=== PATIENT | male | born 1945 | race Caucasian/White ===

== ENCOUNTER 2021-11-27 20:39 | Emergency (ER) | payer OTHER, SELFPAY ==
--- NOTE | ~2021-11-27 | CT_ITS ---
EXAMINATION: CT ANGIOGRAM OF THE CHEST WITH AND WITHOUT CONTRAST (CT PULMONARY ANGIOGRAM FOR PE) CLINICAL INFORMATION: Reason for Exam sob with elevated D dimer with recent covid COMPARISON: Chest x-ray 11/27/2021 TECHNIQUE: Prior to contrast administration, noncontrast localization images were obtained. Subsequently, multidetector volumetric imaging was performed from the thoracic inlet to below the diaphragms following the administration of 65 mL Omnipaque 350 intravenous contrast. No contrast reaction reported Sagittal, coronal, and MIP oblique sagittal reformatted images were obtained on the CT workstation, uploaded to PACS, and reviewed. This CT examination was performed using dose optimization techniques as appropriate, variously including the following: *Automated exposure control *Adjustment of mA and/or kV according to patient size (this includes techniques or standardized protocols for targeted exams where dose is matched to indication/reason for exam; i.e. extremities or head) *Use of iterative reconstruction technique Total exam dose-length product 245 mGy-cm FINDINGS: QUALITY OF STUDY/CONTRAST BOLUS: Satisfactory. PULMONARY ARTERIES: No central or segmental pulmonary emboli. THORACIC AORTA: No aneurysm or dissection. There is atherosclerotic calcification along the aorta. LUNG: There is extensive emphysema with upper lung zone predominance. There are extensive multifocal regions of consolidation bilaterally with mid to lower lung zone predominance. There is limited assessment for superimposed pulmonary nodules in this setting. PLEURA: Trace pleural effusions. No pneumothorax. MEDIASTINUM: Visualized thyroid gland is grossly unremarkable. Borderline enlarged subcarinal lymph node, nonspecific. Cardiac size is within normal limits; no pericardial effusion. Coronary artery calcifications are present. CHEST WALL/AXILLA: No axillary or internal mammary lymphadenopathy. OSSEOUS STRUCTURES: Mild multilevel degenerative changes are present in the spine. UPPER ABDOMEN: Left kidney is not visualized. No reflux of contrast into the hepatic veins to suggest elevated right heart pressures. CT/CT angio chest PE protocol IMPRESSION: 1. No pulmonary embolus identified. 2. Extensive multifocal regions of consolidation in the mid to lower lungs. Considerations include multifocal pneumonia or pulmonary edema in the proper clinical setting. 3. Trace pleural effusions. 4. Left kidney is not visualized; correlation recommended for history of prior nephrectomy. VTE: negative
--- NOTE | ~2021-11-27 | XR_ITS ---
EXAMINATION: PORTABLE CHEST 1 VIEW CLINICAL INFORMATION: sob . COMPARISON: No recent pertinent prior studies are available for comparison. TECHNIQUE: Portable frontal view of the chest was obtained. FINDINGS: Lungs are well expanded. Patchy bilateral airspace disease is seen more so at the right greater than left bases. In the acute setting infectious etiology would be strongly suspected. Asymmetric edema considered less likely. No significant effusion or pneumothorax. Cardiac and mediastinal silhouettes within normal limits for size. Vascular calcification seen in the aorta. No acute bony abnormality. XR/XR chest 1V IMPRESSION: Patchy bilateral airspace disease right more so the left. In the acute setting atypical or viral infectious etiology would be favored.
[2021-11-27 20:45] VITALS: BP 105/59; PULSE 132; RESP 39; O2SAT 86; BMI 18.8
--- NOTE | 2021-11-27 20:52 | ECG_ITS ---
Test Reason : SOB Blood Pressure : / mmHG Vent. Rate : 143 BPM Atrial Rate : 143 BPM P-R Int : 192 ms QRS Dur : 088 ms QT Int : 184 ms P-R-T Axes : 000 026 217 degrees QTc Int : 283 ms Sinus tachycardia with Premature atrial complexes versus multifocal atrial tachycardia ST & T wave abnormality, consider inferior ischemia ST & T wave abnormality, consider anterior ischemia Abnormal ECG No previous ECGs available Referred By: Wilman Carver Electronically Signed By:GERARD HOOVER MD
[2021-11-27] MEDS: 0.9 % Sodium Chloride 1,000 ML 999 ML IV (21:01)
[2021-11-27] MEDS: methylPREDNISolone Sod Succ 125 MG/2 ML VIAL IVPUSH (21:01)
[2021-11-27] MEDS: Albuterol/Iprat 2.5/0.5MG 3 ML AMPUL.NEB INHALE (21:04)
[2021-11-27] MEDS: Albuterol Sulfate (0.083%) 2.5 MG/3 ML VIAL.NEB 5 MG INHALE (21:04)
[2021-11-27 21:05] VITALS: PULSE 143; RESP 20; O2SAT 86
[2021-11-27 21:11] LABS: Hematocrit 26.5 % (42.0-52.0); Hemoglobin 8.3 g/dl (14.0-18.0); Mean Corpuscular HGB Conc 31.3 g/dl (31.0-36.0); Mean Corpuscular Hemoglobin 28.1 pg (27.0-33.0); Mean Corpuscular Volume 89.8 fL (80.0-98.0); Mean Platelet Volume 9.8 fL (9.4-12.4); Red Blood Count 2.95 X10*6/uL (4.60-5.80); Red Cell Distribution Width 15.5 % (11.0-16.0); White Blood Count 5.8 X10*3/uL (4.8-10.8)
[2021-11-27 21:16] LABS: INTERNATIONAL NORM RATIO 1.4 (0.9-1.1); Prothrombin Time 15.6 SEC (9.9-13.0)
[2021-11-27 21:16] LABS: VBG Base Excess -5.1 mmol/L; VBG HCO3 20 mmol/L (22-26); VBG pCO2 38 mmHg; VBG pH 7.32 (7.32-7.43); VBG pO2 37 mmHg
--- NOTE | 2021-11-27 21:16 | ED.SOB ---
HPI - SOB/Dyspnea General Chief Complaint: Dyspnea Stated Complaint: SOB,57% RA, 80% ON CPAP Time Seen by Provider: 11/27/21 20:52 Source: patient and EMS Mode of arrival: EMS Limitations: no limitations History of Present Illness HPI Narrative: patient with History of some COPD, myelodysplastic syndrome, CKD stage 3 status post autologous kidney transplant, tobacco dependency, just discharged from [facility] today admitted there since 11/08 till 11/27 for retroperitoneal hematoma requiring blood transfusion and VRE bacteremia brought by EMS for increased shortness of breath which started just prior to arrival for saturating 57% at room air patient is supposed to be on 2 L of oxygen at home. Patient denies any chest pain was placed on CPAP by EMS and improved to 80s patient denies any chest pain no fever no cough no history of heart failure patient on digoxin for history of paroxysmal AFib Related Data Allergies Allergy/AdvReac Type Severity Reaction Status Date / Time No Known Allergies Allergy Verified 11/27/21 20:52 Review of Systems Review of Systems: Yes all other systems are reviewed and are negative [facility] Past Medical History Medical History (Updated 11/28/21 @ 02:34 by Wilman Carver MD) Cardiomyopathy CKD stage G3b/A2, GFR 30-44 and albumin creatinine ratio 30-299 mg/g COPD (chronic obstructive pulmonary disease) Iliopsoas muscle hematoma Myelodysplastic syndrome On home O2 Pneumonia due to COVID-19 virus Tobacco dependency VRE bacteremia Surgical History (Updated 11/27/21 @ 22:37 by Wilman Carver MD) Status post kidney autotransplantation Social History Social History Advance Directives: No Physical Exam Vital Signs: Vital Signs: Last Vital Signs Pulse 121 H 11/28/21 01:34 Resp 18 11/28/21 01:34 BP 92/39 L 11/28/21 01:34 Pulse Ox 84 L 11/28/21 01:34 BMI result Body Mass Index 18.8 Appearance: Alert. Oriented X3. Moderate to severe respiratory distress unable to speak full sentences Eyes: Pallor+ ENT: Pharynx normal. Oral Mucosa moist Neck: Normal inspection. Neck supple. CVS: Sinus arrhythmia tachycardia Pulses normal. Respiratory: Moderate-severe respiratory distress unable to speak full sentences bilateral decreased air entry with expiratory wheezing b/l crackles++ Abdomen: Soft and nontender. Bowel sounds are present, no mass palpable, no CVA tenderness Skin: Skin warm and dry. Normal skin color. Normal skin turgor. Extremities: No lower extremity edema. No calf tenderness Neuro: Oriented X 3. No motor deficit. Course Reevaluation(s) Reevaluation #1: Case discussed with intensive care AP PA [facility] accepted the patient for transfer to ICU under . Will get CTA chest to rule out PE also patient is on digoxin and had intermittent atrial fibrillation as patient tachycardic although looks sinus but possible intermittent AFib will give him 10 mg Cardizem IV Time: 02:30 MDM - SOB/Dyspnea MDM Narrative Medical decision making narrative: Patient with COPD, COVID-19 pneumonia in 10/14 with recent VRE bacteremia although last blood culture on 11/21 was negative came here for acute hypoxia improved after nebulizing treatment. Patient's lactic acid is elevated to 5.6 secondary to nebulizing treatment with recent history of VRE bacteremia will start on daptomycin chest x-ray showed diffuse infiltrates patient is saturating 92% on Ventimask 50% 1:45 am patient saturating 82% on 50% Ventimask at this time will place him on non-rebreather patient refusing CPAP or ventilator at this time patient is full code there is no ICU bed here will to call [facility] for transfer if they have any bed in ICU as patient been there multiple times previously, case discussed with Cristina in ICU at [facility] accept the patient under Dr. Alvares Lab Data Attestation: I reviewed the patient's lab results. Result diagrams: 11/27/21 20:58 11/27/21 20:58 Labs: Lab Results 11/27/21 11/27/21 11/27/21 Range/Units 20:58 20:58 20:58 WBC 5.8 (4.8-10.8) X10*3/uL RBC 2.95 L (4.60-5.80) X10*6/uL Hgb 8.3 L (14.0-18.0) g/dl Hct 26.5 L (42.0-52.0) % MCV 89.8 (80.0-98.0) fL MCH 28.1 (27.0-33.0) pg MCHC 31.3 (31.0-36.0) g/dl RDW 15.5 (11.0-16.0) % Plt Count TNP MPV 9.8 (9.4-12.4) fL Immature Gran % (Auto) Cancelled Neut % (Auto) Cancelled Lymph % (Auto) Cancelled Bradley % (Auto) Cancelled Eos % (Auto) Cancelled Baso % (Auto) Cancelled Lymph # (Auto) Cancelled Bradley # (Auto) Cancelled Eos # (Auto) Cancelled Baso # (Auto) Cancelled Abs Immat Gran (auto) Cancelled Absolute Neuts (auto) Cancelled Absolute Nucleated RBC 0.000 (0.0-0.012) X10*3/uL Nucleated RBC % (auto) 0.0 (0.0-0.2) /100WBC Neutrophils % (Manual) 26 L (45-73) % Band Neutrophils % 32 H (3-5) % Lymphocytes % (Manual) 5 L (20-40) % Monocytes % (Manual) 5 (2-11) % Metamyelocytes % 25 % Myelocytes % 6 % Promyelocytes % 1 % Abs Neuts (Manual) 3.4 (2.0-8.3) X10*3/uL Lymphocytes # (Manual) 0.3 L (1.2-4.9) X10*3/uL Monocytes # (Manual) 0.3 (0.1-1.2) X10*3/uL Metamyelocytes # 1.5 X10*3/uL Myelocytes # 0.3 X10*/uL Promyelocytes # 0.1 X10*3/uL Platelet Estimate NORMAL (NORMAL) Plt Morphology Comment NORMAL RBC Morphology NOTED Macrocytosis 1+ (5-14) /OIF Stomatocytes 1+ (5-14) /OIF PT (9.9-13.0) SEC INR (0.9-1.1) D-Dimer High Sensitivty NG/ML VBG pH (7.32-7.43) VBG pCO2 mmHg VBG pO2 mmHg VBG HCO3 (22-26) mmol/L VBG O2 Saturation % VBG Base Excess mmol/L Sodium (135-145) mmol/L Potassium (3.3-5.1) mmol/L Chloride (96-108) mmol/L Carbon Dioxide (22-29) mmol/L Anion Gap (12-20) BUN (9-16) mg/dL Creatinine (0.5-1.4) mg/dL Estim Creat Clear Calc Estimated GFR Random Glucose (60-115) mg/dL Lactic Acid (0.5-2.0) mmol/L Lactic Acid F/U @ 2Hr (0.5-2.0) mmol/L Calcium (8.4-10.2) mg/dL Total Bilirubin (0.0-1.0) mg/dL AST (5-37) U/L ALT (0-40) U/L Alkaline Phosphatase (39-117) U/L Troponin I High Sens 46.6 H (<3.5-35.0) ng/L B-Natriuretic Peptide 1019 H (<100) pg/mL Total Protein (6.5-8.0) g/dL Albumin (3.5-5.0) g/dL COVID-19 (ELAN) Negative (Negative) COVID-19 Clin Com See Note 11/27/21 11/27/21 11/27/21 Range/Units 20:58 20:58 20:58 WBC (4.8-10.8) X10*3/uL RBC (4.60-5.80) X10*6/uL Hgb (14.0-18.0) g/dl Hct (42.0-52.0) % MCV (80.0-98.0) fL MCH (27.0-33.0) pg MCHC (31.0-36.0) g/dl RDW (11.0-16.0) % Plt Count MPV (9.4-12.4) fL Immature Gran % (Auto) Neut % (Auto) Lymph % (Auto) Bradley % (Auto) Eos % (Auto) Baso % (Auto) Lymph # (Auto) Bradley # (Auto) Eos # (Auto) Baso # (Auto) Abs Immat Gran (auto) Absolute Neuts (auto) Absolute Nucleated RBC (0.0-0.012) X10*3/uL Nucleated RBC % (auto) (0.0-0.2) /100WBC Neutrophils % (Manual) (45-73) % Band Neutrophils % (3-5) % Lymphocytes % (Manual) (20-40) % Monocytes % (Manual) (2-11) % Metamyelocytes % % Myelocytes % % Promyelocytes % % Abs Neuts (Manual) (2.0-8.3) X10*3/uL Lymphocytes # (Manual) (1.2-4.9) X10*3/uL Monocytes # (Manual) (0.1-1.2) X10*3/uL Metamyelocytes # X10*3/uL Myelocytes # X10*/uL Promyelocytes # X10*3/uL Platelet Estimate (NORMAL) Plt Morphology Comment RBC Morphology Macrocytosis /OIF Stomatocytes /OIF PT 15.6 H (9.9-13.0) SEC INR 1.4 H (0.9-1.1) D-Dimer High Sensitivty 1935 NG/ML VBG pH (7.32-7.43) VBG pCO2 mmHg VBG pO2 mmHg VBG HCO3 (22-26) mmol/L VBG O2 Saturation % VBG Base Excess mmol/L Sodium 133 L (135-145) mmol/L Potassium 4.2 (3.3-5.1) mmol/L Chloride 98 (96-108) mmol/L Carbon Dioxide 22 (22-29) mmol/L Anion Gap 17 (12-20) BUN 26 H (9-16) mg/dL Creatinine 1.28 (0.5-1.4) mg/dL Estim Creat Clear Calc 39.9 Estimated GFR 54 Random Glucose 72 (60-115) mg/dL Lactic Acid 5.6 H* (0.5-2.0) mmol/L Lactic Acid F/U @ 2Hr (0.5-2.0) mmol/L Calcium 9.0 (8.4-10.2) mg/dL Total Bilirubin 0.5 (0.0-1.0) mg/dL AST 41 H (5-37) U/L ALT 21 (0-40) U/L Alkaline Phosphatase 62 (39-117) U/L Troponin I High Sens (<3.5-35.0) ng/L B-Natriuretic Peptide (<100) pg/mL Total Protein 6.7 (6.5-8.0) g/dL Albumin 3.6 (3.5-5.0) g/dL COVID-19 (ELAN) (Negative) COVID-19 Clin Com 11/27/21 11/27/21 11/27/21 Range/Units 20:58 21:10 23:28 WBC (4.8-10.8) X10*3/uL RBC (4.60-5.80) X10*6/uL Hgb (14.0-18.0) g/dl Hct (42.0-52.0) % MCV (80.0-98.0) fL MCH (27.0-33.0) pg MCHC (31.0-36.0) g/dl RDW (11.0-16.0) % Plt Count MPV (9.4-12.4) fL Immature Gran % (Auto) Neut % (Auto) Lymph % (Auto) Bradley % (Auto) Eos % (Auto) Baso % (Auto) Lymph # (Auto) Bradley # (Auto) Eos # (Auto) Baso # (Auto) Abs Immat Gran (auto) Absolute Neuts (auto) Absolute Nucleated RBC (0.0-0.012) X10*3/uL Nucleated RBC % (auto) (0.0-0.2) /100WBC Neutrophils % (Manual) (45-73) % Band Neutrophils % (3-5) % Lymphocytes % (Manual) (20-40) % Monocytes % (Manual) (2-11) % Metamyelocytes % % Myelocytes % % Promyelocytes % % Abs Neuts (Manual) (2.0-8.3) X10*3/uL Lymphocytes # (Manual) (1.2-4.9) X10*3/uL Monocytes # (Manual) (0.1-1.2) X10*3/uL Metamyelocytes # X10*3/uL Myelocytes # X10*/uL Promyelocytes # X10*3/uL Platelet Estimate (NORMAL) Plt Morphology Comment RBC Morphology Macrocytosis /OIF Stomatocytes /OIF PT (9.9-13.0) SEC INR (0.9-1.1) D-Dimer High Sensitivty NG/ML VBG pH 7.32 (7.32-7.43) VBG pCO2 38 mmHg VBG pO2 37 mmHg VBG HCO3 20 L (22-26) mmol/L VBG O2 Saturation 55.0 % VBG Base Excess -5.1 mmol/L Sodium (135-145) mmol/L Potassium (3.3-5.1) mmol/L Chloride (96-108) mmol/L Carbon Dioxide (22-29) mmol/L Anion Gap (12-20) BUN (9-16) mg/dL Creatinine (0.5-1.4) mg/dL Estim Creat Clear Calc Estimated GFR Random Glucose (60-115) mg/dL Lactic Acid (0.5-2.0) mmol/L Lactic Acid F/U @ 2Hr 3.3 H* (0.5-2.0) mmol/L Calcium (8.4-10.2) mg/dL Total Bilirubin (0.0-1.0) mg/dL AST (5-37) U/L ALT (0-40) U/L Alkaline Phosphatase (39-117) U/L Troponin I High Sens (<3.5-35.0) ng/L B-Natriuretic Peptide Cancelled (<100) pg/mL Total Protein (6.5-8.0) g/dL Albumin (3.5-5.0) g/dL COVID-19 (ELAN) (Negative) COVID-19 Clin Com ABG Data Attestation: I personally reviewed and interpreted this ABG as follows: Interpretation: Venous gases: Respiratory hypoxia Critical Care Time Critical Care Time Critical Care Time: Yes Total Critical Care Time: 65 Attestation: I spent 65 minutes of critical care, with interventions, assessments, speaking to patient, consultants, and family. Discharge Plan Discharge Clinical Impression: Acute respiratory failure with hypoxia, Acute exacerbation of chronic obstructive airways disease, Paroxysmal A-fib Patient Disposition: [facility] Transfer Details: [facility] under Dr Greene-Huang ICU
[2021-11-27 21:18] LABS: Venous Blood Gas Refer to POC result
[2021-11-27 21:18] LABS: D Dimer High Sensitivity 1935 NG/ML
[2021-11-27 21:20] VITALS: RESP 28
[2021-11-27] MEDS: Morphine Sulfate 4 MG/ML CARTRIDGE IVPUSH (21:20)
[2021-11-27] MEDS: ondansetron HCL 4 MG/2 ML VIAL IVPUSH (21:21)
[2021-11-27 21:23] LABS: COVID-19 Test Negative (Negative); IDNOW Serial# 16C4AD1C
[2021-11-27 21:28] LABS: Lactic Acid 5.6 mmol/L (0.5-2.0)
--- NOTE | 2021-11-27 21:28 | PC.NURSE ---
pt to room via ems with c/o sob after being d/c from [facility] today around 1300. Pt chg into gownMd and respiratory at bedside. Pt on monitor with HR 145 MD aware of hr. pt alert, respirations labored at a rate of 32. lab drawn, IV est. by EMS bellman captain. Pt medicated for breathing and pain as per emar. EKG obtained to MD for eval.
[2021-11-27 21:31] LABS: Alanine Aminotransferase 21 U/L (0-40); Albumin Level 3.6 g/dL (3.5-5.0); Alkaline Phosphatase 62 U/L (39-117); Anion Gap 17 (12-20); Aspartate Amino Transferase 41 U/L (5-37); Bilirubin Total 0.5 mg/dL (0.0-1.0); Blood Urea Nitrogen 26 mg/dL (9-16); Carbon Dioxide 22 mmol/L (22-29); Chloride 98 mmol/L (96-108); Creatinine Clr Calc Pharmacy 39.9; Estimated Glomerular Filt Rate 54; Glucose Random 72 mg/dL (60-115); Potassium 4.2 mmol/L (3.3-5.1); Sodium 133 mmol/L (135-145); Total Protein 6.7 g/dL (6.5-8.0)
[2021-11-27 21:37] LABS: B Type Natriuretic Peptide 1019 pg/mL (<100); Troponin-I High Sensitivity 46.6 ng/L (<3.5-35.0)
--- NOTE | 2021-11-27 21:46 | PC.NURSE ---
Daughter, Asia Jordan [phone] to be called with updates and plan of care.
[2021-11-27 21:49] LABS: Band Neutrophils Percent 32 % (3-5); Lymphocytes Absolute Manual 0.3 X10*3/uL (1.2-4.9); Lymphocytes Percent Manual 5 % (20-40); Metamyelocytes Absolute 1.5 X10*3/uL; Metamyelocytes Percent 25 %; Monocytes Absolute Manual 0.3 X10*3/uL (0.1-1.2); Monocytes Percent Manual 5 % (2-11); Myelocytes Absolute 0.3 X10*/uL; Myelocytes Percent 6 %; Neutrophils Absolute Manual 3.4 X10*3/uL (2.0-8.3); Neutrophils Percent Manual 26 % (45-73); Platelet Estimate NORMAL (NORMAL); Platelet Morphology Comment NORMAL; Promyelocytes Absolute 0.1 X10*3/uL; Promyelocytes Percent 1 %
[2021-11-27 21:50] LABS: RBC Morphology NOTED; Stomatocytes 1+ (5-14) /OIF
[2021-11-27 21:51] LABS: Macrocytosis 1+ (5-14) /OIF
[2021-11-27 23:08] LABS: Reflex Lactate? Lactic Acid Added
[2021-11-27] MEDS: cefTRIAXone sodium 1 GM in 0.9 % Sodium Chloride 50 ML IV (23:34)
[2021-11-27] MEDS: vancomycin HCL 1,000 MG in 0.9 % Sodium Chloride 250 ML 270 MG IV (23:44)
[2021-11-27 23:51] LABS: ~Lactic Acid-LAB USE ONLY 3.3 mmol/L (0.5-2.0)
[2021-11-27 23:58] VITALS: BP 93/46; PULSE 113; RESP 26; O2SAT 88
[2021-11-28 00:59] VITALS: RESP 18
[2021-11-28] MEDS: Morphine Sulfate 4 MG/ML CARTRIDGE IVPUSH (00:59)
--- NOTE | 2021-11-28 01:06 | PC.NURSE ---
PT IS CONSTANTLY C/O PAIN. MD AWARE AND PT MEDICATED PER EMAR. PT AWAITING FOR POSSIBLE ADMISSION ORDERS.
[2021-11-28 01:33] LABS: Reflex Lactate? 2 Y
[2021-11-28 01:34] VITALS: BP 92/39; PULSE 121; RESP 18; O2SAT 84
--- NOTE | 2021-11-28 01:42 | ECG_ITS ---
Test Reason : SOB Blood Pressure : / mmHG Vent. Rate : 123 BPM Atrial Rate : 123 BPM P-R Int : 216 ms QRS Dur : 086 ms QT Int : 300 ms P-R-T Axes : 061 023 -06 degrees QTc Int : 429 ms Sinus tachycardia with pacs Nonspecific ST and T wave abnormality Abnormal ECG When compared with ECG of 27-NOV-2021 21:05, T wave inversion no longer evident in Anterior leads Referred By: Wilman Carver Electronically Signed By:GERARD HOOVER MD
[2021-11-28 02:37] VITALS: RESP 20
[2021-11-28] MEDS: HYDROmorphone HCl 1 MG/ML SYRINGE IVPUSH (02:37)
[2021-11-28] MEDS: dilTIAZem HCL 50 MG/10 ML VIAL IVPUSH ×2 (02:44→03:19)
[2021-11-28 03:02] LABS: ~Lactic Acid-LAB USE ONLY 2.3 mmol/L (0.5-2.0)
--- NOTE | 2021-11-28 03:12 | PC.NURSE ---
pt to ct in stretcher. pt medicated as per emar for pain. pt on monitor with hr 96. pt awaiting for transfer to [facility] for higher level of care.
[2021-11-28] MEDS: 0.9 % Sodium Chloride 1,000 ML 500 ML IVCONT (03:20)
[2021-11-28] MEDS: iohexoL 350 MG/ML 100 ML INFUS..BTL 65 ML IV (03:20)
--- NOTE | 2021-11-28 03:21 | PC.NURSE ---
pt returns from ct in stretcher.
--- NOTE | 2021-11-28 04:30 | PC.NURSE ---
report given to YENNY Wooten. EMS here for tramsport to [facility]. pt left ed in nad.
== END 2021-11-28 05:35 | disposition short-term general hospital (02) ==
PROVIDERS: Emergency Provider Internal Medicine
DX: J96.01 Acute respiratory failure with hypoxia (principal); J44.1 Chronic obstructive pulmonary disease with (acute) exacerbation; I48.0 Paroxysmal atrial fibrillation; R06.02 Shortness of breath; N18.30 Chronic kidney disease, stage 3 unspecified; F17.200 Nicotine dependence, unspecified, uncomplicated; Z94.0 Kidney transplant status; Z99.81 Dependence on supplemental oxygen; Z20.822 Contact with and (suspected) exposure to COVID-19
CPT/HCPCS: 36415; 71045; 71275; 80053; 82803; 83605; 83880; 84484; 85007; 85027; 85379; 85610; 87040; 87635; 93005; 94640; 94644; 96361; 96365; 96367; 96375; 96376; 99285; 99291; J0696; J1170; J2270; J2405; J2930; J3370; Q9967

== ENCOUNTER 2022-01-13 15:34 | Inpatient (IN) | payer OTHER, SELFPAY ==
[2022-01-13] VITALS (9 sets, daily range): BP systolic 112–139; BP diastolic 56–90; PULSE 106–150; RESP 19–30; TEMP 36.7–37; O2SAT 92–98; BMI 20.7
--- NOTE | ~2022-01-13 | XR_ITS ---
EXAMINATION: XR CHEST CLINICAL INFORMATION: Dyspnea COMPARISON: Previous chest x-ray 11/27/2021 and chest CTA 11/28/2021 TECHNIQUE: Frontal view of the chest was obtained. FINDINGS: The cardiac and mediastinal contours are stable. There is persistent bilateral multilobar airspace disease probably representing pneumonia, greatest at the lung bases. This is similar to previous November 2021 exams. There is no pleural effusion or pneumothorax. Bony structures are unremarkable. XR/XR chest 1V IMPRESSION: Bilateral airspace disease similar to November 2021 exams probably representing pneumonia.
--- NOTE | ~2022-01-13 | CT_ITS ---
EXAMINATION: CT ABDOMEN AND PELVIS WITHOUT CONTRAST CLINICAL INFORMATION: GI bleed COMPARISON: CT angiogram chest 11/28/2021 TECHNIQUE: Multidetector volumetric imaging was performed from the superior aspect of the liver through the pubic symphysis. Sagittal and coronal reformatted images were obtained on the technologist's workstation. This CT examination was performed using dose optimization techniques as appropriate, variously including the following: *Automated exposure control *Adjustment of mA and/or kV according to patient size (this includes techniques or standardized protocols for targeted exams where dose is matched to indication/reason for exam; i.e. extremities or head) *Use of iterative reconstruction technique DLP: 477 mGy-cm FINDINGS: LUNG BASES: The lung bases are grossly abnormal with bilateral pleural effusions that have increased significantly since the 11/28/2021 CT chest. Again seen is background emphysematous changes and areas of airspace disease which demonstrates some mild improvement when compared to November 28 study. LIVER, GALLBLADDER, AND BILIARY TREE: The liver is enlarged measuring 18.8 cm in greatest length. Attenuation is not decreased. No focal hepatic lesion or biliary ductal dilatation is present. The gallbladder contains a large laminated 3.5 cm gallstone. The gallbladder is otherwise unremarkable with no evidence of gallbladder wall thickening, or obvious pericholecystic inflammatory changes. PANCREAS: Unremarkable. SPLEEN: Mild splenomegaly with the spleen measuring 13.2 cm in greatest length. ADRENAL GLANDS: Unremarkable. KIDNEYS AND URETERS: The poarch kidney is present on the right. Some small nonobstructing renal calculi are present. The kidney does not appear to be present in the left renal fossa. There is a kidney present in the right iliac fossa which I suspect is a transplant kidney. BLADDER: Unremarkable. GASTROINTESTINAL TRACT: Fluid is present in the rectosigmoid The small and large bowel are otherwise unremarkable. The appendix is not identified with certainty but there is no evidence of appendicitis.. ABDOMINAL WALL: No significant hernia is appreciated. Air in the left lower quadrant abdominal wall probably secondary to percutaneous injections. LYMPH NODES: No retroperitoneal lymphadenopathy. VASCULAR: Marked calcific atherosclerotic change present in the aorta and iliofemoral vessels. PELVIC VISCERA: Unremarkable. And abnormal pelvic masses not seen. OSSEOUS STRUCTURES: Scoliosis convex to the right. CT/CT abdomen pelvis wo con IMPRESSION: 1. A cause for the patient's GI bleed has not been found. 2. 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 Fleischner guidelines were followed.
--- NOTE | 2022-01-13 15:45 | ECG_ITS ---
Test Reason : DIFFICULTY BREATHING Blood Pressure : / mmHG Vent. Rate : 108 BPM Atrial Rate : 000 BPM P-R Int : 000 ms QRS Dur : 078 ms QT Int : 314 ms P-R-T Axes : 000 022 189 degrees QTc Int : 420 ms Normal sinus rhythm with frequent Premature atrial complexes , multifocal Nonspecific ST and T wave abnormality Abnormal ECG When compared with ECG of 28-NOV-2021 01:40, Atrial fibrillation has replaced Sinus rhythm Nonspecific T wave abnormality no longer evident in Anterior leads Referred By: Generic ED Physician Electronically Signed By:GERARD HOOVER MD
[2022-01-13 16:10] LABS: Basophils Percent Auto 0.6 % (0-2); Hemoglobin 7.9 g/dl (14.0-18.0); Neutrophils Absolute Auto 0.6 x10*3/uL (2.0-8.3); PLT CLUMP 1; SCAN SMEAR FLAG 1
[2022-01-13 16:12] LABS: Anion Gap 11 (12-20); Blood Urea Nitrogen 22 mg/dL (9-16); Calcium 7.9 mg/dL (8.4-10.2); Carbon Dioxide 25 mmol/L (22-29); Chloride 108 mmol/L (96-108); Creatinine Clr Calc Pharmacy 85.3; Estimated Glomerular Filt Rate > 60; Glucose Random 118 mg/dL (60-115); Hematocrit 25.3 % (42.0-52.0); Imm Gran Abs Auto 0.02 X10*3/uL (0.00-0.03); Imm Gran Pct Auto 1.1 % (0.0-0.4); Lymphocytes Absolute Auto 0.8 X10*3/uL (1.2-4.9); MANUAL DIFF FLAG SCAN; Mean Corpuscular HGB Conc 31.2 g/dl (31.0-36.0); Mean Corpuscular Hemoglobin 27.1 pg (27.0-33.0); Mean Corpuscular Volume 86.9 fL (80.0-98.0); Mean Platelet Volume 9.9 fL (9.4-12.4); Monocytes Absolute Auto 0.3 X10*3/uL (0.1-1.2); Monocytes Percent Auto 17.7 % (2-11); Neutrophils Percent Auto 36.6 % (45-73); Potassium 3.7 mmol/L (3.3-5.1); Red Blood Count 2.91 X10*6/uL (4.60-5.80); Sodium 140 mmol/L (135-145)
--- NOTE | 2022-01-13 16:12 | ED_ITS ---
HPI - SOB/Dyspnea General Chief Complaint: Dyspnea Stated Complaint: SOB,90% 3LPM HOME O2 PER EMS Time Seen by Provider: 01/13/22 15:54 Source: patient Mode of arrival: EMS Limitations: no limitations History of Present Illness HPI Narrative: 76-year-old male who presents emergency department for evaluation of shortness of breath. States that shortness of breath started last night and got worse this morning. He states that he also has been having chest pain. He points to his anterior chest, he states the pain is constant and worse with breathing and coughing, states the pain is 8/10. The patient does have a history of COPD and had a wound hospitalization at [facility] for COVID-19 infection. He denied fever, he states that he has been having cold sweats, he denied rhinorrhea, sore throat, cough. He states he does have significant dyspnea on exertion at baseline and does wear oxygen at home. The patient's daughter, Asia was able to give me more information. She states that the patient was discharged from [facility] 2 weeks prior. The patient is getting cephalexin 2 g IV 3 times a day through a left arm PICC line and will complete this course of antibiotics on 01/16/2022. The patient does get frequent transfusions for his myelodysplastic syndrome and the daughter states that his hemoglobin usually ranges between 7 and 8 and that they only transfuse and when his hemoglobin gets 5.0. In reviewing our records here the patient was seen on 11/27/2021. 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 for retroperitoneal hematoma requiring blood transfusion and VRE bacteremia brought by EMS for increased shortness of breath which started just prior to arrival for saturating 57% at room air patient is supposed to be on 2 L of oxygen at home.? Patient denies any chest pain was placed on? CPAP by EMS and improved to 80s sam barry denies any chest pain no fever no cough no history of heart failure patient on digoxin for history of paroxysmal AFib The patient was diagnosed with acute respiratory failure with hypoxia secondary to COPD and paroxysmal atrial fibrillation. MD elicited complaint: shortness of breath, cough and chest pain Pertinent past history: COPD and congestive heart failure ( Cardiomyopathy) Onset (ago): day(s) ( 2 days, symptoms started last) Timing: constant Severity: severe Exacerbating factors: lying flat and movement Relieving factors: nothing Known history of: COPD and congestive heart failure Associated symptoms: chest pain and orthopnea Related Data Home oxygen amount: 3 liters Home Medications Medication Instructions Recorded Confirmed cefazolin 2 gram/100 mL in 100 ml IV Q8H 01/13/22 01/13/22 dextrose 5 % intravenous solution digoxin 125 mcg (0.125 mg) tablet 0.25 mcg PO DAILY 01/13/22 01/13/22 ferrous sulfate 324 mg (65 mg 324 mg PO DAILY 01/13/22 01/13/22 iron) tablet,delayed release finasteride 5 mg tablet 1 tab PO DAILY 01/13/22 01/13/22 gabapentin 100 mg capsule 2 cap PO TID 01/13/22 01/13/22 metoprolol tartrate 100 mg tablet 1 tab PO BID 01/13/22 01/13/22 omeprazole 20 mg capsule,delayed 1 cap PO BID 01/13/22 01/13/22 release oxycodone 5 mg tablet 1 tab PO Q4H PRN 01/13/22 01/13/22 simvastatin 80 mg tablet 1 tab PO DAILY 01/13/22 01/13/22 tamsulosin 0.4 mg capsule 1 cap PO DAILY 01/13/22 01/13/22 Allergies Allergy/AdvReac Type Severity Reaction Status Date / Time No Known Allergies Allergy Verified 11/27/21 20:52 Review of Systems Review of Systems: Yes all other systems are reviewed and are negative [facility] Past Medical History [facility] Narrative: social history: Patient smokes 1/2 pack of cigarettes per day times 50 years. He denies alcohol use. He denies drug use. He states he lives in [place] with his . Medical History (Updated 01/13/22 @ 19:37 by Justin Dumont MD) Cardiomyopathy CKD stage G3b/A2, GFR 30-44 and albumin creatinine ratio 30-299 mg/g COPD (chronic obstructive pulmonary disease) Iliopsoas muscle hematoma Myelodysplastic syndrome On home O2 Pneumonia due to COVID-19 virus Tobacco dependency VRE bacteremia Surgical History Status post kidney autotransplantation Social History Social History Advance Directives: No Advance Directives Information Provided: No Physical Exam Vital Signs: Vital Signs: Last Vital Signs Temp 98.6 F 01/13/22 18:00 Pulse 150 H 01/13/22 18:50 Resp 29 H 01/13/22 18:50 BP 131/90 H 01/13/22 18:50 Pulse Ox 98 01/13/22 18:50 BMI result Body Mass Index 20.7 Const: Other: Awake, alert, man, able to answer questions in full sentences, he does appear to be tachypneic, he is hypoxic with O2 saturations 88% 3 L Orientation/consciousness: oriented to person and oriented to place HEENT: Head: Yes normal to inspection, Yes normocephalic and Yes atraumatic Ears: external ears normal Eyes: General: appearance normal, both eyes and all related structures Periorbital: periorbital findings normal Eyelids: Yes eyelids normal Conjunctivae: conjunctivae normal Sclerae: sclerae normal Corneas: corneas normal Pupils: Equal, round and reactive pupils present Direct Ophthalmoscopy: normal light reflex Neck: Neck: Yes normal visual inspection and Yes supple Lymphatic: no lymphadenopathy noted Chest: Chest palpation & inspection: normal inspection of the chest and normal palpation of entire chest wall Resp: Effort & Inspection: audible wheezes, respiratory distress and tachypne ic Auscultation: crackles, rhonchi and wheezes Cardio: Rate: tachycardic Rhythm: regular rhythm and abnormal rhythm irregularly irregular Heart sounds: S1 normal heart sound present, S2 normal heart sound present and Murmur heart sound present GI: Inspection: No distended Palpation (GI): Soft to palpation, nontender, no guarding and No hepatosplenomegaly present Auscultation: normal bowel sounds : General: Yes no CVA tenderness Back/Spine/Pelvis: Back: no CVA tenderness Skin: General skin exam: no rashes or lesions noted Lesions: no lesions Rashes: no rashes Wounds: no wounds Neuro: General: oriented to person and oriented to place Cranial nerves: Yes CN's II-XII intact bilaterally and Yes Equal, round and reactive pupils present Cognition (Neuro): normal cognition Motor exam (neuro): 5/5 motor strength present throughout Extrem: Other: trace pitting edema bilaterally symmetric General: Yes normal to inspection and Yes full ROM Psych: Appearance: grossly normal Mental Status: mental status grossly normal Speech and movement: Clear speech present Affect: normal affect Thought process: Normal thought process present Course Course Course Narrative: 68-year-old male who presents emergency department for evaluation of shortness of breath which began last night and got worse today, he is also complaining of anterior chest pain the subjective fever and chills. The patient was hypoxic, he does wear 3 L of oxygen via nasal cannula for his COPD and his O2 saturation was 88% on 3 L. on 5 L the patient's O2 saturation is 92%. His lung exam revealed wheezing rales and rhonchi, does have trace pitting edema, heart exam revealed a rapid irregular. On a conveyor monitor the patient is in a rapid AFib with a ventricular rate ranging from 120-140. Laboratory evaluation was ordered. One-view chest x-ray will be obtained. Patient's rapid AFib be treated with diltiazem 10 mg IV. differential includes but not limited to pneumonia, CHF, COPD exacerbation. Patient was ordered to get an albuterol n ebulizer and Solu-Medrol 125 mg IV. 1719: Laboratory evaluation: Low WBC 1800 with ANC of 0.6. Anemia with an H&H of 7.9 and 25.3 - this is chronic secondary to his myelodysplastic syndrome. Low platelet 55,000. elevated BUN 22. Elevated glucose 118. High sensitivity troponin is detectable but not elevated at 22. BNP elevated 3508. Radiology evaluation: Chest x-ray 1 view: Radiology reading: Bilateral airspace disease similar to November 2021 exams probably representing pneumonia. EKG: Atrial fibrillation with a variable ventricular rate from 108-100, no ST segment elevation, no ST segment depression 1725: At this time a concerned the patient may have pneumonia versus CHF . Patient was ordered to get Zosyn 4.5 g IV . I also ordered Lasix 40 mg IV. I will discuss admission with the covering hospitalist. 193: Patient currently is on 6 L of oxygen via nasal cannula and his O2 saturation is 90%. The patient was unable to urinate and had urinary retention the bladder scan therefore Soliman was placed. Patient is complaining of pain after for placement is given oxycodone 10 mg IV. I did discuss the patient's presentation with the covering hospitalist the patient be admitted for further management. MDM - SOB/Dyspnea Lab Data Result diagrams: 01/13/22 15:55 01/13/22 15:55 Labs: Lab Results 01/13/22 01/13/22 01/13/22 Range/Units 15:55 15:55 15:55 WBC 1.8 L (4.8-10.8) X10*3/uL RBC 2.91 L (4.60-5.80) X10*6/uL Hgb 7.9 L (14.0-18.0) g/dl Hct 25.3 L (42.0-52.0) % MCV 86.9 (80.0-98.0) fL MCH 27.1 (27.0-33.0) pg MCHC 31.2 (31.0-36.0) g/dl RDW 18.0 H (11.0-16.0) % Plt Count 55 L (160-400) X10*3/uL MPV 9.9 (9.4-12.4) fL Immature Gran % (Auto) 1.1 H (0.0-0.4) % Neut % (Auto) 36.6 L (45-73) % Lymph % (Auto) 44.0 H (20-40) % Converse % (Auto) 17.7 H (2-11) % Eos % (Auto) 0.0 (0-4) % Baso % (Auto) 0.6 (0-2) % Lymph # (Auto) 0.8 L (1.2-4.9) X10*3/uL Converse # (Auto) 0.3 (0.1-1.2) X10*3/uL Eos # (Auto) 0.0 (0.0-0.4) X10*3/uL Baso # (Auto) 0.0 (0.0-0.2) X10*3/uL Abs Immat Gran (auto) 0.02 (0.00-0.03) X10*3/uL Absolute Neuts (auto) 0.6 L (2.0-8.3) x10*3/uL Absolute Nucleated RBC 0.040 H (0.0-0.012) X10*3/uL Nucleated RBC % (auto) 2.3 H (0.0-0.2) /100WBC Smear Tech's Comments VERIFIED PT (9.9-13.0) SEC INR (0.9-1.1) APTT (24.1-38.0) SEC Sodium 140 (135-145) mmol/L Potassium 3.7 (3.3-5.1) mmol/L Chloride 108 (96-108) mmol/L Carbon Dioxide 25 (22-29) mmol/L Anion Gap 11 L (12-20) BUN 22 H (9-16) mg/dL Creatinine 0.66 (0.5-1.4) mg/dL Estim Creat Clear Calc 85.3 Estimated GFR > 60 Random Glucose 118 H D (60-115) mg/dL Lactic Acid (0.5-2.0) mmol/L Calcium 7.9 L D (8.4-10.2) mg/dL Total Bilirubin 0.7 (0.0-1.0) mg/dL Direct Bilirubin 0.3 (0.0-0.5) mg/dL AST 16 D (5-37) U/L ALT 7 (0-40) U/L Alkaline Phosphatase 59 (39-117) U/L Troponin I High Sens 22.0 D (<3.5-35.0) ng/L B-Natriuretic Peptide 3508 H (<100) pg/mL Total Protein 5.9 L (6.5-8.0) g/dL Albumin 3.0 L (3.5-5.0) g/dL Lipase (8-78) U/L COVID-19 ([facility]) (Negative) COVID-19 Clin Com Influenza Type A ([place]) (Negative) Influenza Type B ([place]) (Negative) Influenza A & B Note 01/13/22 01/13/22 01/13/22 Range/Units 16:58 16:58 16:59 WBC (4.8-10.8) X10*3/uL RBC (4.60-5.80) X10*6/uL Hgb (14.0-18.0) g/dl Hct (42.0-52.0) % MCV (80.0-98.0) fL MCH (27.0-33.0) pg MCHC (31.0-36.0) g/dl RDW (11.0-16.0) % Plt Count (160-400) X10*3/uL MPV (9.4-12.4) fL Immature Gran % (Auto) (0.0-0.4) % Neut % (Auto) (45-73) % Lymph % (Auto) (20-40) % Converse % (Auto) (2-11) % Eos % (Auto) (0-4) % Baso % (Auto) (0-2) % Lymph # (Auto) (1.2-4.9) X10*3/uL Converse # (Auto) (0.1-1.2) X10*3/uL Eos # (Auto) (0.0-0.4) X10*3/uL Baso # (Auto) (0.0-0.2) X10*3/uL Abs Immat Gran (auto) (0.00-0.03) X10*3/uL Absolute Neuts (auto) (2.0-8.3) x10*3/uL Absolute Nucleated RBC (0.0-0.012) X10*3/uL Nucleated RBC % (auto) (0.0-0.2) /100WBC Smear Tech's Comments PT 13.8 H (9.9-13.0) SEC INR 1.2 H (0.9-1.1) APTT 30.3 (24.1-38.0) SEC Sodium (135-145) mmol/L Potassium (3.3-5.1) mmol/L Chloride (96-108) mmol/L Carbon Dioxide (22-29) mmol/L Anion Gap (12-20) BUN (9-16) mg/dL Creatinine (0.5-1.4) mg/dL Estim Creat Clear Calc Estimated GFR Random Glucose (60-115) mg/dL Lactic Acid (0.5-2.0) mmol/L Calcium (8.4-10.2) mg/dL Total Bilirubin (0.0-1.0) mg/dL Direct Bilirubin (0.0-0.5) mg/dL AST (5-37) U/L ALT (0-40) U/L Alkaline Phosphatase (39-117) U/L Troponin I High Sens (<3.5-35.0) ng/L B-Natriuretic Peptide (<100) pg/mL Total Protein (6.5-8.0) g/dL Albumin (3.5-5.0) g/dL Lipase (8-78) U/L COVID-19 ([facility]) Negative (Negative) COVID-19 Clin Com See Note Influenza Type A ([place]) Negative (Negative) Influenza Type B ([place]) Negative (Negative) Influenza A & B Note See Note 01/13/22 01/13/22 Range/Units 16:59 17:00 WBC (4.8-10.8) X10*3/uL RBC (4.60-5.80) X10*6/uL Hgb (14.0-18.0) g/dl Hct (42.0-52.0) % MCV (80.0-98.0) fL MCH (27.0-33.0) pg MCHC (31.0-36.0) g/dl RDW (11.0-16.0) % Plt Count (160-400) X10*3/uL MPV (9.4-12.4) fL Immature Gran % (Auto) (0.0-0.4) % Neut % (Auto) (45-73) % Lymph % (Auto) (20-40) % Converse % (Auto) (2-11) % Eos % (Auto) (0-4) % Baso % (Auto) (0-2) % Lymph # (Auto) (1.2-4.9) X10*3/uL Converse # (Auto) (0.1-1.2) X10*3/uL Eos # (Auto) (0.0-0.4) X10*3/uL Baso # (Auto) (0.0-0.2) X10*3/uL Abs Immat Gran (auto) (0.00-0.03) X10*3/uL Absolute Neuts (auto) (2.0-8.3) x10*3/uL Absolute Nucleated RBC (0.0-0.012) X10*3/uL Nucleated RBC % (auto) (0.0-0.2) /100WBC Smear Tech's Comments PT (9.9-13.0) SEC INR (0.9-1.1) APTT (24.1-38.0) SEC Sodium (135-145) mmol/L Potassium (3.3-5.1) mmol/L Chloride (96-108) mmol/L Carbon Dioxide (22-29) mmol/L Anion Gap (12-20) BUN (9-16) mg/dL Creatinine (0.5-1.4) mg/dL Estim Creat Clear Calc Estimated GFR Random Glucose (60-115) mg/dL Lactic Acid 2.0 (0.5-2.0) mmol/L Calcium (8.4-10.2) mg/dL Total Bilirubin (0.0-1.0) mg/dL Direct Bilirubin (0.0-0.5) mg/dL AST (5-37) U/L ALT (0-40) U/L Alkaline Phosphatase (39-117) U/L Troponin I High Sens (<3.5-35.0) ng/L B-Natriuretic Peptide (<100) pg/mL Total Protein (6.5-8.0) g/dL Albumin (3.5-5.0) g/dL Lipase 32 (8-78) U/L COVID-19 ([facility]) (Negative) COVID-19 Clin Com Influenza Type A ([place]) (Negative) Influenza Type B ([place]) (Negative) Influenza A & B Note Discharge Plan Discharge Patient Disposition: Admitted As Inpatient Prescriptions: No Action metoprolol tartrate 100 mg tablet 1 tab PO BID 0RF tamsulosin 0.4 mg capsule 1 cap PO DAILY 0RF digoxin 125 mcg (0.125 mg) tablet 0.25 mcg PO DAILY 0RF gabapentin 100 mg capsule 2 cap PO TID 0RF oxycodone 5 mg tablet 1 tab PO Q4H PRN (Reason: Pain) 0RF omeprazole 20 mg capsule,delayed release(DR/EC) 1 cap PO BID 0RF simvastatin 80 mg tablet 1 tab PO DAILY 0RF finasteride 5 mg tablet 1 tab PO DAILY 0RF cefazolin in dextrose 5 % 2 gram/100 mL Solution 100 ml IV Q8H 0RF ferrous sulfate 324 mg (65 mg iron) Tablet,Delayed Release (Dr/Ec) 324 mg PO DAILY 0RF
[2022-01-13] MEDS: dilTIAZem HCL 50 MG/10 ML VIAL 10 MG IVPUSH ×2 (16:17→18:47)
[2022-01-13 16:20] LABS: B Type Natriuretic Peptide 3508 pg/mL (<100)
[2022-01-13 16:22] LABS: NRBC Pct Auto 2.3 /100WBC (0.0-0.2)
[2022-01-13 16:23] LABS: White Blood Count 1.8 X10*3/uL (4.8-10.8)
[2022-01-13 16:32] LABS: Alanine Aminotransferase 7 U/L (0-40); Alkaline Phosphatase 59 U/L (39-117); Aspartate Amino Transferase 16 U/L (5-37); Bilirubin Direct 0.3 mg/dL (0.0-0.5); Bilirubin Total 0.7 mg/dL (0.0-1.0); Total Protein 5.9 g/dL (6.5-8.0)
[2022-01-13] MEDS: Albuterol Sulfate (0.083%) 2.5 MG/3 ML VIAL.NEB 5 MG INHALE (16:44)
[2022-01-13] MEDS: methylPREDNISolone Sod Succ 125 MG/2 ML VIAL IVPUSH (16:50)
[2022-01-13 16:51] LABS: Platelet Count 55 X10*3/uL (160-400); SLIDE REVIEW VERIFIED
[2022-01-13 17:20] LABS: INTERNATIONAL NORM RATIO 1.2 (0.9-1.1); Prothrombin Time 13.8 SEC (9.9-13.0)
[2022-01-13 17:22] LABS: Partial Thromboplastin Time 30.3 SEC (24.1-38.0)
[2022-01-13 17:27] LABS: COVID-19 Test Negative (Negative); IDNOW Serial# 16C4AD1C; Influenza A Negative (Negative); Influenza B2 Negative (Negative)
[2022-01-13 17:31] LABS: Lipase 32 U/L (8-78)
--- NOTE | 2022-01-13 17:59 | PHA.MEDREC ---
Pharmacy Consult ? Medication Reconciliation Pharmacy has completed the medication reconciliation. Spoke to daughter and went over medications
[2022-01-13] MEDS: Furosemide 40 MG/4 ML VIAL IVPUSH (18:25)
[2022-01-13] MEDS: Acetaminophen 325 MG TABLET 650 MG PO (19:19)
[2022-01-13] MEDS: Piperacillin Sodium/Tazobactam 4.5 GM in 0.9 % Sodium Chloride 100 ML IV (19:20)
[2022-01-13] MEDS: oxyCODONE HCl Immed Release 5 MG TABLET 10 MG PO (19:53)
--- NOTE | 2022-01-13 21:52 | PM.IMHP ---
History of Present Illness Date of Service: 01/13/22 Chief Complaint: SOB This is a 76-year-old male with past medical history of cardiomegaly, CKD, COPD, MDS, pneumonia due to COVID-19 virus complicated by hypoxia need for chronic oxygen on 2 L at baseline, status post kidney transplantation in 1999, and history of area bacteremia who was currently on p.o. antibiotics with completion this week presents to the hospital with complaints of shortness of breath. Patient reports that his symptoms started about a day before presentation, he has cough, sputum production, he feels chills, no fever. Patient reports orthopnea as well as PND. Also noted lower extremity edema that is been going on for 2-3 days, reports no chest pain, no palpitations no dizziness, no abdominal pain nausea or vomiting, no diarrhea constipation, no urinary symptoms. Of note patient was hospitals lysed at [facility] from 11/29/2019 to December 23 for management of methicillin sensitive bacteremia felt to be secondary to pneumonia and he was discharged on long-term antibiotic cefazolin IV with course completion in 2 days. On arrival to the ED patient vitals are significant for heart rate in 150s found to be in AFib with RVR, respiratory rate of 29, satting 88% on his all home O2 of 2 L. Labs are significant for leukopenia of 1.8, hemoglobin of 7.9, hematocrit 25.3, BNP of 3508, UA positive for blood with no evidence of infection, COVID-19 negative, influenza negative Checks x-ray shows bilateral airspace disease similar to November 2021 Patient will be admitted for further management Review of Systems Review of Systems: Yes all other systems are reviewed and are negative [facility] Medical History Cardiomyopathy CKD stage G3b/A2, GFR 30-44 and albumin creatinine ratio 30-299 mg/g COPD (chronic obstructive pulmonary disease) Iliopsoas muscle hematoma Myelodysplastic syndrome On home O2 Pneumonia due to COVID-19 virus Tobacco dependency VRE bacteremia Surgical History Status post kidney autotransplantation Social History Household Members: Spouse Do you presently have visiting nurse or other home services: Yes Patient Tobacco Use Status: Former Tobacco user Tobacco use type: Cigarette Use of substances other than those prescribed or required for medical reasons: No Currently Displaying Signs/Symptoms of Drug Intoxication Withdrawal: No Have you been hit, kicked, punched, or otherwise hurt by someone within the past year? If so, by whom?: No Do you feel safe in your current relationship?: Yes Is there a partner from a previous relationship who is making you feel unsafe now?: No Are you made to feel afraid or neglected: No Advance Directives: No Advance Directives Information Provided: No Do you have thoughts of harming others: None Do you have a plan to hurt others: No Plan Recently lost weight without trying: Yes How much weight loss: 34pounds or more Eating poorly because of decreased appetite: No Nutrition screen score: 6 Nutrition Risks: No Nutritional Risk Meds Allergies Allergy/AdvReac Type Severity Reaction Status Date / Time No Known Allergies Allergy Verified 11/27/21 20:52 Active Medications: Current Medications Acetaminophen (Acetaminophen 325 Mg Tablet) 650 mg PO Q6H PRN PRN Reason: Pain, Mild (Pain Scale 1-3) Digoxin (Digoxin 0.125 Mg Tablet) 0.0003 mg PO DAILY [facility] Docusate Sodium (Docusate Sodium 100 Mg Capsule) 100 mg PO DAILY PRN PRN Reason: Constipation Enoxaparin Sodium (Enoxaparin Sodium 40 Mg/0.4 Ml Syringe) 40 mg SUBCUT Q24H [facility] Finasteride (Finasteride 5 Mg Tablet) 5 mg PO DAILY [facility] Furosemide (Furosemide 40 Mg/4 Ml Vial) 40 mg IVPUSH BID@0900,1800 [facility]; Protocol Gabapentin (Gabapentin 100 Mg Capsule) 200 mg PO TID [facility] Diltiazem HCl 125 mg/ Sodium (Chloride) 125 mls @ 0 mls/hr IVCONT .Q0M [facility]; Protocol Piperacillin Sod/Tazobactam (Sod 3.375 gm/ Sodium Chloride) 50 mls @ 100 mls/hr IV Q6H [facility] Vancomycin HCl 1,250 mg/ (Sodium Chloride) 250 mls @ 166.667 mls/hr IV Q12H [facility] Metoprolol Tartrate (Metoprolol Tartrate 100 Mg Tablet) 100 mg PO BID [facility]; Protocol Non-Formulary Medication (Simvastatin) 1 tab PO DAILY [facility] Omeprazole (Omeprazole 20 Mg Capsule.Dr) 20 mg PO BID [facility] Ondansetron HCl (Ondansetron Hcl 4 Mg/2 Ml Vial) 4 mg IVPUSH Q8H PRN PRN Reason: Nausea and Vomiting Oxycodone HCl (Oxycodone Hcl Immed Release 5 Mg Tablet) 5 mg PO Q4H PRN PRN Reason: Pain, Severe (Pain Scale 7-10) Pharmacy Consult (Consult Rx Perform Med Rec) 1 each MISCELLANE ONCE PRN PRN Reason: Consult order Pharmacy Consult (Consult Rx Vancomycin Dosing) 1 each MISCELLANE DAILY PRN PRN Reason: Consult order Sodium Chloride (0.9 % Sodium Chloride Flush 3 Ml Syringe) 3 ml IVFLUSH QSHIFT [facility] Tamsulosin HCl (Tamsulosin Hcl 0.4 Mg Capsule) 0.4 mg PO DAILY [facility] Home Medications Medication Instructions Recorded Confirmed Last Taken Type cefazolin 2 gram/100 mL in 100 ml IV Q8H 01/13/22 01/13/22 01/12/22 History dextrose 5 % intravenous solution digoxin 125 mcg (0.125 mg) tablet 250 mcg PO DAILY 01/13/22 01/13/22 01/12/22 History ferrous sulfate 324 mg (65 mg 324 mg PO DAILY 01/13/22 01/13/22 01/12/22 History iron) tablet,delayed release finasteride 5 mg tablet 1 tab PO DAILY 01/13/22 01/13/22 01/12/22 History gabapentin 100 mg capsule 2 cap PO TID 01/13/22 01/13/22 01/12/22 History metoprolol tartrate 100 mg tablet 1 tab PO BID 01/13/22 01/13/22 01/12/22 History omeprazole 20 mg capsule,delayed 1 cap PO BID 01/13/22 01/13/22 01/12/22 History release oxycodone 5 mg tablet 1 tab PO Q4H PRN 01/13/22 01/13/22 01/12/22 History simvastatin 80 mg tablet 1 tab PO DAILY 01/13/22 01/13/22 01/12/22 History tamsulosin 0.4 mg capsule 1 cap PO DAILY 01/13/22 01/13/22 01/12/22 History Physical Exam Vital Signs and Narrative: Vital Signs: Last Vital Signs Temp 98.0 F 01/13/22 21:24 Pulse 115 H 01/13/22 21:24 Resp 20 01/13/22 21:24 BP 130/71 01/13/22 21:24 Pulse Ox 97 01/13/22 21:24 BMI result Body Mass Index 20.7 Const: General: cooperative and no acute distress Orientation/consciousness: patient oriented x3 Eyes: General: appearance normal, both eyes and all related structures Pupils: Equal, round and reactive pupils present Resp: Other: Crackles bilaterally Effort & Inspection: normal respiratory effort Cardio: Rate: regular rate Rhythm: regular rhythm GI: Palpation (GI): Soft to palpation Auscultation: normal bowel sounds Skin: General skin exam: no rashes or lesions noted Neuro: General: patient oriented x3 Cranial nerves: Yes Equal, round and reactive pupils present Cognition (Neuro): normal cognition Extrem: Other: 2+ lower extremity edema General: Yes normal to inspection Results Labs CBC and Chem 7: 01/13/22 15:55 01/13/22 15:55 Labs: Laboratory Results - last 24 hr 01/13/22 01/13/22 01/13/22 15:55 15:55 15:55 MCV 86.9 MCH 27.1 MCHC 31.2 RDW 18.0 H Plt Count 55 L MPV 9.9 Immature Gran % (Auto) 1.1 H Neut % (Auto) 36.6 L Lymph % (Auto) 44.0 H Reynolds % (Auto) 17.7 H Eos % (Auto) 0.0 Baso % (Auto) 0.6 Lymph # (Auto) 0.8 L Reynolds # (Auto) 0.3 Eos # (Auto) 0.0 Baso # (Auto) 0.0 Abs Immat Gran (auto) 0.02 Absolute Neuts (auto) 0.6 L Absolute Nucleated RBC 0.040 H Nucleated RBC % (auto) 2.3 H Smear Tech's Comments VERIFIED PT INR APTT Anion Gap 11 L Estim Creat Clear Calc 85.3 Estimated GFR > 60 Random Glucose 118 H D Lactic Acid Calcium 7.9 L D Total Bilirubin 0.7 Direct Bilirubin 0.3 AST 16 D ALT 7 Alkaline Phosphatase 59 Troponin I High Sens 22.0 D B-Natriuretic Peptide 3508 H Total Protein 5.9 L Albumin 3.0 L Lipase COVID-19 ([facility]) COVID-19 Clin Com Influenza Type A ([place]) Influenza Type B ([place]) Influenza A & B Note 01/13/22 01/13/22 01/13/22 16:58 16:58 16:59 MCV MCH MCHC RDW Plt Count MPV Immature Gran % (Auto) Neut % (Auto) Lymph % (Auto) Reynolds % (Auto) Eos % (Auto) Baso % (Auto) Lymph # (Auto) Reynolds # (Auto) Eos # (Auto) Baso # (Auto) Abs Immat Gran (auto) Absolute Neuts (auto) Absolute Nucleated RBC Nucleated RBC % (auto) Smear Tech's Comments PT 13.8 H INR 1.2 H APTT 30.3 Anion Gap Estim Creat Clear Calc Estimated GFR Random Glucose Lactic Acid Calcium Total Bilirubin Direct Bilirubin AST ALT Alkaline Phosphatase Troponin I High Sens B-Natriuretic Peptide Total Protein Albumin Lipase COVID-19 ([facility]) Negative COVID-19 [place] Com See Note Influenza Type A ([place]) Negative Influenza Type B ([place]) Negative Influenza A & B Note See Note 01/13/22 01/13/22 16:59 17:00 MCV MCH MCHC RDW Plt Count MPV Immature Gran % (Auto) Neut % (Auto) Lymph % (Auto) Reynolds % (Auto) Eos % (Auto) Baso % (Auto) Lymph # (Auto) Reynolds # (Auto) Eos # (Auto) Baso # (Auto) Abs Immat Gran (auto) Absolute Neuts (auto) Absolute Nucleated RBC Nucleated RBC % (auto) Smear Tech's Comments PT INR APTT Anion Gap Estim Creat Clear Calc Estimated GFR Random Glucose Lactic Acid 2.0 Calcium Total Bilirubin Direct Bilirubin AST ALT Alkaline Phosphatase Troponin I High Sens B-Natriuretic Peptide Total Protein Albumin Lipase 32 COVID-19 ([facility]) COVID-19 Clin Com Influenza Type A ([place]) Influenza Type B ([place]) Influenza A & B Note Imaging Radiologist's Impressions: Impressions Chest X-Ray 01/13/22 16:41 IMPRESSION: Bilateral airspace disease similar to November 2021 exams probably representing pneumonia. Assessment and Plan (1) Acute and chronic respiratory failure with hypoxia: Status: Acute (2) Pneumonia: Status: Acute (3) Congestive heart failure: Status: Acute (4) Atrial fibrillation with rapid ventricular response: Status: Acute (5) Chronic anemia: Status: Acute Plan 76-year-old male with past medical history of COPD complicated by COVID-19 pneumonia and chronic hypoxic respiratory failure on 2 L of oxygen, as well as cardiomyopathy, presents to the hospital with complaints of shortness of breath found to have CHF as well as acute hypoxic respiratory failure # acute on chronic hypoxic respiratory failure - likely secondary to pneumonia as well as CHF exacerbation - patient has evidence of pneumonia on chest x-ray but seems to be from his infection in November - patient has elevated BNP, orthopnea, PND - we will treat with IV Lasix, IV antibiotics, monitor respiratory status - On baseline 2 L of oxygen, monitor oxygen down as tolerated # CHF exacerbation - elevated BNP - orthopnea, PND, dyspnea on exertion - will start patient on IV Lasix, strict I&O, daily weight, low-sodium diet - cardiology consult, echocardiogram ordered # pneumonia - patient has evidence of pneumonia on chest x-ray, has leukopenia - has been treated for pneumonia in the past - given his immunosuppressive state, in the setting of MDS, will treat with IV antibiotics - follow cultures # AFib with RVR - in the setting of CHF - on Cardizem drip - patient reports that he does not take any Anticoagulation - continue digoxin # MDS - with chronic anemia - patient and family report that he does not get transfusion until hemoglobin is less than 5 - monitor CBC DVT prophylaxis: Lovenox Given the acute on chronic hypoxic respiratory failure patient needs admission for further management with oxygen, IV Lasix requires a medically necessary in-patient 2 night stay Quality Stroke Does the patient have a stroke diagnosis?: No VTE Prior VTE?: No VTE Risk Level:: Medical - moderate - high VTE Device Contraindication: Treatment Not Indicated VTE Drug Contraindication: N/A - Med Ordered
--- NOTE | 2022-01-13 22:05 | PC.NURSE ---
patient noted to significant bruising across lower abdomen. patient reports possibly from injections he recieved while in patient. bruising appears to be at various points of healing
[2022-01-13 22:34] LABS: Appearance Urine CLEAR; Color Urine YELLOW; Glucose Urine UA NEG (NEG); Leukocyte Esterase Urine 1+ (NEG); Nitrite Urine NEG (NEG); Specific Gravity - Urine 1.015 (1.005-1.025); UACC Culture Trigger YES; Urine Blood 2+ (NEG); Urine Ketones NEG (NEG); Urine Protein TRACE MG/DL (NEG-TRACE)
[2022-01-13] MEDS: vancomycin HCL 1,250 MG in 0.9 % Sodium Chloride 250 ML 166.67 MG IV (22:46)
[2022-01-13] MEDS: dilTIAZem HCL 125 MG in 0.9 % Sodium Chloride 100 ML 10 MG IVCONT (22:49)
[2022-01-13 23:08] LABS: Squamous Epithelial Cell Urine TRACE /LPF
[2022-01-13] MEDS: Enoxaparin Sodium 40 MG/0.4 ML SYRINGE SUBCUT (23:55)
[2022-01-14] VITALS (21 sets, daily range): BP systolic 99–159; BP diastolic 56–95; PULSE 62–147; RESP 16–20; TEMP 36.5–37.1; O2SAT 93–99; BMI 19.0
[2022-01-14] MEDS: 0.9 % Sodium Chloride Flush 3 ML SYRINGE IVFLUSH ×3 (00:13→20:25)
[2022-01-14] MEDS: Piperacillin Sodium/Tazobactam 3.375 GM in 0.9 % Sodium Chloride 50 ML IV ×4 (00:36→18:57)
[2022-01-14] MEDS: oxyCODONE HCl Immed Release 5 MG TABLET PO ×4 (01:34→20:24)
[2022-01-14] MEDS: Omeprazole 20 MG CAPSULE.DR PO ×2 (06:09→16:57)
[2022-01-14] MEDS: dilTIAZem HCL 125 MG in 0.9 % Sodium Chloride 100 ML 15 MG IVCONT (07:13)
[2022-01-14 07:24] LABS: Imm Gran Abs Auto 0.01 X10*3/uL (0.00-0.03); Lymphocytes Absolute Auto 0.6 X10*3/uL (1.2-4.9); Lymphocytes Percent Auto 53.9 % (20-40); MANUAL DIFF FLAG SCAN; Mean Corpuscular HGB Conc 32.3 g/dl (31.0-36.0); Mean Corpuscular Hemoglobin 27.9 pg (27.0-33.0); Mean Platelet Volume 10.7 fL (9.4-12.4); Monocytes Absolute Auto 0.1 X10*3/uL (0.1-1.2); Monocytes Percent Auto 8.8 % (2-11); Neutrophils Absolute Auto 0.4 x10*3/uL (2.0-8.3); Neutrophils Percent Auto 36.3 % (45-73); Red Blood Count 2.22 X10*6/uL (4.60-5.80); Red Cell Distribution Width 17.4 % (11.0-16.0); SCAN SMEAR FLAG 1
[2022-01-14] MEDS: Digoxin 0.125 MG TABLET 0.25 MG PO (07:48)
[2022-01-14] MEDS: Finasteride 5 MG TABLET PO (07:48)
[2022-01-14] MEDS: Furosemide 40 MG/4 ML VIAL IVPUSH ×2 (07:49→18:51)
[2022-01-14] MEDS: Tamsulosin HCL 0.4 MG CAPSULE PO (07:49)
[2022-01-14] MEDS: Metoprolol Tartrate 100 MG TABLET PO ×2 (07:49→20:24)
[2022-01-14] MEDS: Atorvastatin Calcium 40 MG TABLET PO (07:49)
[2022-01-14] MEDS: Gabapentin 100 MG CAPSULE 200 MG PO ×3 (07:49→20:24)
[2022-01-14 07:53] LABS: Platelet Count 47 X10*3/uL (160-400)
[2022-01-14 07:54] LABS: NRBC Pct Auto 4.9 /100WBC (0.0-0.2)
[2022-01-14 07:56] LABS: Hematocrit 19.2 % (42.0-52.0); Hemoglobin 6.2 g/dl (14.0-18.0)
[2022-01-14 07:57] LABS: Mean Corpuscular Volume 86.5 fL (80.0-98.0)
[2022-01-14 08:01] LABS: SLIDE REVIEW VERIFIED
[2022-01-14 08:32] LABS: Anion Gap 14 (12-20); Blood Urea Nitrogen 30 mg/dL (9-16); Calcium 7.9 mg/dL (8.4-10.2); Carbon Dioxide 26 mmol/L (22-29); Chloride 103 mmol/L (96-108); Creatinine Clr Calc Pharmacy 70.8; Estimated Glomerular Filt Rate > 60; Glucose Random 159 mg/dL (60-115); Potassium 3.5 mmol/L (3.3-5.1); Sodium 139 mmol/L (135-145)
--- NOTE | 2022-01-14 09:00 | PC.NURSE ---
Cardizem paused, Lopresor and dig given. HR @ 80
--- NOTE | 2022-01-14 09:44 | MHC.CM.PN ---
CM met with Patient at bedside and addressed IMM with him, providing him with the original and placing a copy on the chart. Patient lives in a house with his and is active with [facility] and [facility] for home O2. Home/resume said services is the goal and CM has initiated and will follow for dc planning. PCP is Dr. Burnham from [facility] and Patient has received NO covid vax.
[2022-01-14] MEDS: Acetaminophen 325 MG TABLET 650 MG PO ×2 (10:27→17:47)
[2022-01-14] MEDS: hydrOXYzine HCL 25 MG TABLET PO ×3 (10:27→22:33)
--- NOTE | 2022-01-14 13:21 | PM.CNCAR ---
History of Present Illness History of Present Illness Date of Service: 01/14/22 Requesting physician: Kt Bryant Consult reason: congestive heart failure Chief complaint: A fib w rvr,chf,pna Narrative: I was requested to see Faizan in cardiology consultation today for symptoms of worsening shortness of breath with hypoxic respiratory failure. Noted to have significantly elevated BNP consistent with heart failure. Also noted to be significantly anemic with hemoglobin of 6.2. Patient says that he has myelodysplastic syndrome and is currently getting intermittent blood transfusions when in his hemoglobin is around 6. He has no prior history of heart failure. He had recent hospitalization with pneumonia and bacteremia related to Staph aureus. He comes to the hospital with progressive shortness of breath and then sudden-onset shortness of breath with some leg edema. He was noted to have elevated heart rate which was suspected initially to be atrial flutter/fibrillation although his EKG shows more suggestion of atrial/sinus tachycardia with multifocal atrial ectopy. His monitor shown more sinus rhythm with PACs. He is on home oxygen since his pneumonia and COVID but his shortness of breath has been deteriorating and was sudden-onset. His BNP was noted 3500 range. He has no chest pain. His breathing is improved since yesterday and noted to have -4600 cc balance. Chest x-ray still consistent with bilateral infiltrates suggestive of pneumonia question atelectasis. Review of Systems Constitutional: Constitutional: Reports lethargy and Reports weakness Eyes: Eyes: Reports no additional eye complaints Cardiovascular: Cardiovascular: Denies chest pain, Reports leg edema, Denies palpitations and Reports dyspnea Respiratory: Respiratory: Reports no additional respiratory complaints and Reports dyspnea Gastrointestinal: Gastrointestinal: Reports no additional gastrointestinal complaints Genitourinary: Genitourinary: Reports no additional male genitourinary complaints Integumentary/Breasts: Skin/Breast: Reports system reviewed and no additional complaints, except as docu Neurologic: Reports weakness Endocrine: Endocrine: Denies palpitations PMFSH Past Medical History Medical History Cardiomyopathy CKD stage G3b/A2, GFR 30-44 and albumin creatinine ratio 30-299 mg/g COPD (chronic obstructive pulmonary disease) Iliopsoas muscle hematoma Myelodysplastic syndrome On home O2 Pneumonia due to COVID-19 virus Tobacco dependency VRE bacteremia Surgical History Surgical History Status post kidney autotransplantation Social History Social History Household Members: Spouse Do you presently have visiting nurse or other home services: Yes Patient Tobacco Use Status: Former Tobacco user Tobacco use type: Cigarette Use of substances other than those prescribed or required for medical reasons: No Currently Displaying Signs/Symptoms of Drug Intoxication Withdrawal: No Have you been hit, kicked, punched, or otherwise hurt by someone within the past year? If so, by whom?: No Do you feel safe in your current relationship?: Yes Is there a partner from a previous relationship who is making you feel unsafe now?: No Are you made to feel afraid or neglected: No Advance Directives: No Advance Directives Information Provided: No Do you have thoughts of harming others: None Do you have a plan to hurt others: No Plan Recently lost weight without trying: Yes How much weight loss: 34pounds or more Eating poorly because of decreased appetite: No Nutrition screen score: 6 Nutrition Risks: No Nutritional Risk service: Yes Current occupational status: retired [employer] Allergies Allergy/AdvReac Type Severity Reaction Status Date / Time No Known Allergies Allergy Verified 11/27/21 20:52 Active Medications: Current Medications Acetaminophen (Acetaminophen 325 Mg Tablet) 650 mg PO Q6H PRN PRN Reason: Pain, Mild (Pain Scale 1-3) Last Admin: 01/14/22 10:27 Dose: 650 mg Documented by: Atorvastatin Calcium (Atorvastatin Calcium 40 Mg Tablet) 40 mg PO DAILY [facility] Last Admin: 01/14/22 07:49 Dose: 40 mg Documented by: Digoxin (Digoxin 0.125 Mg Tablet) 0.25 mg PO DAILY [facility] Last Admin: 01/14/22 07:48 Dose: 0.25 mg Documented by: Docusate Sodium (Docusate Sodium 100 Mg Capsule) 100 mg PO DAILY PRN PRN Reason: Constipation Finasteride (Finasteride 5 Mg Tablet) 5 mg PO DAILY [facility] Last Admin: 01/14/22 07:48 Dose: 5 mg Documented by: Furosemide (Furosemide 40 Mg/4 Ml Vial) 40 mg IVPUSH DAILY [facility]; Protocol Gabapentin (Gabapentin 100 Mg Capsule) 200 mg PO TID [facility] Last Admin: 01/14/22 07:49 Dose: 200 mg Documented by: Hydroxyzine HCl (Hydroxyzine Hcl 25 Mg Tablet) 25 mg PO Q6H PRN PRN Reason: anxiety/restlessness Last Admin: 01/14/22 10:27 Dose: 25 mg Documented by: Piperacillin Sod/Tazobactam (Sod 3.375 gm/ Sodium Chloride) 50 mls @ 100 mls/hr IV Q6H [facility] Last Admin: 01/14/22 12:58 Dose: 100 mls/hr Documented by: Metoprolol Tartrate (Metoprolol Tartrate 100 Mg Tablet) 100 mg PO BID [facility]; Protocol Last Admin: 01/14/22 07:49 Dose: 100 mg Documented by: Omeprazole (Omeprazole 20 Mg Capsule.Dr) 20 mg PO BID@0630,1630 [facility] Last Admin: 01/14/22 06:09 Dose: 20 mg Documented by: Ondansetron HCl (Ondansetron Hcl 4 Mg/2 Ml Vial) 4 mg IVPUSH Q8H PRN PRN Reason: Nausea and Vomiting Oxycodone HCl (Oxycodone Hcl Immed Release 5 Mg Tablet) 5 mg PO Q4H PRN PRN Reason: Pain, Severe (Pain Scale 7-10) Last Admin: 01/14/22 07:52 Dose: 5 mg Documented by: Pharmacy Consult (Consult Rx Perform Med Rec) 1 each MISCELLANE ONCE PRN PRN Reason: Consult order Sodium Chloride (0.9 % Sodium Chloride Flush 3 Ml Syringe) 3 ml IVFLUSH QSHIFT [facility] Last Admin: 01/14/22 07:49 Dose: Not Given Documented by: Tamsulosin HCl (Tamsulosin Hcl 0.4 Mg Capsule) 0.4 mg PO DAILY [facility] Last Admin: 01/14/22 07:49 Dose: 0.4 mg Documented by: Home Medications Medication Instructions Recorded Confirmed Last Taken Type cefazolin 2 gram/100 mL in 100 ml IV Q8H 01/13/22 01/13/22 01/12/22 History dextrose 5 % intravenous solution digoxin 125 mcg (0.125 mg) tablet 250 mcg PO DAILY 01/13/22 01/13/22 01/12/22 History ferrous sulfate 324 mg (65 mg 324 mg PO DAILY 01/13/22 01/13/22 01/12/22 History iron) tablet,delayed release finasteride 5 mg tablet 1 tab PO DAILY 01/13/22 01/13/22 01/12/22 History gabapentin 100 mg capsule 2 cap PO TID 01/13/22 01/13/22 01/12/22 History metoprolol tartrate 100 mg tablet 1 tab PO BID 01/13/22 01/13/22 01/12/22 History omeprazole 20 mg capsule,delayed 1 cap PO BID 01/13/22 01/13/22 01/12/22 History release oxycodone 5 mg tablet 1 tab PO Q4H PRN 01/13/22 01/13/22 01/12/22 History simvastatin 80 mg tablet 1 tab PO DAILY 01/13/22 01/13/22 01/12/22 History tamsulosin 0.4 mg capsule 1 cap PO DAILY 01/13/22 01/13/22 01/12/22 History Physical Exam Vital Signs: Vital Signs: Last Vital Signs Temp 97.7 F 01/14/22 11:01 Pulse 97 01/14/22 11:01 Resp 20 01/14/22 11:01 BP 134/72 01/14/22 11:01 Pulse Ox 97 01/14/22 11:01 BMI result Body Mass Index 19.0 Const: General: cooperative, comfortable, no acute distress, alert and awake Nutritional Appearance: thin and underweight Orientation/consciousness: patient oriented x3 Limitations: no limitations HEENT: Head: Yes normocephalic and Yes atraumatic Neck: Neck: Yes trachea midline, Yes supple and Yes no JVD Resp: Effort & Inspection: normal respiratory effort Auscultation: no rales, no wheezes, breath sounds absent on the right (Base) and diminished lung sounds Cardio: Jugular venous distension: no JVD Palpation: normal PMI Rate: regular rate Rhythm: regular rhythm Heart sounds: S1 normal heart sound present, S2 normal heart sound present, no click, no gallops, no murmurs and no rubs Skin: General skin exam: no rashes or lesions noted and ecchymosis Neuro: General: patient oriented x3 and no focal motor deficits Extrem: General: Yes no clubbing, cyanosis or edema Objective Labs and Meds Result diagrams: 01/14/22 06:49 01/14/22 06:49 Lab results: Laboratory Results - last 24 hr 01/13/22 01/13/22 01/13/22 15:55 15:55 15:55 WBC 1.8 L RBC 2.91 L Hgb 7.9 L Hct 25.3 L MCV 86.9 MCH 27.1 MCHC 31.2 RDW 18.0 H Plt Count 55 L MPV 9.9 Immature Gran % (Auto) 1.1 H Neut % (Auto) 36.6 L Lymph % (Auto) 44.0 H Foster % (Auto) 17.7 H Eos % (Auto) 0.0 Baso % (Auto) 0.6 Lymph # (Auto) 0.8 L Foster # (Auto) 0.3 Eos # (Auto) 0.0 Baso # (Auto) 0.0 Abs Immat Gran (auto) 0.02 Absolute Neuts (auto) 0.6 L Absolute Nucleated RBC 0.040 H Nucleated RBC % (auto) 2.3 H Smear Tech's Comments VERIFIED PT INR APTT Sodium 140 Potassium 3.7 Chloride 108 Carbon Dioxide 25 Anion Gap 11 L BUN 22 H Creatinine 0.66 Estim Creat Clear Calc 85.3 Estimated GFR > 60 Random Glucose 118 H D Lactic Acid Calcium 7.9 L D Total Bilirubin 0.7 Direct Bilirubin 0.3 AST 16 D ALT 7 Alkaline Phosphatase 59 Troponin I High Sens 22.0 D B-Natriuretic Peptide 3508 H Total Protein 5.9 L Albumin 3.0 L Lipase Urine Color Urine Appearance Urine pH Ur Specific [place] Urine Protein Urine Glucose (UA) Urine Ketones Urine Blood Urine Nitrite Ur Leukocyte Esterase Urine RBC Urine WBC Ur Squamous Epith Cells Urine Bacteria Urine Yeast COVID-19 ([facility]) COVID-19 Clin Com Influenza Type A ([place]) Influenza Type B ([place]) Influenza A & B Note Blood Type Antibody Screen Crossmatch 01/13/22 01/13/22 01/13/22 16:58 16:58 16:59 WBC RBC Hgb Hct MCV MCH MCHC RDW Plt Count MPV Immature Gran % (Auto) Neut % (Auto) Lymph % (Auto) Foster % (Auto) Eos % (Auto) Baso % (Auto) Lymph # (Auto) Foster # (Auto) Eos # (Auto) Baso # (Auto) Abs Immat Gran (auto) Absolute Neuts (auto) Absolute Nucleated RBC Nucleated RBC % (auto) Smear Tech's Comments PT 13.8 H INR 1.2 H APTT 30.3 Sodium Potassium Chloride Carbon Dioxide Anion Gap BUN Creatinine Estim Creat Clear Calc Estimated GFR Random Glucose Lactic Acid Calcium Total Bilirubin Direct Bilirubin AST ALT Alkaline Phosphatase Troponin I High Sens B-Natriuretic Peptide Total Protein Albumin Lipase Urine Color Urine Appearance Urine pH Ur Specific [place] Urine Protein Urine Glucose (UA) Urine Ketones Urine Blood Urine Nitrite Ur Leukocyte Esterase Urine RBC Urine WBC Ur Squamous Epith Cells Urine Bacteria Urine Yeast COVID-19 ([facility]) Negative COVID-19 Clin Com See Note Influenza Type A ([place]) Negative Influenza Type B ([place]) Negative Influenza A & B Note See Note Blood Type Antibody Screen Crossmatch 01/13/22 01/13/22 01/13/22 16:59 17:00 22:06 WBC RBC Hgb Hct MCV MCH MCHC RDW Plt Count MPV Immature Gran % (Auto) Neut % (Auto) Lymph % (Auto) Foster % (Auto) Eos % (Auto) Baso % (Auto) Lymph # (Auto) Foster # (Auto) Eos # (Auto) Baso # (Auto) Abs Immat Gran (auto) Absolute Neuts (auto) Absolute Nucleated RBC Nucleated RBC % (auto) Smear Tech's Comments PT INR APTT Sodium Potassium Chloride Carbon Dioxide Anion Gap BUN Creatinine Estim Creat Clear Calc Estimated GFR Random Glucose Lactic Acid 2.0 Calcium Total Bilirubin Direct Bilirubin AST ALT Alkaline Phosphatase Troponin I High Sens B-Natriuretic Peptide Total Protein Albumin Lipase 32 Urine Color YELLOW Urine Appearance CLEAR Urine pH 6.0 Ur Specific [place] 1.015 Urine Protein TRACE Urine Glucose (UA) NEG Urine Ketones NEG Urine Blood 2+ H Urine Nitrite NEG Ur Leukocyte Esterase 1+ H Urine RBC 1-4 Urine WBC 1-4 Ur Squamous Epith Cells TRACE Urine Bacteria NONE Urine Yeast 2+ COVID-19 ([facility]) COVID-19 Clin Com Influenza Type A ([place]) Influenza Type B ([place]) Influenza A & B Note Blood Type Antibody Screen Crossmatch 01/14/22 01/14/22 01/14/22 06:49 06:49 08:21 WBC 1.0 L RBC 2.22 L D Hgb 6.2 L* D Hct 19.2 L* D MCV 86.5 MCH 27.9 MCHC 32.3 RDW 17.4 H Plt Count 47 L MPV 10.7 Immature Gran % (Auto) 1.0 H Neut % (Auto) 36.3 L Lymph % (Auto) 53.9 H Foster % (Auto) 8.8 Eos % (Auto) 0.0 Baso % (Auto) 0.0 Lymph # (Auto) 0.6 L Foster # (Auto) 0.1 Eos # (Auto) 0.0 Baso # (Auto) 0.0 Abs Immat Gran (auto) 0.01 Absolute Neuts (auto) 0.4 L Absolute Nucleated RBC 0.050 H Nucleated RBC % (auto) 4.9 H Smear Tech's Comments VERIFIED PT INR APTT Sodium 139 Potassium 3.5 Chloride 103 Carbon Dioxide 26 Anion Gap 14 BUN 30 H Creatinine 0.73 Estim Creat Clear Calc 70.8 Estimated GFR > 60 Random Glucose 159 H Lactic Acid Calcium 7.9 L Total Bilirubin Direct Bilirubin AST ALT Alkaline Phosphatase Troponin I High Sens B-Natriuretic Peptide Total Protein Albumin Lipase Urine Color Urine Appearance Urine pH Ur Specific [place] Urine Protein Urine Glucose (UA) Urine Ketones Urine Blood Urine Nitrite Ur Leukocyte Esterase Urine RBC Urine WBC Ur Squamous Epith Cells Urine Bacteria Urine Yeast COVID-19 ([facility]) COVID-19 Clin Com Influenza Type A ([place]) Influenza Type B ([place]) Influenza A & B Note Blood Type A Positive Antibody Screen NEGATIVE Crossmatch See Detail Imaging Radiologist's impression: Impressions Chest X-Ray 01/13/22 16:41 IMPRESSION: Bilateral airspace disease similar to November 2021 exams probably representing pneumonia. Assessment and Plan (1) Acute and chronic respiratory failure with hypoxia: Status: Acute Acute on chronic respiratory failure with hypoxemia on admission. Still requiring high levels oxygen. Clinically does not appear to be significant fluid overloaded. Chest x-ray finding consistent with infiltrate and with underlying emphysema. Question interstitial process. Consider pulmonary consultation. Although BNP significantly elevated and he has diuresed well since yesterday and he has seems to have improved breathing. Will continue IV diuresis. He is also significantly anemic and this needs to be corrected with transfusion. Continue to monitor hematocrit and try to maintain above 30. Echocardiogram to evaluate for LV systolic and diastolic function. Does not have atrial fibrillation as per EKG and on the monitor. Would consider start him on metoprolol therapy for cardiac arrhythmias most likely has multifocal atrial arrhythmia related to his underlying pulmonary issues. He does not have an active bronchospastic airway disease at this point time and should be able to tolerate low-dose metoprolol therapy. Will follow with you. Thank you for allowing us to partake in his care Procedures Date of Service Date of Service: 01/14/22
--- NOTE | 2022-01-14 14:46 | PM.GICN ---
History of Present Illness Data of Consult Service Date: 01/14/22 Requesting physician: Kt Bryant Primary Care Provider: Unknown Physician HPI Reason for consult: anemia 76-year-old male with past medical history of cardiomegaly, CKD, COPD, MDS, pneumonia due to COVID-19 virus complicated by hypoxia need for chronic oxygen on 2 L at baseline, kidney transplantation in 1999, who I am seeing for assessment for anemia. Pt initially presented with 1 d hx of productive cough wth orthopnea as well as PND with increased ankle edema. Denies chest pain, no palpitations no dizziness, no abdominal pain nausea or vomiting, no diarrhea constipation, no urinary symptoms. Also denies overt GI bleeding, hematuria, epistaxis. Labs on admission: leukopenia of 1.8, hemoglobin of 7.9, hematocrit 25.3, BNP of 3508, UA positive for blood with no evidence of infection, COVID-19 negative, influenza negative Repeat H/H today 6 g/dl, with lower plts, INR 1.2. of note due to his MDS he receives blood transfusions twice a week. his MDS medication has been on hold since he got COVID. He also had EGD/colonoscopy Oct 2021 at [facility] with removal of polyps. Review of Systems Review of Systems: Constitutional : No Weight loss, No Fever, No Chills ENT/Mouth : No sore throat, No Rhinorrhea Eyes: No Swelling, No Redness Cardiovascular : No Chest Pain, + SOB, + Edema Respiratory : No Cough, No Sputum, No Wheezing Gastrointestinal : see HPI Genitourinary : NO Dysuria, No Urinary Frequency, No Hematuria, No Urgency Musculoskeletal : No joint pain, No Myalgias, No Joint Swelling Skin : No Skin Lesions, No rash Neuro : + Weakness, No Numbness, No Dizziness, No Headache Psych : No Anxiety/Panic, No Depression Heme/Lymph: + Bruising, No Lymphadenopathy Endocrine : No Polyuria, No Polydipsia All other systems reviewed and are negative. [facility] Past Medical History Medical History Cardiomyopathy CKD stage G3b/A2, GFR 30-44 and albumin creatinine ratio 30-299 mg/g COPD (chronic obstructive pulmonary disease) Iliopsoas muscle hematoma Myelodysplastic syndrome On home O2 Pneumonia due to COVID-19 virus Tobacco dependency VRE bacteremia Family History Pertinent family history: no FH of anemia, or MDS Surgical History Surgical History Status post kidney autotransplantation Social History Social History Household Members: Spouse Do you presently have visiting nurse or other home services: Yes Patient Tobacco Use Status: Former Tobacco user Tobacco use type: Cigarette Use of substances other than those prescribed or required for medical reasons: No Currently Displaying Signs/Symptoms of Drug Intoxication Withdrawal: No Have you been hit, kicked, punched, or otherwise hurt by someone within the past year? If so, by whom?: No Do you feel safe in your current relationship?: Yes Is there a partner from a previous relationship who is making you feel unsafe now?: No Are you made to feel afraid or neglected: No Advance Directives: No Advance Directives Information Provided: No Do you have thoughts of harming others: None Do you have a plan to hurt others: No Plan Recently lost weight without trying: Yes How much weight loss: 34pounds or more Eating poorly because of decreased appetite: No Nutrition screen score: 6 Nutrition Risks: No Nutritional Risk service: Yes Current occupational status: retired [employer] Allergies Allergy/AdvReac Type Severity Reaction Status Date / Time No Known Allergies Allergy Verified 11/27/21 20:52 Active Medications: Current Medications Acetaminophen (Acetaminophen 325 Mg Tablet) 650 mg PO Q6H PRN PRN Reason: Pain, Mild (Pain Scale 1-3) Last Admin: 01/14/22 10:27 Dose: 650 mg Documented by: Atorvastatin Calcium (Atorvastatin Calcium 40 Mg Tablet) 40 mg PO DAILY [facility] Last Admin: 01/14/22 07:49 Dose: 40 mg Documented by: Digoxin (Digoxin 0.125 Mg Tablet) 0.25 mg PO DAILY [facility] Last Admin: 01/14/22 07:48 Dose: 0.25 mg Documented by: Docusate Sodium (Docusate Sodium 100 Mg Capsule) 100 mg PO DAILY PRN PRN Reason: Constipation Finasteride (Finasteride 5 Mg Tablet) 5 mg PO DAILY [facility] Last Admin: 01/14/22 07:48 Dose: 5 mg Documented by: Furosemide (Furosemide 40 Mg/4 Ml Vial) 40 mg IVPUSH DAILY [facility]; Protocol Gabapentin (Gabapentin 100 Mg Capsule) 200 mg PO TID [facility] Last Admin: 01/14/22 07:49 Dose: 200 mg Documented by: Hydroxyzine HCl (Hydroxyzine Hcl 25 Mg Tablet) 25 mg PO Q6H PRN PRN Reason: anxiety/restlessness Last Admin: 01/14/22 10:27 Dose: 25 mg Documented by: Piperacillin Sod/Tazobactam (Sod 3.375 gm/ Sodium Chloride) 50 mls @ 100 mls/hr IV Q6H [facility] Last Infusion: 01/14/22 14:34 Dose: Infused Documented by: Metoprolol Tartrate (Metoprolol Tartrate 100 Mg Tablet) 100 mg PO BID [facility]; Protocol Last Admin: 01/14/22 07:49 Dose: 100 mg Documented by: Omeprazole (Omeprazole 20 Mg Capsule.Dr) 20 mg PO BID@0630,1630 [facility] Last Admin: 01/14/22 06:09 Dose: 20 mg Documented by: Ondansetron HCl (Ondansetron Hcl 4 Mg/2 Ml Vial) 4 mg IVPUSH Q8H PRN PRN Reason: Nausea and Vomiting Oxycodone HCl (Oxycodone Hcl Immed Release 5 Mg Tablet) 5 mg PO Q4H PRN PRN Reason: Pain, Severe (Pain Scale 7-10) Last Admin: 01/14/22 07:52 Dose: 5 mg Documented by: Pharmacy Consult (Consult Rx Perform Med Rec) 1 each MISCELLANE ONCE PRN PRN Reason: Consult order Sodium Chloride (0.9 % Sodium Chloride Flush 3 Ml Syringe) 3 ml IVFLUSH QSHIFT [facility] Last Admin: 01/14/22 07:49 Dose: Not Given Documented by: Tamsulosin HCl (Tamsulosin Hcl 0.4 Mg Capsule) 0.4 mg PO DAILY [facility] Last Admin: 01/14/22 07:49 Dose: 0.4 mg Documented by: Home Medications Medication Instructions Recorded Confirmed Last Taken Type cefazolin 2 gram/100 mL in 100 ml IV Q8H 01/13/22 01/13/22 01/12/22 History dextrose 5 % intravenous solution digoxin 125 mcg (0.125 mg) tablet 250 mcg PO DAILY 01/13/22 01/13/22 01/12/22 History ferrous sulfate 324 mg (65 mg 324 mg PO DAILY 01/13/22 01/13/22 01/12/22 History iron) tablet,delayed release finasteride 5 mg tablet 1 tab PO DAILY 01/13/22 01/13/22 01/12/22 History gabapentin 100 mg capsule 2 cap PO TID 01/13/22 01/13/22 01/12/22 History metoprolol tartrate 100 mg tablet 1 tab PO BID 01/13/22 01/13/22 01/12/22 History omeprazole 20 mg capsule,delayed 1 cap PO BID 01/13/22 01/13/22 01/12/22 History release oxycodone 5 mg tablet 1 tab PO Q4H PRN 01/13/22 01/13/22 01/12/22 History simvastatin 80 mg tablet 1 tab PO DAILY 01/13/22 01/13/22 01/12/22 History tamsulosin 0.4 mg capsule 1 cap PO DAILY 01/13/22 01/13/22 01/12/22 History Physical Exam Vital Signs: Vital Signs: Last Vital Signs Temp 97.7 F 01/14/22 11:01 Pulse 97 01/14/22 11:01 Resp 20 01/14/22 11:01 BP 134/72 01/14/22 11:01 Pulse Ox 97 01/14/22 11:01 BMI result Body Mass Index 19.0 EXAM: GENERAL: The patient is thin, frail, VITAL SIGNS:see workflow HEENT: Nonicteric sclerae, PERRLA, EOMI. Oropharynx clear. Moist mucous membranes. Conjunctivae appear well perfused. No thyroid mass. CHEST: Chest wall is nontender. Hyperexpanded chest. HEART: iRRegular rate and rhythm without murmurs. LUNGS: Clear to auscultation bilaterally. ABDOMEN: Soft, positive bowel sounds, nontender, no organomegaly.no flank tenderness SKIN: No rash, + excessive bruising with bruise noted on lower abdominal wall from injection NEUROLOGIC: Cranial nerves II-XII intact without motor/sensory deficit. Psych; normal affect Results Labs CBC & Chem 7: 01/14/22 06:49 01/14/22 06:49 Labs: Short CBC 01/13/22 01/14/22 Range/Units 15:55 06:49 WBC 1.8 L 1.0 L (4.8-10.8) X10*3/uL Hgb 7.9 L 6.2 L* D (14.0-18.0) g/dl Hct 25.3 L 19.2 L* D (42.0-52.0) % Plt Count 55 L 47 L (160-400) X10*3/uL BMP 01/13/22 01/14/22 15:55 06:49 Sodium 140 139 Potassium 3.7 3.5 Chloride 108 103 Carbon Dioxide 25 26 BUN 22 H 30 H Creatinine 0.66 0.73 Calcium 7.9 L D 7.9 L Liver Function 01/13/22 Range/Units 15:55 Total Bilirubin 0.7 (0.0-1.0) mg/dL Direct Bilirubin 0.3 (0.0-0.5) mg/dL AST 16 D (5-37) U/L ALT 7 (0-40) U/L Alkaline Phosphatase 59 (39-117) U/L Albumin 3.0 L (3.5-5.0) g/dL Urine 01/13/22 Range/Units 22:06 Urine Color YELLOW Urine Appearance CLEAR Urine pH 6.0 (5.0-8.0) Ur Specific [place] 1.015 (1.005-1.025) Urine Protein TRACE (NEG-TRACE) MG/DL Urine Glucose (UA) NEG (NEG) MG/DL Assessment and Plan (1) Acute and chronic respiratory failure with hypoxia: Status: Acute (2) Acute on chronic anemia: Status: Acute Plan 1/Acute on chronic anemia, no overt GI blood loss, seems to be related to MDS and possibly mucosal losses due to low plts with bruise on lower abd wall PLAN: 1/ Given patient just had recent endoscopic evaluations, and has dx of MDS with gonzalez cytopenia this seems to be the most likely reason for his anemia, would not recommend endoscopy at this time sandy as he also has hypoxic resp failure. consider hematology evaluation for the MDS> 2/ can give low dose PPI to reduce risk of stress ulceration Procedures Date of Service Date of Service: 01/14/22
--- NOTE | 2022-01-14 15:30 | HO.PM.IMPN ---
Subjective Subjective Date of Service: 01/14/22 Interval History: the patient was seen and evaluated this morning sitting in the edge of the bed, report shortness of breath Still on 7 L of oxygen hemoglobin dropped below 7 with evidence of bleeding overnight No reported other overnight events. Systemic review: No fever, chills or weakness No chest pain, palpitation reporting shortness of breath and dyspnea with exertion No abdominal pain, nausea or vomiting No urinary symptoms No any rash or wounds Physical Exam Vital Signs: Vital Signs: Last Vital Signs Temp 98 F 01/14/22 15:10 Pulse 115 H 01/14/22 15:10 Resp 18 01/14/22 15:10 BP 142/77 H 01/14/22 15:10 Pulse Ox 98 01/14/22 15:06 BMI result Body Mass Index 19.0 Const: Other: Constitutional : Alert, oriented, and miles for the distress Neck : Normal inspection, Supple Cardiovascular : RRR, no JVP, no lower extremity edema Respiratory : fair bilateral air entry, basal fine on bilateral more on the right crackles, wheezes or rhonchi, on oxygen supplement Gastrointestinal: soft, lax, Normal bowel sounds, Non tender Skin : Warm, Dry Neurological : Alert & oriented x3, No focal deficit , CN 2-12 within normal Objective Data Active Medications Acetaminophen (Acetaminophen 325 Mg Tablet) 650 mg PO Q6H PRN PRN Reason: Pain, Mild (Pain Scale 1-3) Last Admin: 01/14/22 10:27 Dose: 650 mg Documented by: RATNA Atorvastatin Calcium (Atorvastatin Calcium 40 Mg Tablet) 40 mg PO DAILY [facility] Last Admin: 01/14/22 07:49 Dose: 40 mg Documented by: RATNA Digoxin (Digoxin 0.125 Mg Tablet) 0.25 mg PO DAILY [facility] Last Admin: 01/14/22 07:48 Dose: 0.25 mg Documented by: RATNA Docusate Sodium (Docusate Sodium 100 Mg Capsule) 100 mg PO DAILY PRN PRN Reason: Constipation Finasteride (Finasteride 5 Mg Tablet) 5 mg PO DAILY [facility] Last Admin: 01/14/22 07:48 Dose: 5 mg Documented by: RATNA Furosemide (Furosemide 40 Mg/4 Ml Vial) 40 mg IVPUSH DAILY [facility]; Protocol Gabapentin (Gabapentin 100 Mg Capsule) 200 mg PO TID [facility] Last Admin: 01/14/22 14:49 Dose: 200 mg Documented by: RATNA Hydroxyzine HCl (Hydroxyzine Hcl 25 Mg Tablet) 25 mg PO Q6H PRN PRN Reason: anxiety/restlessness Last Admin: 01/14/22 10:27 Dose: 25 mg Documented by: RATNA Piperacillin Sod/Tazobactam (Sod 3.375 gm/ Sodium Chloride) 50 mls @ 100 mls/hr IV Q6H [facility] Last Infusion: 01/14/22 14:34 Dose: 0 mls/hr Documented by: RATNA Metoprolol Tartrate (Metoprolol Tartrate 100 Mg Tablet) 100 mg PO BID [facility]; Protocol Last Admin: 01/14/22 07:49 Dose: 100 mg Documented by: RATNA Omeprazole (Omeprazole 20 Mg Capsule.Dr) 20 mg PO BID@0630,1630 [facility] Last Admin: 01/14/22 06:09 Dose: 20 mg Documented by: TAM Ondansetron HCl (Ondansetron Hcl 4 Mg/2 Ml Vial) 4 mg IVPUSH Q8H PRN PRN Reason: Nausea and Vomiting Oxycodone HCl (Oxycodone Hcl Immed Release 5 Mg Tablet) 5 mg PO Q4H PRN PRN Reason: Pain, Severe (Pain Scale 7-10) Last Admin: 01/14/22 14:49 Dose: 5 mg Documented by: RATNA Pharmacy Consult (Consult Rx Perform Med Rec) 1 each MISCELLANE ONCE PRN PRN Reason: Consult order Sodium Chloride (0.9 % Sodium Chloride Flush 3 Ml Syringe) 3 ml IVFLUSH QSHIFT [facility] Last Admin: 01/14/22 14:50 Dose: 3 ml Documented by: RATNA Tamsulosin HCl (Tamsulosin Hcl 0.4 Mg Capsule) 0.4 mg PO DAILY [facility] Last Admin: 01/14/22 07:49 Dose: 0.4 mg Documented by: RATNA Labs CBC & Chem 7: 01/14/22 06:49 01/14/22 06:49 Labs: Laboratory Results - last 24 hr 01/13/22 01/13/22 01/13/22 15:55 15:55 15:55 MCV 86.9 MCH 27.1 MCHC 31.2 RDW 18.0 H Plt Count 55 L MPV 9.9 Immature Gran % (Auto) 1.1 H Neut % (Auto) 36.6 L Lymph % (Auto) 44.0 H [place] % (Auto) 17.7 H Eos % (Auto) 0.0 Baso % (Auto) 0.6 Lymph # (Auto) 0.8 L [place] # (Auto) 0.3 Eos # (Auto) 0.0 Baso # (Auto) 0.0 Abs Immat Gran (auto) 0.02 Absolute Neuts (auto) 0.6 L Absolute Nucleated RBC 0.040 H Nucleated RBC % (auto) 2.3 H Smear Tech's Comments VERIFIED PT INR APTT Anion Gap 11 L Estim Creat Clear Calc 85.3 Estimated GFR > 60 Random Glucose 118 H D Lactic Acid Calcium 7.9 L D Total Bilirubin 0.7 Direct Bilirubin 0.3 AST 16 D ALT 7 Alkaline Phosphatase 59 Troponin I High Sens 22.0 D B-Natriuretic Peptide 3508 H Total Protein 5.9 L Albumin 3.0 L Lipase Urine Color Urine Appearance Urine pH Ur Specific [place] Urine Protein Urine Glucose (UA) Urine Ketones Urine Blood Urine Nitrite Ur Leukocyte Esterase Urine RBC Urine WBC Ur Squamous Epith Cells Urine Bacteria Urine Yeast COVID-19 (ELAN) COVID-19 Clin Com Influenza Type A ([place]) Influenza Type B ([place]) Influenza A & B Note Blood Type Antibody Screen Crossmatch 01/13/22 01/13/22 01/13/22 16:58 16:58 16:59 MCV MCH MCHC RDW Plt Count MPV Immature Gran % (Auto) Neut % (Auto) Lymph % (Auto) [place] % (Auto) Eos % (Auto) Baso % (Auto) Lymph # (Auto) [place] # (Auto) Eos # (Auto) Baso # (Auto) Abs Immat Gran (auto) Absolute Neuts (auto) Absolute Nucleated RBC Nucleated RBC % (auto) Smear Tech's Comments PT 13.8 H INR 1.2 H APTT 30.3 Anion Gap Estim Creat Clear Calc Estimated GFR Random Glucose Lactic Acid Calcium Total Bilirubin Direct Bilirubin AST ALT Alkaline Phosphatase Troponin I High Sens B-Natriuretic Peptide Total Protein Albumin Lipase Urine Color Urine Appearance Urine pH Ur Specific [place] Urine Protein Urine Glucose (UA) Urine Ketones Urine Blood Urine Nitrite Ur Leukocyte Esterase Urine RBC Urine WBC Ur Squamous Epith Cells Urine Bacteria Urine Yeast COVID-19 (ELAN) Negative COVID-19 Clin Com See Note Influenza Type A ([place]) Negative Influenza Type B ([place]) Negative Influenza A & B Note See Note Blood Type Antibody Screen Crossmatch 01/13/22 01/13/22 01/13/22 16:59 17:00 22:06 MCV MCH MCHC RDW Plt Count MPV Immature Gran % (Auto) Neut % (Auto) Lymph % (Auto) [place] % (Auto) Eos % (Auto) Baso % (Auto) Lymph # (Auto) [place] # (Auto) Eos # (Auto) Baso # (Auto) Abs Immat Gran (auto) Absolute Neuts (auto) Absolute Nucleated RBC Nucleated RBC % (auto) Smear Tech's Comments PT INR APTT Anion Gap Estim Creat Clear Calc Estimated GFR Random Glucose Lactic Acid 2.0 Calcium Total Bilirubin Direct Bilirubin AST ALT Alkaline Phosphatase Troponin I High Sens B-Natriuretic Peptide Total Protein Albumin Lipase 32 Urine Color YELLOW Urine Appearance CLEAR Urine pH 6.0 Ur Specific [place] 1.015 Urine Protein TRACE Urine Glucose (UA) NEG Urine Ketones NEG Urine Blood 2+ H Urine Nitrite NEG Ur Leukocyte Esterase 1+ H Urine RBC 1-4 Urine WBC 1-4 Ur Squamous Epith Cells TRACE Urine Bacteria NONE Urine Yeast 2+ COVID-19 ([facility]) COVID-19 Clin Com Influenza Type A ([place]) Influenza Type B ([place]) Influenza A & B Note Blood Type Antibody Screen Crossmatch 01/14/22 01/14/22 01/14/22 06:49 06:49 08:21 MCV 86.5 MCH 27.9 MCHC 32.3 RDW 17.4 H Plt Count 47 L MPV 10.7 Immature Gran % (Auto) 1.0 H Neut % (Auto) 36.3 L Lymph % (Auto) 53.9 H [place] % (Auto) 8.8 Eos % (Auto) 0.0 Baso % (Auto) 0.0 Lymph # (Auto) 0.6 L [place] # (Auto) 0.1 Eos # (Auto) 0.0 Baso # (Auto) 0.0 Abs Immat Gran (auto) 0.01 Absolute Neuts (auto) 0.4 L Absolute Nucleated RBC 0.050 H Nucleated RBC % (auto) 4.9 H Smear Tech's Comments VERIFIED PT INR APTT Anion Gap 14 Estim Creat Clear Calc 70.8 Estimated GFR > 60 Random Glucose 159 H Lactic Acid Calcium 7.9 L Total Bilirubin Direct Bilirubin AST ALT Alkaline Phosphatase Troponin I High Sens B-Natriuretic Peptide Total Protein Albumin Lipase Urine Color Urine Appearance Urine pH Ur Specific [place] Urine Protein Urine Glucose (UA) Urine Ketones Urine Blood Urine Nitrite Ur Leukocyte Esterase Urine RBC Urine WBC Ur Squamous Epith Cells Urine Bacteria Urine Yeast COVID-19 ([facility]AN) COVID-19 Clin Com Influenza Type A ([place]) Influenza Type B ([place]) Influenza A & B Note Blood Type A Positive Antibody Screen NEGATIVE Crossmatch See Detail Assessment and Plan (1) Acute and chronic respiratory failure with hypoxia: Status: Acute (2) Acute on chronic anemia: Status: Acute (3) Congestive heart failure: Status: Acute (4) Pneumonia: Status: Acute (5) GI bleed: Status: Acute (6) Pancytopenia: Status: Acute Plan 76-year-old male with past medical history of COPD complicated by COVID-19 pneumonia and chronic hypoxic respiratory failure on 2 L of oxygen, as well as cardiomyopathy, presents to the hospital with complaints of shortness of breath found to have CHF as well as acute hypoxic respiratory failure # acute on chronic hypoxic respiratory failure # secondary to pneumonia, CHF exacerbation, anemia,possible interstitial problem? pending cultures elevated BNP continue IV Lasix, IV antibiotics to transfuse blood wean oxygen down as tolerated to baseline of 3 L # CHF exacerbation continue digoxin continue IV Lasix strict I&O, daily weight low-sodium diet cardiology input appreciated To do echocardiogram # pneumonia/ interstitial lung disease infiltrates on chest x-ray with leukopenia reported to have respiratory symptoms after COVID given his immunosuppression will treat with IV antibiotics follow cultures to get pulmonary team evaluation #Sinus tachycardia with PACs treated as AFib with RVR on admission DC Cardizem drip # Acute on chronic anemia 2/2 GI bleed and MDS hemoglobin dropped to 6.9 with MDS he does not get transfusion until hemoglobin is less than 5 usually twice weekly transfused 2 units of blood and monitor response GI input appreciated, transfuse and monitor for any rebleeding and hold any anticoagulation for now # pancytopenia Secondary to MDS to get his paperwork from Oncology Evaluation by Oncology team DVT prophylaxis: Hold Lovenox for low platelets and recent GI bleed, use SCDs patient will need overnight hospital stay to continue treatment for acute on chronic hypoxic respiratory failure , GI bleed and anemia to continue management with oxygen, IV Lasix blood transfusion given high chance of decompensation Quality Stroke Does the patient have a stroke diagnosis?: No VTE Prior VTE?: No VTE Risk Level:: Medical - moderate - high VTE Device Contraindication: Treatment Not Indicated VTE Drug Contraindication: N/A - Med Ordered
[2022-01-14] MEDS: dilTIAZem HCL 60 MG TABLET PO (17:41)
--- NOTE | 2022-01-14 17:42 | PC.NURSE ---
pt HR un 140's, aware P.O Cardizem given
--- NOTE | 2022-01-14 17:58 | P.CNHO_ITS ---
Subjective - Subjective Chief complaint: Consult for: Pancytopenia. Patient: new to practice Consult date: 01/14/22 Requesting Physician: Annette Primary Care Provider: Unknown Physician Medical Summary: DIAGNOSIS: PANCYTOPENIA. HPI - Consult Narrative Reason for consult: Consult for: Pancytopenia. Narrative: Faizan Campbell Jr is a pleasant 76 year old gentleman, with a recent history of bacteremia who was currently on p.o. antibiotics, completing this week, presented to the hospital 01/14, with complaints of shortness of breath. Patient reported that his symptoms started about a day before presentation. he had cough, sputum production, and chills,but no fever. He reported orthopnea as well as PND. He c/o lower extremity edema that is been going on for 2-3 days. Denies chest pain, no palpitations no dizziness, no abdominal pain nausea or vomiting, no diarrhea constipation, no urinary symptoms. He was hospitalized at [facility] from 11/29/2019 to December 23 for man agement of methicillin sensitive bacteremia, felt to be secondary to pneumonia. He was discharged on long-term antibiotic cefazolin IV with course completion in 2 days. On arrival to the ED, his vitals: significant for heart rate in 150s found to be in AFib with RVR, respiratory rate of 29, satting 88% on his all home O2 of 2 L. Labs are significant for leukopenia of 1.8, hemoglobin of 7.9, hematocrit 25.3, BNP of 3508. UA positive for blood with no evidence of infection, COVID-19 negative, inf luenza negative. Checks x-ray shows bilateral airspace disease similar to November 2021 Past medical history of: Cardiomegaly, CKD, COPD, MDS, [place] due to COVID-19 virus complicated by hypoxia need for chronic oxygen on 2 L at baseline. Status post kidney transplantation in 1999. Social history: He was in the [employer]. He is . Denies smoking nor alcohol. Review of Systems - Constitutional Reports system reviewed and no additional complaints, except as documented, Reports daytime sleepiness, Reports fatigue, Reports weakness, Reports weight loss - Eyes Reports system reviewed and no additional complaints, except as documented - ENT Reports system reviewed and no additional complaints, except as documented - Cardiovascular Reports system reviewed and no additional complaints, except as documented - Respiratory Reports no additional respiratory complaints - Gastrointestinal Reports system reviewed and no additional complaints, except as documented - Genitourinary Genitourinary: Reports no additional male genitourinary complaints - Musculoskeletal Reports system reviewed and no additional complaints, except as documented - Integumentary/Breasts Skin/Breast: Reports no additional skin complaints - Neurologic Reports weakness - Psychiatric Reports system reviewed and no additional complaints, except as documented - Endocrine Reports no additional endocrine complaints - Hematologic/Lymphatic Reports system reviewed and no additional complaints, except as documented - Allergic/Immunologic Reports system reviewed and no additional complaints, except as documented Oncology Screenings - ECOG Performance Status ECOG Performance Status: 1 [facility] Medical History: Medical History (Last Updated 01/16/22 @ 10:00 by Trenton Almazan MD) Cardiomyopathy CKD stage G3b/A2, GFR 30-44 and albumin creatinine ratio 30-299 mg/g COPD (chronic obstructive pulmonary disease) Emphysema of lung Iliopsoas muscle hematoma Myelodysplastic syndrome On home O2 Pneumonia due to COVID-19 virus Tobacco dependency VRE bacteremia Functional capacity: uses cane/walker Patient : No Surgical History: Surgical History (Last Reviewed 01/15/22 @ 10:32 by Felicitas Maxwell PT) Status post kidney autotransplantation Social History: Social History (Last Reviewed 01/14/22 @ 13:29 by Erlin Prado MD) Living Situation History: Household Members: Spouse Do you presently have visiting nurse or other home services: Yes Tobacco History: Patient Tobacco Use Status: Former Tobacco user Tobacco use type: Cigarette Occupation Assessmet: service: Yes Current occupational status: retired Home Medications and Allergies Current Medications: Current Medications Acetaminophen (Acetaminophen 325 Mg Tablet) 650 mg PO Q6H PRN PRN Reason: Pain, Mild (Pain Scale 1-3) Last Admin: 01/14/22 17:47 Dose: 650 mg Documented by: Atorvastatin Calcium (Atorvastatin Calcium 40 Mg Tablet) 40 mg PO DAILY [facility] Last Admin: 01/14/22 07:49 Dose: 40 mg Documented by: Digoxin (Digoxin 0.125 Mg Tablet) 0.25 mg PO DAILY [facility] Last Admin: 01/14/22 07:48 Dose: 0.25 mg Documented by: Docusate Sodium (Docusate Sodium 100 Mg Capsule) 100 mg PO DAILY PRN PRN Reason: Constipation Finasteride (Finasteride 5 Mg Tablet) 5 mg PO DAILY [facility] Last Admin: 01/14/22 07:48 Dose: 5 mg Documented by: Furosemide (Furosemide 40 Mg/4 Ml Vial) 40 mg IVPUSH DAILY [facility]; Protocol Gabapentin (Gabapentin 100 Mg Capsule) 200 mg PO TID [facility] Last Admin: 01/14/22 14:49 Dose: 200 mg Documented by: Hydroxyzine HCl (Hydroxyzine Hcl 25 Mg Tablet) 25 mg PO Q6H PRN PRN Reason: anxiety/restlessness Last Admin: 01/14/22 17:47 Dose: 25 mg Documented by: Piperacillin Sod/Tazobactam (Sod 3.375 gm/ Sodium Chloride) 50 mls @ 100 mls/hr IV Q6H [facility] Last Infusion: 01/14/22 14:34 Dose: Infused Documented by: Metoprolol Tartrate (Metoprolol Tartrate 100 Mg Tablet) 100 mg PO BID [facility]; Protocol Last Admin: 01/14/22 07:49 Dose: 100 mg Documented by: Omeprazole (Omeprazole 20 Mg Capsule.Dr) 20 mg PO BID@0630,1630 [facility] Last Admin: 01/14/22 16:57 Dose: 20 mg Documented by: Ondansetron HCl (Ondansetron Hcl 4 Mg/2 Ml Vial) 4 mg IVPUSH Q8H PRN PRN Reason: Nausea and Vomiting Oxycodone HCl (Oxycodone Hcl Immed Release 5 Mg Tablet) 5 mg PO Q4H PRN PRN Reason: Pain, Severe (Pain Scale 7-10) Last Admin: 01/14/22 14:49 Dose: 5 mg Documented by: Pharmacy Consult (Consult Rx Perform Med Rec) 1 each MISCELLANE ONCE PRN PRN Reason: Consult order Sodium Chloride (0.9 % Sodium Chloride Flush 3 Ml Syringe) 3 ml IVFLUSH QSHIFT [facility] Last Admin: 01/14/22 14:50 Dose: 3 ml Documented by: Tamsulosin HCl (Tamsulosin Hcl 0.4 Mg Capsule) 0.4 mg PO DAILY [facility] Last Admin: 01/14/22 07:49 Dose: 0.4 mg Documented by: Home Medications Medication Instructions Recorded Confirmed Type ferrous sulfate 324 mg (65 mg 324 mg PO DAILY 01/13/22 01/13/22 History iron) tablet,delayed release finasteride 5 mg tablet 1 tab PO DAILY 01/13/22 01/13/22 History gabapentin 100 mg capsule 2 cap PO TID 01/13/22 01/13/22 History omeprazole 20 mg capsule,delayed 1 cap PO BID 01/13/22 01/13/22 History release oxycodone 5 mg tablet 1 tab PO Q4H PRN 01/13/22 01/13/22 History simvastatin 80 mg tablet 1 tab PO DAILY 01/13/22 01/13/22 History tamsulosin 0.4 mg capsule 1 cap PO DAILY 01/13/22 01/13/22 History Allergies Allergy/AdvReac Type Severity Reaction Status Date / Time No Known Allergies Allergy Verified 11/27/21 20:52 Physical Exam Vital signs: Vital Signs Temp 97.8 F 01/14/22 17:20 Pulse 147 H 01/14/22 17:41 Resp 18 01/14/22 17:20 BP 150/78 H 01/14/22 17:20 Pulse Ox 98 01/14/22 15:06 Intake & Output 01/13/22 01/14/22 01/14/22 18:59 06:59 18:59 Intake Total 428 / 428 610.75 / 610.75 Output Total 3200 / 3200 2200 / 2200 Balance -2772 / -2772 -1589.25 / -1589.25 Urine Output (Average ml/kg/hr) 4.44 3.05 Intake: Intake (Blood Product) Amount 400 / 400 Red Blood Cells Irr (E0332) 400 / 400 Unit [id number] Red Blood Cells Irr (E0332) 0 / 0 Unit [id number] Intake, IV Amount 428 / 428 210.75 / 210.75 Piperacillin Sodium/Tazobactam 50 / 50 100 / 100 3.375 gm In 0.9 % Sodium Chloride 50 ml @ 100 mls/hr IV Q6H [facility] Rx#:[id number] Piperacillin Sodium/Tazobactam 100 / 100 4.5 gm In 0.9 % Sodium Chloride 100 ml @ 200 mls/hr IV ONCE [facility] Rx#:[id number] vancomycin HCL 1,250 mg In 0.9 250 / 250 % Sodium Chloride 250 ml @ 166. 667 mls/hr IV Q24H [facility] Rx#: [id number] dilTIAZem HCL 125 mg In 0.9 % 28 / 28 110.75 / 110.75 Sodium Chloride 100 ml @ Per Protocol IVCONT .Q0M [facility] Rx#: [id number] Output: Output, Urine Amount 1999 / 1999 Output, Urine Amount (Catheter) 1200 / 1200 2200 / 2200 champagne 1200 / 1200 2200 / 2200 Other: Number of Bowel Movements 1 Urine Color Yellow Yellow Last Bowel Movement 01/14/22 Stool Bedside Commode Stool Amount Moderate Stool Color Rachael Stool Consistency Mushy Weight 65.4 kg 60.1 kg Weight in Grams 24105 Weight 60.1 kg - Constitutional Present: mild distress - Routine HEENT Exam Head: Present: normal inspection - Routine Neck Exam Present: supple - Routine Respiratory Exam Present: CTAB - Routine Cardiovascular Exam Cardiovascular: Present: RRR, S1, S2 - Routine Abdominal Exam Present: normal bowel sounds, nontender - Routine Extremities Exam Present: nontender - Routine Skin Exam Present: intact - Detailed Neurological Exam: Coma Scale Verbal Response: Oriented (5) Motor Response: Obeys commands (6) Hem/Onc Consult Result - Labs CBC & Chem 7: 01/19/22 06:35 01/19/22 06:35 Labs: Short CBC 01/14/22 Range/Units 06:49 WBC 1.0 L (4.8-10.8) X10*3/uL Hgb 6.2 L* D (14.0-18.0) g/dl Hct 19.2 L* D (42.0-52.0) % Plt Count 47 L (160-400) X10*3/uL BMP 01/14/22 06:49 Sodium 139 Potassium 3.5 Chloride 103 Carbon Dioxide 26 BUN 30 H Creatinine 0.73 Calcium 7.9 L Urine 01/13/22 Range/Units 22:06 Urine Color YELLOW Urine Appearance CLEAR Urine pH 6.0 (5.0-8.0) Ur Specific [place] 1.015 (1.005-1.025) Urine Protein TRACE (NEG-TRACE) MG/DL Urine Glucose (UA) NEG (NEG) MG/DL Assessment and Plan Patient Active problem list reviewed?: Yes (1) Pancytopenia Status: Acute Assessment and plan: 76-year-old gentleman with pancytopenia presented with shortness of breath. He is recently being treated for pneumonia as well as bacteremia with methicillin sensitive Staph aureus. CTA: 1. No pulmonary embolus identified. 2. Extensive multifocal regions of consolidation in the mid to lower lungs. Considerations include multifocal pneumonia or pulmonary edema in the proper clinical setting. 3. Trace pleural effusions. 4. Left kidney is not visualized; correlation recommended for history of prior nephrectomy. Patient has known history of MDS. That is the likely cause of his underlying pancytopenia. Apparently he gets blood transfusions if the hemoglobin goes to 5 or below. He is scheduled for transfusion twice weekly. PLAN: I will request for his previous heme Onc records, including bone marrow results. Meanwhile transfused blood if hemoglobin goes to 6 or below. Platelets if platelets go down to 10 or below, or in case of bleeding. Can give growth factor support in the setting of bacteremia and overwhelming infection. Thank you, Cc: - Time Spent With Patient Time Spent with Patient (in minutes): 30
[2022-01-14 18:06] LABS: Hematocrit 21.1 % (42.0-52.0); Mean Corpuscular HGB Conc 32.7 g/dl (31.0-36.0); Mean Corpuscular Hemoglobin 27.9 pg (27.0-33.0); Mean Corpuscular Volume 85.4 fL (80.0-98.0); Mean Platelet Volume 11.2 fL (9.4-12.4); Red Blood Count 2.47 X10*6/uL (4.60-5.80); Red Cell Distribution Width 16.7 % (11.0-16.0)
--- NOTE | 2022-01-14 18:07 | PC.NURSE ---
Stool 3x episode of dark Bloody stool, MD aware.
[2022-01-14 18:08] LABS: NRBC Pct Auto 3.7 /100WBC (0.0-0.2); Platelet Count 47 X10*3/uL (160-400)
[2022-01-14 18:14] LABS: Hemoglobin 6.9 g/dl (14.0-18.0); White Blood Count 1.9 X10*3/uL (4.8-10.8)
[2022-01-14] MEDS: Tbo-Filgrastim 300 MCG/0.5 ML SYRINGE SUBCUT (18:51)
[2022-01-15] VITALS (9 sets, daily range): BP systolic 97–140; BP diastolic 42–78; PULSE 55–96; RESP 16–20; TEMP 35.8–37.3; O2SAT 93–99; BMI 19.0
[2022-01-15] MEDS: Omeprazole 20 MG CAPSULE.DR PO (06:08)
[2022-01-15] MEDS: Piperacillin Sodium/Tazobactam 3.375 GM in 0.9 % Sodium Chloride 50 ML IV ×4 (06:08→18:24)
--- NOTE | 2022-01-15 07:55 | CA_ITS ---
Transthoracic Echocardiogram Amended Patient (Last, First, Middle): Faizan Campbell, Gender: Male Date of : 1945 Age: 76 Procedure Date: 01/15/2022 Procedure Type: Transthoracic Echocardiogram Location: [facility] [place] Height: 177.8 cm Weight: 59.88 kg BSA: 1.75 m2 Heart Rate: bpm BP: 108 / 70 mmHg Talent Acquisition Associate: YR/TO Referring MD: Danielle Smith MD Symptoms: CHF Study Quality: Fair ECG Rhythm: Undetermined Conclusions: - The left ventricular systolic function is moderately decreased. The visually estimated ejection fraction is between 30-35% (difficult to assess due to atrial arrhythmia, PVCs). - Mildly increased right ventricular cavity size. - The left atrium is severely dilated. - There is mild calcification of the aortic valve. - There is mild to moderate mitral valve regurgitation. - Moderate pulmonary hypertension is present. Findings Left Ventricle Normal left ventricular cavity size. There is normal left ventricular wall thickness. The left ventricular systolic function is moderately decreased. The visually estimated ejection fraction is between 30-35%. Regional wall motion abnormalities can not be excluded due to suboptimal endocardial definition. There is moderate global hypokinesis. Diastolic function is indeterminate on the basis of available data. Paradoxical septal motion, uncertain etiology. Right Ventricle Mildly increased right ventricular cavity size. There is normal right ventricular systolic function. Atria The left atrium is severely dilated. The right atrium is normal in size. Aortic Valve There is mild calcification of the aortic valve. There is no aortic valve stenosis. The mean gradient is 5 mmHg. There is no aortic valve regurgitation. Mitral Valve There is mild mitral annular calcification. There is mild to moderate mitral valve regurgitation. There is no mitral valve stenosis. Pulmonic Valve The pulmonic valve was not well visualized. Tricuspid Valve Normal tricuspid valve structure. There is mild tricuspid valve regurgitation. The right ventricular systolic pressure is 51 mmHg. Moderate pulmonary hypertension is present. Great Vessels The asc aorta is normal in size. Venous The inferior vena cava is normal in size and collapses greater than 50% with inspiration. There is evidence of a dilated coronary sinus. Pericardium/Pleural There is no evidence of pericardial effusion. Prior Study Comparison No prior study available for comparison. Measurements 2D Linear Measurements IVSd: 0.88 0.6-0.9/0.6-1.0 cm LVIDd: 4.84 3.9-5.3/4.2-5.9 cm LVIDd Index: 2.77 2.4-3.2/2.2-3.1 cm/m2 LVIDs: 4.19 2.0-3.6 cm LVPWd: 0.89 0.7-1.1 cm LA Diam: 4.20 2.7-3.8/3.0-4.0 cm LAIDs Index: 2.40 1.5-2.3 cm/m2 LV Mass: 183.26 67-162/88-224 g LV Mass Index: 104.72 43-95/49-115 g/m2 LVOT Diam: 2.20 3.0+(-)1.3 cm 2D Volumes LA Vol: 48.10 2D Systolic Function EF 4C: 32.00 >55% EF 2C: 40.50 >55% EF BiP: 38.30 >55% Aortic Valve AoV Pk Tony: 1.61 AoV Mn Tony: 1.03 AoV VTI: 0.26 AoV Pk Grad: 10.00 Aov Mn Grad: 5.00 ELOY Cont.VTI: 2.20 LVOT LVOT Pk Tony: 0.94 LVOT Mn Tony: 0.60 LVOT VTI: 0.15 LVOT Pk Grad: 4.00 LVOT Mn Grad: 2.00 LVOT Diam: 2.20 LVOT Area: 3.80 Right Ventricle TAPSE (mm): 18.20 TVS' Tony: 11.90 Tricuspid Valve TR Pk Tony: 3.28 TR Pk Grad: 43.00 RA Press: 8.00 RVSP: 51.00 Great Vessels Aorta Sinus of Valsalva: 3.47 2.0-3.[address] [place]: 2.41 1.7-3.4 cm Ao Asc: 3.10 2.1-3.4 cm Updated in Other Vendor System with Status of Final Trenton Almazan MD electronically signed on 01/16/2022 11:04:59 AM with status of Final
[2022-01-15 08:01] LABS: Hematocrit 28.3 % (42.0-52.0); Hemoglobin 9.1 g/dl (14.0-18.0); Mean Corpuscular HGB Conc 32.2 g/dl (31.0-36.0); Mean Corpuscular Hemoglobin 27.8 pg (27.0-33.0); Mean Corpuscular Volume 86.5 fL (80.0-98.0); Mean Platelet Volume 10.6 fL (9.4-12.4); Red Blood Count 3.27 X10*6/uL (4.60-5.80); Red Cell Distribution Width 17.1 % (11.0-16.0); White Blood Count 7.9 X10*3/uL (4.8-10.8)
[2022-01-15 08:03] LABS: NRBC Pct Auto 2.3 /100WBC (0.0-0.2); Platelet Count 82 X10*3/uL (160-400)
[2022-01-15 08:15] LABS: Anion Gap 14 (12-20); Blood Urea Nitrogen 33 mg/dL (9-16); Calcium 8.6 mg/dL (8.4-10.2); Carbon Dioxide 34 mmol/L (22-29); Chloride 97 mmol/L (96-108); Creatinine Clr Calc Pharmacy 61.6; Estimated Glomerular Filt Rate > 60; Glucose Random 82 mg/dL (60-115); Potassium 3.6 mmol/L (3.3-5.1); Sodium 141 mmol/L (135-145)
[2022-01-15 08:17] LABS: B Type Natriuretic Peptide 1236 pg/mL (<100)
[2022-01-15] MEDS: 0.9 % Sodium Chloride Flush 3 ML SYRINGE IVFLUSH ×3 (09:18→19:53)
[2022-01-15] MEDS: Furosemide 40 MG/4 ML VIAL IVPUSH (09:18)
[2022-01-15] MEDS: Digoxin 0.125 MG TABLET 0.25 MG PO (09:19)
[2022-01-15] MEDS: Gabapentin 100 MG CAPSULE 200 MG PO ×3 (09:19→19:53)
[2022-01-15] MEDS: Tamsulosin HCL 0.4 MG CAPSULE PO (09:20)
[2022-01-15] MEDS: Atorvastatin Calcium 40 MG TABLET PO (09:20)
[2022-01-15] MEDS: Metoprolol Tartrate 100 MG TABLET PO ×2 (09:20→19:53)
[2022-01-15] MEDS: Finasteride 5 MG TABLET PO (09:20)
--- NOTE | 2022-01-15 13:28 | MHC.CLN ---
PT IS MODERATELY MALNOURISHED PT WITH MILDLY DEPLETED MUSCLE MASS, AND REPORTS 17% SIGNIFICANT WT LOSS X 7 MONTHS R/T MULTIPLE RECENT HOSPITALIZATIONS PT STATED HIS UBW IS 160# DIET RX: 2GM NA -APPROPRIATE PT RECEPTIVE TO TRIAL OF ENSURE TO INCREASE KCALS SUPP TO PROVIDE 700KCALS, 40G PROTEIN MONITOR PO INTAKE CLOSELY SEE ALSO FULL CLINICAL NUTRITION ASSESSMENT
[2022-01-15 14:19] LABS: Hematocrit 25.5 % (42.0-52.0); Hemoglobin 8.5 g/dl (14.0-18.0)
--- NOTE | 2022-01-15 14:39 | MHC.CM.PN ---
Male 76 DX AFIB RVR DP resume home care services with [facility]. [place] will resume as oxygen provider. The will provide transportation home.
--- NOTE | 2022-01-15 14:43 | HO.PM.IMPN ---
Subjective Subjective Date of Service: 01/15/22 Interval History: the patient was seen and evaluated this morning laying in his bed, reported feeling improvement decreased oxygen supplement to 5 L hemoglobin improved above 9 but still has evidence of bleeding overnight No reported other overnight events. Systemic review: No fever, chills or weakness No chest pain, palpitation improvement of shortness of breath and dyspnea with exertion No abdominal pain, nausea or vomiting but still having melena No urinary symptoms No any rash or wounds Physical Exam Vital Signs: Vital Signs: Last Vital Signs Temp 98.3 F 01/15/22 11:58 Pulse 76 01/15/22 11:58 Resp 18 01/15/22 11:58 BP 112/53 L 01/15/22 11:58 Pulse Ox 93 01/15/22 11:58 BMI result Body Mass Index 19.0 Const: Other: Constitutional : Alert, oriented, note in distress Neck : Normal inspection, Supple Cardiovascular : RRR, no JVP, no lower extremity edema Respiratory : fair bilateral air entry, basal fine on bilateral more on the right crackles, wheezes or rhonchi, on oxygen supplement Gastrointestinal: soft, lax, Normal bowel sounds, Non tender Skin : Warm, Dry Neurological : Alert & oriented x3, No focal deficit , CN 2-12 within normal Objective Data Active Medications Acetaminophen (Acetaminophen 325 Mg Tablet) 650 mg PO Q6H PRN PRN Reason: Pain, Mild (Pain Scale 1-3) Last Admin: 01/14/22 17:47 Dose: 650 mg Documented by: RATNA Atorvastatin Calcium (Atorvastatin Calcium 40 Mg Tablet) 40 mg PO DAILY [facility] Last Admin: 01/15/22 09:20 Dose: 40 mg Documented by: GARFIELD Digoxin (Digoxin 0.125 Mg Tablet) 0.25 mg PO DAILY [facility] Last Admin: 01/15/22 09:19 Dose: 0.25 mg Documented by: GARFIELD Docusate Sodium (Docusate Sodium 100 Mg Capsule) 100 mg PO DAILY PRN PRN Reason: Constipation Finasteride (Finasteride 5 Mg Tablet) 5 mg PO DAILY [facility] Last Admin: 01/15/22 09:20 Dose: 5 mg Documented by: GARFIELD Furosemide (Furosemide 40 Mg/4 Ml Vial) 40 mg IVPUSH DAILY [facility]; Protocol Last Admin: 01/15/22 09:18 Dose: 40 mg Documented by: GARFIELD Gabapentin (Gabapentin 100 Mg Capsule) 200 mg PO TID [facility] Last Admin: 01/15/22 09:19 Dose: 200 mg Documented by: GARFIELD Hydroxyzine HCl (Hydroxyzine Hcl 25 Mg Tablet) 25 mg PO Q6H PRN PRN Reason: anxiety/restlessness Last Admin: 01/14/22 22:33 Dose: 25 mg Documented by: QUETA Piperacillin Sod/Tazobactam (Sod 3.375 gm/ Sodium Chloride) 50 mls @ 100 mls/hr IV Q6H [facility] Last Infusion: 01/15/22 06:38 Dose: 0 mls/hr Documented by: QUETA Metoprolol Tartrate (Metoprolol Tartrate 100 Mg Tablet) 100 mg PO BID [facility]; Protocol Last Admin: 01/15/22 09:20 Dose: 100 mg Documented by: GARFIELD Omeprazole (Omeprazole 20 Mg Capsule.Dr) 20 mg PO BID@0630,1630 [facility] Last Admin: 01/15/22 06:08 Dose: 20 mg Documented by: QUETA Ondansetron HCl (Ondansetron Hcl 4 Mg/2 Ml Vial) 4 mg IVPUSH Q8H PRN PRN Reason: Nausea and Vomiting Oxycodone HCl (Oxycodone Hcl Immed Release 5 Mg Tablet) 5 mg PO Q4H PRN PRN Reason: Pain, Severe (Pain Scale 7-10) Last Admin: 01/14/22 20:24 Dose: 5 mg Documented by: QUETA Pharmacy Consult (Consult Rx Perform Med Rec) 1 each MISCELLANE ONCE PRN PRN Reason: Consult order Sodium Chloride (0.9 % Sodium Chloride Flush 3 Ml Syringe) 3 ml IVFLUSH QSHIFT [facility] Last Admin: 01/15/22 09:18 Dose: 3 ml Documented by: GARFIELD Tamsulosin HCl (Tamsulosin Hcl 0.4 Mg Capsule) 0.4 mg PO DAILY [facility] Last Admin: 01/15/22 09:20 Dose: 0.4 mg Documented by: GARFIELD Labs CBC & Chem 7: 01/15/22 14:05 01/15/22 07:38 Labs: Laboratory Results - last 24 hr 01/14/22 01/14/22 01/15/22 08:21 17:54 07:38 MCV 85.4 86.5 MCH 27.9 27.8 MCHC 32.7 32.2 RDW 16.7 H 17.1 H Plt Count 47 L 82 L D MPV 11.2 10.6 Absolute Nucleated RBC 0.070 H 0.180 H Nucleated RBC % (auto) 3.7 H 2.3 H Anion Gap Estim Creat Clear Calc Estimated GFR Random Glucose Calcium B-Natriuretic Peptide Blood Type A Positive Antibody Screen NEGATIVE Crossmatch See Detail 01/15/22 01/15/22 07:38 07:38 MCV MCH MCHC RDW Plt Count MPV Absolute Nucleated RBC Nucleated RBC % (auto) Anion Gap 14 Estim Creat Clear Calc 61.6 Estimated GFR > 60 Random Glucose 82 D Calcium 8.6 D B-Natriuretic Peptide 1236 H Blood Type Antibody Screen Crossmatch Microbiology Microbiology Results: Microbiology 01/13/22 Unknown Urine Culture - Preliminary Urine clean catch - Urine schmidt top Yeast 01/13/22 17:16 Blood Culture - Preliminary Blood - Venous No growth after 24 hours. 01/13/22 17:00 Blood Culture - Preliminary Blood - Venous No growth after 24 hours. Assessment and Plan (1) Pancytopenia: Status: Acute (2) GI bleed: Status: Acute (3) Acute on chronic anemia: Status: Acute (4) Acute and chronic respiratory failure with hypoxia: Status: Acute Plan 76-year-old male with past medical history of COPD complicated by COVID-19 pneumonia and chronic hypoxic respiratory failure on 2 L of oxygen, as well as cardiomyopathy, presents to the hospital with complaints of shortness of breath found to have CHF as well as acute hypoxic respiratory failure # acute on chronic hypoxic respiratory failure # secondary to pneumonia, CHF exacerbation, anemia,possible interstitial problem? negative blood culture, Yeast in urine cultures elevated BNP continue IV Lasix discontinue IV antibiotics wean oxygen down as tolerated to baseline of 3 L # Acute systolic CHF exacerbation continue digoxin continue IV Lasix strict I&O, daily weight low-sodium diet cardiology input appreciated echo showing EF of 30% # pneumonia/ interstitial lung disease infiltrates on chest x-ray with leukopenia reported to have respiratory symptoms after COVID given his immunosuppression will treat with IV antibiotics follow cultures to get pulmonary team evaluation #Sinus tachycardia with PACs treated as AFib with RVR on admission DC Cardizem drip # Acute on chronic anemia 2/2 GI bleed and MDS hemoglobin improved above 10 with MDS he does not get transfusion until hemoglobin is less than 5 usually twice weekly transfused 2 units of blood and monitor response hematology input appreciated, transfused if Hb 6 or below. Platelets F 10 or below or if bleeding. 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 to get his paperwork from Oncology Evaluation by Oncology team # moderate malnutrition continue high-protein diet by alarm mechanic DVT prophylaxis: SCDs patient will need overnight hospital stay to continue treatment for acute on chronic hypoxic respiratory failure , GI bleed and anemia to continue management with oxygen, IV Lasix blood transfusion given high chance of decompensation Quality Stroke Does the patient have a stroke diagnosis?: No VTE Prior VTE?: No VTE Risk Level:: Medical - moderate - high VTE Device Contraindication: Treatment Not Indicated VTE Drug Contraindication: N/A - Med Ordered
[2022-01-15] MEDS: oxyCODONE HCl Immed Release 5 MG TABLET PO (20:01)
[2022-01-15] MEDS: hydrOXYzine HCL 25 MG TABLET PO (20:01)
[2022-01-15 21:17] LABS: Hematocrit 25.9 % (42.0-52.0); Hemoglobin 8.3 g/dl (14.0-18.0)
[2022-01-16] VITALS (8 sets, daily range): BP systolic 99–118; BP diastolic 50–64; PULSE 51–107; RESP 18–20; TEMP 36.2–37.2; O2SAT 94–99
[2022-01-16] MEDS: Piperacillin Sodium/Tazobactam 3.375 GM in 0.9 % Sodium Chloride 50 ML IV ×2 (00:59→06:22)
[2022-01-16] MEDS: Omeprazole 20 MG CAPSULE.DR PO ×2 (06:23→18:05)
[2022-01-16] MEDS: 0.9 % Sodium Chloride Flush 3 ML SYRINGE IVFLUSH ×2 (06:23→18:06)
[2022-01-16 07:13] LABS: Hematocrit 26.3 % (42.0-52.0); Hemoglobin 8.3 g/dl (14.0-18.0); Mean Corpuscular HGB Conc 31.6 g/dl (31.0-36.0); Mean Corpuscular Hemoglobin 27.5 pg (27.0-33.0); Mean Corpuscular Volume 87.1 fL (80.0-98.0); Mean Platelet Volume 10.6 fL (9.4-12.4); Red Blood Count 3.02 X10*6/uL (4.60-5.80); Red Cell Distribution Width 16.8 % (11.0-16.0); White Blood Count 4.5 X10*3/uL (4.8-10.8)
[2022-01-16 07:14] LABS: NRBC Pct Auto 1.1 /100WBC (0.0-0.2); Platelet Count 79 X10*3/uL (160-400)
[2022-01-16 07:28] LABS: Anion Gap 10 (12-20); Blood Urea Nitrogen 28 mg/dL (9-16); Calcium 8.5 mg/dL (8.4-10.2); Carbon Dioxide 36 mmol/L (22-29); Chloride 96 mmol/L (96-108); Creatinine Clr Calc Pharmacy 61.6; Estimated Glomerular Filt Rate > 60; Glucose Random 110 mg/dL (60-115); Potassium 3.2 mmol/L (3.3-5.1); Sodium 139 mmol/L (135-145)
[2022-01-16 07:34] LABS: B Type Natriuretic Peptide 1085 pg/mL (<100)
[2022-01-16] MEDS: Digoxin 0.125 MG TABLET 0.25 MG PO (08:38)
[2022-01-16] MEDS: Gabapentin 100 MG CAPSULE 200 MG PO ×3 (08:39→21:00)
[2022-01-16] MEDS: Atorvastatin Calcium 40 MG TABLET PO (08:40)
[2022-01-16] MEDS: Tamsulosin HCL 0.4 MG CAPSULE PO (08:40)
[2022-01-16] MEDS: Finasteride 5 MG TABLET PO (08:40)
[2022-01-16] MEDS: Metoprolol Tartrate 100 MG TABLET PO ×2 (08:40→20:51)
[2022-01-16] MEDS: Furosemide 40 MG/4 ML VIAL IVPUSH (08:41)
[2022-01-16] MEDS: Potassium Chloride Packet 20 MEQ PACKET 40 MEQ PO ×2 (08:47→14:43)
[2022-01-16 09:13] LABS: Magnesium 1.2 mg/dL (1.6-2.6)
--- NOTE | 2022-01-16 09:29 | PM.CNPUL ---
History of Present Illness History of Present Illness Consult date: 01/16/22 Chief complaint: A fib w rvr,chf,pna Narrative: This is an inpatient pulmonary consultation. This is a 76-year-old male with past medical history of cardiomegaly, CKD, COPD, MDS, pneumonia due to COVID-19 virus complicated by hypoxia need for chronic oxygen on 2 L at baseline, status post kidney transplantation in 1999. The patient was in his usual state health until sometime in early November when he was evaluated for worsening shortness of breath at the [facility]. He was transferred to [facility] on the 11/29/2019 to December 23 for management of methicillin sensitive bacteremia felt to be secondary to pneumonia and he was discharged on long-term antibiotic cefazolin IV with course completion in 2 days. Now the patient has been having worsening shortness of breath and was brought back to the [facility] ER. On arrival to the ED patient vitals are significant for heart rate in 150s found to be in AFib with RVR, respiratory rate of 29, satting 88% on his all home O2 of 2 L. Labs are significant for leukopenia of 1.8, hemoglobin of 7.9, hematocrit 25.3, BNP of 3508, UA positive for blood with no evidence of infection, COVID-19 negative, influenza negative. I personally reviewed his chest x-ray demonstrating bilateral airspace disease. In addition to that he had a CT scan of the abdomen and pelvis on 01/15/2022 demonstrating some slight interval improvement in the airspace disease compared to the CT scan he had back in early November. The patient is shortness of breath has been improving after treating him with antibiotics in addition to rate controlling his AFib in addition to transfusing him blood products. The patient has a multifactorial etiology for his shortness of breath. The patient has been able to wean off some of the oxygen. Overall he is feeling better. Denies any fevers or chills denies any productive sputum. Overall he is doing well. Will see about deescalating his antibiotic regimen at this time. If the patient worsens I did talk to Cardiology briefly about the possibility of bronchoscopy. The patient is high risk with multiple cardiac conditions. Therefore we need to weigh the risk benefit for any semi invasive her invasive interventions. Review of Systems Constitutional: Constitutional: Reports lethargy and Reports weakness Eyes: Eyes: Reports no additional eye complaints Cardiovascular: Cardiovascular: Denies chest pain, Reports leg edema, Denies palpitations and Reports dyspnea Respiratory: Respiratory: Reports no additional respiratory complaints and Reports dyspnea Gastrointestinal: Gastrointestinal: Reports no additional gastrointestinal complaints Genitourinary: Genitourinary: Reports no additional male genitourinary complaints Integumentary/Breasts: Skin/Breast: Reports system reviewed and no additional complaints, except as docu Neurologic: Reports weakness Endocrine: Endocrine: Denies palpitations [facility] Past Medical History Medical History (Updated 01/16/22 @ 09:34 by Eric Crane MD) Cardiomyopathy CKD stage G3b/A2, GFR 30-44 and albumin creatinine ratio 30-299 mg/g COPD (chronic obstructive pulmonary disease) Emphysema of lung Iliopsoas muscle hematoma Myelodysplastic syndrome On home O2 Pneumonia due to COVID-19 virus Tobacco dependency VRE bacteremia Surgical History Surgical History Status post kidney autotransplantation Social History Social History Household Members: Spouse Do you presently have visiting nurse or other home services: Yes Patient Tobacco Use Status: Former Tobacco user Tobacco use type: Cigarette Use of substances other than those prescribed or required for medical reasons: No Currently Displaying Signs/Symptoms of Drug Intoxication Withdrawal: No Have you been hit, kicked, punched, or otherwise hurt by someone within the past year? If so, by whom?: No Do you feel safe in your current relationship?: Yes Is there a partner from a previous relationship who is making you feel unsafe now?: No Are you made to feel afraid or neglected: No Advance Directives: No Advance Directives Information Provided: No Do you have thoughts of harming others: None Do you have a plan to hurt others: No Plan Recently lost weight without trying: Yes How much weight loss: 34pounds or more Eating poorly because of decreased appetite: No Nutrition screen score: 6 Nutrition Risks: No Nutritional Risk service: Yes Current occupational status: retired Meds Allergies Allergy/AdvReac Type Severity Reaction Status Date / Time No Known Allergies Allergy Verified 11/27/21 20:52 Active Medications: Current Medications Acetaminophen (Acetaminophen 325 Mg Tablet) 650 mg PO Q6H PRN PRN Reason: Pain, Mild (Pain Scale 1-3) Last Admin: 01/14/22 17:47 Dose: 650 mg Documented by: Atorvastatin Calcium (Atorvastatin Calcium 40 Mg Tablet) 40 mg PO DAILY [facility] Last Admin: 01/16/22 08:40 Dose: 40 mg Documented by: Digoxin (Digoxin 0.125 Mg Tablet) 0.25 mg PO DAILY [facility] Last Admin: 01/16/22 08:38 Dose: 0.25 mg Documented by: Docusate Sodium (Docusate Sodium 100 Mg Capsule) 100 mg PO DAILY PRN PRN Reason: Constipation Doxycycline Hyclate (Doxycycline Hyclate 100 Mg Tablet) 100 mg PO Q12H [facility] Last Admin: 01/16/22 08:46 Dose: 100 mg Documented by: Finasteride (Finasteride 5 Mg Tablet) 5 mg PO DAILY [facility] Last Admin: 01/16/22 08:40 Dose: 5 mg Documented by: Furosemide (Furosemide 40 Mg/4 Ml Vial) 40 mg IVPUSH DAILY [facility]; Protocol Last Admin: 01/16/22 08:41 Dose: 40 mg Documented by: Gabapentin (Gabapentin 100 Mg Capsule) 200 mg PO TID [facility] Last Admin: 01/16/22 08:39 Dose: 200 mg Documented by: Hydroxyzine HCl (Hydroxyzine Hcl 25 Mg Tablet) 25 mg PO Q6H PRN PRN Reason: anxiety/restlessness Last Admin: 01/15/22 20:01 Dose: 25 mg Documented by: Metoprolol Tartrate (Metoprolol Tartrate 100 Mg Tablet) 100 mg PO BID [facility]; Protocol Last Admin: 01/16/22 08:40 Dose: 100 mg Documented by: Omeprazole (Omeprazole 20 Mg Capsule.) 20 mg PO BID@0630,1630 [facility] Last Admin: 01/16/22 06:23 Dose: 20 mg Documented by: Ondansetron HCl (Ondansetron Hcl 4 Mg/2 Ml Vial) 4 mg IVPUSH Q8H PRN PRN Reason: Nausea and Vomiting Oxycodone HCl (Oxycodone Hcl Immed Release 5 Mg Tablet) 5 mg PO Q4H PRN PRN Reason: Pain, Severe (Pain Scale 7-10) Last Admin: 01/15/22 20:01 Dose: 5 mg Documented by: Pharmacy Consult (Consult Rx Perform Med Rec) 1 each MISCELLANE ONCE PRN PRN Reason: Consult order Potassium Chloride (Potassium Chloride Packet 20 Meq Packet) 40 meq PO Q4H [facility] Stop: 01/16/22 12:31 Last Admin: 01/16/22 08:47 Dose: 40 meq Documented by: Sodium Chloride (0.9 % Sodium Chloride Flush 3 Ml Syringe) 3 ml IVFLUSH QSHIFT [facility] Last Admin: 01/16/22 06:23 Dose: 3 ml Documented by: Tamsulosin HCl (Tamsulosin Hcl 0.4 Mg Capsule) 0.4 mg PO DAILY [facility] Last Admin: 01/16/22 08:40 Dose: 0.4 mg Documented by: Home Medications Medication Instructions Recorded Confirmed Last Taken Type cefazolin 2 gram/100 mL in 100 ml IV Q8H 01/13/22 01/13/22 01/12/22 History dextrose 5 % intravenous solution digoxin 125 mcg (0.125 mg) tablet 250 mcg PO DAILY 01/13/22 01/13/22 01/12/22 History ferrous sulfate 324 mg (65 mg 324 mg PO DAILY 01/13/22 01/13/22 01/12/22 History iron) tablet,delayed release finasteride 5 mg tablet 1 tab PO DAILY 01/13/22 01/13/22 01/12/22 History gabapentin 100 mg capsule 2 cap PO TID 01/13/22 01/13/22 01/12/22 History metoprolol tartrate 100 mg tablet 1 tab PO BID 01/13/22 01/13/22 01/12/22 History omeprazole 20 mg capsule,delayed 1 cap PO BID 01/13/22 01/13/22 01/12/22 History release oxycodone 5 mg tablet 1 tab PO Q4H PRN 01/13/22 01/13/22 01/12/22 History simvastatin 80 mg tablet 1 tab PO DAILY 01/13/22 01/13/22 01/12/22 History tamsulosin 0.4 mg capsule 1 cap PO DAILY 01/13/22 01/13/22 01/12/22 History Physical Exam Vital Signs: Vital Signs: Last Vital Signs Temp 97.7 F 01/16/22 07:41 Pulse 100 01/16/22 07:41 Resp 20 01/16/22 07:41 BP 115/54 L 01/16/22 07:41 Pulse Ox 99 01/16/22 07:41 BMI result Body Mass Index 19.0 Const: General: alert Nutritional Appearance: thin and underweight Neck: Neck: Yes normal visual inspection, Yes full ROM and Yes no lymphadenopathy Chest: Chest palpation & inspection: normal inspection of the chest Resp: Auscultation: diminished lung sounds Cardio: Rate: regular rate Rhythm: abnormal rhythm Heart sounds: S1 normal heart sound present and S2 normal heart sound present GI: Palpation (GI): Soft to palpation and nontender Auscultation: normal bowel sounds Skin: General skin exam: rashes and/or lesions noted Results Laboratory Findings CBC and BMP: 01/16/22 06:43 01/16/22 06:43 ABG, PT/INR, D-dimer: PT/INR, D-dimer PT 13.8 SEC (9.9-13.0) H 01/13/22 16:59 INR 1.2 (0.9-1.1) H 01/13/22 16:59 Abnormal lab findings: Abnormal Labs 01/13/22 01/13/22 01/13/22 15:55 15:55 15:55 WBC 1.8 L RBC 2.91 L Hgb 7.9 L Hct 25.3 L RDW 18.0 H Plt Count 55 L Immature Gran % (Auto) 1.1 H Neut % (Auto) 36.6 L Lymph % (Auto) 44.0 H Culberson % (Auto) 17.7 H Lymph # (Auto) 0.8 L Absolute Neuts (auto) 0.6 L Absolute Nucleated RBC 0.040 H Nucleated RBC % (auto) 2.3 H PT INR Potassium Carbon Dioxide Anion Gap 11 L BUN 22 H Random Glucose 118 H D Calcium 7.9 L D Magnesium B-Natriuretic Peptide 3508 H Total Protein 5.9 L Albumin 3.0 L Urine Blood Ur Leukocyte Esterase Crossmatch 01/13/22 01/13/22 01/14/22 16:59 22:06 06:49 WBC 1.0 L RBC 2.22 L D Hgb 6.2 L* D Hct 19.2 L* D RDW 17.4 H Plt Count 47 L Immature Gran % (Auto) 1.0 H Neut % (Auto) 36.3 L Lymph % (Auto) 53.9 H Culberson % (Auto) Lymph # (Auto) 0.6 L Absolute Neuts (auto) 0.4 L Absolute Nucleated RBC 0.050 H Nucleated RBC % (auto) 4.9 H PT 13.8 H INR 1.2 H Potassium Carbon Dioxide Anion Gap BUN Random Glucose Calcium Magnesium B-Natriuretic Peptide Total Protein Albumin Urine Blood 2+ H Ur Leukocyte Esterase 1+ H Crossmatch 01/14/22 01/14/22 01/14/22 06:49 08:21 17:54 WBC 1.9 L RBC 2.47 L Hgb 6.9 L* Hct 21.1 L RDW 16.7 H Plt Count 47 L Immature Gran % (Auto) Neut % (Auto) Lymph % (Auto) Culberson % (Auto) Lymph # (Auto) Absolute Neuts (auto) Absolute Nucleated RBC 0.070 H Nucleated RBC % (auto) 3.7 H PT INR Potassium Carbon Dioxide Anion Gap BUN 30 H Random Glucose 159 H Calcium 7.9 L Magnesium B-Natriuretic Peptide Total Protein Albumin Urine Blood Ur Leukocyte Esterase Crossmatch See Detail 01/15/22 01/15/22 01/15/22 07:38 07:38 07:38 WBC RBC 3.27 L D Hgb 9.1 L D Hct 28.3 L D RDW 17.1 H Plt Count 82 L D Immature Gran % (Auto) Neut % (Auto) Lymph % (Auto) [place] % (Auto) Lymph # (Auto) Absolute Neuts (auto) Absolute Nucleated RBC 0.180 H Nucleated RBC % (auto) 2.3 H PT INR Potassium Carbon Dioxide 34 H Anion Gap BUN 33 H Random Glucose Calcium Magnesium B-Natriuretic Peptide 1236 H Total Protein Albumin Urine Blood Ur Leukocyte Esterase Crossmatch 01/15/22 01/15/22 01/16/22 14:05 20:55 06:43 WBC 4.5 L RBC 3.02 L Hgb 8.5 L 8.3 L 8.3 L Hct 25.5 L 25.9 L 26.3 L RDW 16.8 H Plt Count 79 L Immature Gran % (Auto) Neut % (Auto) Lymph % (Auto) [place] % (Auto) Lymph # (Auto) Absolute Neuts (auto) Absolute Nucleated RBC 0.050 H Nucleated RBC % (auto) 1.1 H PT INR Potassium Carbon Dioxide Anion Gap BUN Random Glucose Calcium Magnesium B-Natriuretic Peptide Total Protein Albumin Urine Blood Ur Leukocyte Esterase Crossmatch 01/16/22 01/16/22 06:43 06:43 WBC RBC Hgb Hct RDW Plt Count Immature Gran % (Auto) Neut % (Auto) Lymph % (Auto) [place] % (Auto) Lymph # (Auto) Absolute Neuts (auto) Absolute Nucleated RBC Nucleated RBC % (auto) PT INR Potassium 3.2 L Carbon Dioxide 36 H Anion Gap 10 L BUN 28 H Random Glucose Calcium Magnesium 1.2 L* B-Natriuretic Peptide 1085 H Total Protein Albumin Urine Blood Ur Leukocyte Esterase Crossmatch Microbiology: Microbiology 01/13/22 Unknown Urine clean catch - Urine schmidt top Urine Culture - Final Marysol albicans 01/13/22 17:16 Blood - Venous Blood Culture - Preliminary No growth after 48 hours. 01/13/22 17:00 Blood - Venous Blood Culture - Preliminary No growth after 48 hours. Assessment and Plan (1) Acute and chronic respiratory failure with hypoxia: Status: Acute (2) Pneumonia: Status: Acute (3) Congestive heart failure: Status: Acute (4) Atrial fibrillation with rapid ventricular response: Status: Acute (5) Chronic anemia: Status: Acute (6) Emphysema of lung: Status: Acute Plan MRSA screen Bloodwork: IgG levels, procalcitonin, ESR Deescalate antibiotic therapy to doxycycline Continue oxygen suppplemetation rate control Consider bronchoscopy if concerns for an on going lower respiratory infection Procedures Date of Service Date of Service: 01/16/22
--- NOTE | 2022-01-16 09:58 | PM.PNCARD ---
Subjective Subjective Date of Service: 01/16/22 Interval history: Patient states that he is doing okay. No specific complaints like angina or shortness of breath or leg swelling or in fact any other cardiac complaints at this time. Review of Systems Review of Systems Yes all other systems are reviewed and are negative Constitutional: Reports as per HPI Eyes: Reports as per HPI Reports as per HPI Cardiovascular: Reports as per HPI, Denies acrocyanosis, Denies cool extremities, Denies chest pain, Denies leg edema, Denies lightheadedness, Denies palpitations and Denies dyspnea Respiratory: Reports as per HPI, Reports no additional respiratory complaints and Denies dyspnea Gastrointestinal: Reports as per HPI and Reports no additional gastrointestinal complaints Genitourinary: Reports no additional male genitourinary complaints and Reports as per HPI Musculoskeletal: Reports no additional musculoskeletal complaints and Reports as per HPI Skin/Breast: Reports system reviewed and no additional complaints, except as docu Reports system reviewed and no additional complaints, except as documented and Reports as per HPI Psychiatric: Reports no additional psychiatric complaints and Reports as per HPI Endocrine: Reports no additional endocrine complaints, Reports as per HPI and Denies palpitations Hematologic/Lymphatic: Reports no additional hematologic/lymphatic complaints and Reports as per HPI Allergic/Immunologic: Reports no additional allergic/immunologic complaints and Reports as per HPI Physical Exam Vital Signs: Last Vital Signs Temp 97.7 F 01/16/22 07:41 Pulse 100 01/16/22 07:41 Resp 20 01/16/22 07:41 BP 115/54 L 01/16/22 07:41 Pulse Ox 99 01/16/22 07:41 BMI result Body Mass Index 19.0 Const General: comfortable and no acute distress Nutritional Appearance: underweight Orientation/consciousness: patient oriented x3 HEENT Other: Unremarkable Head: Yes normal to inspection Neck Neck: Yes normal visual inspection Chest Chest palpation & inspection: normal inspection of the chest Resp Other: Few fine crackles bilaterally. Cardio Palpation: normal PMI Heart sounds: S1 normal heart sound present, S2 normal heart sound present, no gallops, no murmurs and no rubs GI Palpation (GI): Soft to palpation Back/Spine/Pelvis Other: unremarkable Skin General skin exam: no rashes or lesions noted Neuro General: patient oriented x3 Extrem Other: No significant edema. General: Yes normal to inspection Psych Mental Status: mental status grossly normal Objective Labs and Meds Result diagrams: 01/16/22 06:43 01/16/22 06:43 Lab results: Laboratory Results - last 24 hr 01/13/22 01/15/22 01/15/22 15:55 14:05 20:55 WBC RBC Hgb 8.5 L 8.3 L Hct 25.5 L 25.9 L MCV MCH MCHC RDW Plt Count MPV Absolute Nucleated RBC Nucleated RBC % (auto) Smear Path Review Sodium Potassium Chloride Carbon Dioxide Anion Gap BUN Creatinine Estim Creat Clear Calc Estimated GFR Random Glucose Calcium Magnesium B-Natriuretic Peptide 01/16/22 01/16/22 01/16/22 06:43 06:43 06:43 WBC 4.5 L RBC 3.02 L Hgb 8.3 L Hct 26.3 L MCV 87.1 MCH 27.5 MCHC 31.6 RDW 16.8 H Plt Count 79 L MPV 10.6 Absolute Nucleated RBC 0.050 H Nucleated RBC % (auto) 1.1 H Smear Path Review Sodium 139 Potassium 3.2 L Chloride 96 Carbon Dioxide 36 H Anion Gap 10 L BUN 28 H Creatinine 0.84 Estim Creat Clear Calc 61.6 Estimated GFR > 60 Random Glucose 110 Calcium 8.5 Magnesium 1.2 L* B-Natriuretic Peptide 1085 H Imaging Radiologist's impression: Impressions Abdomen/Pelvis CT 01/15/22 17:29 IMPRESSION: 1. A cause for the patient's GI bleed has not been found. 2. 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 Fleischner guidelines were followed. Progress Note: A&P Assessment and plan (1) Cardiomyopathy: Status: Acute (2) Atrial arrhythmia: Status: Acute (3) PVCs (premature ventricular contractions): Status: Acute (4) Acute on chronic anemia: Status: Acute Plan Cardiac studies reviewed. On telemetry, rhythm is very irregular. Difficult to assess. Underlying sinus with frequent premature atrial contractions. There were also frequent ventricular contractions and some short runs of the same. Chest x-ray reported to have bilateral airspace disease similar to December 12 exams, suspected pneumonia. In the CT scan abdomen, described to have emphysema, chronic lung disease, hepatomegaly, mild splenomegaly, absent left kidney. Echocardiogram with LVEF of 30-35%. [id number] mitral regurgitation. Mild tricuspid regurgitation and moderate pulmonary hypertension. At this time, unknown etiology for the cardiomyopathy. Ischemic vs non ischemic. However in the presence of significant anemia, not suitable for ischemia workup at this time. He is already on beta-blockers. Per home meds, he is also on digoxin. Levels will need to get checked. Dose to be adjusted accordingly. Otherwise, add Entresto. Can change diuretics to p.o.. Will follow up with you. Discussed with Dr. Bryant. Time Spent With Patient Time: Total time spent is greater than 50% in coordination of care (as documented) at patient's floor/unit and/or counseling patient: 35min Progress Note: Quality Stroke Does the patient have a stroke diagnosis?: No Procedures Date of Service Date of Service: 01/16/22
[2022-01-16] MEDS: Magnesium Sulfate/H2O 2 GM/50 ML PIGGYBACK IV (11:05)
--- NOTE | 2022-01-16 11:06 | PC.NURSE ---
MAR reveals that 2 bags of Magnesium Sulfate were administered. The order had to be repeated by pharmacy and I documented on the 9AM dose instead of the 10:45 order. Only one bag of mag sulfate was administered.
[2022-01-16 11:23] LABS: Procalcitonin 0.09 ng/mL
[2022-01-16 11:45] LABS: Erythrocyte Sedimentation Rate 5 MM/HR (0-15)
--- NOTE | 2022-01-16 11:48 | P.PNIM_ITS ---
Subjective Subjective Date of Service: 01/16/22 Interval History: the patient was seen and evaluated this morning laying in his bed, reported feeling improvement decreased oxygen supplement to 4 L hemoglobin stable around 8.3, no evidence of bleeding overnight No reported other overnight events. Systemic review: No fever, chills or weakness No chest pain, palpitation improvement of shortness of breath and dyspnea with exertion No abdominal pain, nausea or vomiting no reported melena No urinary symptoms No any rash or wounds Physical Exam Vital Signs: Vital Signs: Last Vital Signs Temp 97.2 F 01/16/22 10:49 Pulse 51 01/16/22 11:24 Resp 18 01/16/22 10:49 BP 103/58 L 01/16/22 11:24 Pulse Ox 95 01/16/22 11:24 BMI result Body Mass Index 19.0 Const: Other: Constitutional : Alert, oriented, note in distress Neck : Normal inspection, Supple Cardiovascular : RRR, no JVP, no lower extremity edema Respiratory : fair bilateral air entry, improved basal fine on bilateral more on the right crackles, wheezes or rhonchi, on oxygen supplement Gastrointestinal: soft, lax, Normal bowel sounds, Non tender Skin : Warm, Dry Neurological : Alert & oriented x3, No focal deficit , CN 2-12 within normal Objective Data Active Medications Acetaminophen (Acetaminophen 325 Mg Tablet) 650 mg PO Q6H PRN PRN Reason: Pain, Mild (Pain Scale 1-3) Last Admin: 01/14/22 17:47 Dose: 650 mg Documented by: RATNA Atorvastatin Calcium (Atorvastatin Calcium 40 Mg Tablet) 40 mg PO DAILY [facility] Last Admin: 01/16/22 08:40 Dose: 40 mg Documented by: GARFIELD Digoxin (Digoxin 0.125 Mg Tablet) 0.25 mg PO DAILY [facility] Last Admin: 01/16/22 08:38 Dose: 0.25 mg Documented by: GARFIELD Docusate Sodium (Docusate Sodium 100 Mg Capsule) 100 mg PO DAILY PRN PRN Reason: Constipation Doxycycline Hyclate (Doxycycline Hyclate 100 Mg Tablet) 100 mg PO Q12H [facility] Last Admin: 01/16/22 08:46 Dose: 100 mg Documented by: GARFIELD Finasteride (Finasteride 5 Mg Tablet) 5 mg PO DAILY [facility] Last Admin: 01/16/22 08:40 Dose: 5 mg Documented by: GARFIELD Furosemide (Furosemide 40 Mg/4 Ml Vial) 40 mg IVPUSH DAILY [facility]; Protocol Last Admin: 01/16/22 08:41 Dose: 40 mg Documented by: GARFIELD Gabapentin (Gabapentin 100 Mg Capsule) 200 mg PO TID [facility] Last Admin: 01/16/22 08:39 Dose: 200 mg Documented by: GARFIELD Hydroxyzine HCl (Hydroxyzine Hcl 25 Mg Tablet) 25 mg PO Q6H PRN PRN Reason: anxiety/restlessness Last Admin: 01/15/22 20:01 Dose: 25 mg Documented by: AWA Magnesium Sulfate (Magnesium Sulfate/H2o) 2 gm in 50 mls @ 25 mls/hr IV ONCE ONE Stop: 01/16/22 12:44 Last Admin: 01/16/22 11:05 Dose: 25 mls/hr Documented by: GARFIELD Metoprolol Tartrate (Metoprolol Tartrate 100 Mg Tablet) 100 mg PO BID [facility]; Protocol Last Admin: 01/16/22 08:40 Dose: 100 mg Documented by: GARFIELD Omeprazole (Omeprazole 20 Mg Capsule.Dr) 20 mg PO BID@0630,1630 [facility] Last Admin: 01/16/22 06:23 Dose: 20 mg Documented by: AWA Ondansetron HCl (Ondansetron Hcl 4 Mg/2 Ml Vial) 4 mg IVPUSH Q8H PRN PRN Reason: Nausea and Vomiting Oxycodone HCl (Oxycodone Hcl Immed Release 5 Mg Tablet) 5 mg PO Q4H PRN PRN Reason: Pain, Severe (Pain Scale 7-10) Last Admin: 01/15/22 20:01 Dose: 5 mg Documented by: WAA Pharmacy Consult (Consult Rx Perform Med Rec) 1 each MISCELLANE ONCE PRN PRN Reason: Consult order Potassium Chloride (Potassium Chloride Packet 20 Meq Packet) 40 meq PO Q4H [facility] Stop: 01/16/22 12:31 Last Admin: 01/16/22 08:47 Dose: 40 meq Documented by: GARFIELD Sodium Chloride (0.9 % Sodium Chloride Flush 3 Ml Syringe) [address] [facility] Last Admin: 01/16/22 06:23 Dose: 3 ml Documented by: AWA Tamsulosin HCl (Tamsulosin Hcl 0.4 Mg Capsule) 0.4 mg PO DAILY [facility] Last Admin: 01/16/22 08:40 Dose: 0.4 mg Documented by: GARFIELD Labs CBC & Chem 7: 01/16/22 06:43 01/16/22 06:43 Labs: Laboratory Results - last 24 hr 01/13/22 01/16/22 01/16/22 15:55 06:43 06:43 MCV 87.1 MCH 27.5 MCHC 31.6 RDW 16.8 H Plt Count 79 L MPV 10.6 Absolute Nucleated RBC 0.050 H Nucleated RBC % (auto) 1.1 H Smear Path Review ESR Anion Gap 10 L Estim Creat Clear Calc 61.6 Estimated GFR > 60 Random Glucose 110 Calcium 8.5 Magnesium 1.2 L* B-Natriuretic Peptide Procalcitonin 01/16/22 01/16/22 01/16/22 06:43 09:58 09:58 MCV MCH MCHC RDW Plt Count MPV Absolute Nucleated RBC Nucleated RBC % (auto) Smear Path Review ESR 5 Anion Gap Estim Creat Clear Calc Estimated GFR Random Glucose Calcium Magnesium B-Natriuretic Peptide 1085 H Procalcitonin 0.09 Microbiology Microbiology Results: Microbiology 01/13/22 Unknown Urine Culture - Final Urine clean catch - Urine schmidt top Marysol albicans 01/13/22 17:16 Blood Culture - Preliminary Blood - Venous No growth after 48 hours. 01/13/22 17:00 Blood Culture - Preliminary Blood - Venous No growth after 48 hours. 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 doxycycline for pneumonia wean oxygen down as tolerated to baseline of 3 L # Acute systolic CHF exacerbation echo showing EF of 30% continue digoxin continue IV Lasix strict I&O, daily weight low-sodium diet cardiology input appreciated # pneumonia Changes on the images almost similar to 1 from last month Pulmonology input appreciated, continue doxycycline for 2-3 weeks Might need bronchoscopy if no improvement noticed Negative blood cultures # atrial arrhythmia with PACs treated as AFib with RVR on admission DC Cardizem drip Continue metoprolol home dose # Acute on chronic anemia 2/2 GI bleed and MDS hemoglobin stable around 8.3 with MDS he does not get transfusion until hemoglobin is less than 5 usually twice weekly transfused total of 3 units of blood and 2 of platelets hematology input appreciated, transfused if Hb 6 or below. Platelets iF 10 or below or if bleeding. received growth stimulating factors, platelets up to 79,000 follow H&H # GI bleeding Having episodes of melena Received blood and platelets GI consult, hold on procedure for now CT abdomen showed no acute close of bleeding # pancytopenia Secondary to MDS to get his paperwork from Oncology Evaluation by Oncology team # moderate malnutrition continue high-protein diet by crm analyst # hypomagnesemia Potassium of 1.2 To give IV and oral replacement and to recheck # recent bacteremia Patient just finished treatment with MSSA bacteremia with cefazolin Will try to remove PICC line has it is scheduled to be removed by today otherwise can be done as outpatient prophylaxis: SCDs patient will need overnight hospital stay to continue treatment for acute on chronic hypoxic respiratory failure , GI bleed and anemia to continue management with oxygen, IV Lasix and monitor deterioration after changing antibiotics to oral given high chance of decompensation Quality Stroke Does the patient have a stroke diagnosis?: No VTE Prior VTE?: No VTE Risk Level:: Medical - moderate - high VTE Device Contraindication: Treatment Not Indicated VTE Drug Contraindication: N/A - Med Ordered
[2022-01-16] MEDS: Magnesium Oxide 400 MG TABLET PO ×2 (14:41→18:05)
--- NOTE | 2022-01-16 14:51 | HO.MIDLINE_ITS ---
PICC Line Insertion REMOVAL OF PICC LINE PICC PLACED AT THE [facility]. PROCEDURE NOTE OBTAINED. 1. DATE: 01/16/2022 2. REASON REMOVED: NO LONGER NEEDED MD ORDER 3. INSERTED LENGTH: PER [facility] REPORT - 45CM SINGLE LUMEN PICC 4. REMOVED LENGTH: 45 CM INTACT REMOVED WITH STERILE TECHNIQUE 5. A DRESSING WAS APPLIED OVER THE SITE UPON REMOVAL. NO EDEMA, HEMATOMA OR BLEEDING AT THE SITE. REPORTED BY NATALIA GEORGES RN ]
[2022-01-16 15:59] LABS: Digoxin 0.8 ng/mL (0.8-2.0)
[2022-01-16] MEDS: oxyCODONE HCl Immed Release 5 MG TABLET PO (16:25)
[2022-01-17] VITALS (8 sets, daily range): BP systolic 104–154; BP diastolic 57–88; PULSE 53–108; RESP 18–20; TEMP 36.1–36.8; O2SAT 95–99; BMI 18.1
--- NOTE | 2022-01-17 00:08 | MHC.PIE ---
P.5 BEAT VTACH I.PT HAD 5 BEAT VTACH,ASYMPTOMATIC.HAD LOW K AND MAG TODAY THAT WAS REPLACED.REPEAT LABS ORDERED FOR AM.JESUS CORTES UPDATED ON ALL OF ABOVE.NO NEW ORDERS. E.CONT TO MONITOR.
[2022-01-17] MEDS: 0.9 % Sodium Chloride Flush 3 ML SYRINGE IVFLUSH ×3 (00:30→16:25)
[2022-01-17] MEDS: oxyCODONE HCl Immed Release 5 MG TABLET PO ×2 (03:09→14:04)
[2022-01-17] MEDS: Omeprazole 20 MG CAPSULE.DR PO ×2 (06:34→16:25)
[2022-01-17 06:42] LABS: Hematocrit 31.1 % (42.0-52.0); Hemoglobin 9.6 g/dl (14.0-18.0); Mean Corpuscular HGB Conc 30.9 g/dl (31.0-36.0); Mean Corpuscular Hemoglobin 27.3 pg (27.0-33.0); Mean Corpuscular Volume 88.4 fL (80.0-98.0); Mean Platelet Volume 10.7 fL (9.4-12.4); NRBC Pct Auto 0.5 /100WBC (0.0-0.2); Red Blood Count 3.52 X10*6/uL (4.60-5.80); Red Cell Distribution Width 16.4 % (11.0-16.0)
[2022-01-17 06:43] LABS: Platelet Count 80 X10*3/uL (160-400)
[2022-01-17 07:03] LABS: B Type Natriuretic Peptide 1222 pg/mL (<100)
[2022-01-17 07:07] LABS: Anion Gap 10 (12-20); Blood Urea Nitrogen 25 mg/dL (9-16); Calcium 8.9 mg/dL (8.4-10.2); Carbon Dioxide 34 mmol/L (22-29); Chloride 97 mmol/L (96-108); Creatinine Clr Calc Pharmacy 63.1; Estimated Glomerular Filt Rate > 60; Glucose Random 85 mg/dL (60-115); Magnesium 1.3 mg/dL (1.6-2.6); Potassium 3.8 mmol/L (3.3-5.1); Sodium 137 mmol/L (135-145)
[2022-01-17] MEDS: Magnesium Sulfate/H2O 2 GM/50 ML PIGGYBACK IV (08:39)
[2022-01-17] MEDS: Magnesium Oxide 400 MG TABLET PO ×2 (08:39→16:25)
[2022-01-17] MEDS: Atorvastatin Calcium 40 MG TABLET PO (08:40)
[2022-01-17] MEDS: Finasteride 5 MG TABLET PO (08:40)
[2022-01-17] MEDS: Gabapentin 100 MG CAPSULE 200 MG PO ×3 (08:40→20:23)
[2022-01-17] MEDS: Digoxin 0.125 MG TABLET 0.25 MG PO (08:40)
[2022-01-17] MEDS: Tamsulosin HCL 0.4 MG CAPSULE PO (08:40)
[2022-01-17] MEDS: Metoprolol Tartrate 100 MG TABLET PO ×2 (08:40→20:23)
[2022-01-17] MEDS: Furosemide 40 MG/4 ML VIAL IVPUSH (08:40)
--- NOTE | 2022-01-17 09:13 | PM.PNPUL ---
Subjective Subjective Date of Service: 01/17/22 Interval history: The patient was seen on exam. Appetite is good. His breathing is better. His procalcitonin level was within normal limits. Still waiting for his IgG levels. He is responding well to doxycycline. Objective Data Labs CBC & Chem 7: 01/17/22 06:21 01/17/22 06:21 Labs: Laboratory Results - last 24 hr 01/14/22 01/16/22 01/16/22 08:21 06:43 09:58 WBC RBC Hgb Hct MCV MCH MCHC RDW Plt Count MPV Absolute Nucleated RBC Nucleated RBC % (auto) ESR 5 Sodium Potassium Chloride Carbon Dioxide Anion Gap BUN Creatinine Estim Creat Clear Calc Estimated GFR Random Glucose Calcium Magnesium 1.2 L* B-Natriuretic Peptide Procalcitonin Digoxin Crossmatch See Detail 01/16/22 01/16/22 01/17/22 09:58 15:18 06:21 WBC RBC Hgb Hct MCV MCH MCHC RDW Plt Count MPV Absolute Nucleated RBC Nucleated RBC % (auto) ESR Sodium Potassium Chloride Carbon Dioxide Anion Gap BUN Creatinine Estim Creat Clear Calc Estimated GFR Random Glucose Calcium Magnesium Cancelled B-Natriuretic Peptide Procalcitonin 0.09 Digoxin 0.8 Crossmatch 01/17/22 01/17/22 01/17/22 06:21 06:21 06:21 WBC 4.0 L RBC 3.52 L Hgb 9.6 L Hct 31.1 L MCV 88.4 MCH 27.3 MCHC 30.9 L RDW 16.4 H Plt Count 80 L MPV 10.7 Absolute Nucleated RBC 0.020 H Nucleated RBC % (auto) 0.5 H ESR Sodium 137 Potassium 3.8 Chloride 97 Carbon Dioxide 34 H Anion Gap 10 L BUN 25 H Creatinine 0.78 Estim Creat Clear Calc 63.1 Estimated GFR > 60 Random Glucose 85 Calcium 8.9 Magnesium 1.3 L* B-Natriuretic Peptide 1222 H Procalcitonin Digoxin Crossmatch Microbiology Microbiology Results: Microbiology 01/13/22 Unknown Urine clean catch - Urine schmidt top Urine Culture - Final Marysol albicans 01/13/22 17:16 Blood - Venous Blood Culture - Preliminary No growth after 48 hours. 01/13/22 17:00 Blood - Venous Blood Culture - Preliminary No growth after 48 hours. Review of Systems Constitutional: Reports lethargy and Reports weakness Eyes: Reports no additional eye complaints Cardiovascular: Denies chest pain, Reports leg edema, Denies palpitations and Reports dyspnea Respiratory: Reports no additional respiratory complaints and Reports dyspnea Gastrointestinal: Reports no additional gastrointestinal complaints Genitourinary: Reports no additional male genitourinary complaints Skin/Breast: Reports system reviewed and no additional complaints, except as docu Reports weakness Endocrine: Denies palpitations Physical Exam Vital Signs: Vital Signs: Last Vital Signs Temp 97.5 F 01/17/22 08:00 Pulse 108 H 01/17/22 08:00 Resp 18 01/17/22 08:00 BP 122/88 01/17/22 08:00 Pulse Ox 95 01/17/22 08:00 BMI result Body Mass Index 18.1 Const: General: alert Neck: Neck: Yes normal visual inspection, Yes full ROM and Yes no lymphadenopathy Chest: Chest palpation & inspection: normal inspection of the chest Resp: Auscultation: diminished lung sounds Cardio: Rate: regular rate Rhythm: regular rhythm Heart sounds: S1 normal heart sound present and S2 normal heart sound present GI: Palpation (GI): Soft to palpation and nontender Auscultation: normal bowel sounds Skin: General skin exam: rashes and/or lesions noted Procedures Date of Service Date of Service: 01/17/22 Assessment and Plan Assessment and plan (1) Acute and chronic respiratory failure with hypoxia: Status: Acute (2) Emphysema of lung: Status: Acute (3) Cardiomyopathy: Status: Acute (4) Pneumonia: Status: Acute Plan Continue doxycycline x 14 days Titrate oxygen to keep pox>92% Respiratory therapy Will need outpt pulmonary f/u arranged upon discharge Time Spent With Patient Time: Total time spent is greater than 50% in coordination of care (as documented) at patient's floor/unit and/or counseling patient: Progress Note: Quality Stroke Does the patient have a stroke diagnosis?: No
--- NOTE | 2022-01-17 09:18 | PM.PNCARD ---
Subjective Subjective Date of Service: 01/17/22 Interval history: He states that he feels okay. No chest pain or shortness of breath or palpitations or in fact anything cardiac related at all. He denies any complaints and states that he is feeling alright. Review of Systems Review of Systems Yes all other systems are reviewed and are negative Constitutional: Reports as per HPI Eyes: Reports as per HPI Reports as per HPI Cardiovascular: Reports as per HPI, Denies acrocyanosis, Denies cool extremities, Denies chest pain, Denies leg edema, Denies lightheadedness, Denies palpitations and Denies dyspnea Respiratory: Reports as per HPI, Reports no additional respiratory complaints and Denies dyspnea Gastrointestinal: Reports as per HPI and Reports no additional gastrointestinal complaints Genitourinary: Reports no additional male genitourinary complaints and Reports as per HPI Musculoskeletal: Reports no additional musculoskeletal complaints and Reports as per HPI Skin/Breast: Reports system reviewed and no additional complaints, except as docu Reports system reviewed and no additional complaints, except as documented and Reports as per HPI Psychiatric: Reports no additional psychiatric complaints and Reports as per HPI Endocrine: Reports no additional endocrine complaints, Reports as per HPI and Denies palpitations Hematologic/Lymphatic: Reports no additional hematologic/lymphatic complaints and Reports as per HPI Allergic/Immunologic: Reports no additional allergic/immunologic complaints and Reports as per HPI Physical Exam Vital Signs: Last Vital Signs Temp 97.5 F 01/17/22 08:00 Pulse 108 H 01/17/22 08:00 Resp 18 01/17/22 08:00 BP 122/88 01/17/22 08:00 Pulse Ox 95 01/17/22 08:00 BMI result Body Mass Index 18.1 Const General: comfortable and no acute distress Nutritional Appearance: underweight Orientation/consciousness: patient oriented x3 HEENT Other: Unremarkable Head: Yes normal to inspection Neck Neck: Yes normal visual inspection Chest Chest palpation & inspection: normal inspection of the chest Resp Effort & Inspection: normal respiratory effort and able to speak in complete sentences Auscultation: clear to auscultation bilaterally Cardio Palpation: normal PMI Heart sounds: S1 normal heart sound present, S2 normal heart sound present, no gallops, no murmurs and no rubs GI Palpation (GI): Soft to palpation Back/Spine/Pelvis Other: unremarkable Skin General skin exam: no rashes or lesions noted Neuro General: patient oriented x3 Extrem Other: No significant edema. General: Yes normal to inspection Psych Mental Status: mental status grossly normal Objective Labs and Meds Result diagrams: 01/17/22 06:21 01/17/22 06:21 Lab results: Laboratory Results - last 24 hr 01/14/22 01/16/22 01/16/22 08:21 09:58 09:58 WBC RBC Hgb Hct MCV MCH MCHC RDW Plt Count MPV Absolute Nucleated RBC Nucleated RBC % (auto) ESR 5 Sodium Potassium Chloride Carbon Dioxide Anion Gap BUN Creatinine Estim Creat Clear Calc Estimated GFR Random Glucose Calcium Magnesium B-Natriuretic Peptide Procalcitonin 0.09 Digoxin Crossmatch See Detail 01/16/22 01/17/22 01/17/22 15:18 06:21 06:21 WBC 4.0 L RBC 3.52 L Hgb 9.6 L Hct 31.1 L MCV 88.4 MCH 27.3 MCHC 30.9 L RDW 16.4 H Plt Count 80 L MPV 10.7 Absolute Nucleated RBC 0.020 H Nucleated RBC % (auto) 0.5 H ESR Sodium Potassium Chloride Carbon Dioxide Anion Gap BUN Creatinine Estim Creat Clear Calc Estimated GFR Random Glucose Calcium Magnesium Cancelled B-Natriuretic Peptide Procalcitonin Digoxin 0.8 Crossmatch 01/17/22 01/17/22 06:21 06:21 WBC RBC Hgb Hct MCV MCH MCHC RDW Plt Count MPV Absolute Nucleated RBC Nucleated RBC % (auto) ESR Sodium 137 Potassium 3.8 Chloride 97 Carbon Dioxide 34 H Anion Gap 10 L BUN 25 H Creatinine 0.78 Estim Creat Clear Calc 63.1 Estimated GFR > 60 Random Glucose 85 Calcium 8.9 Magnesium 1.3 L* B-Natriuretic Peptide 1222 H Procalcitonin Digoxin Crossmatch Progress Note: A&P Assessment and plan (1) Cardiomyopathy: Status: Acute (2) Atrial arrhythmia: Status: Acute (3) PVCs (premature ventricular contractions): Status: Acute (4) Acute on chronic anemia: Status: Acute Plan Echocardiogram with diminished LVEF at 30-35%. [id number] mitral regurgitation, mild tricuspid regurgitation and moderate pulmonary hypertension. Etiology is unknown. He could have either ischemic or nonischemic cardiomyopathy. However, he has got multiple medical issues ongoing at this time including anemia. Hence ischemia workup can be considered as an outpatient rather. He still tachycardic in the low 100s and there are frequent PACs, atrial tachycardia, PVCs as well as short runs of NSVT. He is already on a good dose of beta-blockers as well as digoxin. Considering the cardiomyopathy, not much options especially with ongoing medical issues. Hence if no contraindications otherwise, can consider amiodarone-400 mg b.i.d. for a week followed by maintenance. Will then need outpatient follow-up. With regard to the cardiomyopathy itself, if able, add entresto. Correct magnesium levels. Can stop IV Lasix. Oral diuretic dose to be decided. Discussed with . Time Spent With Patient Time: Total time spent is greater than 50% in coordination of care (as documented) at patient's floor/unit and/or counseling patient: 35min Progress Note: Quality Stroke Does the patient have a stroke diagnosis?: No Procedures Date of Service Date of Service: 01/17/22
--- NOTE | 2022-01-17 12:17 | MHC.CLN ---
F/U PT IS MODERATELY MALNOURISHED SEE ALSO FULL CLINICAL NUTRITION ASSESSMENT DATED 01/15/22 PO INTAKE 100% X 5 MEALS DIET RX: 2GM NA -APPROPRIATE PT RECEIVING ENSURE BID TO INCREASE KCALS PROVIDES 700KCALS, 40G PROTEIN MONITOR PO INTAKE AND SUPPLEMENT ACCEPTANCE CLOSELY
--- NOTE | 2022-01-17 13:26 | P.PNIM_ITS ---
Subjective Subjective Date of Service: 01/17/22 Interval History: cc: sob interval history: overall improved, still rapid heart rate Respiratory Respiratory: Reports no additional respiratory complaints Gastrointestinal Gastrointestinal: Reports no additional gastrointestinal complaints Physical Exam Vital Signs: Vital Signs: Last Vital Signs Temp 97.5 F 01/17/22 11:05 Pulse 69 01/17/22 11:05 Resp 18 01/17/22 11:05 BP 154/61 H 01/17/22 11:05 Pulse Ox 99 01/17/22 11:05 BMI result Body Mass Index 18.1 General: AO X 3, no acute distress, frail Resp: diminished bilateral, no accessory muscles used CVS: S1,S2,RRR GI: soft, non tender, non distended Neuro: motor grossly intact, alert Psych: appropriate affect, appropriate insight Objective Data Active Medications Acetaminophen (Acetaminophen 325 Mg Tablet) 650 mg PO Q6H PRN PRN Reason: Pain, Mild (Pain Scale 1-3) Last Admin: 01/14/22 17:47 Dose: 650 mg Documented by: RATNA Amiodarone HCl (Amiodarone Hcl 200 Mg Tablet) 400 mg PO BID [facility] Atorvastatin Calcium (Atorvastatin Calcium 40 Mg Tablet) 40 mg PO DAILY [facility] Last Admin: 01/17/22 08:40 Dose: 40 mg Documented by: DIANE Digoxin (Digoxin 0.125 Mg Tablet) 0.25 mg PO DAILY [facility] Last Admin: 01/17/22 08:40 Dose: 0.25 mg Documented by: DIANE Docusate Sodium (Docusate Sodium 100 Mg Capsule) 100 mg PO DAILY PRN PRN Reason: Constipation Doxycycline Hyclate (Doxycycline Hyclate 100 Mg Tablet) 100 mg PO Q12H [facility] Last Admin: 01/17/22 08:40 Dose: 100 mg Documented by: DIANE Finasteride (Finasteride 5 Mg Tablet) 5 mg PO DAILY [facility] Last Admin: 01/17/22 08:40 Dose: 5 mg Documented by: DIANE Gabapentin (Gabapentin 100 Mg Capsule) 200 mg PO TID [facility] Last Admin: 01/17/22 08:40 Dose: 200 mg Documented by: DIANE Hydroxyzine HCl (Hydroxyzine Hcl 25 Mg Tablet) 25 mg PO Q6H PRN PRN Reason: anxiety/restlessness Last Admin: 01/15/22 20:01 Dose: 25 mg Documented by: AWA Magn[facility] ([facility] 400 Mg [facility]) [facility] Last Admin: 01/17/22 08:39 Dose: 400 mg Documented by: DIANE Metoprolol Tartrate (Metoprolol Tartrate 100 Mg Tablet) 100 mg PO BID [facility]; Protocol Last Admin: 01/17/22 08:40 Dose: 100 mg Documented by: DIANE Omeprazole (Omeprazole 20 Mg Capsule.Dr) 20 mg PO BID@0630,1630 [facility] Last Admin: 01/17/22 06:34 Dose: 20 mg Documented by: JOHN Ondansetron HCl (Ondansetron Hcl 4 Mg/2 Ml Vial) 4 mg IVPUSH Q8H PRN PRN Reason: Nausea and Vomiting Oxycodone HCl (Oxycodone Hcl Immed Release 5 Mg Tablet) 5 mg PO Q4H PRN PRN Reason: Pain, Severe (Pain Scale 7-10) Last Admin: 01/17/22 03:09 Dose: 5 mg Documented by: JOHN Pharmacy Consult (Consult Rx Perform Med Rec) 1 each MISCELLANE ONCE PRN PRN Reason: Consult order Sacubitril/Valsartan (Sacubitril/Valsartan 1 Tab Tablet) 1 tab PO BID [facility]; Protocol Sodium Chloride (0.9 % Sodium Chloride Flush 3 Ml Syringe) 3 ml IVFLUSH QSHIFT [facility] Last Admin: 01/17/22 08:40 Dose: 3 ml Documented by: DIANE Tamsulosin HCl (Tamsulosin Hcl 0.4 Mg Capsule) 0.4 mg PO DAILY [facility] Last Admin: 01/17/22 08:40 Dose: 0.4 mg Documented by: DIANE Labs CBC & Chem 7: 01/17/22 06:21 01/17/22 06:21 Labs: Laboratory Results - last 24 hr 01/16/22 01/17/22 01/17/22 15:18 06:21 06:21 MCV 88.4 MCH 27.3 MCHC 30.9 L RDW 16.4 H Plt Count 80 L MPV 10.7 Absolute Nucleated RBC 0.020 H Nucleated RBC % (auto) 0.5 H Anion Gap Estim Creat Clear Calc Estimated GFR Random Glucose Calcium Magnesium Cancelled B-Natriuretic Peptide Digoxin 0.8 01/17/22 01/17/22 06:21 06:21 MCV MCH MCHC RDW Plt Count MPV Absolute Nucleated RBC Nucleated RBC % (auto) Anion Gap 10 L Estim Creat Clear Calc 63.1 Estimated GFR > 60 Random Glucose 85 Calcium 8.9 Magnesium 1.3 L* B-Natriuretic Peptide 1222 H Digoxin Assessment and Plan (1) PVCs (premature ventricular contractions): Status: Acute (2) Atrial arrhythmia: Status: Acute (3) Cardiomyopathy: Status: Acute (4) Emphysema of lung: Status: Acute (5) Pancytopenia: Status: Acute (6) GI bleed: Status: Acute (7) Acute on chronic anemia: Status: Acute (8) Acute and chronic respiratory failure with hypoxia: Status: Acute Plan 76-year-old male with 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, COPD complicated by COVID-19 pneumonia and chronic hypoxic respiratory failure on 2 L of oxygen, as well as cardiomyopathy, presents to the hospital with complaints of shortness of breath found to have CHF as well as acute hypoxic respiratory f ailure acute on chronic hypoxic respiratory failure secondary to pneumonia, and acute on chronic systolic chf with pulmonary htn contine doxy diuresed well, lasix now on hold entresto added atrial arrhythmia with PACs Continue metoprolol 100mg bid dig 0.25mg daily amio load 400mg bid for 1 week, then 200mg daily starting 01/24/22 Acute on chronic anemia 2/2 GI bleed (acute blood loss) and MDS hemoglobin stable around 8.3 with MDS he does not get transfusion until hemoglobin is less than 5 usually twice weekly transfused total of 3 units of blood and 2 of platelets hematology input appreciated, transfused if Hb 6 or below. Platelets iF 10 or below or if bleeding. received growth stimulating factors, platelets up to 79,000 follow H&H GI bleeding Having episodes of melena Received blood and platelets GI consult, hold on procedure for now CT abdomen showed no acute close of bleeding pancytopenia Secondary to MDS moderate malnutrition continue high-protein diet by night baker hypomagnesemia replace and monitor recent bacteremia Patient just finished treatment with MSSA bacteremia with cefazolin prophylaxis: SCDs reason for continued hospitalization: heart rate still not adequately controlled, adjusting meds and daily and continuous tele monitoring Quality Stroke Does the patient have a stroke diagnosis?: No VTE Prior VTE?: No VTE Risk Level:: Medical - moderate - high VTE Device Contraindication: Treatment Not Indicated VTE Drug Contraindication: N/A - Med Ordered
--- NOTE | 2022-01-17 13:45 | MHC.CM.PN ---
Male 76 AFIB RVR HF PNA no dc today. DP home resume [facility]. [employer] will resume as oxygen provider. Pts will provide transportation home.
[2022-01-17] MEDS: Amiodarone HCL 200 MG TABLET 400 MG PO (20:23)
[2022-01-17] MEDS: Sacubitril/Valsartan 24/26 1 TAB TABLET PO (20:23)
[2022-01-17] MEDS: Acetaminophen 325 MG TABLET 650 MG PO (23:10)
[2022-01-18] VITALS (7 sets, daily range): BP systolic 95–134; BP diastolic 50–68; PULSE 64–86; RESP 17–20; TEMP 36.2–37.2; O2SAT 97–100; BMI 18.9
--- NOTE | 2022-01-18 | ECG_ITS ---
Test Reason : qt check on amio Blood Pressure : / mmHG Vent. Rate : 077 BPM Atrial Rate : 087 BPM P-R Int : 176 ms QRS Dur : 082 ms QT Int : 406 ms P-R-T Axes : 000 040 173 degrees QTc Int : 459 ms Sinus rhythm with Premature supraventricular complexes ST & T wave abnormality, consider lateral ischemia Abnormal ECG When compared with ECG of 13-JAN-2022 15:43, Inverted T waves have replaced nonspecific T wave abnormality in Lateral leads Referred By: Ryne Rojas Electronically Signed By:JAYCE HELLER
[2022-01-18] MEDS: Omeprazole 20 MG CAPSULE.DR PO ×2 (05:25→15:47)
[2022-01-18 06:34] LABS: Hematocrit 29.7 % (42.0-52.0); Hemoglobin 9.1 g/dl (14.0-18.0); Mean Corpuscular HGB Conc 30.6 g/dl (31.0-36.0); Mean Corpuscular Hemoglobin 27.1 pg (27.0-33.0); Mean Corpuscular Volume 88.4 fL (80.0-98.0); Red Blood Count 3.36 X10*6/uL (4.60-5.80); Red Cell Distribution Width 15.8 % (11.0-16.0); White Blood Count 3.8 X10*3/uL (4.8-10.8)
[2022-01-18 06:36] LABS: Platelet Count 75 X10*3/uL (160-400)
[2022-01-18] MEDS: Magnesium Sulfate/H2O 2 GM/50 ML PIGGYBACK IV (08:24)
[2022-01-18] MEDS: Finasteride 5 MG TABLET PO (08:25)
[2022-01-18] MEDS: 0.9 % Sodium Chloride Flush 3 ML SYRINGE IVFLUSH ×3 (08:25→20:32)
[2022-01-18] MEDS: Amiodarone HCL 200 MG TABLET 400 MG PO ×2 (08:25→20:32)
[2022-01-18] MEDS: Atorvastatin Calcium 40 MG TABLET PO (08:25)
[2022-01-18] MEDS: Sacubitril/Valsartan 24/26 1 TAB TABLET PO ×2 (08:25→20:31)
[2022-01-18] MEDS: Magnesium Oxide 400 MG TABLET PO (08:26)
[2022-01-18] MEDS: Metoprolol Tartrate 100 MG TABLET PO ×2 (08:26→20:32)
[2022-01-18] MEDS: Tamsulosin HCL 0.4 MG CAPSULE PO (08:26)
[2022-01-18] MEDS: Gabapentin 100 MG CAPSULE 200 MG PO ×3 (08:26→20:31)
[2022-01-18] MEDS: Digoxin 0.125 MG TABLET 0.25 MG PO (08:26)
--- NOTE | 2022-01-18 10:04 | P.PNCA_ITS ---
Subjective Subjective Date of Service: 01/18/22 Interval history: He states that he is doing okay. No specific complaints like angina or shortness of breath or palpitations or anything else. He was started on amiodarone as today and no issues from that. Review of Systems Review of Systems Yes all other systems are reviewed and are negative Constitutional: Reports as per HPI Eyes: Reports as per HPI Reports as per HPI Cardiovascular: Reports as per HPI, Denies acrocyanosis, Denies cool extremities, Denies chest pain, Denies leg edema, Denies lightheadedness, Denies palpitations and Denies dyspnea Respiratory: Reports as per HPI, Reports no additional respiratory complaints and Denies dyspnea Gastrointestinal: Reports as per HPI and Reports no additional gastrointestinal complaints Genitourinary: Reports no additional male genitourinary complaints and Reports as per HPI Musculoskeletal: Reports no additional musculoskeletal complaints and Reports as per HPI Skin/Breast: Reports system reviewed and no additional complaints, except as docu Reports system reviewed and no additional complaints, except as documented and R eports as per HPI Psychiatric: Reports no additional psychiatric complaints and Reports as per HPI Endocrine: Reports no additional endocrine complaints, Reports as per HPI and Denies palpitations Hematologic/Lymphatic: Reports no additional hematologic/lymphatic complaints and Reports as per HPI Allergic/Immunologic: Reports no additional allergic/immunologic complaints and Reports as per HPI Physical Exam Vital Signs: Last Vital Signs Temp 98.1 F 01/18/22 07:37 Pulse 73 01/18/22 08:28 Resp 18 01/18/22 07:37 BP 134/60 01/18/22 08:28 Pulse Ox 100 01/18/22 08:28 BMI result Body Mass Index 18.9 Const General: comfortable and no acute distress Nutritional Appearance: underweight Orientation/consciousness: patient oriented x3 HEENT Other: Unremarkable Head: Yes normal to inspection Neck Neck: Yes normal visual inspection Chest Chest palpation & inspection: normal inspection of the chest Resp Effort & Inspection: normal respiratory effort and able to speak in complete sentences Auscultation: clear to auscultation bilaterally Cardio Palpation: normal PMI Heart sounds: S1 normal heart sound present, S2 normal heart sound present, no gallops, no murmurs and no rubs GI Palpation (GI): Soft to palpation Back/Spine/Pelvis Other: unremarkable Skin General skin exam: no rashes or lesions noted Neuro General: patient oriented x3 Extrem Other: No significant edema. General: Yes normal to inspection Psych Mental Status: mental status grossly normal Objective Labs and Meds Result diagrams: 01/18/22 06:10 01/18/22 06:10 Lab results: Laboratory Results - last 24 hr 01/18/22 01/18/22 06:10 06:10 WBC 3.8 L RBC 3.36 L Hgb 9.1 L Hct 29.7 L MCV 88.4 MCH 27.1 MCHC 30.6 L RDW 15.8 Plt Count 75 L MPV 11.0 Absolute Nucleated RBC 0.000 Nucleated RBC % (auto) 0.0 Sodium 135 Potassium 4.0 Chloride 97 Carbon Dioxide 32 H Anion Gap 10 L BUN 33 H Creatinine 0.82 Estim Creat Clear Calc 62.9 Estimated GFR > 60 Fasting Glucose 101 H Calcium 8.7 Magnesium 1.3 L* Progress Note: A&P Assessment and plan (1) Cardiomyopathy: Status: Acute (2) Atrial arrhythmia: Status: Acute (3) PVCs (premature ventricular contractions): Status: Acute (4) Acute on chronic anemia: Status: Acute (5) Hypomagnesemia: Status: Acute Plan Echocardiogram with evidence of cardiomyopathy at LVEF of 30-35%. Telemetry with frequent PACs, atrial tachycardia. PVCs seems to be less than initially, that could be from amiodarone. With regard to management of cardiomyopathy, he is already on beta-blockers. As an outpatient, we could switch this to sustained release metoprolol versus Coreg. We have added Entresto. With regard diuretics, he was on IV Lasix but that has been stopped. Low-dose oral Lasix upon discharge. Clinically does not have any evidence of volume overload. Other meds to be optimized as an outpatient. With regard to atrial arrhythmias as well as PVCs, again beta-robert should help. We can stop the digoxin. Amiodarone was started yesterday. That seems to have helped and the heart rates are lower. We will get an EKG for QT measurement. He as he has too many medical comorbidities, no need for ischemia workup as an inpatient but we can address as an outpatient. Anemia will ideally need to be corrected. From the clinical standpoint, he has no angina at all. Otherwise, electrolyte levels including magnesium need to be corrected. Will follow up with you. Discussed with Dr. Rojas. Time Spent With Patient Time: Total time spent is greater than 50% in coordination of care (as documented) at patient's floor/unit and/or counseling patient: Progress Note: Quality Stroke Does the patient have a stroke diagnosis?: No Procedures Date of Service Date of Service: 01/18/22
[2022-01-18] MEDS: oxyCODONE HCl Immed Release 5 MG TABLET PO ×2 (10:10→20:34)
--- NOTE | 2022-01-18 11:41 | P.PNIM_ITS ---
Subjective Subjective Date of Service: 01/18/22 Interval History: cc: sob interval history: overall improved, weak Cardiovascular Cardiovascular: Reports no additional cardiovascular complaints Respiratory Respiratory: Reports no additional respiratory complaints Physical Exam Vital Signs: Vital Signs: Last Vital Signs Temp 99.0 F 01/18/22 11:04 Pulse 72 01/18/22 11:04 Resp 18 01/18/22 11:04 BP 100/50 L 01/18/22 11:04 Pulse Ox 99 01/18/22 11:04 BMI result Body Mass Index 18.9 General: AO X 3, no acute distress, frail Resp:? diminished bilateral, no accessory muscles used CVS: S1,S2, irregular GI: soft, non tender, non distended Neuro:? motor grossly intact, alert Psych: appropriate affect, appropriate insight? Objective Data Active Medications Acetaminophen (Acetaminophen 325 Mg Tablet) 650 mg PO Q6H PRN PRN Reason: Pain, Mild (Pain Scale 1-3) Last Admin: 01/17/22 23:10 Dose: 650 mg Documented by: CHRISTIANO Amiodarone HCl (Amiodarone Hcl 200 Mg Tablet) 400 mg PO BID [facility] Last Admin: 01/18/22 08:25 Dose: 400 mg Documented by: BK Atorvastatin Calcium (Atorvastatin Calcium 40 Mg Tablet) 40 mg PO DAILY [facility] Last Admin: 01/18/22 08:25 Dose: 40 mg Documented by: BK Docusate Sodium (Docusate Sodium 100 Mg Capsule) 100 mg PO DAILY PRN PRN Reason: Constipation Doxycycline Hyclate (Doxycycline Hyclate 100 Mg Tablet) 100 mg PO Q12H [facility] Last Admin: 01/18/22 08:26 Dose: 100 mg Documented by: BK Finasteride (Finasteride 5 Mg Tablet) 5 mg PO DAILY [facility] Last Admin: 01/18/22 08:25 Dose: 5 mg Documented by: BK Gabapentin (Gabapentin 100 Mg Capsule) 200 mg PO TID [facility] Last Admin: 01/18/22 08:26 Dose: 200 mg Documented by: BK Hydroxyzine HCl (Hydroxyzine Hcl 25 Mg Tablet) 25 mg PO Q6H PRN PRN Reason: anxiety/restlessness Last Admin: 01/15/22 20:01 Dose: 25 mg Documented by: HO.LEAHYKE Magnesium Oxide (Magnesium Oxide 400 Mg Tablet) [facility] Metoprolol Tartrate (Metoprolol Tartrate 100 Mg Tablet) 100 mg PO BID [facility]; Protocol Last Admin: 01/18/22 08:26 Dose: 100 mg Documented by: BK Omeprazole (Omeprazole 20 Mg Capsule.Dr) 20 mg PO BID@0630,1630 [facility] Last Admin: 01/18/22 05:25 Dose: 20 mg Documented by: RUSTY Ondansetron HCl (Ondansetron Hcl 4 Mg/2 Ml Vial) 4 mg IVPUSH Q8H PRN PRN Reason: Nausea and Vomiting Oxycodone HCl (Oxycodone Hcl Immed Release 5 Mg Tablet) 5 mg PO Q4H PRN PRN Reason: Pain, Severe (Pain Scale 7-10) Last Admin: 01/18/22 10:10 Dose: 5 mg Documented by: BK Pharmacy Consult (Consult Rx Perform Med Rec) 1 each MISCELLANE ONCE PRN PRN Reason: Consult order Sacubitril/Valsartan (Sacubitril/Valsartan 1 Tab Tablet) 1 tab PO BID [facility]; Protocol Last Admin: 01/18/22 08:25 Dose: 1 tab Documented by: BK Sodium Chloride (0.9 % Sodium Chloride Flush 3 Ml Syringe) 3 ml IVFLUSH QSHIFT [facility] Last Admin: 01/18/22 08:25 Dose: 3 ml Documented by: BK Tamsulosin HCl (Tamsulosin Hcl 0.4 Mg Capsule) 0.4 mg PO DAILY [facility] Last Admin: 01/18/22 08:26 Dose: 0.4 mg Documented by: BK Labs CBC & Chem 7: 01/18/22 06:10 01/18/22 06:10 Labs: Laboratory Results - last 24 hr 01/18/22 01/18/22 06:10 06:10 MCV 88.4 MCH 27.1 MCHC 30.6 L RDW 15.8 Plt Count 75 L MPV 11.0 Absolute Nucleated RBC 0.000 Nucleated RBC % (auto) 0.0 Anion Gap 10 L Estim Creat Clear Calc 62.9 Estimated GFR > 60 Fasting Glucose 101 H Calcium 8.7 Magnesium 1.3 L* Assessment and Plan (1) PVCs (premature ventricular contractions): Status: Acute (2) Atrial arrhythmia: Status: Acute (3) Cardiomyopathy: Status: Acute (4) Emphysema of lung: Status: Acute (5) Pancytopenia: Status: Acute (6) GI bleed: Status: Acute (7) Acute on chronic anemia: Status: Acute (8) Acute and chronic respiratory failure with hypoxia: Status: Acute Plan 76-year-old male with 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, COPD complicated by COVID-19 pneumonia and chronic hypoxic respiratory failure on 2 L of oxygen, as well as cardiomyopathy, presents to the hospital with complaints of shortness of breath found to have CHF as well as acute hypoxic respiratory failure acute on chronic hypoxic respiratory failure secondary to pneumonia, and acute on chronic systolic chf with pulmonary htn contine doxy diuresed well, lasix now on hold (will do low dose on discharge) entresto added atrial arrhythmia with PACs Continue metoprolol 100mg bid dc dig amio load 400mg bid for 1 week, then 200mg daily starting 01/24/22 check ekg for qt Acute on chronic anemia 2/2 GI bleed (acute blood loss) and MDS hemoglobin stable around 8.3 with MDS he does not get transfusion until hemoglobin is less than 5 usually twice weekly transfused total of 3 units of blood and 2 of platelets hematology input appreciated, transfused if Hb 6 or below. Platelets iF 10 or below or if bleeding. received growth stimulating factors, platelets up to 79,000 follow H&H GI bleeding Having episodes of melena Received blood and platelets GI consult, hold on procedure for now CT abdomen showed no acute close of bleeding pancytopenia Secondary to MDS moderate malnutrition continue high-protein diet by data entry coordinator hypomagnesemia replace and monitor recent bacteremia Patient just finished treatment with MSSA bacteremia with cefazolin prophylaxis: SCDs reason for continued hospitalization: heart rate still not adequately controlled, adjusting meds and daily and continuous tele monitoring, significant low mag. Quality Stroke Does the patient have a stroke diagnosis?: No VTE Prior VTE?: No VTE Risk Level:: Medical - moderate - high VTE Device Contraindication: Treatment Not Indicated VTE Drug Contraindication: N/A - Med Ordered
[2022-01-18 14:48] LABS: Immunoglobulin A 254 mg/dL (70-320)
[2022-01-18] MEDS: Magnesium Oxide 400 MG TABLET 800 MG PO (15:47)
[2022-01-18 18:46] LABS: Immunoglobulin G Subclass 1 756 mg/dL (382-929); Immunoglobulin G Subclass 2 169 mg/dL (241-700); Immunoglobulin G Subclass 3 99 mg/dL (22-178); Immunoglobulin G Subclass 4 42.4 mg/dL (4-86); Immunoglobulin G Total 1097 mg/dL (600-1540)
[2022-01-19 03:37] VITALS: BP 94/56; PULSE 74; RESP 18; TEMP 36.9; O2SAT 95
[2022-01-19] MEDS: Omeprazole 20 MG CAPSULE.DR PO (05:35)
[2022-01-19 06:00] VITALS: BMI 19.3
[2022-01-19 06:55] LABS: Hematocrit 27.2 % (42.0-52.0); Hemoglobin 8.5 g/dl (14.0-18.0); Mean Corpuscular HGB Conc 31.3 g/dl (31.0-36.0); Mean Corpuscular Hemoglobin 27.8 pg (27.0-33.0); Mean Corpuscular Volume 88.9 fL (80.0-98.0); Red Blood Count 3.06 X10*6/uL (4.60-5.80); Red Cell Distribution Width 15.4 % (11.0-16.0); White Blood Count 3.1 X10*3/uL (4.8-10.8)
[2022-01-19 06:56] LABS: Platelet Count 57 X10*3/uL (160-400)
[2022-01-19 07:32] VITALS: BP 103/56; PULSE 57; RESP 20; TEMP 36.9; O2SAT 96
[2022-01-19 07:41] LABS: Anion Gap 9 (12-20); Blood Urea Nitrogen 45 mg/dL (9-16); Calcium 8.3 mg/dL (8.4-10.2); Carbon Dioxide 29 mmol/L (22-29); Chloride 99 mmol/L (96-108); Creatinine Clr Calc Pharmacy 46.4; Estimated Glomerular Filt Rate > 60; Glucose Fasting 134 mg/dL (60-99); Magnesium 1.7 mg/dL (1.6-2.6); Sodium 133 mmol/L (135-145)
[2022-01-19] MEDS: Sacubitril/Valsartan 24/26 1 TAB TABLET PO (08:21)
[2022-01-19] MEDS: Tamsulosin HCL 0.4 MG CAPSULE PO (08:22)
[2022-01-19] MEDS: Gabapentin 100 MG CAPSULE 200 MG PO (08:22)
[2022-01-19] MEDS: Amiodarone HCL 200 MG TABLET 400 MG PO (08:22)
[2022-01-19] MEDS: Atorvastatin Calcium 40 MG TABLET PO (08:22)
[2022-01-19] MEDS: Magnesium Oxide 400 MG TABLET 800 MG PO (08:22)
[2022-01-19] MEDS: Metoprolol Tartrate 100 MG TABLET PO (08:22)
[2022-01-19] MEDS: 0.9 % Sodium Chloride Flush 3 ML SYRINGE IVFLUSH (08:23)
[2022-01-19] MEDS: Finasteride 5 MG TABLET PO (08:23)
[2022-01-19 09:03] VITALS: BP 103/56; PULSE 57; O2SAT 96
[2022-01-19 11:21] VITALS: BP 94/57; PULSE 57; RESP 20; TEMP 37; O2SAT 97
--- NOTE | 2022-01-19 12:24 | P.DS_ITS ---
DS: Providers Provider Date of Service: 01/19/22 Date of admission: 01/13/22 21:41 Primary care physician: Ezequiel Burnham MD Consults: 01/13/22 21:40 Consult to Cardiology Routine Consulting Provider: Erlin Prado Reason for consultation: CHF Has provider been notified: No 01/14/22 08:15 Consult to Gastroenterology Routine Consulting Provider: Barbie Watts Reason for consultation: GI bleed, blood loss anemia 01/14/22 11:42 Consult to Hematology / Oncology Routine Consulting Provider: Joie Gonzales Reason for consultation: Pancytopenia from MDS, pneumonia for your kind eval and rec 01/14/22 15:42 Consult to Pulmonology Routine Consulting Provider: Eli Cagle Reason for consultation: persistent interstitial findings, hypoxemia for your kind eval. DS: Diagnosis Discharge Diagnosis (1) PVCs (premature ventricular contractions): Status: Acute (2) Atrial arrhythmia: Status: Acute (3) Cardiomyopathy: Status: Acute (4) Emphysema of lung: Status: Acute (5) Pancytopenia: Status: Acute (6) GI bleed: Status: Acute (7) Acute on chronic anemia: Status: Acute (8) Acute and chronic respiratory failure with hypoxia: Status: Acute DS: Summary Hospital Course Hospital Course: History of presenting illness Chief Complaint: SOB This is a 76-year-old male with past medical history of cardiomegaly, CKD, COPD, MDS, pneumonia due to COVID-19 virus complicated by hypoxia need for chronic oxygen on 2 L at baseline, status post kidney transplantation in 1999, and history of area bacteremia who was currently on p.o. antibiotics with completion this week presents to the hospital with complaints of shortness of breath.? Patient reports that his symptoms started about a day before presentation, he has cough, sputum production, he feels chills, no fever.? Patient reports orthopnea as well as PND.? Also noted lower extremity edema that is been going on for 2-3 days, reports no chest pain, no palpitations no dizziness, no abdominal pain nausea or vomiting, no diarrhea constipation, no urinary symptoms. Of note patient was hospitals lysed at [facility] from 11/29/2019 to December 23 for management of methicillin sensitive bacteremia felt to be secondary to pneumonia and he was discharged on long-term antibiotic cefazolin IV with course completion in 2 days. On arrival to the ED patient vitals are significant for heart rate in 150s found to be in AFib with RVR, respiratory rate of 29, satting 88% on his all home O2 of 2 L. Labs are significant for leukopenia of 1.8, hemoglobin of 7.9, hematocrit 25.3, BNP of 3508, UA positive for blood with no evidence of infection, COVID-19 negative, influenza negative Checks x-ray shows bilateral airspace disease similar to November 2021 Patient will be admitted for further management Hospital course 76-year-old male with 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, COPD complicated by COVID-19 pneumonia and chronic hypoxic respiratory failure on 2 L of oxygen, as well as cardiomyopathy, presents to the hospital with complaints of shortness of breath found to have CHF as well as acute hypoxic respiratory failure acute on chronic hypoxic respiratory failure, secondary to pneumonia, and acute on chronic systolic chf with pulmonary htn, patient treated with intravenous Lasix, Entresto added, patient finished course of antibiotic, plan was to start low-dose Lasix upon discharge but patient noted to have low blood pressures with rising BUN and creatinine therefore will hold off on Lasix and recommend close outpatient cardiology follow-up, advise to call Cardiology with home worsening shortness of breath or leg edema. atrial arrhythmia with PACs, patient initially treated for atrial fibrillation but tele monitor showed atrial arrhythmia, patient continued on metoprolol and amiodarone loading dose started recommend to take amiodarone 400 mg twice daily for 1 week followed by 200 mg by mouth daily starting 01/24/2022, digoxin has been discontinued on dose of metoprolol has been changed to Toprol-XL 100 mg daily, recommend close cardiology follow-up with use of image drawn with underlying history of emphysema. Acute on chronic anemia 2/2? GI bleed (acute blood loss) and MDS, patient received 3 units of packed RBC and 2 units of platelets repeat hematocrit remains stable,he does not get transfusion until hemoglobin is less than 5 Seen by?hematology they recommend to transfuse? if Hb 6 or below and Platelets if 10 or below or if bleeding,?received growth? stimulating factors, recommend close outpatient hematology follow-up GI bleeding noted to have episodes of melena, seen by Gastroenterology they recommend to hold procedures for now, CT abdomen showed no cause of acute bleeding pancytopenia Secondary to MDS moderate malnutrition recommend to take high-protein diet hypomagnesemia placed on magnesium replacement MSSA bacteremia Patient just finished treatment with cefazolin Time Spent with Patient Time attestation: Total time spent providing and/or coordinating discharge services: Discharge coordination time: Greater than 30 minutes Quality: Safe Use of Opioids Does Pt have an Active Cancer Diagnosis on the Problem List?: No Quality: Stroke Does the patient have a stroke diagnosis?: No Physical Exam Vital Signs: Vital Signs: Last Vital Signs Temp 98.6 F 01/19/22 11:21 Pulse 57 01/19/22 11:21 Resp 20 01/19/22 11:21 BP 94/57 L 01/19/22 11:21 Pulse Ox 97 01/19/22 11:21 BMI result Body Mass Index 19.3 Const: Other: Constitutional : A lert, oriented, no acute distress Ne ck : Normal inspec tion, Supple Cardi ovascular : RRR, n o JVD, no lower ex tremity edema Resp iratory : Clear t o auscultation no respiratory distre ss t Gastrointesti nal:? soft, Normal bowel sounds, Non tender Skin : War m, Dry Neurologica l : Alert & orient ed x3, No focal de ficit , CN 2-12 wi thin normal DS: Data Data Completed and Pending Labs on day of discharge: Laboratory Results - last 24 hr 01/16/22 01/19/22 01/19/22 09:58 06:35 06:35 WBC 3.1 L RBC 3.06 L Hgb 8.5 L Hct 27.2 L MCV 88.9 MCH 27.8 MCHC 31.3 RDW 15.4 Plt Count 57 L MPV 11.0 Absolute Nucleated RBC 0.000 Nucleated RBC % (auto) 0.0 Sodium 133 L Potassium 4.0 Chloride 99 Carbon Dioxide 29 Anion Gap 9 L BUN 45 H D Creatinine 1.13 Estim Creat Clear Calc 46.4 Estimated GFR > 60 Fasting Glucose 134 H Calcium 8.3 L D Magnesium 1.7 IgG Total 1097 IgG Subclass 1 756 IgG Subclass 2 169 L IgG Subclass 3 99 IgG Subclass 4 42.4 IgA 254 Discharge Plan Discharge Patient Disposition: Home Health Service Discharge Diagnosis: Acute on Chronic hypoxic respiratory failure Acute systolic congestive heart failure Sinus tachycardia with PACs Acute on chronic anemia due to GI bleed and MDS Pancytopenia Moderate malnutrition Referrals: Ezequiel Burnham MD [Primary Care Provider] - 1 Week Discharge Medications: New magnesium oxide 400 mg (241.3 mg magnesium) Tablet 800 mg PO BIDPC Qty: 60 0RF Entresto 24-26 mg Tablet 1 tab PO BID Qty: 60 0RF Protocol: Hold for SBP< HOLD for SBP < : 90 amiodarone 200 mg Tablet 400 mg PO BID Qty: 50 0RF Rx Instructions: Take amiodarone 200 mg ( 2 tablet) twice daily through 01/23/22 then take amiodarone 200 mg 1 tablet once daily starting 01/24/2022 metoprolol succinate [Toprol XL] 100 mg tablet extended release 24 hr 100 mg PO DAILY Qty: 30 0RF Continued tamsulosin 0.4 mg capsule 1 cap PO DAILY 0RF gabapentin 100 mg capsule 2 cap PO TID 0RF oxycodone 5 mg tablet 1 tab PO Q4H PRN (Reason: Pain) 0RF omeprazole 20 mg capsule,delayed release(DR/EC) 1 cap PO BID 0RF simvastatin 80 mg tablet 1 tab PO DAILY 0RF finasteride 5 mg tablet 1 tab PO DAILY 0RF ferrous sulfate 324 mg (65 mg iron) Tablet,Delayed Release (Dr/Ec) 324 mg PO DAILY 0RF Discontinued metoprolol tartrate 100 mg tablet 1 tab PO BID 0RF digoxin 125 mcg (0.125 mg) tablet 250 mcg PO DAILY 0RF cefazolin in dextrose 5 % 2 gram/100 mL Solution 100 ml IV Q8H 0RF Discharge Orders: Discharge Order (Routine); Ordered 01/19/22 Ordered By: Ada Cruz Diet: advance to usual diet Activity on Discharge: As tolerated Stand Alone Forms: Patient Portal Discharge page Care Plan Goals: Continue home oxygen, call Cardiology for worsening shortness of breath or leg edema, to start low-dose Lasix/also started on amiodarone loading dose 400 mg twice daily end date January 23 and then starting amiodarone 200 mg by mouth daily from January 24, recommend to check EKG in 1 week with Cardiology, follow-up with Oncology for pancytopenia, do not take aspirin Advil or Motrin, take high- protein diet, take magnesium supplement Close cardiology follow-up recommended since started on amiodarone with underlying history of lung disease/monitor QT interval Health Concerns: Take all other medications as prescribed Plan of Treatment: Follow-up with Dr. Wade in 1-2 weeks Assessment: As per discharge summary
--- NOTE | 2022-01-19 14:35 | MHC.CM.PN ---
IMM 01/19/22 Male 76 is discharged home today. [facility] will resume homecare services. His [facility] [employer] will continue to provide. provided transportation home.
== END 2022-01-19 14:40 | disposition home health service (06) | DRG 291 ==
LOC: HO.ED 19:37 → HO.EDOVER 22:02 → HO.IMC 23:21
PROVIDERS: Hospitalist; Internal Medicine; Student in an Organized Health Care Education/Training Program; Admitting Provider Internal Medicine; Emergency Provider Emergency Medicine Emergency Medical Services; PCP Internal Medicine; Visit Provider Hospitalist
DX: I50.21 Acute systolic (congestive) heart failure (principal); J18.9 Pneumonia, unspecified organism; J96.21 Acute and chronic respiratory failure with hypoxia; Z94.0 Kidney transplant status; D61.818 Other pancytopenia; E44.0 Moderate protein-calorie malnutrition; Z68.1 Body mass index [BMI] 19.9 or less, adult; I47.1 Supraventricular tachycardia; I42.9 Cardiomyopathy, unspecified; D62 Acute posthemorrhagic anemia; I48.91 Unspecified atrial fibrillation; I49.1 Atrial premature depolarization; J43.9 Emphysema, unspecified; D46.9 Myelodysplastic syndrome, unspecified; I08.1 Rheumatic disorders of both mitral and tricuspid valves; I27.20 Pulmonary hypertension, unspecified; E83.42 Hypomagnesemia; Z86.16 Personal history of COVID-19; Z20.822 Contact with and (suspected) exposure to COVID-19; Z87.01 Personal history of pneumonia (recurrent); Z99.81 Dependence on supplemental oxygen; Z87.891 Personal history of nicotine dependence; Z79.899 Other long term (current) drug therapy
CPT/HCPCS: 36415; 71045; 74176; 80048; 80076; 80162; 81001; 82784; 83605; 83690; 83735; 83880; 84145; 84484; 85014; 85018; 85025; 85027; 85610; 85652; 85730; 86850; 86900; 86901; 86923; 87040; 87086; 87088; 87502; 87635; 93005; 93306; 94640; 96365; 96375; 96376; 97110; 97116; 97162; 99285; C1758; J1447; J1650; J1940; J2543; J2930; J3370; J3475; P9040; P9073

== ENCOUNTER 2022-02-04 10:14 | Emergency (ER) | payer OTHER, SELFPAY ==
[2022-02-04 10:35] VITALS: BP 98/62; PULSE 98; RESP 20; TEMP 36.6; O2SAT 96; BMI 19.1
[2022-02-04 12:56] LABS: Appearance Urine HAZY; Color Urine YELLOW; Glucose Urine UA NEG (NEG); Leukocyte Esterase Urine 3+ (NEG); Nitrite Urine NEG (NEG); PH 6.5 (5.0-8.0); UACC Culture Trigger YES; Urine Blood TRACE (NEG); Urine Ketones NEG (NEG); Urine Protein NEG (NEG-TRACE)
[2022-02-04 12:58] LABS: Basophils Percent Auto 0.9 % (0-2); Hematocrit 24.4 % (42.0-52.0); Hemoglobin 7.9 g/dl (14.0-18.0); Imm Gran Abs Auto 0.03 X10*3/uL (0.00-0.03); Imm Gran Pct Auto 1.3 % (0.0-0.4); Lymphocytes Absolute Auto 0.8 X10*3/uL (1.2-4.9); Lymphocytes Percent Auto 33.9 % (20-40); MANUAL DIFF FLAG SCAN; Mean Corpuscular HGB Conc 32.4 g/dl (31.0-36.0); Mean Corpuscular Hemoglobin 28.3 pg (27.0-33.0); Mean Corpuscular Volume 87.5 fL (80.0-98.0); Mean Platelet Volume 10.1 fL (9.4-12.4); Monocytes Absolute Auto 0.2 X10*3/uL (0.1-1.2); Monocytes Percent Auto 9.8 % (2-11); Neutrophils Absolute Auto 1.2 x10*3/uL (2.0-8.3); Neutrophils Percent Auto 54.1 % (45-73); Platelet Count 92 X10*3/uL (160-400); Red Blood Count 2.79 X10*6/uL (4.60-5.80); Red Cell Distribution Width 15.6 % (11.0-16.0); SCAN SMEAR FLAG 1; White Blood Count 2.2 X10*3/uL (4.8-10.8)
[2022-02-04 13:11] LABS: Anion Gap 12 (12-20); Blood Urea Nitrogen 38 mg/dL (9-16); Calcium 8.9 mg/dL (8.4-10.2); Carbon Dioxide 25 mmol/L (22-29); Chloride 102 mmol/L (96-108); Estimated Glomerular Filt Rate > 60; Glucose Random 92 mg/dL (60-115); Potassium 4.2 mmol/L (3.3-5.1); Sodium 135 mmol/L (135-145)
[2022-02-04 13:15] LABS: SLIDE REVIEW VERIFIED
[2022-02-04 13:18] LABS: Renal Epithelial Cells Urine 1+ /LPF; Squamous Epithelial Cell Urine 1+ /LPF
[2022-02-04 13:19] LABS: RBC Urine 0-2 /HPF (0); WBC Urine 30-49 /HPF (0-4)
--- NOTE | 2022-02-04 15:08 | PC.NURSE ---
called for revitalling. LWT.
== END 2022-02-04 15:46 | disposition left against medical advice (07) ==
PROVIDERS: Emergency Provider Emergency Medicine; PCP Internal Medicine
DX: N39.0 Urinary tract infection, site not specified (principal)
CPT/HCPCS: 36415; 80048; 81001; 81003; 85025; 87086; 87088; 99283

== ENCOUNTER 2022-02-14 13:59 | Outpatient (REF) | payer MEDICARE, OTHER, SELFPAY ==
[2022-02-14 16:32] LABS: Anion Gap 10 (12-20); Blood Urea Nitrogen 48 mg/dL (9-16); Calcium 7.9 mg/dL (8.4-10.2); Carbon Dioxide 21 mmol/L (22-29); Chloride 109 mmol/L (96-108); Estimated Glomerular Filt Rate > 60; Glucose Random 109 mg/dL (60-115); Potassium 4.6 mmol/L (3.3-5.1); Sodium 135 mmol/L (135-145)
[2022-02-14 16:33] LABS: B Type Natriuretic Peptide 335 pg/mL (<100)
== END 2022-02-14 14:00 | disposition home or self-care (01) ==
LOC: HO.LAB 13:59
PROVIDERS: PCP Obstetrics & Gynecology; Visit Provider Internal Medicine Cardiovascular Disease
DX: I42.9 Cardiomyopathy, unspecified (principal); I49.8 Other specified cardiac arrhythmias; I50.20 Unspecified systolic (congestive) heart failure
CPT/HCPCS: 36415; 80048; 83880; 93005; 99212

== ENCOUNTER 2022-03-04 18:24 | Inpatient (IN) | payer OTHER, MEDICARE, SELFPAY ==
--- NOTE | ~2022-03-04 | CT_ITS ---
EXAMINATION: CT ANGIOGRAM OF THE CHEST WITH AND WITHOUT CONTRAST (CT PULMONARY ANGIOGRAM FOR PE) CLINICAL INFORMATION: Dyspnea, r/o PE. COMPARISON: Prior CTA chest 11/28/2021. TECHNIQUE: Prior to contrast administration, noncontrast localization images were obtained. Subsequently, multidetector volumetric imaging was performed from the thoracic inlet to below the diaphragms following the administration of 56 mL Omnipaque 350 intravenous contrast. No contrast reaction reported. Sagittal, coronal, and MIP oblique sagittal reformatted images were obtained on the CT workstation, uploaded to PACS, and reviewed. This CT examination was performed using dose optimization techniques as appropriate, variously including the following: *Automated exposure control *Adjustment of mA and/or kV according to patient size (this includes techniques or standardized protocols for targeted exams where dose is matched to indication/reason for exam; i.e. extremities or head) *Use of iterative reconstruction technique Total exam dose-length product 254 mGy-cm FINDINGS: QUALITY OF STUDY/CONTRAST BOLUS: Satisfactory PULMONARY ARTERIES: No central or segmental pulmonary emboli. THORACIC AORTA: No aneurysm or dissection. Atherosclerotic calcification of the dorsal aorta and branch vessels including coronary vessels. LUNG: Scattered bilateral lung opacities significantly improved compared to prior CT November 2021. PLEURA: Small right pleural effusion similar to prior. MEDIASTINUM: Normal heart size. No pericardial effusion. No hilar or mediastinal lymphadenopathy. CHEST WALL/AXILLA: No axillary or internal mammary lymphadenopathy. OSSEOUS STRUCTURES: No acute or suspicious osseous abnormality. UPPER ABDOMEN: Unremarkable. No reflux of contrast into the hepatic veins to suggest elevated right heart pressures. CT/CT angio chest PE protocol IMPRESSION: No evidence of pulmonary embolus. Persistent but decreased bilateral pulmonary opacities improved compared with CT November 2021. Persistent small right pleural effusion. VTE: negative
--- NOTE | ~2022-03-04 | CT_ITS ---
EXAMINATION: CT gi bleed abd pel wo/w con CLINICAL INFORMATION: Reason for Exam GI bleed COMPARISON: CT abdomen pelvis 03/08/2022. CT angiography chest 03/04/2022 TECHNIQUE: Unenhanced and IV contrast enhanced CT of the abdomen and pelvis with delayed IV contrast-enhanced images of the abdomen and pelvis. Multiple coronal and sagittal reformatted images are processed on the technologist workstation. This CT examination was performed using dose optimization techniques as appropriate, variously including the following: *Automated exposure control *Adjustment of mA and/or kV according to patient size (this includes techniques or standardized protocols for targeted exams where dose is matched to indication/reason for exam; i.e. extremities or head) *Use of iterative reconstruction technique Intravenous contrast: Omnipaque 350 99 mL. DLP: 913 mGy-cm FINDINGS: Lung bases: Small dependent layering bilateral pleural effusions are noted. Right base nearly confluent alveolar space opacities are present similar to findings present on the 03/04/2022 examination. Elsewhere, scattered coarse reticular opacities are present in the lung bases and mild compressive atelectasis is noted in the left lung base. Liver: Normal. Biliary system: A densely calcified gallstone is present within the fundus of the gallbladder. Gallbladder is contracted. No pericholecystic fluid collections identified. No dilatation of the common bile duct noted. Pancreas: Normal. Spleen: Normal. Adrenal glands: Bilateral diffuse thickness of the adrenal glands is again noted. Kidneys: The left kidney is absent. The right kidney is normal in appearance aside from hilar atherosclerotic vascular calcifications. No hydronephrosis. A right lower quadrant transplant kidney is present without evidence of hydronephrosis or perinephric inflammatory changes. Multifocal cortical thinning and scarring of the transplant kidney is noted. Urinary bladder: Physiologically distended. Gastrointestinal system: The appendix is not visualized. Terminal ileum is normal in appearance. The cecum is displaced by the right lower quadrant transplant kidney. Prominent dependent layering intermediate density fluid is present within the sigmoid colon at the rectosigmoid junction. Remainder of the sigmoid colon is mostly decompressed. No areas of intestinal dilatation or mural thickening are noted. Delayed IV contrast-enhanced images demonstrate intraluminal accumulation of IV contrast agent in the region of the junction of the first and second portion of the duodenum. (Series 18 image 84). A 6 mm diameter low density focus is present at the junction of the second and third portions of the duodenum (series 11 image 91) and may represent material within the lumen of the duodenum or possibly a duodenal lipoma. Several foci of gas are noted in the region of the gastric antrum and first portion of duodenum but are not definitively extraluminal. No definitive free intraperitoneal gas is identified. Abdominal wall: No abdominal wall hernias. Pelvic viscera: The prostate demonstrates scattered dystrophic calcifications and is normal in size. Abdominal and pelvic lymphovascular systems: Marked diffuse calcific atherosclerosis. No lymphadenopathy. Osseous structures: Mild multilevel Schmorl's node deformities of the visualized lumbar and thoracic vertebral bodies. CT/CT gi bleed abd pel wo/w con IMPRESSION: *Findings suspicious for active gastrointestinal hemorrhage in the region of the junction of the first and second portion of the duodenum. Findings may be secondary to an otherwise occult duodenal ulcer. No evidence of intestinal perforation (series 20 image 55, series 17 image 34). *Partially visualized bibasilar airspace disease with findings most pronounced the right lung base and small bilateral pleural effusions. Similar findings were present on the comparison CT of the chest 03/04/2022. *Cholelithiasis. 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 *Bilateral adrenal hyperplasia. *Absent left kidney. This critical result was discussed with Cole Humphries MD MD by telephone at 03/14/2022 6:07 AM and it was ascertained that the content and urgency of the report was understood at the time of direct communication.
--- NOTE | ~2022-03-04 | CT_ITS ---
EXAMINATION: CT ABDOMEN AND PELVIS WITHOUT CONTRAST CLINICAL INFORMATION: Bacteremia COMPARISON: Previous CT of the abdomen and pelvis December 2021 TECHNIQUE: Multidetector volumetric imaging was performed from the superior aspect of the liver through the pubic symphysis. Sagittal and coronal reformatted images were obtained on the technologist's workstation. This CT examination was performed using dose optimization techniques as appropriate, variously including the following: *Automated exposure control *Adjustment of mA and/or kV according to patient size (this includes techniques or standardized protocols for targeted exams where dose is matched to indication/reason for exam; i.e. extremities or head) *Use of iterative reconstruction technique DLP: 275 mGy-cm FINDINGS: LUNG BASES: There are nodular opacities seen in the right middle lobe, right lower lobe and left lower lobe. This appears decreased in size from December 2021 exam. This may represent resolving pneumonia. The bilateral pleural effusions seen December 2021 exam have resolved. The heart is slightly enlarged. LIVER, GALLBLADDER, AND BILIARY TREE: The liver is normal in size, shape, and attenuation. No focal hepatic lesion or biliary ductal dilatation is present. There is a large 3 cm gallstone in the gallbladder.. PANCREAS: Pancreas is difficult to evaluate without contrast. There is increased partially calcified soft tissue adjacent to the posterior neck of the pancreas. This is probably related to adjacent nonenhanced tortuous vessels, for example axial image 17 series 3.. SPLEEN: Normal. ADRENAL GLANDS: There is increased size in both adrenal glands. Adrenal glands are diffusely low in attenuation. Appearance is suggestive of adenomatous change or hyperplasia. This is similar to previous exam. KIDNEYS AND URETERS: There are small stones in the right kidney. No hydronephrosis or ureteral dilatation or ureteral stone is seen. A left kidney is not seen. There is a renal transplant seen in the right lower quadrant. There are calcifications of the renal transplant probably representing vascular calcifications. Is mild fullness of the right renal transplant pelvis and ureter. This appears unchanged from December 2021 CT scan.. BLADDER: Unremarkable. GASTROINTESTINAL TRACT: There is constipation. Small and large bowel is otherwise unremarkable. The appendix is is not seen. ABDOMINAL WALL: No significant hernia is appreciated. LYMPH NODES: Normal. VASCULAR: There is severe atherosclerotic disease. No aneurysm is seen. PELVIC VISCERA: Unremarkable. OSSEOUS STRUCTURES: There are degenerative changes of the spine. CT/CT abdomen pelvis wo con IMPRESSION: Severe constipation. Large gallstone in the gallbladder. Small nonobstructing stones in the [place] right kidney. Stable appearance to the right renal transplant in the right lower quadrant. Enlarged low-attenuation adrenal glands probably representing adrenal hyperplasia similar to previous exam. Decreasing nodular opacities at the lung bases probably representing resolving infiltrates. Fleischner guidelines were followed.
--- NOTE | ~2022-03-04 | XR_ITS ---
EXAMINATION: XR chest 1V CLINICAL INFORMATION: Reason for Exam dyspnea COMPARISON: Prior chest x-ray 01/13/2022 TECHNIQUE: XR chest 1V Tubes and lines: None Lungs and pleura: Diffuse increased interstitial lung marking and peribronchial cuffing might be a small airway disease such as bronchiolitis or interstitial pneumonitis, versus interstitial lung disease versus interstitial edema. There is consolidation in the right lung base this is improving compared with the prior x-ray from 01/13/2022. Heart and mediastinum: The mediastinum is within normal limits.. Bones/soft tissue: Skeletal structures included are normal for patient's age. XR/XR chest 1V IMPRESSION: Redemonstration of diffuse interstitial lung markings suggesting diffuse interstitial pneumonitis and/or edema. Improving consolidation infiltrates right lung base. No significant pleural effusion.
--- NOTE | 2022-03-04 18:30 | ECG_ITS ---
Test Reason : SOB CHEST PAIN Blood Pressure : / mmHG Vent. Rate : 134 BPM Atrial Rate : 134 BPM P-R Int : 088 ms QRS Dur : 086 ms QT Int : 332 ms P-R-T Axes : 000 055 128 degrees QTc Int : 495 ms Atrial tachycardia vs atrial flutter Nonspecific T wave abnormality Abnormal ECG When compared with ECG of 18-JAN-2022 13:15, Premature supraventricular complexes are no longer Present Vent. rate has increased BY 57 BPM Atrial tachycardia vs atrial flutter present Referred By: Jovanna Stokes Electronically Signed By:Zhou Escoto
[2022-03-04 18:32] VITALS: BP 106/74; BP 97/70; PULSE 100; PULSE 133; RESP 17; O2SAT 10; BMI 21.3
[2022-03-04] MEDS: methylPREDNISolone Sod Succ 125 MG/2 ML VIAL 60 MG IVPUSH (18:40)
[2022-03-04] MEDS: dilTIAZem HCL 50 MG/10 ML VIAL IVPUSH (18:43)
--- NOTE | 2022-03-04 18:49 | ED_ITS ---
HPI - SOB/Dyspnea General Chief Complaint: Dyspnea Stated Complaint: diff breathing Time Seen by Provider: 03/04/22 18:28 Source: patient, EMS and old records reviewed Mode of arrival: EMS Limitations: no limitations History of Present Illness HPI Narrative: 77 yo male with hx of cardiomyopathy, CKD CHF - 30%, COPD, MDS, emphysema, pneumonia, afib, chronically low BP, anemia s/p transfusion of 3 UPRBCs back in December reports dyspnea and chest pain since last night MD elicited complaint: shortness of breath and chest pain Pertinent past history: COPD, congestive heart failure and pneumonia Onset (ago): day(s) (woke with it this AM) Context: recent illness and other (MDS) Timing: constant Severity: moderate Exacerbating factors: exertion Relieving factors: oxygen and rest Known history of: COPD, congestive heart failure and recurrent pneumonia Associated symptoms: chest pain and cough Treatment prior to arrival: oxygen (was on CPAP) Related Data Home Medications Medication Instructions Recorded Confirmed ferrous sulfate 324 mg (65 mg 324 mg PO DAILY 01/13/22 03/04/22 iron) tablet,delayed release finasteride 5 mg tablet 1 tab PO DAILY 01/13/22 03/04/22 gabapentin 100 mg capsule 2 cap PO BEDTIME 01/13/22 03/04/22 metoprolol tartrate 25 mg tablet 25 mg PO BID PRN SBP>90 03/04/22 03/04/22 potassium chloride 20 mEq 1 tab PO DAILY 03/04/22 03/04/22 tablet,extended release(part/cryst) simvastatin 80 mg tablet 80 mg PO BEDTIME 03/04/22 03/04/22 Previous Rx's Medication Instructions Recorded amiodarone 200 mg tablet 200 mg PO DAILY #30 tabs 02/14/22 Allergies Allergy/AdvReac Type Severity Reaction Status Date / Time No Known Allergies Allergy Verified 11/27/21 20:52 Review of Systems Review of Systems: Constitutional : No Fever, No Chills ENT/Mouth : No sore throat, No Rhinorrhea, No Swallowing Difficulty Eyes: No Eye Pain, No Swelling, No Redness Cardiovascular : pos Chest Pain, positive SOB, No Orthopnea, no Edema Respiratory : No Cough, No Sputum, No Wheezing, positive dyspnea Gastrointestinal : No Nausea, No Vomiting, No Diarrhea, No abdominal Pain, No Hematochezia, No Melena Genitourinary : No Dysuria, No Urinary Frequency, No Hematuria Musculoskeletal : No joint pain, No Myalgias Skin : No Skin Lesions, No rash Neuro : No Weakness, No Numbness, No Dizziness, No Headache Psych : No Anxiety/Panic, No Depression Heme/Lymph: No Bruising, No Lymphadenopathy Endocrine : No Polyuria, No Polydipsia All other systems reviewed and are negative [facility] Past Medical History Attestation statement: The following information was validated with the patient. Medical History Cardiomyopathy Chronic anemia CKD stage G3b/A2, GFR 30-44 and albumin creatinine ratio 30-299 mg/g Congestive heart failure COPD (chronic obstructive pulmonary disease) Emphysema of lung Iliopsoas muscle hematoma Myelodysplastic syndrome On home O2 Pancytopenia Pneumonia Pneumonia due to COVID-19 virus Tobacco dependency VRE bacteremia Surgical History Status post kidney autotransplantation Social History Social History Household Members: Spouse Do you presently have visiting nurse or other home services: Yes Patient Tobacco Use Status: Former Tobacco user Tobacco use type: Cigarette Advance Directives: No Advance Directives Information Provided: No service: Yes Current occupational status: retired Physical Exam Vital Signs: Vital Signs: Last Vital Signs Pulse 134 H 03/04/22 19:00 Resp 36 H 03/04/22 19:01 BP 106/74 03/04/22 18:32 Pulse Ox 10 L 03/04/22 18:32 O2 Del Method 03/04/22 18:32 BMI result Body Mass Index 21.3 Appearance: Alert. Oriented X3. Mild acute distress. Eyes: Pupils equal, round and reactive to light. ENT: Pharynx normal. Neck: Normal inspection. Neck supple. no JVD CVS: tachycardic heart rate and rhythm. Pulses normal. Respiratory: Mild respiratory distress - tachypnea. Breath sounds dminished th roughout Abdomen: Soft and non-tender. Skin: Skin warm and dry. Normal skin color. Normal skin turgor. Extremities: No lower extremity edema. No calf ttp Neuro: Oriented X 3. No motor deficit. No sensory deficit. Course Course Course Narrative: H/H around baseline, ddimer elevated CTA ordered off bipap 2L NC 750pm doing well of bipap, pending CTA and repeat troponin, added on low dose lopressor for atrial tachycardia, planned admit signed out to Dr. Lipscomb repeat trop flat MDM - SOB/Dyspnea MDM Narrative Medical decision making narrative: 77 yo male with hx of cardiomyopathy, CKD CHF - 30%, COPD, MDS, emphysema, pneumonia, afib, chronically low BP, anemia s/p transfusion of 3 UPRBCs comes in with chest pain and dyspnea since this AM / last night at this time will give low dose steroids, albuterol, keep on bipap, labs, CXR, empiric antibiotics given neutropenia and infiltrates seen on CXR. Ddimer given MDS history and reportedly found with sats in 50s. Planned admit Lab Data Result diagrams: 03/04/22 18:44 03/04/22 18:44 Labs: Lab Results 03/04/22 03/04/22 03/04/22 Range/Units 18:44 18:44 18:44 WBC 1.4 L (4.8-10.8) X10*3/uL RBC 2.79 L (4.60-5.80) X10*6/uL Hgb 7.7 L (14.0-18.0) g/dl Hct 25.9 L (42.0-52.0) % MCV 92.8 (80.0-98.0) fL MCH 27.6 (27.0-33.0) pg MCHC 29.7 L (31.0-36.0) g/dl RDW 16.8 H (11.0-16.0) % Plt Count 83 L (160-400) X10*3/uL MPV 12.1 (9.4-12.4) fL Immature Gran % (Auto) 3.6 H (0.0-0.4) % Neut % (Auto) 30.7 L (45-73) % Lymph % (Auto) 57.1 H (20-40) % [place] % (Auto) 7.9 (2-11) % Eos % (Auto) 0.0 (0-4) % Baso % (Auto) 0.7 (0-2) % Lymph # (Auto) 0.8 L (1.2-4.9) X10*3/uL [place] # (Auto) 0.1 (0.1-1.2) X10*3/uL Eos # (Auto) 0.0 (0.0-0.4) X10*3/uL Baso # (Auto) 0.0 (0.0-0.2) X10*3/uL Abs Immat Gran (auto) 0.05 H (0.00-0.03) X10*3/uL Absolute Neuts (auto) 0.4 L (2.0-8.3) x10*3/uL Absolute Nucleated RBC 0.050 H (0.0-0.012) X10*3/uL Nucleated RBC % (auto) 3.6 H (0.0-0.2) /100WBC Smear Tech's Comments VERIFIED PT (9.9-13.0) SEC INR (0.9-1.1) APTT (24.1-38.0) SEC D-Dimer High Sensitivty NG/ML VBG pH (7.32-7.43) VBG pCO2 mmHg VBG pO2 mmHg VBG HCO3 (22-26) mmol/L VBG O2 Saturation % VBG Base Excess mmol/L Sodium 134 L (135-145) mmol/L Potassium 4.7 (3.3-5.1) mmol/L Chloride 108 (96-108) mmol/L Carbon Dioxide 18 L (22-29) mmol/L Anion Gap 13 (12-20) BUN 31 H (9-16) mg/dL Creatinine 0.77 (0.5-1.4) mg/dL Estim Creat Clear Calc 67.8 Estimated GFR > 60 Random Glucose 87 (60-115) mg/dL Lactic Acid (0.5-2.0) mmol/L Calcium 8.3 L (8.4-10.2) mg/dL Magnesium 1.9 (1.6-2.6) mg/dL Total Bilirubin 0.6 (0.0-1.0) mg/dL Direct Bilirubin 0.2 (0.0-0.5) mg/dL AST 18 (5-37) U/L ALT 15 (0-40) U/L Alkaline Phosphatase 63 (39-117) U/L Troponin I High Sens (<3.5-35.0) ng/L B-Natriuretic Peptide 1085 H (<100) pg/mL Total Protein 6.0 L (6.5-8.0) g/dL Albumin 3.5 (3.5-5.0) g/dL Lipase 64 (8-78) U/L Digoxin (0.8-2.0) ng/mL COVID-19 (ELAN) (Negative) COVID-19 Clin Com 03/04/22 03/04/22 03/04/22 Range/Units 18:45 18:45 18:46 WBC (4.8-10.8) X10*3/uL RBC (4.60-5.80) X10*6/uL Hgb (14.0-18.0) g/dl Hct (42.0-52.0) % MCV (80.0-98.0) fL MCH (27.0-33.0) pg MCHC (31.0-36.0) g/dl RDW (11.0-16.0) % Plt Count (160-400) X10*3/uL MPV (9.4-12.4) fL Immature Gran % (Auto) (0.0-0.4) % Neut % (Auto) (45-73) % Lymph % (Auto) (20-40) % [place] % (Auto) (2-11) % Eos % (Auto) (0-4) % Baso % (Auto) (0-2) % Lymph # (Auto) (1.2-4.9) X10*3/uL [place] # (Auto) (0.1-1.2) X10*3/uL Eos # (Auto) (0.0-0.4) X10*3/uL Baso # (Auto) (0.0-0.2) X10*3/uL Abs Immat Gran (auto) (0.00-0.03) X10*3/uL Absolute Neuts (auto) (2.0-8.3) x10*3/uL Absolute Nucleated RBC (0.0-0.012) X10*3/uL Nucleated RBC % (auto) (0.0-0.2) /100WBC Smear Tech's Comments PT 13.8 H (9.9-13.0) SEC INR 1.2 H (0.9-1.1) APTT 33.9 (24.1-38.0) SEC D-Dimer High Sensitivty 367 NG/ML VBG pH (7.32-7.43) VBG pCO2 mmHg VBG pO2 mmHg VBG HCO3 (22-26) mmol/L VBG O2 Saturation % VBG Base Excess mmol/L Sodium (135-145) mmol/L Potassium (3.3-5.1) mmol/L Chloride (96-108) mmol/L Carbon Dioxide (22-29) mmol/L Anion Gap (12-20) BUN (9-16) mg/dL Creatinine (0.5-1.4) mg/dL Estim Creat Clear Calc Estimated GFR Random Glucose (60-115) mg/dL Lactic Acid 1.3 (0.5-2.0) mmol/L Calcium (8.4-10.2) mg/dL Magnesium (1.6-2.6) mg/dL Total Bilirubin (0.0-1.0) mg/dL Direct Bilirubin (0.0-0.5) mg/dL AST (5-37) U/L ALT (0-40) U/L Alkaline Phosphatase (39-117) U/L Troponin I High Sens (<3.5-35.0) ng/L B-Natriuretic Peptide (<100) pg/mL Total Protein (6.5-8.0) g/dL Albumin (3.5-5.0) g/dL Lipase (8-78) U/L Digoxin (0.8-2.0) ng/mL COVID-19 (ELAN) Negative (Negative) COVID-19 Clin Com See Note 03/04/22 03/04/22 03/04/22 Range/Units 18:46 18:47 18:56 WBC (4.8-10.8) X10*3/uL RBC (4.60-5.80) X10*6/uL Hgb (14.0-18.0) g/dl Hct (42.0-52.0) % MCV (80.0-98.0) fL MCH (27.0-33.0) pg MCHC (31.0-36.0) g/dl RDW (11.0-16.0) % Plt Count (160-400) X10*3/uL MPV (9.4-12.4) fL Immature Gran % (Auto) (0.0-0.4) % Neut % (Auto) (45-73) % Lymph % (Auto) (20-40) % [place] % (Auto) (2-11) % Eos % (Auto) (0-4) % Baso % (Auto) (0-2) % Lymph # (Auto) (1.2-4.9) X10*3/uL [place] # (Auto) (0.1-1.2) X10*3/uL Eos # (Auto) (0.0-0.4) X10*3/uL Baso # (Auto) (0.0-0.2) X10*3/uL Abs Immat Gran (auto) (0.00-0.03) X10*3/uL Absolute Neuts (auto) (2.0-8.3) x10*3/uL Absolute Nucleated RBC (0.0-0.012) X10*3/uL Nucleated RBC % (auto) (0.0-0.2) /100WBC Smear Tech's Comments PT (9.9-13.0) SEC INR (0.9-1.1) APTT (24.1-38.0) SEC D-Dimer High Sensitivty NG/ML VBG pH 7.35 (7.32-7.43) VBG pCO2 25 mmHg VBG pO2 174 mmHg VBG HCO3 14 L (22-26) mmol/L VBG O2 Saturation 99.0 % VBG Base Excess -9.4 mmol/L Sodium (135-145) mmol/L Potassium (3.3-5.1) mmol/L Chloride (96-108) mmol/L Carbon Dioxide (22-29) mmol/L Anion Gap (12-20) BUN (9-16) mg/dL Creatinine (0.5-1.4) mg/dL Estim Creat Clear Calc Estimated GFR Random Glucose (60-115) mg/dL Lactic Acid (0.5-2.0) mmol/L Calcium (8.4-10.2) mg/dL Magnesium (1.6-2.6) mg/dL Total Bilirubin (0.0-1.0) mg/dL Direct Bilirubin (0.0-0.5) mg/dL AST (5-37) U/L ALT (0-40) U/L Alkaline Phosphatase (39-117) U/L Troponin I High Sens 9.8 D (<3.5-35.0) ng/L B-Natriuretic Peptide (<100) pg/mL Total Protein (6.5-8.0) g/dL Albumin (3.5-5.0) g/dL Lipase (8-78) U/L Digoxin < 0.3 L (0.8-2.0) ng/mL COVID-19 (ELAN) (Negative) COVID-19 Clin Com 03/04/22 Range/Units 20:45 WBC (4.8-10.8) X10*3/uL RBC (4.60-5.80) X10*6/uL Hgb (14.0-18.0) g/dl Hct (42.0-52.0) % MCV (80.0-98.0) fL MCH (27.0-33.0) pg MCHC (31.0-36.0) g/dl RDW (11.0-16.0) % Plt Count (160-400) X10*3/uL MPV (9.4-12.4) fL Immature Gran % (Auto) (0.0-0.4) % Neut % (Auto) (45-73) % Lymph % (Auto) (20-40) % [place] % (Auto) (2-11) % Eos % (Auto) (0-4) % Baso % (Auto) (0-2) % Lymph # (Auto) (1.2-4.9) X10*3/uL [place] # (Auto) (0.1-1.2) X10*3/uL Eos # (Auto) (0.0-0.4) X10*3/uL Baso # (Auto) (0.0-0.2) X10*3/uL Abs Immat Gran (auto) (0.00-0.03) X10*3/uL Absolute Neuts (auto) (2.0-8.3) x10*3/uL Absolute Nucleated RBC (0.0-0.012) X10*3/uL Nucleated RBC % (auto) (0.0-0.2) /100WBC Smear Tech's Comments PT (9.9-13.0) SEC INR (0.9-1.1) APTT (24.1-38.0) SEC D-Dimer High Sensitivty NG/ML VBG pH (7.32-7.43) VBG pCO2 mmHg VBG pO2 mmHg VBG HCO3 (22-26) mmol/L VBG O2 Saturation % VBG Base Excess mmol/L Sodium (135-145) mmol/L Potassium (3.3-5.1) mmol/L Chloride (96-108) mmol/L Carbon Dioxide (22-29) mmol/L Anion Gap (12-20) BUN (9-16) mg/dL Creatinine (0.5-1.4) mg/dL Estim Creat Clear Calc Estimated GFR Random Glucose (60-115) mg/dL Lactic Acid (0.5-2.0) mmol/L Calcium (8.4-10.2) mg/dL Magnesium (1.6-2.6) mg/dL Total Bilirubin (0.0-1.0) mg/dL Direct Bilirubin (0.0-0.5) mg/dL AST (5-37) U/L ALT (0-40) U/L Alkaline Phosphatase (39-117) U/L Troponin I High Sens 14.4 (<3.5-35.0) ng/L B-Natriuretic Peptide (<100) pg/mL Total Protein (6.5-8.0) g/dL Albumin (3.5-5.0) g/dL Lipase (8-78) U/L Digoxin (0.8-2.0) ng/mL COVID-19 (ELAN) (Negative) COVID-19 Clin Com ECG Data Attestation: I personally reviewed and interpreted this ECG as follows: ECG interpretation date: 03/04/22 ECG interpretation time: 19:21 Interpretation: Rate: 134 Rhythm: narrow regular sinus tachycardia [place]: normal Normal P waves. Normal ALIZA. Normal QRS complex. ST T wave : no ZACH, inverted t waves in lateral leads qTC: prolonged prior studies: hx of same in past The study has been interpreted contemporaneously by me. . Critical Care Time Critical Care Time Critical Care Time: Yes Total Critical Care Time: 60 Attestation: bipap, hypoxia intervention, repeat trop, review of records, repeat medications for HR control I attest to this time spent taking care of the patient Discharge Plan Discharge Clinical Impression: Acute dyspnea, Atrial tachycardia, Pancytopenia, Neutropenia Respiratory failure Qualifiers: Chronicity: acute on chronic Respiratory failure complication: hypoxia Qualified Code(s): J96.21 - Acute and chronic respiratory failure with hypoxia Patient Disposition: Admitted As Inpatient
[2022-03-04 18:54] LABS: Basophils Percent Auto 0.7 % (0-2); Hemoglobin 7.7 g/dl (14.0-18.0); PLT CLUMP 1; SCAN SMEAR FLAG 1
[2022-03-04 18:56] LABS: Hematocrit 25.9 % (42.0-52.0); Imm Gran Abs Auto 0.05 X10*3/uL (0.00-0.03); Imm Gran Pct Auto 3.6 % (0.0-0.4); Lymphocytes Absolute Auto 0.8 X10*3/uL (1.2-4.9); Lymphocytes Percent Auto 57.1 % (20-40); MANUAL DIFF FLAG SCAN; Mean Corpuscular HGB Conc 29.7 g/dl (31.0-36.0); Mean Corpuscular Hemoglobin 27.6 pg (27.0-33.0); Mean Corpuscular Volume 92.8 fL (80.0-98.0); Mean Platelet Volume 12.1 fL (9.4-12.4); Monocytes Absolute Auto 0.1 X10*3/uL (0.1-1.2); Monocytes Percent Auto 7.9 % (2-11); Neutrophils Absolute Auto 0.4 x10*3/uL (2.0-8.3); Neutrophils Percent Auto 30.7 % (45-73); Red Blood Count 2.79 X10*6/uL (4.60-5.80); Red Cell Distribution Width 16.8 % (11.0-16.0)
[2022-03-04 18:57] LABS: NRBC Pct Auto 3.6 /100WBC (0.0-0.2)
[2022-03-04 18:58] LABS: Platelet Count 83 X10*3/uL (160-400)
[2022-03-04] MEDS: Albuterol/Iprat 2.5/0.5MG 3 ML AMPUL.NEB INHALE (18:59)
[2022-03-04] MEDS: Albuterol Sulfate (0.083%) 2.5 MG/3 ML VIAL.NEB INHALE (18:59)
[2022-03-04 19:00] VITALS: PULSE 134; RESP 20; O2SAT 100
[2022-03-04 19:00] LABS: White Blood Count 1.4 X10*3/uL (4.8-10.8)
[2022-03-04 19:00] LABS: VBG Base Excess -9.4 mmol/L; VBG HCO3 14 mmol/L (22-26); VBG pCO2 25 mmHg; VBG pH 7.35 (7.32-7.43); VBG pO2 174 mmHg
[2022-03-04 19:01] VITALS: PULSE 134; RESP 36; O2SAT 97
[2022-03-04 19:03] LABS: Venous Blood Gas Refer to POC result
[2022-03-04 19:03] LABS: INTERNATIONAL NORM RATIO 1.2 (0.9-1.1); Prothrombin Time 13.8 SEC (9.9-13.0)
[2022-03-04 19:05] LABS: D Dimer High Sensitivity 367 NG/ML; Partial Thromboplastin Time 33.9 SEC (24.1-38.0)
[2022-03-04 19:12] LABS: Lactic Acid 1.3 mmol/L (0.5-2.0)
[2022-03-04 19:16] LABS: B Type Natriuretic Peptide 1085 pg/mL (<100)
[2022-03-04 19:17] LABS: SLIDE REVIEW VERIFIED
[2022-03-04 19:19] LABS: Alanine Aminotransferase 15 U/L (0-40); Albumin Level 3.5 g/dL (3.5-5.0); Alkaline Phosphatase 63 U/L (39-117); Anion Gap 13 (12-20); Aspartate Amino Transferase 18 U/L (5-37); Bilirubin Direct 0.2 mg/dL (0.0-0.5); Bilirubin Total 0.6 mg/dL (0.0-1.0); Blood Urea Nitrogen 31 mg/dL (9-16); Calcium 8.3 mg/dL (8.4-10.2); Carbon Dioxide 18 mmol/L (22-29); Chloride 108 mmol/L (96-108); Creatinine Clr Calc Pharmacy 67.8; Estimated Glomerular Filt Rate > 60; Glucose Random 87 mg/dL (60-115); Lipase 64 U/L (8-78); Magnesium 1.9 mg/dL (1.6-2.6); Potassium 4.7 mmol/L (3.3-5.1); Sodium 134 mmol/L (135-145)
[2022-03-04 19:20] LABS: Troponin-I High Sensitivity 9.8 ng/L (<3.5-35.0)
[2022-03-04 19:41] LABS: COVID-19 Test Negative (Negative); IDNOW Serial# 16C4AD1C
--- NOTE | 2022-03-04 20:00 | PHA.MEDREC ---
Pharmacy Consult ? Medication Reconciliation Pharmacy has completed the medication reconciliation. Spoke to patients and daughter in regards to medications.
[2022-03-04 20:14] LABS: Digoxin < 0.3 ng/mL (0.8-2.0)
[2022-03-04] MEDS: iohexoL 350 MG/ML 100 ML INFUS..BTL IV (20:47)
[2022-03-04] MEDS: Metoprolol Tartrate 5 MG/5 ML VIAL 2.5 MG IVPUSH (21:00)
[2022-03-04] MEDS: Magnesium Sulfate/H2O 2 GM/50 ML PIGGYBACK IV (21:01)
[2022-03-04] MEDS: cefEPime HCl 2 GM in 0.9 % Sodium Chloride 50 ML IV (21:01)
[2022-03-04 21:12] LABS: Troponin-I High Sensitivity 14.4 ng/L (<3.5-35.0)
[2022-03-04 23:35] VITALS: BP 98/68; PULSE 132; RESP 22; TEMP 36.8; O2SAT 99
--- NOTE | 2022-03-04 23:45 | PM.IMHP ---
History of Present Illness Date of Service: 03/04/22 Chief Complaint: SOB 77-year-old male with a past medical history of hypertension, hyperlipidemia, atrial tachycardia, CHF-not on diuretics, COPD, chronic respiratory failure on home oxygen, myelodysplastic syndrome, anemia, history of GI bleed, pancytopenia, presented to the hospital today with a chief complaint of shortness of breath. Patient reports that he was doing fine until yesterday; today he fell acute shortness of breath, unable to breathe; subsequently called EMS and presented to the ER for further evaluation. reports mild dry cough. Denies any fevers and chills. Denies any nausea vomiting or diarrhea. Denies any chest pain or palpitations. Patient denies any orthopnea or dyspnea on exertion. Denies any leg swelling. Review of all other systems is negative except mentioned above ER course: Per ER team patient was acutely hypoxic in 50s; placed on CPAP briefly and subsequently transitioned to 3 L of oxygen via nasal cannula; respiratory distress improved. Patient was noted to be tachycardic; CT chest showed no evidence of pulmonary embolism. Chest x-ray showed saturation; proBNP elevated than prior values. Concern for CHF. Given Lasix. Patient also received Solu-Medrol and nebulizations in the ER. Admitted to the hospital for further management [facility] Medical History Cardiomyopathy Chronic anemia CKD stage G3b/A2, GFR 30-44 and albumin creatinine ratio 30-299 mg/g Congestive heart failure COPD (chronic obstructive pulmonary disease) Emphysema of lung Iliopsoas muscle hematoma Myelodysplastic syndrome On home O2 Pancytopenia Pneumonia Pneumonia due to COVID-19 virus Tobacco dependency VRE bacteremia Surgical History Status post kidney autotransplantation Social History Household Members: Spouse Do you presently have visiting nurse or other home services: Yes Patient Tobacco Use Status: Former Tobacco user Tobacco use type: Cigarette Advance Directives: No Advance Directives Information Provided: No service: Yes Current occupational status: retired Meds Allergies Allergy/AdvReac Type Severity Reaction Status Date / Time No Known Allergies Allergy Verified 11/27/21 20:52 Active Medications: Current Medications Acetaminophen (Acetaminophen 325 Mg Tablet) 650 mg PO Q6H PRN PRN Reason: Pain, Mild (Pain Scale 1-3) Albuterol/Ipratropium (Albuterol/Iprat 2.5/0.5mg 3 Ml Ampul.Neb) 3 ml INHALE RQ4H PRN PRN Reason: Shortness of Breath/Wheezing Amiodarone HCl (Amiodarone Hcl 200 Mg Tablet) 200 mg PO DAILY [facility] Enoxaparin Sodium (Enoxaparin Sodium 40 Mg/0.4 Ml Syringe) 40 mg SUBCUT Q24H [facility] Ferrous Sulfate (Ferrous Sulfate 324 Mg Tablet.Dr) 324 mg PO DAILY [facility] Finasteride (Finasteride 5 Mg Tablet) 5 mg PO DAILY [facility] Furosemide (Furosemide 40 Mg/4 Ml Vial) 40 mg IVPUSH DAILY [facility]; Protocol Gabapentin (Gabapentin 100 Mg Capsule) 200 mg PO BEDTIME [facility] Melatonin (Melatonin 3 Mg Tablet) 6 mg PO BEDTIME PRN PRN Reason: Insomnia Metoprolol Tartrate (Metoprolol Tartrate 25 Mg Tablet) 25 mg PO BID PRN; Protocol PRN Reason: SBP>90 Morphine Sulfate (Morphine Sulfate 4 Mg/Ml Cartridge) 1 mg IVPUSH Q4H PRN; Protocol PRN Reason: Pain, SOB Non-Formulary Medication (Simvastatin) 80 mg PO BEDTIME [facility] Pharmacy Consult (Consult Rx Perform Med Rec) 1 each MISCELLANE ONCE PRN PRN Reason: Consult order Potassium Chloride (Potassium Chloride Er 20 Meq Tab.Er.Prt) 20 meq PO DAILY [facility] Senna (Sennosides 8.6 Mg Tablet) 17.2 mg PO BEDTIME PRN PRN Reason: Constipation Sodium Chloride (0.9 % Sodium Chloride Flush 3 Ml Syringe) 3 ml IVFLUSH QSHIFT [facility] Home Medications Medication Instructions Recorded Confirmed Last Taken Type ferrous sulfate 324 mg (65 mg 324 mg PO DAILY 01/13/22 03/04/22 03/04/22 History iron) tablet,delayed release finasteride 5 mg tablet 1 tab PO DAILY 01/13/22 03/04/22 03/04/22 History gabapentin 100 mg capsule 2 cap PO BEDTIME 01/13/22 03/04/22 03/03/22 History metoprolol tartrate 25 mg tablet 25 mg PO BID PRN SBP>90 03/04/22 03/04/22 03/04/22 History potassium chloride 20 mEq 1 tab PO DAILY 03/04/22 03/04/22 03/04/22 History tablet,extended release(part/cryst) simvastatin 80 mg tablet 80 mg PO BEDTIME 03/04/22 03/04/22 03/03/22 History Physical Exam Vital Signs and Narrative: Vital Signs: Last Vital Signs Temp 98.3 F 03/04/22 23:35 Pulse 132 H 03/04/22 23:35 Resp 22 H 03/04/22 23:35 BP 98/68 03/04/22 23:35 Pulse Ox 99 03/04/22 23:35 O2 Del Method 03/04/22 23:35 O2 Flow Rate 3 03/04/22 23:35 BMI result Body Mass Index 21.3 Gen: Appears be in no acute distress. On supplemental oxygen. Speaks in full sentences. HEENT: NCAT, Moist mucosa. Pulmonary: Mildly coarse breath sounds; no wheezing CVS: Normal S1-S2 Abdomen: BS+, Soft, Nontender Extremities: Warm well perfused Neuro: Alert and awake. Results Labs CBC and Chem 7: 03/04/22 18:44 03/04/22 18:44 Labs: Laboratory Results - last 24 hr 03/04/22 03/04/22 03/04/22 18:44 18:44 18:44 MCV 92.8 MCH 27.6 MCHC 29.7 L RDW 16.8 H Plt Count 83 L MPV 12.1 Immature Gran % (Auto) 3.6 H Neut % (Auto) 30.7 L Lymph % (Auto) 57.1 H Grant % (Auto) 7.9 Eos % (Auto) 0.0 Baso % (Auto) 0.7 Lymph # (Auto) 0.8 L Grant # (Auto) 0.1 Eos # (Auto) 0.0 Baso # (Auto) 0.0 Abs Immat Gran (auto) 0.05 H Absolute Neuts (auto) 0.4 L Absolute Nucleated RBC 0.050 H Nucleated RBC % (auto) 3.6 H Smear Tech's Comments VERIFIED PT INR APTT D-Dimer High Sensitivty VBG pH VBG pCO2 VBG pO2 VBG HCO3 VBG O2 Saturation VBG Base Excess Anion Gap 13 Estim Creat Clear Calc 67.8 Estimated GFR > 60 Random Glucose 87 Lactic Acid Calcium 8.3 L Magnesium 1.9 Total Bilirubin 0.6 Direct Bilirubin 0.2 AST 18 ALT 15 Alkaline Phosphatase 63 Troponin I High Sens B-Natriuretic Peptide 1085 H Total Protein 6.0 L Albumin 3.5 Lipase 64 Digoxin COVID-19 (ELAN) [email or web address] Com Blood Type Antibody Screen 03/04/22 03/04/22 03/04/22 18:45 18:45 18:46 MCV MCH MCHC RDW Plt Count MPV Immature Gran % (Auto) Neut % (Auto) Lymph % (Auto) Grant % (Auto) Eos % (Auto) Baso % (Auto) Lymph # (Auto) Grant # (Auto) Eos # (Auto) Baso # (Auto) Abs Immat Gran (auto) Absolute Neuts (auto) Absolute Nucleated RBC Nucleated RBC % (auto) Smear Tech's Comments PT 13.8 H INR 1.2 H APTT 33.9 D-Dimer High Sensitivty 367 VBG pH VBG pCO2 VBG pO2 VBG HCO3 VBG O2 Saturation VBG Base Excess Anion Gap Estim Creat Clear Calc Estimated GFR Random Glucose Lactic Acid 1.3 Calcium Magnesium Total Bilirubin Direct Bilirubin AST ALT Alkaline Phosphatase Troponin I High Sens B-Natriuretic Peptide Total Protein Albumin Lipase Digoxin COVID-19 (ELAN) Negative [email or web address] [email or web address] See Note Blood Type Antibody Screen 03/04/22 03/04/22 03/04/22 18:46 18:47 18:56 MCV MCH MCHC RDW Plt Count MPV Immature Gran % (Auto) Neut % (Auto) Lymph % (Auto) Grant % (Auto) Eos % (Auto) Baso % (Auto) Lymph # (Auto) Grant # (Auto) Eos # (Auto) Baso # (Auto) Abs Immat Gran (auto) Absolute Neuts (auto) Absolute Nucleated RBC Nucleated RBC % (auto) Smear Tech's Comments PT INR APTT D-Dimer High Sensitivty VBG pH 7.35 VBG pCO2 25 VBG pO2 174 VBG HCO3 14 L VBG O2 Saturation 99.0 VBG Base Excess -9.4 Anion Gap Estim Creat Clear Calc Estimated GFR Random Glucose Lactic Acid Calcium Magnesium Total Bilirubin Direct Bilirubin AST ALT Alkaline Phosphatase Troponin I High Sens 9.8 D B-Natriuretic Peptide Total Protein Albumin Lipase Digoxin < 0.3 L COVID-19 (ELAN) [email or web address] Com Blood Type Antibody Screen 03/04/22 03/04/22 20:45 22:11 MCV MCH MCHC RDW Plt Count MPV Immature Gran % (Auto) Neut % (Auto) Lymph % (Auto) Grant % (Auto) Eos % (Auto) Baso % (Auto) Lymph # (Auto) Grant # (Auto) Eos # (Auto) Baso # (Auto) Abs Immat Gran (auto) Absolute Neuts (auto) Absolute Nucleated RBC Nucleated RBC % (auto) Smear Tech's Comments PT INR APTT D-Dimer High Sensitivty VBG pH VBG pCO2 VBG pO2 VBG HCO3 VBG O2 Saturation VBG Base Excess Anion Gap Estim Creat Clear Calc Estimated GFR Random Glucose Lactic Acid Calcium Magnesium Total Bilirubin Direct Bilirubin AST ALT Alkaline Phosphatase Troponin I High Sens 14.4 B-Natriuretic Peptide Total Protein Albumin Lipase Digoxin COVID-19 (ELAN) COVID-19 Clin Com Blood Type A Positive Antibody Screen NEGATIVE Imaging Radiologist's Impressions: Impressions Chest X-Ray 03/04/22 19:22 IMPRESSION: Redemonstration of diffuse interstitial lung markings suggesting diffuse interstitial pneumonitis and/or edema. Improving consolidation infiltrates right lung base. No significant pleural effusion. Chest CTA 03/04/22 21:10 IMPRESSION: No evidence of pulmonary embolus. Persistent but decreased bilateral pulmonary opacities improved compared with CT November 2021. Persistent small right pleural effusion. VTE: negative Assessment and Plan (1) Acute dyspnea: Status: Acute (2) Atrial tachycardia: Status: Acute (3) Respiratory failure: Qualifiers: Chronicity: acute on chronic Respiratory failure complication: hypoxia Qualified Code(s): J96.21 - Acute and chronic respiratory failure with hypoxia Status: Acute (4) Heart failure with reduced ejection fraction: Status: Acute Plan 77-year-old male with a past medical history of hypertension, hyperlipidemia, atrial tachycardia, CHF-not on diuretics, COPD, chronic respiratory failure on home oxygen, myelodysplastic syndrome, anemia, history of GI bleed, pancytopenia, presented to the hospital today with a chief complaint of shortness of breath. Noted to have following conditions Acute hypoxic respiratory failure: Likely in the setting of CHF. Patient initially on CPAP briefly. Subsequently transitioned to nasal cannula. Currently speaks in full sentences. Not in respiratory distress. Supportive care. Acute CHF: Patient's proBNP elevated to 1000s as compared to 300s in the past Chest x-ray showed congestion Patient given IV Lasix Daily weights and I's and O's Cardiology follow-up COPD: DuoNebs p.r.n.. Continue supplemental oxygen with goal oxygen saturation 93%. Atrial tachycardia: Patient heart rate ranging in the 120s to 130s. Metoprolol IV p.r.n.. Continue home amiodarone. History of anemia/pancytopenia: Patient's current hemoglobin, platelets close to the baseline values. DVT prophylaxis: SCD boots Code status: Full code Quality Stroke Does the patient have a stroke diagnosis?: No VTE Prior VTE?: No VTE Risk Level:: Medical - moderate - high VTE Device Contraindication: Treatment Not Indicated VTE Drug Contraindication: N/A - Med Ordered
[2022-03-05] VITALS (11 sets, daily range): BP systolic 84–113; BP diastolic 50–72; PULSE 124–135; RESP 16–26; TEMP 36.4–37.2; O2SAT 97–100
[2022-03-05] MEDS: Enoxaparin Sodium 40 MG/0.4 ML SYRINGE SUBCUT (00:07)
[2022-03-05] MEDS: Furosemide 20 MG/2 ML VIAL IVPUSH (00:07)
[2022-03-05] MEDS: 0.9 % Sodium Chloride Flush 3 ML SYRINGE IVFLUSH ×2 (01:09→07:25)
[2022-03-05] MEDS: Melatonin 3 MG TABLET 6 MG PO ×2 (01:14→23:49)
[2022-03-05] MEDS: Acetaminophen 325 MG TABLET 650 MG PO (02:54)
--- NOTE | 2022-03-05 02:57 | PC.NURSE ---
Pt ringing his call barclay, requesting Tylenol, states he has body aches from being in bed. Pt medicated with Tylenol per request. Pt also requesting food/drink, provided with food per request.
[2022-03-05 06:17] LABS: Hematocrit 21.3 % (42.0-52.0); Mean Corpuscular Hemoglobin 27.7 pg (27.0-33.0); Mean Corpuscular Volume 92.2 fL (80.0-98.0); Mean Platelet Volume 11.8 fL (9.4-12.4); Red Blood Count 2.31 X10*6/uL (4.60-5.80); Red Cell Distribution Width 16.6 % (11.0-16.0); WBC ABN SCTR FOR CBC 1
[2022-03-05 06:20] LABS: NRBC Pct Auto 5.8 /100WBC (0.0-0.2); Platelet Count 80 X10*3/uL (160-400)
[2022-03-05 06:23] LABS: Hemoglobin 6.4 g/dl (14.0-18.0); White Blood Count 0.5 X10*3/uL (4.8-10.8)
--- NOTE | 2022-03-05 06:33 | PC.NURSE ---
MD notified of critical HBG and WBC, plan for repeat CBC, phlebotomy notified.
[2022-03-05 06:40] LABS: Anion Gap 12 (12-20); Blood Urea Nitrogen 51 mg/dL (9-16); Calcium 8.2 mg/dL (8.4-10.2); Carbon Dioxide 20 mmol/L (22-29); Chloride 105 mmol/L (96-108); Creatinine Clr Calc Pharmacy 51.2; Estimated Glomerular Filt Rate > 60; Glucose Random 189 mg/dL (60-115); Potassium 4.4 mmol/L (3.3-5.1); Sodium 133 mmol/L (135-145)
[2022-03-05 07:18] LABS: Imm Gran Abs Auto 0.01 X10*3/uL (0.00-0.03); Imm Gran Pct Auto 1.6 % (0.0-0.4); Lymphocytes Absolute Auto 0.3 X10*3/uL (1.2-4.9); Lymphocytes Percent Auto 50.8 % (20-40); MANUAL DIFF FLAG SCAN; Mean Corpuscular HGB Conc 30.1 g/dl (31.0-36.0); Mean Corpuscular Hemoglobin 28.1 pg (27.0-33.0); Mean Corpuscular Volume 93.3 fL (80.0-98.0); Mean Platelet Volume 12.1 fL (9.4-12.4); Monocytes Percent Auto 6.6 % (2-11); Neutrophils Absolute Auto 0.3 x10*3/uL (2.0-8.3); Red Blood Count 2.24 X10*6/uL (4.60-5.80); Red Cell Distribution Width 16.8 % (11.0-16.0); SCAN SMEAR FLAG 1
[2022-03-05] MEDS: Metoprolol Tartrate 5 MG/5 ML VIAL IVPUSH (07:24)
[2022-03-05 07:34] LABS: NRBC Pct Auto 3.3 /100WBC (0.0-0.2); Platelet Count 78 X10*3/uL (160-400)
[2022-03-05 07:36] LABS: White Blood Count 0.6 X10*3/uL (4.8-10.8)
[2022-03-05 07:37] LABS: Hemoglobin 6.3 g/dl (14.0-18.0)
[2022-03-05 07:38] LABS: Hematocrit 20.9 % (42.0-52.0)
[2022-03-05 08:14] LABS: Atypical Lymphs Percent Manual 2 % (0-6); Band Neutrophils Percent 2 % (3-5); Basophils Percent Manual 2 % (0-2); Lymphocytes Absolute Manual 0.3 X10*3/uL (1.2-4.9); Lymphocytes Percent Manual 54 % (20-40); Neutrophils Absolute Manual 0.2 X10*3/uL (2.0-8.3); Neutrophils Percent Manual 40 % (45-73)
[2022-03-05 08:15] LABS: Macrocytosis 1+ (5-14) /OIF; RBC Morphology NOTED
[2022-03-05 08:16] LABS: Hypochromasia 2+ (15-30) /OIF
[2022-03-05 08:18] LABS: Large Platelet PRESENT; Platelet Estimate DECREASED (NORMAL); Platelet Morphology Comment NOTED
[2022-03-05 08:20] LABS: Acanthocytes 1+ (0-2) /OIF; Ovalocytes 1+ (5-14) /OIF; Polychromasia 1+ (0-2) /OIF
[2022-03-05 08:22] LABS: Nucleated Red Blood Cells 4 /100WBC (0-0)
[2022-03-05 08:35] LABS: SLIDE REVIEW VERIFIED
--- NOTE | 2022-03-05 10:11 | MHC.CM.PN ---
pt in ed overflow on neutropenic precautions called and spoke with scott rhodes who gave me corect number to pts which is [phone] she explins that her father and had no services prior to admisison,they had spoken with [facility] but it became to hard to schedule people due to his chemo schedule pts will transport pt home when dcd pt is not vaccvinated dc plan tbd by pts hospitial course
[2022-03-05] MEDS: Potassium Chloride ER 20 MEQ TAB.ER.PRT PO (10:24)
[2022-03-05] MEDS: Furosemide 40 MG/4 ML VIAL IVPUSH ×2 (10:24→13:37)
[2022-03-05] MEDS: Ferrous Sulfate 324 MG TABLET.DR PO (10:25)
[2022-03-05] MEDS: Finasteride 5 MG TABLET PO (10:25)
[2022-03-05] MEDS: Amiodarone HCL 200 MG TABLET PO ×2 (10:25→21:27)
[2022-03-05] MEDS: Morphine Sulfate 4 MG/ML CARTRIDGE 1 MG IVPUSH ×2 (12:01→18:16)
--- NOTE | 2022-03-05 12:18 | HO.PM.IMPN ---
Subjective Subjective Date of Service: 03/05/22 Interval History: Dyspnea improved No chest pain or palpitations Review of Systems Review of Systems: Yes all other systems are reviewed and are negative Physical Exam Vital Signs: Vital Signs: Last Vital Signs Temp 98.3 F 03/05/22 08:57 Pulse 128 H 03/05/22 08:57 Resp 26 H 03/05/22 08:57 BP 96/66 03/05/22 08:57 Pulse Ox 100 03/05/22 08:57 O2 Del Method 03/05/22 08:57 O2 Flow Rate 3 03/05/22 08:57 BMI result Body Mass Index 21.3 Gen: in no acute distress HEENT: sclera anicteric, moist mucus membranes Neck: supple Lungs: diminished bilaterally Heart: regular, tachycardic, no murmurs Abd: soft, non-tender, non-distended Ext: no edema Skin: warm/well-perfused Neuro: alert and oriented x3, no focal findings Psych: appropriate affect Objective Data Active Medications Acetaminophen (Acetaminophen 325 Mg Tablet) 650 mg PO Q6H PRN PRN Reason: Pain, Mild (Pain Scale 1-3) Last Admin: 03/05/22 02:54 Dose: 650 mg Documented By: YAHAIRA Albuterol/Ipratropium (Albuterol/Iprat 2.5/0.5mg 3 Ml Ampul.Neb) 3 ml INHALE RQ4H PRN PRN Reason: Shortness of Breath/Wheezing Amiodarone HCl (Amiodarone Hcl 200 Mg Tablet) 200 mg PO DAILY [facility] Last Admin: 03/05/22 10:25 Dose: 200 mg Documented By: CANDI Atorvastatin Calcium (Atorvastatin Calcium 40 Mg Tablet) 40 mg PO BEDTIME [facility] Ferrous Sulfate (Ferrous Sulfate 324 Mg Tablet.) 324 mg PO DAILY [facility] Last Admin: 03/05/22 10:25 Dose: 324 mg Documented By: CANDI Finasteride (Finasteride 5 Mg Tablet) 5 mg PO DAILY [facility] Last Admin: 03/05/22 10:25 Dose: 5 mg Documented By: CANDI Furosemide (Furosemide 40 Mg/4 Ml Vial) 40 mg IVPUSH DAILY [facility]; Protocol Last Admin: 03/05/22 10:24 Dose: 40 mg Documented By: CANDI Furosemide (Furosemide 40 Mg/4 Ml Vial) 40 mg IVPUSH ONCE ONE; Protocol Stop: 03/05/22 12:18 Gabapentin (Gabapentin 100 Mg Capsule) 200 mg PO BEDTIME DIMITRI Melatonin (Melatonin 3 Mg Tablet) 6 mg PO BEDTIME PRN PRN Reason: Insomnia Last Admin: 03/05/22 01:14 Dose: 6 mg Documented By: ELIUD Metoprolol Tartrate (Metoprolol Tartrate 25 Mg Tablet) 25 mg PO BID PRN; Protocol PRN Reason: SBP>90 Metoprolol Tartrate (Metoprolol Tartrate 5 Mg/5 Ml Vial) 5 mg IVPUSH Q6H PRN PRN Reason: HR>125 Last Admin: 03/05/22 07:24 Dose: 5 mg Documented By: KARISHMA Morphine Sulfate (Morphine Sulfate 4 Mg/Ml Cartridge) 1 mg IVPUSH Q4H PRN; Protocol PRN Reason: Pain, SOB Last Admin: 03/05/22 12:01 Dose: 1 mg Documented By: CANDI Pharmacy Consult (Consult Rx Perform Med Rec) 1 each MISCELLANE ONCE PRN PRN Reason: Consult order Potassium Chloride (Potassium Chloride Er 20 Meq Tab.Er.Prt) 20 meq PO DAILY [facility] Last Admin: 03/05/22 10:24 Dose: 20 meq Documented By: CANDI Senna (Sennosides 8.6 Mg Tablet) 17.2 mg PO BEDTIME PRN PRN Reason: Constipation Sodium Chloride (0.9 % Sodium Chloride Flush 3 Ml Syringe) 3 ml IVFLUSH QSHIFT [facility] Last Admin: 03/05/22 07:25 Dose: 3 ml Documented By: KARISHMA Labs CBC & Chem 7: 03/05/22 07:00 03/05/22 06:02 Labs: Laboratory Results - last 24 hr 03/04/22 03/04/22 03/04/22 18:44 18:44 18:44 MCV 92.8 MCH 27.6 MCHC 29.7 L RDW 16.8 H Plt Count 83 L MPV 12.1 Immature Gran % (Auto) 3.6 H Neut % (Auto) 30.7 L Lymph % (Auto) 57.1 H [place] % (Auto) 7.9 Eos % (Auto) 0.0 Baso % (Auto) 0.7 Lymph # (Auto) 0.8 L [place] # (Auto) 0.1 Eos # (Auto) 0.0 Baso # (Auto) 0.0 Abs Immat Gran (auto) 0.05 H Absolute Neuts (auto) 0.4 L Absolute Nucleated RBC 0.050 H Nucleated RBC % (auto) 3.6 H Neutrophils % (Manual) Band Neutrophils % Lymphocytes % (Manual) Atypical Lymphs % (Man) Basophils % (Manual) Abs Neuts (Manual) Lymphocytes # (Manual) Nucleated RBCs Platelet Estimate Large Platelets Plt Morphology Comment RBC Morphology Polychromasia Hypochromasia Macrocytosis Ovalocytes Acanthocytes (Spur) Smear Tech's Comments VERIFIED Smear Path Review PT INR APTT D-Dimer High Sensitivty VBG pH VBG pCO2 VBG pO2 VBG HCO3 VBG O2 Saturation VBG Base Excess Anion Gap 13 Estim Creat Clear Calc 67.8 Estimated GFR > 60 Random Glucose 87 Lactic Acid Calcium 8.3 L Magnesium 1.9 Total Bilirubin 0.6 Direct Bilirubin 0.2 AST 18 ALT 15 Alkaline Phosphatase 63 Troponin I High Sens B-Natriuretic Peptide 1085 H Total Protein 6.0 L Albumin 3.5 Lipase 64 Digoxin COVID-19 (ELAN) COVID-19 Clin Com Blood Type Antibody Screen 03/04/22 03/04/22 03/04/22 18:45 18:45 18:46 MCV MCH MCHC RDW Plt Count MPV Immature Gran % (Auto) Neut % (Auto) Lymph % (Auto) [place] % (Auto) Eos % (Auto) Baso % (Auto) Lymph # (Auto) [place] # (Auto) Eos # (Auto) Baso # (Auto) Abs Immat Gran (auto) Absolute Neuts (auto) Absolute Nucleated RBC Nucleated RBC % (auto) Neutrophils % (Manual) Band Neutrophils % Lymphocytes % (Manual) Atypical Lymphs % (Man) Basophils % (Manual) Abs Neuts (Manual) Lymphocytes # (Manual) Nucleated RBCs Platelet Estimate Large Platelets Plt Morphology Comment RBC Morphology Polychromasia Hypochromasia Macrocytosis Ovalocytes Acanthocytes (Spur) Smear Tech's Comments Smear Path Review PT 13.8 H INR 1.2 H APTT 33.9 D-Dimer High Sensitivty 367 VBG pH VBG pCO2 VBG pO2 VBG HCO3 VBG O2 Saturation VBG Base Excess Anion Gap Estim Creat Clear Calc Estimated GFR Random Glucose Lactic Acid 1.3 Calcium Magnesium Total Bilirubin Direct Bilirubin AST ALT Alkaline Phosphatase Troponin I High Sens B-Natriuretic Peptide Total Protein Albumin Lipase Digoxin COVID-19 (ELAN) Negative COVID-19 Clin Com See Note Blood Type Antibody Screen 03/04/22 03/04/22 03/04/22 18:46 18:47 18:56 MCV MCH MCHC RDW Plt Count MPV Immature Gran % (Auto) Neut % (Auto) Lymph % (Auto) [place] % (Auto) Eos % (Auto) Baso % (Auto) Lymph # (Auto) [place] # (Auto) Eos # (Auto) Baso # (Auto) Abs Immat Gran (auto) Absolute Neuts (auto) Absolute Nucleated RBC Nucleated RBC % (auto) Neutrophils % (Manual) Band Neutrophils % Lymphocytes % (Manual) Atypical Lymphs % (Man) Basophils % (Manual) Abs Neuts (Manual) Lymphocytes # (Manual) Nucleated RBCs Platelet Estimate Large Platelets Plt Morphology Comment RBC Morphology Polychromasia Hypochromasia Macrocytosis Ovalocytes Acanthocytes (Spur) Smear Tech's Comments Smear Path Review PT INR APTT D-Dimer High Sensitivty VBG pH 7.35 VBG pCO2 25 VBG pO2 174 VBG HCO3 14 L VBG O2 Saturation 99.0 VBG Base Excess -9.4 Anion Gap Estim Creat Clear Calc Estimated GFR Random Glucose Lactic Acid Calcium Magnesium Total Bilirubin Direct Bilirubin AST ALT Alkaline Phosphatase Troponin I High Sens 9.8 D B-Natriuretic Peptide Total Protein Albumin Lipase Digoxin < 0.3 L COVID-19 (ELAN) COVID-19 Clin Com Blood Type Antibody Screen 03/04/22 03/04/22 03/05/22 20:45 22:11 06:02 MCV 92.2 MCH 27.7 MCHC 30.0 L RDW 16.6 H Plt Count 80 L MPV 11.8 Immature Gran % (Auto) Cancelled Neut % (Auto) Cancelled Lymph % (Auto) Cancelled [place] % (Auto) Cancelled Eos % (Auto) Cancelled Baso % (Auto) Cancelled Lymph # (Auto) Cancelled [place] # (Auto) Cancelled Eos # (Auto) Cancelled Baso # (Auto) Cancelled Abs Immat Gran (auto) Cancelled Absolute Neuts (auto) Cancelled Absolute Nucleated RBC 0.030 H Nucleated RBC % (auto) 5.8 H Neutrophils % (Manual) 40 L Band Neutrophils % 2 L Lymphocytes % (Manual) 54 H Atypical Lymphs % (Man) 2 Basophils % (Manual) 2 Abs Neuts (Manual) 0.2 L Lymphocytes # (Manual) 0.3 L Nucleated RBCs 4 H Platelet Estimate DECREASED Large Platelets PRESENT Plt Morphology Comment NOTED RBC Morphology NOTED Polychromasia 1+ (0-2) Hypochromasia 2+ (15-30) Macrocytosis 1+ (5-14) Ovalocytes 1+ (5-14) Acanthocytes (Spur) 1+ (0-2) Smear Tech's Comments Smear Path Review Cancelled PT INR APTT D-Dimer High Sensitivty VBG pH VBG pCO2 VBG pO2 VBG HCO3 VBG O2 Saturation VBG Base Excess Anion Gap Estim Creat Clear Calc Estimated GFR Random Glucose Lactic Acid Calcium Magnesium Total Bilirubin Direct Bilirubin AST ALT Alkaline Phosphatase Troponin I High Sens 14.4 B-Natriuretic Peptide Total Protein Albumin Lipase Digoxin COVID-19 (ELAN) COVID-19 Clin Com Blood Type A Positive Antibody Screen NEGATIVE 03/05/22 03/05/22 06:02 07:00 MCV 93.3 MCH 28.1 MCHC 30.1 L RDW 16.8 H Plt Count 78 L MPV 12.1 Immature Gran % (Auto) 1.6 H Neut % (Auto) 41.0 L Lymph % (Auto) 50.8 H [place] % (Auto) 6.6 Eos % (Auto) 0.0 Baso % (Auto) 0.0 Lymph # (Auto) 0.3 L [place] # (Auto) 0.0 L Eos # (Auto) 0.0 Baso # (Auto) 0.0 Abs Immat Gran (auto) 0.01 Absolute Neuts (auto) 0.3 L Absolute Nucleated RBC 0.020 H Nucleated RBC % (auto) 3.3 H Neutrophils % (Manual) Band Neutrophils % Lymphocytes % (Manual) Atypical Lymphs % (Man) Basophils % (Manual) Abs Neuts (Manual) Lymphocytes # (Manual) Nucleated RBCs Platelet Estimate Large Platelets Plt Morphology Comment RBC Morphology Polychromasia Hypochromasia Macrocytosis Ovalocytes Acanthocytes (Spur) Smear Tech's Comments VERIFIED Smear Path Review PT INR APTT D-Dimer High Sensitivty VBG pH VBG pCO2 VBG pO2 VBG HCO3 VBG O2 Saturation VBG Base Excess Anion Gap 12 Estim Creat Clear Calc 51.2 Estimated GFR > 60 Random Glucose 189 H D Lactic Acid Calcium 8.2 L Magnesium Total Bilirubin Direct Bilirubin AST ALT Alkaline Phosphatase Troponin I High Sens B-Natriuretic Peptide Total Protein Albumin Lipase Digoxin COVID-19 (ELAN) COVID-19 Clin Com Blood Type Antibody Screen Assessment and Plan (1) Acute on chronic HFrEF (heart failure with reduced ejection fraction): Status: Acute Plan hospital d#[id number] M with MDS, HFrEF, atrial tachycardia, HTN, HLD, chronic hypoxic respiratory failure on home O2 presented with dyspnea, admitted for respiratory failure from CHF exacerbation # acute/chronic hypoxic respiratory failure - briefly on CPAP in ED, now on home O2 3L # acute/chronic HFrEF - continue IV diuresis with furosemide. Cardiology consultation # atrial tachycardia - continue amiodarone, metoprolol # pancytopenia - transfuse 1u pRBCs with furosemide afterwards - Heme/Onc consult re use of G-CSF - monitor CBC, avoid heparinoids # HLD - continue statin # VTE ppx - SCDs Quality Stroke Does the patient have a stroke diagnosis?: No VTE Prior VTE?: No VTE Risk Level:: Medical - moderate - high VTE Device Contraindication: Treatment Not Indicated VTE Drug Contraindication: N/A - Med Ordered
--- NOTE | 2022-03-05 14:26 | P.CONCA_ITS ---
History of Present Illness History of Present Illness Date of Service: 03/05/22 Requesting physician: Christie Treviño Chief complaint: Acute hypoxic respiratory failure, tachycardia Narrative: Pleasant 77-year-old gentleman who is presenting with shortness of breath. He has background history of chronic congestive heart failure, cardiomyopathy, premature ventricular complexes, atrial tachycardia and mild dysplasia. Is presenting with anemia. He has been short of breath and was experiencing some left-sided pressure-like feeling. He was found to have anemia with hemoglobin of 6.3. He is due to get blood transfusion. Denies any blood loss. Is also neutropenic precautions at this point. Heart rate is 120s. EKG was reviewed and I think he either has atrial tachycardia or flutter. In any case he is fairly fast. He is denying any palpitations right now. He said he felt his heart was racing at home. [facility] Past Medical History Medical History Cardiomyopathy Chronic anemia CKD stage G3b/A2, GFR 30-44 and albumin creatinine ratio 30-299 mg/g Congestive heart failure COPD (chronic obstructive pulmonary disease) Emphysema of lung Iliopsoas muscle hematoma Myelodysplastic syndrome On home O2 Pancytopenia Pneumonia Pneumonia due to COVID-19 virus Tobacco dependency VRE bacteremia Surgical History Surgical History Status post kidney autotransplantation Social History Social History Household Members: Spouse Do you presently have visiting nurse or other home services: Yes Patient Tobacco Use Status: Former Tobacco user Tobacco use type: Cigarette Advance Directives: No Advance Directives Information Provided: No service: Yes Current occupational status: retired [employer] Allergies Allergy/AdvReac Type Severity Reaction Status Date / Time No Known Allergies Allergy Verified 11/27/21 20:52 Active Medications: Current Medications Acetaminophen (Acetaminophen 325 Mg Tablet) 650 mg PO Q6H PRN PRN Reason: Pain, Mild (Pain Scale 1-3) Last Admin: 03/05/22 02:54 Dose: 650 mg Albuterol/Ipratropium (Albuterol/Iprat 2.5/0.5mg 3 Ml Ampul.Neb) 3 ml INHALE RQ4H PRN PRN Reason: Shortness of Breath/Wheezing Amiodarone HCl (Amiodarone Hcl 200 Mg Tablet) 200 mg PO DAILY [facility] Last Admin: 03/05/22 10:25 Dose: 200 mg Atorvastatin Calcium (Atorvastatin Calcium 40 Mg Tablet) 40 mg PO BEDTIME DIMITRI Ferrous Sulfate (Ferrous Sulfate 324 Mg Tablet.Dr) 324 mg PO DAILY [facility] Last Admin: 03/05/22 10:25 Dose: 324 mg Finasteride (Finasteride 5 Mg Tablet) 5 mg PO DAILY [facility] Last Admin: 03/05/22 10:25 Dose: 5 mg Furosemide (Furosemide 40 Mg/4 Ml Vial) 40 mg IVPUSH DAILY [facility]; Protocol Last Admin: 03/05/22 10:24 Dose: 40 mg Gabapentin (Gabapentin 100 Mg Capsule) 200 mg PO BEDTIME [facility] Melatonin (Melatonin 3 Mg Tablet) 6 mg PO BEDTIME PRN PRN Reason: Insomnia Last Admin: 03/05/22 01:14 Dose: 6 mg Metoprolol Tartrate (Metoprolol Tartrate 25 Mg Tablet) 25 mg PO BID PRN; Protocol PRN Reason: SBP>90 Metoprolol Tartrate (Metoprolol Tartrate 5 Mg/5 Ml Vial) 5 mg IVPUSH Q6H PRN PRN Reason: HR>125 Last Admin: 03/05/22 07:24 Dose: 5 mg Morphine Sulfate (Morphine Sulfate 4 Mg/Ml Cartridge) 1 mg IVPUSH Q4H PRN; Protocol PRN Reason: Pain, SOB Last Admin: 03/05/22 12:01 Dose: 1 mg Pharmacy Consult (Consult Rx Perform Med Rec) 1 each MISCELLANE ONCE PRN PRN Reason: Consult order Potassium Chloride (Potassium Chloride Er 20 Meq Tab.Er.Prt) 20 meq PO DAILY [facility] Last Admin: 03/05/22 10:24 Dose: 20 meq Senna (Sennosides 8.6 Mg Tablet) 17.2 mg PO BEDTIME PRN PRN Reason: Constipation Sodium Chloride (0.9 % Sodium Chloride Flush 3 Ml Syringe) 3 ml IVFLUSH QSHIFT [facility] Last Admin: 03/05/22 07:25 Dose: 3 ml Home Medications Medication Instructions Recorded Confirmed Last Taken Type ferrous sulfate 324 mg (65 mg 324 mg PO DAILY 01/13/22 03/04/22 03/04/22 History iron) tablet,delayed release finasteride 5 mg tablet 1 tab PO DAILY 01/13/22 03/04/22 03/04/22 History gabapentin 100 mg capsule 2 cap PO BEDTIME 01/13/22 03/04/22 03/03/22 History metoprolol tartrate 25 mg tablet 25 mg PO BID PRN SBP>90 03/04/22 03/04/22 03/04/22 History potassium chloride 20 mEq 1 tab PO DAILY 03/04/22 03/04/22 03/04/22 History tablet,extended release(part/cryst) simvastatin 80 mg tablet 80 mg PO BEDTIME 03/04/22 03/04/22 03/03/22 History Physical Exam Vital Signs: Vital Signs: Last Vital Signs Temp 98 F 03/05/22 13:44 Pulse 132 H 03/05/22 13:44 Resp 22 H 03/05/22 13:44 BP 105/72 03/05/22 13:44 Pulse Ox 100 03/05/22 13:09 O2 Del Method 03/05/22 13:09 O2 Flow Rate 3 03/05/22 13:09 BMI result Body Mass Index 21.3 GENERAL APPEARANCE: in no acute distress, pleasant. NECK: no carotid bruit, no jugular venous distention. SKIN: no suspicious lesions, warm and dry. HEART: no murmurs, regular tachycardia. LUNGS: clear to auscultation bilaterally. ABDOMEN: soft, nontender. EXTREMITIES: no edema. PERIPHERAL PULSES: equal. NEUROLOGIC: No gross deficits, AAO X 3 Objective Labs and Meds Result diagrams: 03/05/22 07:00 03/05/22 06:02 Lab results: Laboratory Results - last 24 hr 03/04/22 03/04/22 03/04/22 18:44 18:44 18:44 WBC 1.4 L RBC 2.79 L Hgb 7.7 L Hct 25.9 L MCV 92.8 MCH 27.6 MCHC 29.7 L RDW 16.8 H Plt Count 83 L MPV 12.1 Immature Gran % (Auto) 3.6 H Neut % (Auto) 30.7 L Lymph % (Auto) 57.1 H [place] % (Auto) 7.9 Eos % (Auto) 0.0 Baso % (Auto) 0.7 Lymph # (Auto) 0.8 L [place] # (Auto) 0.1 Eos # (Auto) 0.0 Baso # (Auto) 0.0 Abs Immat Gran (auto) 0.05 H Absolute Neuts (auto) 0.4 L Absolute Nucleated RBC 0.050 H Nucleated RBC % (auto) 3.6 H Neutrophils % (Manual) Band Neutrophils % Lymphocytes % (Manual) Atypical Lymphs % (Man) Basophils % (Manual) Abs Neuts (Manual) Lymphocytes # (Manual) Nucleated RBCs Platelet Estimate Large Platelets Plt Morphology Comment RBC Morphology Polychromasia Hypochromasia Macrocytosis Ovalocytes Acanthocytes (Spur) Smear Tech's Comments VERIFIED Smear Path Review PT INR APTT D-Dimer High Sensitivty VBG pH VBG pCO2 VBG pO2 VBG HCO3 VBG O2 Saturation VBG Base Excess Sodium 134 L Potassium 4.7 Chloride 108 Carbon Dioxide 18 L Anion Gap 13 BUN 31 H Creatinine 0.77 Estim Creat Clear Calc 67.8 Estimated GFR > 60 Random Glucose 87 Lactic Acid Calcium 8.3 L Magnesium 1.9 Total Bilirubin 0.6 Direct Bilirubin 0.2 AST 18 ALT 15 Alkaline Phosphatase 63 Troponin I High Sens B-Natriuretic Peptide 1085 H Total Protein 6.0 L Albumin 3.5 Lipase 64 Digoxin COVID-19 (ELAN) COVID-19 Clin Com Blood Type Antibody Screen Crossmatch 03/04/22 03/04/22 03/04/22 18:45 18:45 18:46 WBC RBC Hgb Hct MCV MCH MCHC RDW Plt Count MPV Immature Gran % (Auto) Neut % (Auto) Lymph % (Auto) [place] % (Auto) Eos % (Auto) Baso % (Auto) Lymph # (Auto) [place] # (Auto) Eos # (Auto) Baso # (Auto) Abs Immat Gran (auto) Absolute Neuts (auto) Absolute Nucleated RBC Nucleated RBC % (auto) Neutrophils % (Manual) Band Neutrophils % Lymphocytes % (Manual) Atypical Lymphs % (Man) Basophils % (Manual) Abs Neuts (Manual) Lymphocytes # (Manual) Nucleated RBCs Platelet Estimate Large Platelets Plt Morphology Comment RBC Morphology Polychromasia Hypochromasia Macrocytosis Ovalocytes Acanthocytes (Spur) Smear Tech's Comments Smear Path Review PT 13.8 H INR 1.2 H APTT 33.9 D-Dimer High Sensitivty 367 VBG pH VBG pCO2 VBG pO2 VBG HCO3 VBG O2 Saturation VBG Base Excess Sodium Potassium Chloride Carbon Dioxide Anion Gap BUN Creatinine Estim Creat Clear Calc Estimated GFR Random Glucose Lactic Acid 1.3 Calcium Magnesium Total Bilirubin Direct Bilirubin AST ALT Alkaline Phosphatase Troponin I High Sens B-Natriuretic Peptide Total Protein Albumin Lipase Digoxin COVID-19 (ELAN) Negative COVID-19 Clin Com See Note Blood Type Antibody Screen Crossmatch 03/04/22 03/04/22 03/04/22 18:46 18:47 18:56 WBC RBC Hgb Hct MCV MCH MCHC RDW Plt Count MPV Immature Gran % (Auto) Neut % (Auto) Lymph % (Auto) [place] % (Auto) Eos % (Auto) Baso % (Auto) Lymph # (Auto) [place] # (Auto) Eos # (Auto) Baso # (Auto) Abs Immat Gran (auto) Absolute Neuts (auto) Absolute Nucleated RBC Nucleated RBC % (auto) Neutrophils % (Manual) Band Neutrophils % Lymphocytes % (Manual) Atypical Lymphs % (Man) Basophils % (Manual) Abs Neuts (Manual) Lymphocytes # (Manual) Nucleated RBCs Platelet Estimate Large Platelets Plt Morphology Comment RBC Morphology Polychromasia Hypochromasia Macrocytosis Ovalocytes Acanthocytes (Spur) Smear Tech's Comments Smear Path Review PT INR APTT D-Dimer High Sensitivty VBG pH 7.35 VBG pCO2 25 VBG pO2 174 VBG HCO3 14 L VBG O2 Saturation 99.0 VBG Base Excess -9.4 Sodium Potassium Chloride Carbon Dioxide Anion Gap BUN Creatinine Estim Creat Clear Calc Estimated GFR Random Glucose Lactic Acid Calcium Magnesium Total Bilirubin Direct Bilirubin AST ALT Alkaline Phosphatase Troponin I High Sens 9.8 D B-Natriuretic Peptide Total Protein Albumin Lipase Digoxin < 0.3 L COVID-19 (ELAN) COVID-19 Clin Com Blood Type Antibody Screen Crossmatch 03/04/22 03/04/22 03/05/22 20:45 22:11 06:02 WBC 0.5 L* RBC 2.31 L Hgb 6.4 L* Hct 21.3 L MCV 92.2 MCH 27.7 MCHC 30.0 L RDW 16.6 H Plt Count 80 L MPV 11.8 Immature Gran % (Auto) Cancelled Neut % (Auto) Cancelled Lymph % (Auto) Cancelled [place] % (Auto) Cancelled Eos % (Auto) Cancelled Baso % (Auto) Cancelled Lymph # (Auto) Cancelled [place] # (Auto) Cancelled Eos # (Auto) Cancelled Baso # (Auto) Cancelled Abs Immat Gran (auto) Cancelled Absolute Neuts (auto) Cancelled Absolute Nucleated RBC 0.030 H Nucleated RBC % (auto) 5.8 H Neutrophils % (Manual) 40 L Band Neutrophils % 2 L Lymphocytes % (Manual) 54 H Atypical Lymphs % (Man) 2 Basophils % (Manual) 2 Abs Neuts (Manual) 0.2 L Lymphocytes # (Manual) 0.3 L Nucleated RBCs 4 H Platelet Estimate DECREASED Large Platelets PRESENT Plt Morphology Comment NOTED RBC Morphology NOTED Polychromasia 1+ (0-2) Hypochromasia 2+ (15-30) Macrocytosis 1+ (5-14) Ovalocytes 1+ (5-14) Acanthocytes (Spur) 1+ (0-2) Smear Tech's Comments Smear Path Review Cancelled PT INR APTT D-Dimer High Sensitivty VBG pH VBG pCO2 VBG pO2 VBG HCO3 VBG O2 Saturation VBG Base Excess Sodium Potassium Chloride Carbon Dioxide Anion Gap BUN Creatinine Estim Creat Clear Calc Estimated GFR Random Glucose Lactic Acid Calcium Magnesium Total Bilirubin Direct Bilirubin AST ALT Alkaline Phosphatase Troponin I High Sens 14.4 B-Natriuretic Peptide Total Protein Albumin Lipase Digoxin COVID-19 (ELAN) COVID-19 Clin Com Blood Type A Positive Antibody Screen NEGATIVE Crossmatch See Detail 03/05/22 03/05/22 06:02 07:00 WBC 0.6 L* RBC 2.24 L Hgb 6.3 L* Hct 20.9 L* MCV 93.3 MCH 28.1 MCHC 30.1 L RDW 16.8 H Plt Count 78 L MPV 12.1 Immature Gran % (Auto) 1.6 H Neut % (Auto) 41.0 L Lymph % (Auto) 50.8 H [place] % (Auto) 6.6 Eos % (Auto) 0.0 Baso % (Auto) 0.0 Lymph # (Auto) 0.3 L [place] # (Auto) 0.0 L Eos # (Auto) 0.0 Baso # (Auto) 0.0 Abs Immat Gran (auto) 0.01 Absolute Neuts (auto) 0.3 L Absolute Nucleated RBC 0.020 H Nucleated RBC % (auto) 3.3 H Neutrophils % (Manual) Band Neutrophils % Lymphocytes % (Manual) Atypical Lymphs % (Man) Basophils % (Manual) Abs Neuts (Manual) Lymphocytes # (Manual) Nucleated RBCs Platelet Estimate Large Platelets Plt Morphology Comment RBC Morphology Polychromasia Hypochromasia Macrocytosis Ovalocytes Acanthocytes (Spur) Smear Tech's Comments VERIFIED Smear Path Review PT INR APTT D-Dimer High Sensitivty VBG pH VBG pCO2 VBG pO2 VBG HCO3 VBG O2 Saturation VBG Base Excess Sodium 133 L Potassium 4.4 Chloride 105 Carbon Dioxide 20 L Anion Gap 12 BUN 51 H D Creatinine 1.02 Estim Creat Clear Calc 51.2 Estimated GFR > 60 Random Glucose 189 H D Lactic Acid Calcium 8.2 L Magnesium Total Bilirubin Direct Bilirubin AST ALT Alkaline Phosphatase Troponin I High Sens B-Natriuretic Peptide Total Protein Albumin Lipase Digoxin COVID-19 (ELNA) COVID-19 Clin Com Blood Type Antibody Screen Crossmatch Imaging Radiologist's impression: Impressions Chest X-Ray 03/04/22 19:22 IMPRESSION: Redemonstration of diffuse interstitial lung markings suggesting diffuse interstitial pneumonitis and/or edema. Improving consolidation infiltrates right lung base. No significant pleural effusion. Chest CTA 03/04/22 21:10 IMPRESSION: No evidence of pulmonary embolus. Persistent but decreased bilateral pulmonary opacities improved compared with CT November 2021. Persistent small right pleural effusion. VTE: negative Assessment and Plan (1) Acute on chronic HFrEF (heart failure with reduced ejection fraction): Status: Acute (2) Atrial tachycardia: Status: Acute (3) Heart failure with reduced ejection fraction: Status: Acute Plan 77-year-old gentleman who is presenting with shortness of breath and chest discomfort in the setting of tachycardia. He is noted to be significantly anemi c. He has mild of dysplasia. He also has neutropenia and is on neutropenic precautions currently. His due to get some blood transfusion which will help his shortness of breath and tachycardia. He is either in atrial tachycardia or atrial flutter right now. He is on amiodarone 200 mg daily and metoprolol 25 mg b.i.d. as needed. Change amiodarone showed mg twice a day for a week. Changes metoprolol from as needed to scheduled twice a day. He has not tolerated neuro hormonal blockade in the past. We will see if blood transfusion helps control his heart rate. He will get further workup as outpatient as for plan by Dr. Prado. Thank you for allowing me to participate in the care of your patient. Please feel free to contact me if you have any questions. Procedures Date of Service Date of Service: 03/05/22
--- NOTE | 2022-03-05 18:20 | PC.NURSE ---
BLOOD TRANSFUSION COMPLETED. PT TOLERATED WELL. PT AFEBRILE, DENIES SOB, VSS, NO COMPLAINTS. PRN PAIN MED GIVEN DOCUMENTED. NO COMPLAINTS.
--- NOTE | 2022-03-05 18:41 | PC.NURSE ---
IV TO R WRIST D/C'd. PT C/O PAIN AT IV SITE.
[2022-03-05] MEDS: Metoprolol Tartrate 25 MG TABLET PO (21:27)
[2022-03-05] MEDS: Gabapentin 100 MG CAPSULE 200 MG PO (21:27)
[2022-03-05] MEDS: Atorvastatin Calcium 40 MG TABLET PO (21:28)
[2022-03-06] VITALS (13 sets, daily range): BP systolic 85–122; BP diastolic 51–62; PULSE 85–135; RESP 16–19; TEMP 36.2–37.2; O2SAT 94–100
[2022-03-06] MEDS: Morphine Sulfate 4 MG/ML CARTRIDGE 1 MG IVPUSH (01:36)
[2022-03-06] MEDS: 0.9 % Sodium Chloride Flush 3 ML SYRINGE IVFLUSH ×4 (02:43→21:06)
[2022-03-06 06:26] LABS: Baso%MD 0.9 %; IG%MD 2.7 %; Mean Corpuscular HGB Conc 31.6 g/dl (31.0-36.0); Mean Corpuscular Hemoglobin 28.6 pg (27.0-33.0); Mean Corpuscular Volume 90.8 fL (80.0-98.0); Mean Platelet Volume 11.5 fL (9.4-12.4); Mono%MD 6.4 %; Red Blood Count 2.06 X10*6/uL (4.60-5.80); Red Cell Distribution Width 15.5 % (11.0-16.0)
[2022-03-06 06:44] LABS: B Type Natriuretic Peptide 1261 pg/mL (<100)
[2022-03-06 06:54] LABS: Atypical Lymphs Percent Manual 1 % (0-6); Band Neutrophils Percent 1 % (3-5); Lymphocytes Percent Manual 60 % (20-40); Monocytes Percent Manual 3 % (2-11); Neutrophils Percent Manual 35 % (45-73); Nucleated Red Blood Cells 1 /100WBC (0-0)
[2022-03-06 06:57] LABS: Macrocytosis 1+ (5-14) /OIF; Microcytosis 1+ (5-14) /OIF; Ovalocytes 1+ (5-14) /OIF; RBC Morphology NOTED
[2022-03-06 06:58] LABS: Burr Cells 1+ (0-2) /OIF; Hypochromasia 2+ (15-30) /OIF; Platelet Estimate DECREASED (NORMAL); Platelet Morphology Comment NORMAL; Polychromasia 1+ (0-2) /OIF
[2022-03-06 06:59] LABS: Magnesium 1.8 mg/dL (1.6-2.6)
[2022-03-06 07:18] LABS: Lymphocytes Absolute Manual 1.3 X10*3/uL (1.2-4.9); Monocytes Absolute Manual 0.1 X10*3/uL (0.1-1.2); Neutrophils Absolute Manual 0.8 X10*3/uL (2.0-8.3); White Blood Count 2.2 X10*3/uL (4.8-10.8)
[2022-03-06 07:19] LABS: Hemoglobin 5.9 g/dl (14.0-18.0)
[2022-03-06 07:22] LABS: NRBC Pct Auto 2.7 /100WBC (0.0-0.2); Platelet Count 81 X10*3/uL (160-400)
[2022-03-06 07:23] LABS: Hematocrit 18.7 % (42.0-52.0)
--- NOTE | 2022-03-06 07:51 | P.CNHO_ITS ---
Subjective - Subjective Chief complaint: Consult for: Anemia. Question MDS. Patient: known to practice within the last 3 years Consult date: 03/06/22 Requesting Physician: [facility] Primary Care Provider: Ezequiel Burnham MD Medical Summary: DIAGNOSIS: 1. ANEMIA. 2. QUESTION MDS. HPI - Consult Narrative Reason for consult: consult for: Anemia. Narrative: Faizan Campbell Jr is a 77 year old gentleman, presented with shortness of breath & anemia. He said he felt his heart was racing at home. He has a history of chronic congestive heart failure, cardiomyopathy, premature ventricular complexes, atrial tachycardia and mild dysplasia. He had been dyspneic and had left-sided pressure-like feeling. He was found to have anemia with hemoglobin of 6.3. He is due to get blood transfusion. Denies any blood loss. Is also neutropenic precautions at this point. Heart rate was 120s. EKG revealed: atrial tachycardia or flutter. He is denying any palpitations right now. Database: WBC 1.4, HGB 7.7, HCT 25.9, PLT 83. BNP: 1261. Past medical history: Admission from January 15: MDS on transfusion, COPD complicated by COVID-19 pneumonia and chronic hypoxic respiratory failure on 2 L of oxygen. Cardiomyopathy, presentedl with complaints of shortness of breath. Found to have CHF as well as acute hypoxic respiratory failure: secondary to pneumonia, and acute on chronic systolic chf with pulmonary htn, Was treated with intravenous Lasix, Entresto added. He finished course of antibiotic. Plan was to start low-dose Lasix upon discharge but he was noted to have low blood pressures, with rising BUN and creatinine, so Lasix was held. Close outpatient cardiology follow-up recommended. Atrial arrhythmia with PACs: Initially treated for atrial fibrillation but tele monitor showed atrial arrhythmia. He was continued on metoprolol and amiodarone. Recommend to take amiodarone 400 mg twice daily for 1 week followed by 200 mg by mouth daily starting 01/24/2022. Digoxin was discontinued. Metoprolol dose changed to Toprol-XL 100 mg daily. Acute on chronic anemia: Secondary to GI bleed (acute blood loss) and MDS. He received 3 units of packed RBC and 2 units of platelets. Repeat hematocrit remained stable.He gets transfusion when hemoglobin is less than 5 Hematology recommended to transfuse? if Hb 6 or below and Platelets if 10 or below or if bleeding,?received growth?factors. GI bleeding: noted to have episodes of melena, seen by Gastroenterology they recommended no procedures for now, CT abdomen showed no cause of acute bleeding. Pancytopenia Secondary to MDS Review of Systems - Constitutional Reports system reviewed and no additional complaints, except as documented, Reports lack of energy, Reports poor appetite, Reports weight loss, Denies chills - Eyes Reports system reviewed and no additional complaints, except as documented - ENT Reports system reviewed and no additional complaints, except as documented - Cardiovascular Reports system reviewed and no additional complaints, except as documented - Respiratory Reports no additional respiratory complaints - Gastrointestinal Reports system reviewed and no additional complaints, except as documented - Genitourinary Genitourinary: Reports no additional male genitourinary complaints - Musculoskeletal Reports system reviewed and no additional complaints, except as documented - Integumentary/Breasts Skin/Breast: Reports no additional skin complaints - Neurologic Reports system reviewed and no additional complaints, except as documented - Psychiatric Reports system reviewed and no additional complaints, except as documented - Endocrine Reports no additional endocrine complaints - Hematologic/Lymphatic Reports system reviewed and no additional complaints, except as documented - Allergic/Immunologic Reports system reviewed and no additional complaints, except as documented Oncology Screenings - ECOG Performance Status ECOG Performance Status: 2 [facility] Medical History: Medical History (Last Reviewed 03/09/22 @ 16:20 by Tierney Carlos MD) Chronic anemia CKD stage G3b/A2, GFR 30-44 and albumin creatinine ratio 30-299 mg/g Congestive heart failure COPD (chronic obstructive pulmonary disease) Emphysema of lung 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 Now only oxygen deliv. Tobacco History: Patient Tobacco Use Status: Former Tobacco user Tobacco use type: Cigarette Occupation Assessmet: service: Yes Current occupational status: retired Home Medications and Allergies Current Medications: Current Medications Acetaminophen (Acetaminophen 325 Mg Tablet) 650 mg PO Q6H PRN PRN Reason: Pain, Mild (Pain Scale 1-3) Last Admin: 03/05/22 02:54 Dose: 650 mg Albuterol/Ipratropium (Albuterol/Iprat 2.5/0.5mg 3 Ml Ampul.Neb) 3 ml INHALE RQ4H PRN PRN Reason: Shortness of Breath/Wheezing Amiodarone HCl (Amiodarone Hcl 200 Mg Tablet) 200 mg PO BID [facility] Last Admin: 03/05/22 21:27 Dose: 200 mg Atorvastatin Calcium (Atorvastatin Calcium 40 Mg Tablet) 40 mg PO BEDTIME [facility] Last Admin: 03/05/22 21:28 Dose: 40 mg Ferrous Sulfate (Ferrous Sulfate 324 Mg Tablet.Dr) 324 mg PO DAILY [facility] Last Admin: 03/05/22 10:25 Dose: 324 mg Finasteride (Finasteride 5 Mg Tablet) 5 mg PO DAILY [facility] Last Admin: 03/05/22 10:25 Dose: 5 mg Furosemide (Furosemide 40 Mg/4 Ml Vial) 40 mg IVPUSH DAILY [facility]; Protocol Last Admin: 03/05/22 10:24 Dose: 40 mg Gabapentin (Gabapentin 100 Mg Capsule) 200 mg PO BEDTIME [facility] Last Admin: 03/05/22 21:27 Dose: 200 mg Melatonin (Melatonin 3 Mg Tablet) 6 mg PO BEDTIME PRN PRN Reason: Insomnia Last Admin: 03/05/22 23:49 Dose: 6 mg Metoprolol Tartrate (Metoprolol Tartrate 5 Mg/5 Ml Vial) 5 mg IVPUSH Q6H PRN PRN Reason: HR>125 Last Admin: 03/05/22 07:24 Dose: 5 mg Metoprolol Tartrate (Metoprolol Tartrate 25 Mg Tablet) 25 mg PO BID [facility]; Protocol Last Admin: 03/05/22 21:27 Dose: 25 mg Morphine Sulfate (Morphine Sulfate 4 Mg/Ml Cartridge) 1 mg IVPUSH Q4H PRN; Protocol PRN Reason: Pain, SOB Last Admin: 03/06/22 01:36 Dose: 1 mg Pharmacy Consult (Consult Rx Perform Med Rec) 1 each MISCELLANE ONCE PRN PRN Reason: Consult order Potassium Chloride (Potassium Chloride Er 20 Meq Tab.Er.Prt) 20 meq PO DAILY [facility] Last Admin: 03/05/22 10:24 Dose: 20 meq Senna (Sennosides 8.6 Mg Tablet) 17.2 mg PO BEDTIME PRN PRN Reason: Constipation Sodium Chloride (0.9 % Sodium Chloride Flush 3 Ml Syringe) 3 ml IVFLUSH QSHIFT [facility] Last Admin: 03/06/22 02:43 Dose: 3 ml Home Medications Medication Instructions Recorded Confirmed Type ferrous sulfate 324 mg (65 mg 324 mg PO DAILY 01/13/22 03/04/22 History iron) tablet,delayed release finasteride 5 mg tablet 1 tab PO DAILY 01/13/22 03/04/22 History gabapentin 100 mg capsule 2 cap PO BEDTIME 01/13/22 03/04/22 History metoprolol tartrate 25 mg tablet 25 mg PO BID PRN SBP>90 03/04/22 03/04/22 History potassium chloride 20 mEq 1 tab PO DAILY 03/04/22 03/04/22 History tablet,extended release(part/cryst) simvastatin 80 mg tablet 80 mg PO BEDTIME 03/04/22 03/04/22 History Allergies Allergy/AdvReac Type Severity Reaction Status Date / Time No Known Allergies Allergy Verified 11/27/21 20:52 Physical Exam Vital signs: Vital Signs Temp 97.6 F 03/06/22 02:17 Pulse 131 H 03/06/22 02:17 Resp 16 03/06/22 02:17 BP 94/61 03/06/22 02:17 Pulse Ox 100 03/06/22 02:17 O2 Del Method 03/06/22 02:17 O2 Flow Rate 3 03/06/22 02:17 Intake & Output 03/05/22 03/06/22 03/06/22 18:59 06:59 18:59 Intake Total 650 / 1425 775 / 1425 Balance 650 / 1425 775 / 1425 Intake: Intake, Oral Amount 300 / 1075 775 / 1075 Intake (Blood Product) Amount 350 / 350 Red Blood Cells (E0382) Unit 350 / 350 [id number] Other: Breakfast % Eaten 75% Lunch % Eaten 75% Dinner % Eaten 100% Number of Unmeasured Voids 3 2 Urine Bedside Commode Urine Color Yellow Last Bowel Movement 03/06/22 Weight 61.7 kg - Constitutional Present: mild distress - Routine HEENT Exam Head: Present: normal inspection ENT: Present: mucous membranes moist - Routine Neck Exam Present: supple Hem/Onc Consult Result - Labs CBC & Chem 7: 03/10/22 17:30 03/10/22 17:30 Labs: Short CBC 03/06/22 Range/Units 05:47 WBC 2.2 L (4.8-10.8) X10*3/uL Hgb 5.9 L* (14.0-18.0) g/dl Hct 18.7 L* (42.0-52.0) % Plt Count 81 L (160-400) X10*3/uL Assessment and Plan Patient Active problem list reviewed?: Yes (1) Pancytopenia Status: Acute Assessment and plan: 77-year-old gentleman, presented with shortness of breath and palpitations. Noted to be pancytopenic. He was recently treated for pneumonia as well as bacteremia with methicillin sensitive Staph aureus, end of December. CTA: 1. No pulmonary embolus identified. 2. Extensive multifocal regions of consolidation in the mid to lower lungs. Considerations include multifocal pneumonia or pulmonary edema in the proper clinical setting. 3. Trace pleural effusions. 4. Left kidney is not visualized; correlation recommended for history of prior nephrectomy. Patient has known history of MDS. That is the cause of his underlying Pancytopenia. Apparently he gets blood transfusions if the hemoglobin goes to 5 or below. He is scheduled for transfusion twice weekly. PLAN: I have requested his previous heme Onc records, including bone marrow results, Dr. Pinon from [facility]. Meanwhile transfused blood if hemoglobin goes to 6 or below. Platelets if platelets go down to 10 or below, or in case of bleeding. Can give growth factor support in case of bacteremia and infection. Thank you, Cc: - Time Spent With Patient Time Spent with Patient (in minutes): 30
[2022-03-06] MEDS: Metoprolol Tartrate 25 MG TABLET PO (08:30)
[2022-03-06] MEDS: Finasteride 5 MG TABLET PO (08:30)
[2022-03-06] MEDS: Potassium Chloride ER 20 MEQ TAB.ER.PRT PO (08:30)
[2022-03-06] MEDS: Amiodarone HCL 200 MG TABLET PO ×2 (08:30→21:06)
[2022-03-06] MEDS: Furosemide 40 MG/4 ML VIAL IVPUSH ×2 (08:31→12:14)
[2022-03-06] MEDS: Ferrous Sulfate 324 MG TABLET.DR PO (08:31)
--- NOTE | 2022-03-06 12:56 | PM.PNCARD ---
Subjective Subjective Date of Service: 03/06/22 <MELLISSA Brannon - Last Filed: 03/06/22 16:05> 03/07/22 <Zhou Escoto MD - Last Filed: 03/07/22 21:02> Principal diagnosis: atrial flutter, anemia <MELLISSA Brannon - Last Filed: 03/06/22 16:05> Interval history: Seen at 1030. Today he is observed sitting up, without acute distress. Denies chest pains, sob, palpitation, dizziness, unsteadiness, active bleeding. He is currently receiving blood transfusion. Tele showing atrial flutter vs atrial tach rhythm, rate 128-130. <MELLISSA Brannon Last Filed: 03/06/22 16:05> Review of Systems Review of Systems as above <MELLISSA Brannon Last Filed: 03/06/22 16:05> Yes all other systems are reviewed and are negative <MELLISSA Brannon - Last Filed: 03/06/22 16:05> Physical Exam Vital Signs: Last Vital Signs Temp 98.0 F 03/06/22 11:57 Pulse 127 H 03/06/22 11:57 Resp 18 03/06/22 11:57 BP 94/59 L 03/06/22 11:57 Pulse Ox 94 03/06/22 11:30 O2 Del Method 03/06/22 11:30 O2 Flow Rate 3 03/06/22 11:30 BMI result Body Mass Index 21.3 <MELLISSA Brannon - Last Filed: 03/06/22 16:05> Const Other: frail looking elderly male <MELLISSA Brannon - Last Filed: 03/06/22 16:05> General: cooperative, no acute distress, alert and awake <MELLISSA Brannon Last Filed: 03/06/22 16:05> Orientation/consciousness: patient oriented x3 <MELLISSA Brannon Last Filed: 03/06/22 16:05> Neck Neck: Yes normal visual inspection and Yes no JVD <MELLISSA Brannon Last Filed: 03/06/22 16:05> Resp Effort & Inspection: normal respiratory effort, able to speak in complete sentences and not labored <Cora Montejo NPC - Last Filed: 03/06/22 16:05> Auscultation: clear to auscultation bilaterally, no crackles, no rales, no rhonchi and no wheezes <Cora Montejo NPC - Last Filed: 03/06/22 16:05> Cardio Rate: tachycardic <Cora TRUDY MontejoC - Last Filed: 03/06/22 16:05> Rhythm: regular rhythm <[facility] - Last Filed: 03/06/22 16:05> Heart sounds: S1 normal heart sound present and S2 normal heart sound present <Cora TRUDY Montejo - Last Filed: 03/06/22 16:05> Neuro General: patient oriented x3 <Cora TRUDY Montejo - Last Filed: 03/06/22 16:05> Extrem General: Yes normal to inspection and No edema <[facility] Nikia [facility] - Last Filed: 03/06/22 16:05> Objective Labs and Meds Result diagrams: : 03/07/22 05:53 03/07/22 05:53 <Cora Montejo NP - Last Filed: 03/06/22 16:05> Lab results: Laboratory Results - last 24 hr 03/04/22 03/06/22 03/06/22 22:11 05:47 05:47 WBC 2.2 L RBC 2.06 L Hgb 5.9 L* Hct 18.7 L* MCV 90.8 MCH 28.6 MCHC 31.6 RDW 15.5 Plt Count 81 L MPV 11.5 Absolute Nucleated RBC 0.060 H Nucleated RBC % (auto) 2.7 H Neutrophils % (Manual) 35 L Band Neutrophils % 1 L Lymphocytes % (Manual) 60 H Atypical Lymphs % (Man) 1 Monocytes % (Manual) 3 Abs Neuts (Manual) 0.8 L Lymphocytes # (Manual) 1.3 Monocytes # (Manual) 0.1 Nucleated RBCs 1 H Platelet Estimate DECREASED Plt Morphology Comment NORMAL RBC Morphology NOTED Polychromasia 1+ (0-2) Hypochromasia 2+ (15-30) Microcytosis 1+ (5-14) Macrocytosis 1+ (5-14) Ovalocytes 1+ (5-14) [place] Cells 1+ (0-2) Magnesium 1.8 B-Natriuretic Peptide Blood Type A Positive Antibody Screen NEGATIVE Crossmatch See Detail 03/06/22 05:47 WBC RBC Hgb Hct MCV MCH MCHC RDW Plt Count MPV Absolute Nucleated RBC Nucleated RBC % (auto) Neutrophils % (Manual) Band Neutrophils % Lymphocytes % (Manual) Atypical Lymphs % (Man) Monocytes % (Manual) Abs Neuts (Manual) Lymphocytes # (Manual) Monocytes # (Manual) Nucleated RBCs Platelet Estimate Plt Morphology Comment RBC Morphology Polychromasia Hypochromasia Microcytosis Macrocytosis Ovalocytes [place] Cells Magnesium B-Natriuretic Peptide 1261 H Blood Type Antibody Screen Crossmatch <MELLISSA Brannon - Last Filed: 03/06/22 16:05> Progress Note: A&P Assessment and plan (1) Atrial tachycardia: Status: Acute <MELLISSA Brannon - Last Filed: 03/06/22 16:05> Assessment and Plan: Admit with sob, anemia, tachycardia. EKG showing atrial flutter vs atrial tach with rate 134. His heart rates may be elevated due to his mild CHF and significant anemia. He has hx of atrial tachycardia. He was on Amiodarone 200mg daily and dose was increased to BID for 1 week to help reduce heart rate. He had been using Metoprolol PRN and changed to 25mg bid. Tele still showing aflutter vs atrial tach, rates consistent 127-130 - flat trend looking more like atrial flutter. No report of palpitations or chest discomfort. BP soft. Will give Digoxin 0.25mg IV q 6 hr X2 doses. CHADSVASc score 3. Aflutter suspected but not definite. Not a candidate for anticoagulation at this time. Has significant anemia with hgb 5.9 this am and is receiving blood transfusion. Heart rates may improve after transfusions completed. Amiodarone is being used for heart rate control along with the low dose Metoprolol and Digoxin. Options are limited due to his low BPs. Tachycardia can worsen his HF and cardiomyopathy. We will follow. <MELLISSA Brannon - Last Filed: 03/06/22 16:05> (2) Pancytopenia: Status: Acute <MELLISSA Brannon - Last Filed: 03/06/22 16:05> (3) Cardiomyopathy: Status: Acute <MELLISSA Brannon - Last Filed: 03/06/22 16:05> Assessment and Plan: Hx of CMP. Echo done 01/15/22 shows EF 30-35%, mild increase in LV size, LA severely dilated, mild to mod MR, mod pulm HTN. Notes indicated he has not tolerated neurohormonal modulation in past. Now on low dose Metoprolol, BPs soft as above. SOB symptom on admit. BNP elevated at 1085. CXR showed findings suggesting edema. Has been receiving IV lasix. I+Os not accurate measured. He is wearing O2 3 liters with sat 100%. He tells me that his breathing is improved. BNP today is up to 1261. Cr 1.02. Continue IV Lasix. I+O monitoring. Close monitoring of electrolyte and kidney function. <MELLISSA Brannon - Last Filed: 03/06/22 16:05> (4) Acute on chronic HFrEF (heart failure with reduced ejection fraction): Status: Acute <MELLISSA Brannon - Last Filed: 03/06/22 16:05> Assessment and Plan: as above <MELLISSA Brannon - Last Filed: 03/06/22 16:05> Assessment and Plan: Seen at bedside. Atrial flutter. difficult to control. On amiodarone for rate control. BB. Adding dig load. Would consider adding digoxin 125 mcg every other day. Will see response with meds and blood transfusion. Not an anticoagulation candidate currently due to significant anemia. <Zhou Escoto MD - Last Filed: 03/07/22 21:02> Time Spent With Patient Time: Total time spent is greater than 50% in coordination of care (as documented) at patient's floor/unit and/or counseling patient: 24 <MELLISSA Brannon Last Filed: 03/06/22 16:05> Progress Note: Quality Stroke Does the patient have a stroke diagnosis?: No <MELLISSA Brannon Last Filed: 03/06/22 16:05> Procedures Date of Service Date of Service: 03/06/22 <MELLISSA Brannon - Last Filed: 03/06/22 16:05>
--- NOTE | 2022-03-06 13:41 | HO.PM.IMPN ---
Subjective Subjective Date of Service: 03/06/22 Interval History: Hb low at 5.9, another 1u pRBCs ordered Dyspnea improved Denies chest pain or palpitions, but HR persistently in 130s Review of Systems Review of Systems: Yes all other systems are reviewed and are negative Physical Exam Vital Signs: Vital Signs: Last Vital Signs Temp 98.0 F 03/06/22 11:57 Pulse 127 H 03/06/22 11:57 Resp 18 03/06/22 11:57 BP 94/59 L 03/06/22 11:57 Pulse Ox 94 03/06/22 11:30 O2 Del Method 03/06/22 11:30 O2 Flow Rate 3 03/06/22 11:30 BMI result Body Mass Index 21.3 Gen: in no acute distress HEENT: sclera anicteric, moist mucus membranes Neck: supple Lungs: diminished bilaterally Heart: regular, tachycardic, no murmurs Abd: soft, non-tender, non-distended Ext: no edema Skin: warm/well-perfused Neuro: alert and oriented x3, no focal findings Psych: appropriate affect Objective Data Active Medications Acetaminophen (Acetaminophen 325 Mg Tablet) 650 mg PO Q6H PRN PRN Reason: Pain, Mild (Pain Scale 1-3) Last Admin: 03/05/22 02:54 Dose: 650 mg Documented By: YAHAIRA Albuterol/Ipratropium (Albuterol/Iprat 2.5/0.5mg 3 Ml Ampul.Neb) 3 ml INHALE RQ4H PRN PRN Reason: Shortness of Breath/Wheezing Amiodarone HCl (Amiodarone Hcl 200 Mg Tablet) 200 mg PO BID [facility] Last Admin: 03/06/22 08:30 Dose: 200 mg Documented By: MARIA DEL ROSARIO Atorvastatin Calcium (Atorvastatin Calcium 40 Mg Tablet) 40 mg PO BEDTIME [facility] Last Admin: 03/05/22 21:28 Dose: 40 mg Documented By: CARLOS ALBERTO Digoxin (Digoxin 0.5 Mg/2 Ml Ampul) 0.25 mg IVPUSH Q6H [facility] Stop: 03/06/22 19:16 Ferrous Sulfate (Ferrous Sulfate 324 Mg Tablet.) 324 mg PO DAILY [facility] Last Admin: 03/06/22 08:31 Dose: 324 mg Documented By: MARIA DEL ROSARIO Finasteride (Finasteride 5 Mg Tablet) 5 mg PO DAILY [facility] Last Admin: 03/06/22 08:30 Dose: 5 mg Documented By: MARIA DEL ROSARIO Furosemide (Furosemide 40 Mg/4 Ml Vial) 40 mg IVPUSH DAILY [facility]; Protocol Last Admin: 03/06/22 08:31 Dose: 40 mg Documented By: MARIA DEL ROSARIO Gabapentin (Gabapentin 100 Mg Capsule) 200 mg PO BEDTIME [facility] Last Admin: 03/05/22 21:27 Dose: 200 mg Documented By: CARLOS ALBERTO Melatonin (Melatonin 3 Mg Tablet) 6 mg PO BEDTIME PRN PRN Reason: Insomnia Last Admin: 03/05/22 23:49 Dose: 6 mg Documented By: CARLOS ALBERTO Metoprolol Tartrate (Metoprolol Tartrate 5 Mg/5 Ml Vial) 5 mg IVPUSH Q6H PRN PRN Reason: HR>125 Last Admin: 03/05/22 07:24 Dose: 5 mg Documented By: KARISHMA Metoprolol Tartrate (Metoprolol Tartrate 25 Mg Tablet) 25 mg PO BID [facility]; Protocol Last Admin: 03/06/22 08:30 Dose: 25 mg Documented By: MARIA DEL ROSARIO Morphine Sulfate (Morphine Sulfate 4 Mg/Ml Cartridge) 1 mg IVPUSH Q4H PRN; Protocol PRN Reason: Pain, SOB Last Admin: 03/06/22 01:36 Dose: 1 mg Documented By: CARLOS ALBERTO Pharmacy Consult (Consult Rx Perform Med Rec) 1 each MISCELLANE ONCE PRN PRN Reason: Consult order Potassium Chloride (Potassium Chloride Er 20 Meq Tab.Er.Prt) 20 meq PO DAILY [facility] Last Admin: 03/06/22 08:30 Dose: 20 meq Documented By: MARIA DEL ROSARIO Senna (Sennosides 8.6 Mg Tablet) 17.2 mg PO BEDTIME PRN PRN Reason: Constipation Sodium Chloride (0.9 % Sodium Chloride Flush 3 Ml Syringe) 3 ml IVFLUSH QSHIFT [facility] Last Admin: 03/06/22 08:31 Dose: 3 ml Documented By: MARIA DEL ROSARIO Labs CBC & Chem 7: 03/06/22 05:47 03/05/22 06:02 Labs: Laboratory Results - last 24 hr 03/04/22 03/06/22 03/06/22 22:11 05:47 05:47 MCV 90.8 MCH 28.6 MCHC 31.6 RDW 15.5 Plt Count 81 L MPV 11.5 Absolute Nucleated RBC 0.060 H Nucleated RBC % (auto) 2.7 H Neutrophils % (Manual) 35 L Band Neutrophils % 1 L Lymphocytes % (Manual) 60 H Atypical Lymphs % (Man) 1 Monocytes % (Manual) 3 Abs Neuts (Manual) 0.8 L Lymphocytes # (Manual) 1.3 Monocytes # (Manual) 0.1 Nucleated RBCs 1 H Platelet Estimate DECREASED Plt Morphology Comment NORMAL RBC Morphology NOTED Polychromasia 1+ (0-2) Hypochromasia 2+ (15-30) Microcytosis 1+ (5-14) Macrocytosis 1+ (5-14) Ovalocytes 1+ (5-14) [place] Cells 1+ (0-2) Magnesium 1.8 B-Natriuretic Peptide Blood Type A Positive Antibody Screen NEGATIVE Crossmatch See Detail 03/06/22 05:47 MCV MCH MCHC RDW Plt Count MPV Absolute Nucleated RBC Nucleated RBC % (auto) Neutrophils % (Manual) Band Neutrophils % Lymphocytes % (Manual) Atypical Lymphs % (Man) Monocytes % (Manual) Abs Neuts (Manual) Lymphocytes # (Manual) Monocytes # (Manual) Nucleated RBCs Platelet Estimate Plt Morphology Comment RBC Morphology Polychromasia Hypochromasia Microcytosis Macrocytosis Ovalocytes [place] Cells Magnesium B-Natriuretic Peptide 1261 H Blood Type Antibody Screen Crossmatch Microbiology Microbiology Results: Microbiology 03/04/22 18:56 Blood Culture - Preliminary Blood - Venous No growth after 24 hours. 03/04/22 18:46 Blood Culture - Preliminary Blood - Venous No growth after 24 hours. Assessment and Plan (1) Acute on chronic HFrEF (heart failure with reduced ejection fraction): Status: Acute Plan hospital d#3 [id number] M with MDS, HFrEF, atrial tachycardia, HTN, HLD, chronic hypoxic respiratory failure on home O2 presented with dyspnea, admitted for respiratory failure from CHF exacerbation # acute/chronic hypoxic respiratory failure - briefly on CPAP in ED, now on home O2 3L # acute/chronic HFrEF - continue IV diuresis with furosemide. Cardiology following # atrial tachycardia vs flutter - continue amiodarone- increased to 200 mg bid x 1 wk; changed metoprolol to 25 mg bid standing; giving 2 doses of IV digoxin today per Cardiology # pancytopenia - transfused 1u pRBCs 03/05, will give another unit today with furosemide afterwards - Heme/Onc consulted - monitor CBC, avoid heparinoids - FOBT # HLD - continue statin # VTE ppx - SCDs Quality Stroke Does the patient have a stroke diagnosis?: No VTE Prior VTE?: No VTE Risk Level:: Medical - moderate - high VTE Device Contraindication: Treatment Not Indicated VTE Drug Contraindication: N/A - Med Ordered
[2022-03-06] MEDS: Digoxin 0.5 MG/2 ML AMPUL 0.25 MG IVPUSH ×2 (15:27→21:04)
[2022-03-06] MEDS: Acetaminophen 325 MG TABLET 650 MG PO (21:05)
[2022-03-06] MEDS: Gabapentin 100 MG CAPSULE 200 MG PO (21:05)
[2022-03-06] MEDS: Atorvastatin Calcium 40 MG TABLET PO (21:05)
[2022-03-06 21:38] LABS: Hemoglobin 6.5 g/dl (14.0-18.0)
[2022-03-06 21:39] LABS: Hematocrit 20.2 % (42.0-52.0)
[2022-03-06 23:01] LABS: Lactic Acid 1.2 mmol/L (0.5-2.0)
--- NOTE | 2022-03-06 23:02 | MHC.PIE ---
Shift eval 7p-11p - 8pm vitals - patient found to have low BP - 87/56. BP had been running in 90's systolic. confirmed via manual pressure. Patient due for cardiac meds. Patient asymptomatic, sitting up in bed - eating snacks. Dr Smith made aware, who then contacted cardiology to confirm which med to give for HS with lower BP. HR 130'S afib/aflutter. Ordered to hold lopressor and give amio & digoxin and other meds as ordered. patient also given tylenol for chronic back pain. Patient has had lower H&H & received blood today and yesterday - Dr Khan aware and ordered a repeat H&H to see if patient needed blood - critical H&H received (6.5 & 20.2) - reported to Dr Smith - ordered 1 unit RBC - currently transfusing. Critical blood cultures also received - Dr Smith made aware and ordered antibiotic to be given as well. BP reassessed at 2145 - 122/58, HR 105-110, fluctuating back to 130's with activity. Patient continues to be asymptomatic. Up to commode to void - steady gait.
[2022-03-07] VITALS (7 sets, daily range): BP systolic 86–107; BP diastolic 50–78; PULSE 65–124; RESP 14–20; TEMP 36.3–36.8; O2SAT 98–100
[2022-03-07 00:20] LABS: Appearance Urine CLEAR; Color Urine YELLOW; Glucose Urine UA NEG (NEG); Leukocyte Esterase Urine TRACE (NEG); Nitrite Urine NEG (NEG); PH 6.5 (5.0-8.0); Urine Blood NEG (NEG); Urine Ketones NEG (NEG); Urine Protein NEG (NEG-TRACE)
[2022-03-07 00:29] LABS: Bacteria Urine 1+ /LPF; Squamous Epithelial Cell Urine 1+ /LPF
[2022-03-07] MEDS: cefTRIAXone sodium 1 GM in 0.9 % Sodium Chloride 50 ML IV (01:16)
[2022-03-07 06:46] LABS: Hematocrit 23.1 % (42.0-52.0); Hemoglobin 7.5 g/dl (14.0-18.0); Mean Corpuscular HGB Conc 32.5 g/dl (31.0-36.0); Mean Corpuscular Hemoglobin 29.9 pg (27.0-33.0); Mean Platelet Volume 11.6 fL (9.4-12.4); Red Blood Count 2.51 X10*6/uL (4.60-5.80)
[2022-03-07 06:47] LABS: Platelet Count 75 X10*3/uL (160-400); White Blood Count 1.5 X10*3/uL (4.8-10.8)
[2022-03-07 06:50] LABS: Anion Gap 12 (12-20); Blood Urea Nitrogen 78 mg/dL (9-16); Calcium 8.6 mg/dL (8.4-10.2); Carbon Dioxide 25 mmol/L (22-29); Chloride 102 mmol/L (96-108); Creatinine Clr Calc Pharmacy 57.4; Estimated Glomerular Filt Rate > 60; Glucose Random 94 mg/dL (60-115); Magnesium 1.7 mg/dL (1.6-2.6); Potassium 4.1 mmol/L (3.3-5.1); Sodium 135 mmol/L (135-145)
[2022-03-07 06:52] LABS: B Type Natriuretic Peptide 1371 pg/mL (<100)
[2022-03-07] MEDS: Ferrous Sulfate 324 MG TABLET.DR PO (08:59)
[2022-03-07] MEDS: Potassium Chloride ER 20 MEQ TAB.ER.PRT PO (08:59)
[2022-03-07] MEDS: Amiodarone HCL 200 MG TABLET PO ×2 (08:59→20:15)
[2022-03-07] MEDS: Furosemide 40 MG/4 ML VIAL IVPUSH (08:59)
[2022-03-07] MEDS: Finasteride 5 MG TABLET PO (08:59)
[2022-03-07] MEDS: 0.9 % Sodium Chloride Flush 3 ML SYRINGE IVFLUSH ×3 (08:59→20:16)
[2022-03-07] MEDS: Metoprolol Tartrate 25 MG TABLET PO (08:59)
--- NOTE | 2022-03-07 09:31 | MHC.CDI.CONC ---
CDI Concurrent Query Documentation Clarification: PHYSICIAN'S DOCUMENTATION REQUEST Date of Query: 03/07/22 0932 Patient Name: Faizan Campbell Jr Admit Date: 03/04/22 Dear Doctor, A review of the medical record indicates additional documentation may be needed. Please review below and update the documentation accordingly. Clinical Indicators: Risk Factors/Clinical Indicators/Treatments Ed: 03/04 - CTA chest negative for PE, will admit for hypoxia, atrial tachycardia with cardiomyopathy. Cardiology note: 03/06 - Tachycardia worsened by HF and cardiomyopathy. Please provide further specificity regarding the most likely type and acuity of Cardiomyopathy you are evaluating, treating, or monitoring. Examples include: Type: Cardiomyopathy Hypertrophic Dilated Restrictive Ischemic or non-ischemic Other Unable to determine specifics Use of terms such as suspected, likely, concern for, or probable (associated with a specific diagnosis that is being evaluated, monitored, or treated as if it exists) are acceptable and can be coded in the inpatient setting, when documented at the time of discharge. Thank you, Missy Fox [facility], CDIS Extension: [phone] Please use your independent medical judgment in providing your response. THIS QUERY IS PART OF THE PERMANENT MEDICAL RECORD Provider Response: Other Other Diagnosis: unable to determine yet... see Dr Prado's office note from 02/14/22
--- NOTE | 2022-03-07 11:32 | PM.PNCARD ---
Subjective Subjective Date of Service: 03/07/22 <MELLISSA Brannon - Last Filed: 03/07/22 12:16> 03/07/22 <Zhou Escoto MD - Last Filed: 03/07/22 21:03> Principal diagnosis: atrial flutter, anemia <MELLISSA Brannon - Last Filed: 03/07/22 12:16> Interval history: Seen at 1000. Today he reports feeling better post transfusion. Breathing comfortable, slept well. No chest pains, palpitation, dizziness. He is steady on feet. Denies any signs of bleeding. Tele showing aflutter rates 106-130. BP remains soft. Hgb up to 7.5 today <MELLISSA Brannon Last Filed: 03/07/22 12:16> Review of Systems Review of Systems as above <MELLISSA Brannon - Last Filed: 03/07/22 12:16> Yes all other systems are reviewed and are negative <MELLISSA Brannon - Last Filed: 03/07/22 12:16> Physical Exam Vital Signs: Last Vital Signs Temp 98.1 F 03/07/22 08:00 Pulse 124 H 03/07/22 08:00 Resp 18 03/07/22 08:00 BP 88/50 L 03/07/22 08:00 Pulse Ox 100 03/06/22 23:58 O2 Del Method 03/07/22 03:46 O2 Flow Rate 3 03/07/22 03:46 BMI result Body Mass Index 21.3 <MELLISSA Brannon - Last Filed: 03/07/22 12:16> Const General: cooperative, no acute distress, alert and awake <MELLISSA Brannon - Last Filed: 03/07/22 12:16> Neck Neck: Yes normal visual inspection and Yes no JVD <MELLISSA Brannon Last Filed: 03/07/22 12:16> Resp Effort & Inspection: normal respiratory effort, able to speak in complete sentences and not labored <MELLISSA Brannon Last Filed: 03/07/22 12:16> Auscultation: clear to auscultation bilaterally, no rales, no rhonchi and no wheezes <MELLISSA Brannon - Last Filed: 03/07/22 12:16> Cardio Rate: tachycardic <MELLISSA Brannon - Last Filed: 03/07/22 12:16> Rhythm: abnormal rhythm <MELLISSA Brannon - Last Filed: 03/07/22 12:16> Heart sounds: S1 normal heart sound present and S2 normal heart sound present <MELLISSA Brannon - Last Filed: 03/07/22 12:16> Extrem General: Yes normal to inspection and No edema <MELLISSA Brannon - Last Filed: 03/07/22 12:16> Objective Labs and Meds Result diagrams: : 03/07/22 05:53 03/07/22 05:53 <MELLISSA Brannon - Last Filed: 03/07/22 12:16> Lab results: Laboratory Results - last 24 hr 03/04/22 03/06/22 03/06/22 22:11 20:54 22:42 WBC RBC Hgb 6.5 L* Hct 20.2 L* MCV MCH MCHC RDW Plt Count MPV Absolute Nucleated RBC Nucleated RBC % (auto) Sodium Potassium Chloride Carbon Dioxide Anion Gap BUN Creatinine Estim Creat Clear Calc Estimated GFR Random Glucose Lactic Acid 1.2 Calcium Magnesium B-Natriuretic Peptide Urine Color Urine Appearance Urine pH Ur Specific [place] Urine Protein Urine Glucose (UA) Urine Ketones Urine Blood Urine Nitrite Ur Leukocyte Esterase Urine RBC Urine WBC Ur Squamous Epith Cells Urine Bacteria Blood Type A Positive Antibody Screen NEGATIVE Crossmatch See Detail 03/07/22 03/07/22 03/07/22 00:04 05:53 05:53 WBC 1.5 L RBC 2.51 L D Hgb 7.5 L Hct 23.1 L MCV 92.0 MCH 29.9 MCHC 32.5 RDW 15.0 Plt Count 75 L MPV 11.6 Absolute Nucleated RBC 0.030 H Nucleated RBC % (auto) 2.0 H Sodium 135 Potassium 4.1 Chloride 102 Carbon Dioxide 25 Anion Gap 12 BUN 78 H D Creatinine 0.91 Estim Creat Clear Calc 57.4 Estimated GFR > 60 Random Glucose 94 D Lactic Acid Calcium 8.6 Magnesium 1.7 B-Natriuretic Peptide Urine Color YELLOW Urine Appearance CLEAR Urine pH 6.5 Ur Specific [place] 1.010 Urine Protein NEG Urine Glucose (UA) NEG Urine Ketones NEG Urine Blood NEG Urine Nitrite NEG Ur Leukocyte Esterase TRACE H Urine RBC 1-4 Urine WBC 1-4 Ur Squamous Epith Cells 1+ Urine Bacteria 1+ Blood Type Antibody Screen Crossmatch 03/07/22 05:53 WBC RBC Hgb Hct MCV MCH MCHC RDW Plt Count MPV Absolute Nucleated RBC Nucleated RBC % (auto) Sodium Potassium Chloride Carbon Dioxide Anion Gap BUN Creatinine Estim Creat Clear Calc Estimated GFR Random Glucose Lactic Acid Calcium Magnesium B-Natriuretic Peptide 1371 H Urine Color Urine Appearance Urine pH Ur Specific [place] Urine Protein Urine Glucose (UA) Urine Ketones Urine Blood Urine Nitrite Ur Leukocyte Esterase Urine RBC Urine WBC Ur Squamous Epith Cells Urine Bacteria Blood Type Antibody Screen Crossmatch <MELLISSA Brannon - Last Filed: 03/07/22 12:16> Progress Note: A&P Assessment and plan (1) Atrial flutter: Status: Acute <MELLISSA Brannon - Last Filed: 03/07/22 12:16> Assessment and Plan: Admit with sob, anemia, tachycardia. EKG showing atrial flutter vs atrial tach with rate 134. His heart rates may be elevated due to his mild CHF and significant anemia. He has hx of atrial tachycardia. He was on Amiodarone 200mg daily and dose was increased to BID for 1 week to help reduce heart rate. He had been using Metoprolol PRN and changed to 25mg bid. His BP is soft and rate slowing medication options limited. He was given Digoxin 0.25mg IV yesterday and recieved blood transfusion. Tele today showing what looks more like atrial flutter with rates 106- 130. No report of palpitations or chest discomfort. BP soft. CHADSVASc score 3. Not a candidate for anticoagulation at this time. Has significant anemia with hgb 5.9 yesterday and up to 7.5 today, post transfusion. Amiodarone is being used for heart rate control along with the low dose Metoprolol and Digoxin. Since rates are still elevated and BP low - will give once more dose of Digoxin 0.25mg IV now. Ongoing tele monitoring. We will follow. <MELLISSA Brannon - Last Filed: 03/07/22 12:16> (2) Cardiomyopathy: Status: Acute <MELLISSA Brannon - Last Filed: 03/07/22 12:16> Assessment and Plan: Hx of CMP. Echo done 01/15/22 shows EF 30-35%, mild increase in LV size, LA severely dilated, mild to mod MR, mod pulm HTN. Notes indicated he has not tolerated neurohormonal modulation in past. Now on low dose Metoprolol, BPs soft as above. SOB symptom on admit. BNP elevated at 1085 on admit. CXR initially showed findings suggesting edema. Has been receiving IV lasix. I+Os not accurate measured. He is wearing O2 3 liters with sat 100%. He tells me that his breathing is improved. Lungs clear, dim in bases. Does not appear fluid overloaded on exam. BNP today is up to 1371. Cr down 0.91, BUN up to 78. Discussed case with Dr Escoto. Will stop daily Lasix. Can be given doses PRN if needed for signs of fluid retention. <MELLISSA Brannon - Last Filed: 03/07/22 12:16> (3) Acute on chronic HFrEF (heart failure with reduced ejection fraction): Status: Acute <MELLISSA Brannon - Last Filed: 03/07/22 12:16> Assessment and Plan: as above <MELLISSA Brannon - Last Filed: 03/07/22 12:16> (4) Pancytopenia: Status: Acute <MELLISSA Brannon Last Filed: 03/07/22 12:16> Assessment and Plan: Being followed by hematology <MELLISSA Brannon - Last Filed: 03/07/22 12:16> Time Spent With Patient Time: Total time spent is greater than 50% in coordination of care (as documented) at patient's floor/unit and/or counseling patient: 22 <MELLISSA Brannon Last Filed: 03/07/22 12:16> Progress Note: Quality Stroke Does the patient have a stroke diagnosis?: No <MELLISSA Brannon Last Filed: 03/07/22 12:16> Procedures Date of Service Date of Service: 03/07/22 <MELLISSA Brannon - Last Filed: 03/07/22 12:16>
[2022-03-07] MEDS: Digoxin 0.5 MG/2 ML AMPUL 0.25 MG IVPUSH (12:47)
--- NOTE | 2022-03-07 13:28 | MHC.CM.PN ---
per rounds pt will be dcd in 2 to 3 days [facility] has accepted pt pt will also have a pt eval prior to dc
--- NOTE | 2022-03-07 14:12 | P.PNIM_ITS ---
Subjective Subjective Date of Service: 03/07/22 Interval History: Feeling better, though HR still in the 120s-130s No dyspnea or chest pain 1/2 BCx from 03/04 positive for GNRs, started on ceftriaxone Review of Systems Review of Systems: Yes all other systems are reviewed and are negative Physical Exam Vital Signs: Vital Signs: Last Vital Signs Temp 97.5 F 03/07/22 12:00 Pulse 104 H 03/07/22 13:31 Resp 20 03/07/22 12:00 BP 86/55 L 03/07/22 12:00 Pulse Ox 100 03/07/22 12:00 O2 Del Method 03/07/22 12:00 O2 Flow Rate 3 03/07/22 12:00 BMI result Body Mass Index 21.3 Gen: in no acute distress HEENT: sclera anicteric, pale mucosa Neck: supple Lungs: diminished bilaterally Heart: regular, tachycardic, no murmurs Abd: soft, non-tender, non-distended Ext: no edema Skin: warm/well-perfused Neuro: alert and oriented x3, no focal findings Psych: appropriate affect Objective Data Active Medications Acetaminophen (Acetaminophen 325 Mg Tablet) 650 mg PO Q6H PRN PRN Reason: Pain, Mild (Pain Scale 1-3) Last Admin: 03/06/22 21:05 Dose: 650 mg Documented By: DENISE Albuterol/Ipratropium (Albuterol/Iprat 2.5/0.5mg 3 Ml Ampul.Neb) 3 ml INHALE RQ4H PRN PRN Reason: Shortness of Breath/Wheezing Amiodarone HCl (Amiodarone Hcl 200 Mg Tablet) 200 mg PO BID [facility] Last Admin: 03/07/22 08:59 Dose: 200 mg Documented By: IGGY Atorvastatin Calcium (Atorvastatin Calcium 40 Mg Tablet) 40 mg PO BEDTIME [facility] Last Admin: 03/06/22 21:05 Dose: 40 mg Documented By: DENISE Ferrous Sulfate (Ferrous Sulfate 324 Mg Tablet.) 324 mg PO DAILY [facility] Last Admin: 03/07/22 08:59 Dose: 324 mg Documented By: IGGY Finasteride (Finasteride 5 Mg Tablet) 5 mg PO DAILY [facility] Last Admin: 03/07/22 08:59 Dose: 5 mg Documented By: IGGY Gabapentin (Gabapentin 100 Mg Capsule) 200 mg PO BEDTIME [facility] Last Admin: 03/06/22 21:05 Dose: 200 mg Documented By: DENISE Ceftriaxone Sodium 1 gm/ (Sodium Chloride) 50 mls @ 100 mls/hr IV Q24H DIMITRI Last Infusion: 03/07/22 02:14 Dose: 0 mls/hr Documented By: SHAILA Melatonin (Melatonin 3 Mg Tablet) 6 mg PO BEDTIME PRN PRN Reason: Insomnia Last Admin: 03/05/22 23:49 Dose: 6 mg Documented By: CARLOS ALBERTO Metoprolol Tartrate (Metoprolol Tartrate 5 Mg/5 Ml Vial) 5 mg IVPUSH Q6H PRN PRN Reason: HR>125 Last Admin: 03/05/22 07:24 Dose: 5 mg Documented By: KARISHMA Metoprolol Tartrate (Metoprolol Tartrate 25 Mg Tablet) 25 mg PO BID [facility]; Protocol Last Admin: 03/07/22 08:59 Dose: 25 mg Documented By: IGGY Morphine Sulfate (Morphine Sulfate 4 Mg/Ml Cartridge) 1 mg IVPUSH Q4H PRN; Protocol PRN Reason: Pain, SOB Last Admin: 03/06/22 01:36 Dose: 1 mg Documented By: CARLOS ALBERTO Pharmacy Consult (Consult Rx Perform Med Rec) 1 each MISCELLANE ONCE PRN PRN Reason: Consult order Potassium Chloride (Potassium Chloride Er 20 Meq Tab.Er.Prt) 20 meq PO DAILY [facility] Last Admin: 03/07/22 08:59 Dose: 20 meq Documented By: IGGY Senna (Sennosides 8.6 Mg Tablet) 17.2 mg PO BEDTIME PRN PRN Reason: Constipation Sodium Chloride (0.9 % Sodium Chloride Flush 3 Ml Syringe) 3 ml IVFLUSH QSHIFT [facility] Last Admin: 03/07/22 08:59 Dose: 3 ml Documented By: IGGY Labs CBC & Chem 7: 03/07/22 05:53 03/07/22 05:53 Labs: Laboratory Results - last 24 hr 03/04/22 03/06/22 03/07/22 22:11 22:42 00:04 MCV MCH MCHC RDW Plt Count MPV Absolute Nucleated RBC Nucleated RBC % (auto) Anion Gap Estim Creat Clear Calc Estimated GFR Random Glucose Lactic Acid 1.2 Calcium Magnesium B-Natriuretic Peptide Urine Color YELLOW Urine Appearance CLEAR Urine pH 6.5 Ur Specific [place] 1.010 Urine Protein NEG Urine Glucose (UA) NEG Urine Ketones NEG Urine Blood NEG Urine Nitrite NEG Ur Leukocyte Esterase TRACE H Urine RBC 1-4 Urine WBC 1-4 Ur Squamous Epith Cells 1+ Urine Bacteria 1+ Blood Type A Positive Antibody Screen NEGATIVE Crossmatch See Detail 03/07/22 03/07/22 03/07/22 05:53 05:53 05:53 MCV 92.0 MCH 29.9 MCHC 32.5 RDW 15.0 Plt Count 75 L MPV 11.6 Absolute Nucleated RBC 0.030 H Nucleated RBC % (auto) 2.0 H Anion Gap 12 Estim Creat Clear Calc 57.4 Estimated GFR > 60 Random Glucose 94 D Lactic Acid Calcium 8.6 Magnesium 1.7 B-Natriuretic Peptide 1371 H Urine Color Urine Appearance Urine pH Ur Specific [place] Urine Protein Urine Glucose (UA) Urine Ketones Urine Blood Urine Nitrite Ur Leukocyte Esterase Urine RBC Urine WBC Ur Squamous Epith Cells Urine Bacteria Blood Type Antibody Screen Crossmatch Microbiology Microbiology Results: Microbiology 03/04/22 18:56 Blood Culture - Preliminary Blood - Venous Prelim: GNR Gram Stain only 03/04/22 18:46 Blood Culture - Preliminary Blood - Venous No growth after 48 hours. Assessment and Plan (1) Acute on chronic HFrEF (heart failure with reduced ejection fraction): Status: Acute Plan hospital d#[id number] M with MDS, HFrEF, atrial tachycardia, HTN, HLD, chronic hypoxic respiratory failure on home O2 presented with dyspnea, admitted for respiratory failure from CHF exacerbation # GNR bacteremia - started on ceftriaxone 03/06. await speciation + susceptibilities. ?source. given immunocompromise [neutropenic, ANC 792 yesterday], will change to pip/antonieta for antipseudomonal coverage # acute/chronic hypoxic respiratory failure - briefly on CPAP in ED, now on home O2 3L # acute/chronic HFrEF - appears euvolemic- IV furosemide stopped. Cardiology following # atrial tachycardia vs flutter - continue amiodarone- increased to 200 mg bid x 1 wk; changed metoprolol to 25 mg bid standing; giving 2 doses of IV digoxin yesterday and will give 1 more dose today per Cardiology - not a candidate for anticoagulation due to chronic anemia # pancytopenia - transfused 1u pRBCs 03/05 and 1u pRBCs 03/06. Hb improved - Heme/Onc consulted, sees Heme/Onc at [facility] - monitor CBC, avoid heparinoids - FOBT pending # HLD - continue statin # VTE ppx - SCDs Quality Stroke Does the patient have a stroke diagnosis?: No VTE Prior VTE?: No VTE Risk Level:: Medical - moderate - high VTE Device Contraindication: Treatment Not Indicated VTE Drug Contraindication: N/A - Med Ordered
[2022-03-07] MEDS: Acetaminophen 325 MG TABLET 650 MG PO (16:24)
[2022-03-07] MEDS: Piperacillin Sodium/Tazobactam 3.375 GM in 0.9 % Sodium Chloride 50 ML IV ×2 (16:24→22:27)
[2022-03-07] MEDS: Gabapentin 100 MG CAPSULE 200 MG PO (20:15)
[2022-03-07] MEDS: Sennosides 8.6 MG TABLET 17.2 MG PO (20:15)
[2022-03-07] MEDS: Atorvastatin Calcium 40 MG TABLET PO (20:15)
[2022-03-08] VITALS (8 sets, daily range): BP systolic 98–122; BP diastolic 40–74; PULSE 66–109; RESP 14–20; TEMP 36.6–36.9; O2SAT 95–98
[2022-03-08] MEDS: Acetaminophen 325 MG TABLET 650 MG PO (02:27)
[2022-03-08] MEDS: Piperacillin Sodium/Tazobactam 3.375 GM in 0.9 % Sodium Chloride 50 ML IV ×4 (03:43→20:33)
--- NOTE | 2022-03-08 05:50 | PC.NURSE ---
Patient BP ran in the high 80's systolic during the day yesterday - patient denies feeling dizzy or feeling symptoms from low BP during the day. Patient medicated w/ sched evening neurontin & amio. Discussed with Dr Smith whether sched evening lopressor should be given with patient's low BP's during the day. Dr Smith ordered to hold lopressor. 1999 BP 96/58. HR still low 100's aflutter at rest, 130's with activity. Patient up ad nikos to commode and bathroom. SBP >100 at midnight & 4am vitals. Medicated w/ PRN tylenol @ 0227 with good effect.
[2022-03-08 06:27] LABS: Hemoglobin 7.7 g/dl (14.0-18.0); Mean Corpuscular HGB Conc 32.1 g/dl (31.0-36.0); Mean Corpuscular Hemoglobin 29.5 pg (27.0-33.0); Mean Platelet Volume 10.6 fL (9.4-12.4); Red Blood Count 2.61 X10*6/uL (4.60-5.80); Red Cell Distribution Width 15.6 % (11.0-16.0)
[2022-03-08 06:28] LABS: NRBC Pct Auto 3.3 /100WBC (0.0-0.2); Platelet Count 78 X10*3/uL (160-400); White Blood Count 1.5 X10*3/uL (4.8-10.8)
[2022-03-08 06:47] LABS: B Type Natriuretic Peptide 818 pg/mL (<100)
[2022-03-08 07:15] LABS: Anion Gap 13 (12-20); Blood Urea Nitrogen 66 mg/dL (9-16); Calcium 8.8 mg/dL (8.4-10.2); Carbon Dioxide 24 mmol/L (22-29); Chloride 102 mmol/L (96-108); Creatinine Clr Calc Pharmacy 45.4; Estimated Glomerular Filt Rate > 60; Glucose Random 109 mg/dL (60-115); Magnesium 1.8 mg/dL (1.6-2.6); Potassium 4.4 mmol/L (3.3-5.1); Sodium 135 mmol/L (135-145)
[2022-03-08] MEDS: 0.9 % Sodium Chloride Flush 3 ML SYRINGE IVFLUSH ×2 (09:10→14:24)
[2022-03-08] MEDS: Amiodarone HCL 200 MG TABLET PO ×2 (09:12→20:27)
[2022-03-08] MEDS: Potassium Chloride ER 20 MEQ TAB.ER.PRT PO (09:12)
[2022-03-08] MEDS: Metoprolol Tartrate 25 MG TABLET PO ×2 (09:12→20:27)
[2022-03-08] MEDS: Ferrous Sulfate 324 MG TABLET.DR PO (09:12)
[2022-03-08] MEDS: Finasteride 5 MG TABLET PO (09:13)
--- NOTE | 2022-03-08 12:04 | PM.PNCARD ---
Subjective Subjective Date of Service: 03/08/22 <MELLISSA Brannon - Last Filed: 03/08/22 12:30> 03/08/22 <Zhou Escoto MD - Last Filed: 03/08/22 21:47> Principal diagnosis: atrial flutter, anemia <MELLISSA Brannon - Last Filed: 03/08/22 12:30> Interval history: Seen at 1000. Today he is resting quietly in bed and reports he is feeling well. No concerning symptoms reported. Denies sob, chest pains, palpitations, dizziness. Reports being steady on his feet when he gets up. He denies any known active bleeding. Tele showing aflutter rates 90s- 130s. Hgb 7.7 today. <MELLISSA Brannon - Last Filed: 03/08/22 12:30> Review of Systems Review of Systems as above <MELLISSA Brannon - Last Filed: 03/08/22 12:30> Physical Exam Vital Signs: Last Vital Signs Temp 98.4 F 03/08/22 11:21 Pulse 109 H 03/08/22 11:21 Resp 17 03/08/22 11:21 BP 99/56 L 03/08/22 11:21 Pulse Ox 98 03/08/22 11:21 O2 Del Method 03/08/22 11:21 O2 Flow Rate 3 03/08/22 00:37 BMI result Body Mass Index 21.3 <MELLISSA Brannon - Last Filed: 03/08/22 12:30> Const Other: Thin frail appearing elderly male <MELLISSA Brannon - Last Filed: 03/08/22 12:30> General: cooperative, no acute distress, alert and awake <MELLISSA Brannon - Last Filed: 03/08/22 12:30> Neck Neck: Yes normal visual inspection and Yes no JVD <MELLISSA Brannon Last Filed: 03/08/22 12:30> Resp Effort & Inspection: normal respiratory effort, able to speak in complete sentences and not labored <MELLISSA Brannon - Last Filed: 03/08/22 12:30> Auscultation: clear to auscultation bilaterally, no rales, no rhonchi and no wheezes <Cora Montejo MELLISSA - Last Filed: 03/08/22 12:30> Cardio Rate: regular rate <MELLISSA Brannon Last Filed: 03/08/22 12:30> Rhythm: regular rhythm <Cora Montejo MELLISSA - Last Filed: 03/08/22 12:30> Heart sounds: S1 normal heart sound present and S2 normal heart sound present <Cora Montejo MELLISSA - Last Filed: 03/08/22 12:30> GI Inspection: Yes normal to inspection <Cora MontejoTRUDYAshleigh - Last Filed: 03/08/22 12:30> Extrem General: Yes normal to inspection and No edema <Cora Montejo MELLISSA - Last Filed: 03/08/22 12:30> Objective Labs and Meds Result diagrams: : 03/08/22 06:01 03/08/22 06:01 <Cora MontejoTRUDYAshleigh - Last Filed: 03/08/22 12:30> Lab results: Laboratory Results - last 24 hr 03/08/22 03/08/22 03/08/22 06:01 06:01 06:01 WBC 1.5 L RBC 2.61 L Hgb 7.7 L Hct 24.0 L MCV 92.0 MCH 29.5 MCHC 32.1 RDW 15.6 Plt Count 78 L MPV 10.6 Absolute Nucleated RBC 0.050 H Nucleated RBC % (auto) 3.3 H Sodium 135 Potassium 4.4 Chloride 102 Carbon Dioxide 24 Anion Gap 13 BUN 66 H Creatinine 1.15 Estim Creat Clear Calc 45.4 Estimated GFR > 60 Random Glucose 109 Calcium 8.8 Magnesium 1.8 B-Natriuretic Peptide 818 H <Cora MontejoTRUDYAshleigh - Last Filed: 03/08/22 12:30> Progress Note: A&P Assessment and plan (1) Atrial flutter: Status: Acute <Cora Montejo [employer]SEM[employer]OL[employer] WO[employer] HEADReannaFloresita Forte Last Filed: 03/08/22 12:30> Assessment and Plan: Admit with sob, anemia, tachycardia. EKG showing atrial flutter vs atrial tach with rate 134. His heart rates may be elevated due to his mild CHF and significant anemia. He has hx of atrial tachycardia. He was on Amiodarone 200mg daily and dose was increased to BID for 1 week to help reduce heart rate. He had been using Metoprolol PRN and changed to 25mg bid. His BP is soft and rate slowing medication options limited. He was given Digoxin 0.25mg IV X3 in last 2 days. Tele still showing atrial flutter with rates 90s- 130s. No report of palpitations or chest discomfort. BP soft. Does not appear in acute HF at present. He does have known EF 30-35% which previously was thought to be tachycardia induced. CHADSVASc score 3. Anticoagulation would be indicated but he has chronic anemia and is being followed by Hematology. He was transfused this admit. Hgb currently 7.7. No reported signs of bleeding. His heart rate is not slowing with current treatment. He would benefit from a cardioversion however will need to be anticoagulated for at least 1 mo if a CORDELIA CVR was performed. Will check with hematology to see if anticoagulation is an option for him or not. At present, Amiodarone is being used for heart rate control along with the low dose Metoprolol. Ongoing tele monitoring. We will follow. <MELLISSA Brannon - Last Filed: 03/08/22 12:30> (2) Cardiomyopathy: Status: Acute <MELLISSA Brannon - Last Filed: 03/08/22 12:30> Assessment and Plan: Hx of CMP. Echo done 01/15/22 shows EF 30-35%, mild increase in LV size, LA severely dilated, mild to mod MR, mod pulm HTN. Notes indicated he has not tolerated neurohormonal modulation in past. Now on low dose Metoprolol, BPs soft as above. SOB symptom on admit. BNP elevated at 1085 on admit. CXR initially showed findings suggesting edema. Has was diuresed with IV lasix and breathing has improved. BNP yesterday 1371. BUN was rising and Lasix stopped. Today O2 sat 98% on RA. No JVD or rales noted. If he does show signs of fluid retension, PRN dose of Lasix can be used. <MELLISSA Brannon - Last Filed: 03/08/22 12:30> (3) Acute on chronic HFrEF (heart failure with reduced ejection fraction): Status: Acute <MELLISSA Brannon - Last Filed: 03/08/22 12:30> Assessment and Plan: as above <MELLISSA Brannon - Last Filed: 03/08/22 12:30> (4) Pancytopenia: Status: Acute <MELLISSA Brannon - Last Filed: 03/08/22 12:30> Assessment and Plan: Being followed by hematology <MELLISSA Brannon - Last Filed: 03/08/22 12:30> Assessment and Plan: Aflutter and cardiomyopathy. He has reverted to sinus rhythm today. We have started him on anticoagulation before he converted to see if we can cardiovert him. I think a trial of A/C makes sense as if he has recurrent a flutter then we may have to consider cardioversion given concern that his cardiomyopathy is associated with the tachycardia. I think if he maintains sinus rhythm then digoxin can be stopped. <Zhou Escoto MD - Last Filed: 03/08/22 21:47> Time Spent With Patient Time: Total time spent is greater than 50% in coordination of care (as documented) at patient's floor/unit and/or counseling patient: 22 <MELLISSA Brannon - Last Filed: 03/08/22 12:30> Progress Note: Quality Stroke Does the patient have a stroke diagnosis?: No <MELLISSA Brannon - Last Filed: 03/08/22 12:30> Procedures Date of Service Date of Service: 03/08/22 <MELLISSA Brannon - Last Filed: 03/08/22 12:30>
--- NOTE | 2022-03-08 13:58 | HO.PM.IMPN ---
Subjective Subjective Date of Service: 03/08/22 Interval History: Seen and examined this morning Follow-up for a letter Heart rate still uncontrolled, patient denies chest pain, shortness breath, palpitations Denies abdominal pain, rectal bleeding Review of Systems Review of Systems: Yes all other systems are reviewed and are negative Constitutional Constitutional: Denies chills and Denies fever(s) Cardiovascular Cardiovascular: Denies chest pain, Denies palpitations and Denies dyspnea Respiratory Respiratory: Denies dyspnea Gastrointestinal Gastrointestinal: Denies abdominal pain Endocrine Endocrine: Denies palpitations Physical Exam Vital Signs: Vital Signs: Last Vital Signs Temp 98.4 F 03/08/22 11:21 Pulse 109 H 03/08/22 11:21 Resp 17 03/08/22 11:21 BP 99/56 L 03/08/22 11:21 Pulse Ox 98 03/08/22 11:21 O2 Del Method 03/08/22 11:21 O2 Flow Rate 3 03/08/22 00:37 BMI result Body Mass Index 21.3 Const: General: cooperative, comfortable, no acute distress, alert and awake Nutritional Appearance: thin Orientation/consciousness: patient oriented x3 Resp: Effort & Inspection: normal respiratory effort and able to speak in complete sentences Cardio: Rate: tachycardic GI: Palpation (GI): Soft to palpation and nontender Neuro: General: patient oriented x3 Extrem: Other: Able to move all 4 extremities spontaneously, no pedal edema Objective Data Active Medications Acetaminophen (Acetaminophen 325 Mg Tablet) 650 mg PO Q6H PRN PRN Reason: Pain, Mild (Pain Scale 1-3) Last Admin: 03/08/22 02:27 Dose: 650 mg Documented By: DENISE Albuterol/Ipratropium (Albuterol/Iprat 2.5/0.5mg 3 Ml Ampul.Neb) 3 ml INHALE RQ4H PRN PRN Reason: Shortness of Breath/Wheezing Amiodarone HCl (Amiodarone Hcl 200 Mg Tablet) 200 mg PO BID [facility] Last Admin: 03/08/22 09:12 Dose: 200 mg Documented By: VALENTINA Atorvastatin Calcium (Atorvastatin Calcium 40 Mg Tablet) 40 mg PO BEDTIME [facility] Last Admin: 03/07/22 20:15 Dose: 40 mg Documented By: DENISE Ferrous Sulfate (Ferrous Sulfate 324 Mg Tablet.) 324 mg PO DAILY [facility] Last Admin: 03/08/22 09:12 Dose: 324 mg Documented By: VALENTINA Finasteride (Finasteride 5 Mg Tablet) 5 mg PO DAILY [facility] Last Admin: 03/08/22 09:13 Dose: 5 mg Documented By: VALENTINA Gabapentin (Gabapentin 100 Mg Capsule) 200 mg PO BEDTIME [facility] Last Admin: 03/07/22 20:15 Dose: 200 mg Documented By: DENISE Piperacillin Sod/Tazobactam (Sod 3.375 gm/ Sodium Chloride) 50 mls @ 100 mls/hr IV Q6H [facility] Last Infusion: 03/08/22 09:41 Dose: 0 mls/hr Documented By: VALENTINA Melatonin (Melatonin 3 Mg Tablet) 6 mg PO BEDTIME PRN PRN Reason: Insomnia Last Admin: 03/05/22 23:49 Dose: 6 mg Documented By: CARLOS ALBERTO Metoprolol Tartrate (Metoprolol Tartrate 5 Mg/5 Ml Vial) 5 mg IVPUSH Q6H PRN PRN Reason: HR>125 Last Admin: 03/05/22 07:24 Dose: 5 mg Documented By: KARISHMA Metoprolol Tartrate (Metoprolol Tartrate 25 Mg Tablet) 25 mg PO BID [facility]; Protocol Last Admin: 03/08/22 09:12 Dose: 25 mg Documented By: VALENTINA Morphine Sulfate (Morphine Sulfate 4 Mg/Ml Cartridge) 1 mg IVPUSH Q4H PRN; Protocol PRN Reason: Pain, SOB Last Admin: 03/06/22 01:36 Dose: 1 mg Documented By: CARLOS ALBERTO Pharmacy Consult (Consult Rx Perform Med Rec) 1 each MISCELLANE ONCE PRN PRN Reason: Consult order Potassium Chloride (Potassium Chloride Er 20 Meq Tab.Er.Prt) 20 meq PO DAILY [facility] Last Admin: 03/08/22 09:12 Dose: 20 meq Documented By: VALENTINA Senna (Sennosides 8.6 Mg Tablet) 17.2 mg PO BEDTIME PRN PRN Reason: Constipation Last Admin: 03/07/22 20:15 Dose: 17.2 mg Documented By: DENISE Sodium Chloride (0.9 % Sodium Chloride Flush 3 Ml Syringe) 3 ml IVFLUSH QSHIFT [facility] Last Admin: 03/08/22 09:10 Dose: 3 ml Documented By: VALENTINA Labs CBC & Chem 7: 03/08/22 06:01 03/08/22 06:01 Labs: Laboratory Results - last 24 hr 03/08/22 03/08/22 03/08/22 06:01 06:01 06:01 MCV 92.0 MCH 29.5 MCHC 32.1 RDW 15.6 Plt Count 78 L MPV 10.6 Absolute Nucleated RBC 0.050 H Nucleated RBC % (auto) 3.3 H Anion Gap 13 Estim Creat Clear Calc 45.4 Estimated GFR > 60 Random Glucose 109 Calcium 8.8 Magnesium 1.8 B-Natriuretic Peptide 818 H Microbiology Microbiology Results: Microbiology 03/04/22 18:56 Blood Culture - Preliminary Blood - Venous Prelim: GNR Gram Stain only 03/06/22 22:42 Blood Culture - Preliminary Blood - Venous No growth after 24 hours. 03/06/22 22:42 Blood Culture - Preliminary Blood - Venous No growth after 24 hours. Assessment and Plan (1) Atrial flutter: Status: Acute (2) Acute on chronic HFrEF (heart failure with reduced ejection fraction): Status: Acute (3) Pancytopenia: Status: Acute Plan 77oy M with MDS, HFrEF, atrial tachycardia, HTN, HLD, chronic hypoxic respiratory failure on home O2 presented with dyspnea, admitted for respiratory failure from CHF exacerbation # GNR bacteremia - started on ceftriaxone 03/06. await speciation + susceptibilities. ?source. given immunocompromise [neutropenic, ANC 792 yesterday], will change to pip/antonieta for antipseudomonal coverage -CT abdomen pending -ID consult pending # acute/chronic hypoxic respiratory failure - briefly on CPAP in ED, now on room air # acute/chronic HFrEF - appears euvolemic- IV furosemide stopped. Cardiology following # atrial tachycardia vs flutter Heart rate remains uncontrolled, soft blood pressure limiting options - continue amiodarone- increased to 200 mg bid x 1 wk; changed metoprolol to 25 mg bid standing; s/p digoxin x 3 doses - not a candidate for anticoagulation due to chronic anemia - unable to have cardioversion unless anticoagulated x1 month # pancytopenia h/o MDS - transfused 1u pRBCs 03/05 and 1u pRBCs 03/06. Hb improved - Heme/Onc consulted, sees Heme/Onc at [facility] - monitor CBC, avoid heparinoids - FOBT pending # HLD - continue statin # VTE ppx - SCDs Attending-Dr. Alaniz Patient requires ongoing inpatient hospitalization due to uncontrolled atrial flutter/workup for bacteremia Quality Stroke Does the patient have a stroke diagnosis?: No VTE Prior VTE?: No VTE Risk Level:: Medical - moderate - high VTE Device Contraindication: Treatment Not Indicated VTE Drug Contraindication: N/A - Med Ordered
[2022-03-08] MEDS: polyethylene glycoL 3350 17 GM POWD.PACK PO (14:24)
--- NOTE | 2022-03-08 14:24 | ECG_ITS ---
Test Reason : rhythm change Blood Pressure : / mmHG Vent. Rate : 105 BPM Atrial Rate : 136 BPM P-R Int : 208 ms QRS Dur : 082 ms QT Int : 310 ms P-R-T Axes : 086 059 162 degrees QTc Int : 409 ms Sinus rhythm alternating with multifocal atrial tachycardia ST & T wave abnormality, consider lateral ischemia Abnormal ECG When compared with ECG of 04-MAR-2022 18:28, T wave inversion now evident in Anterior leads Atrial flutter not present anymore. Referred By: Maureen Cheney Electronically Signed By:Zhou Escoto
[2022-03-08 15:18] LABS: Alanine Aminotransferase 12 U/L (0-40); Albumin Level 3.1 g/dL (3.5-5.0); Alkaline Phosphatase 40 U/L (39-117); Aspartate Amino Transferase 23 U/L (5-37); Bilirubin Direct 0.2 mg/dL (0.0-0.5); Bilirubin Total 0.4 mg/dL (0.0-1.0); Total Protein 5.5 g/dL (6.5-8.0)
--- NOTE | 2022-03-08 17:59 | PC.NURSE ---
AT 1412 RN NOTIFIED BY INSPECTOR AIR CARRIER OBSERVER THAT PATIENTS RHYTHM CONVERTED FROM AFLUTTER TO ST. MD NOTIFIED AND EKG ORDERED AND OBTAINED. MD AND HUMAN RESOURCES PROJECT COORDINATOR NOTIFIED OF EKG READING. CURRENTLY HR 90-110: ST WITH PVCS AND PACS.
[2022-03-08] MEDS: Gabapentin 100 MG CAPSULE 200 MG PO (20:27)
[2022-03-08] MEDS: Atorvastatin Calcium 40 MG TABLET PO (20:27)
[2022-03-08] MEDS: Docusate Sodium 100 MG CAPSULE PO (20:27)
[2022-03-08] MEDS: Morphine Sulfate 4 MG/ML CARTRIDGE 1 MG IVPUSH (21:50)
[2022-03-09] VITALS (13 sets, daily range): BP systolic 85–128; BP diastolic 33–65; PULSE 51–114; RESP 16–20; TEMP 35.7–37.2; O2SAT 95–99
[2022-03-09] MEDS: Piperacillin Sodium/Tazobactam 3.375 GM in 0.9 % Sodium Chloride 50 ML IV ×4 (04:57→21:34)
[2022-03-09 07:09] LABS: Basophils Percent Auto 0.9 % (0-2); Imm Gran Abs Auto 0.01 X10*3/uL (0.00-0.03); Imm Gran Pct Auto 0.9 % (0.0-0.4); Lymphocytes Absolute Auto 0.6 X10*3/uL (1.2-4.9); Lymphocytes Percent Auto 57.1 % (20-40); MANUAL DIFF FLAG SCAN; Mean Corpuscular HGB Conc 31.1 g/dl (31.0-36.0); Mean Corpuscular Hemoglobin 29.1 pg (27.0-33.0); Mean Corpuscular Volume 93.6 fL (80.0-98.0); Mean Platelet Volume 9.9 fL (9.4-12.4); Monocytes Absolute Auto 0.1 X10*3/uL (0.1-1.2); Monocytes Percent Auto 10.7 % (2-11); Neutrophils Absolute Auto 0.3 x10*3/uL (2.0-8.3); Neutrophils Percent Auto 30.4 % (45-73); Red Cell Distribution Width 16.7 % (11.0-16.0); SCAN SMEAR FLAG 1
[2022-03-09 07:32] LABS: White Blood Count 1.1 X10*3/uL (4.8-10.8)
[2022-03-09 07:33] LABS: Hematocrit 20.6 % (42.0-52.0); Hemoglobin 6.4 g/dl (14.0-18.0); NRBC Pct Auto 2.7 /100WBC (0.0-0.2); Platelet Count 48 X10*3/uL (160-400)
[2022-03-09 07:34] LABS: SLIDE REVIEW VERIFIED
[2022-03-09 07:45] LABS: Anion Gap 10 (12-20); Blood Urea Nitrogen 45 mg/dL (9-16); Calcium 8.3 mg/dL (8.4-10.2); Carbon Dioxide 25 mmol/L (22-29); Chloride 104 mmol/L (96-108); Creatinine Clr Calc Pharmacy 51.2; Estimated Glomerular Filt Rate > 60; Glucose Random 92 mg/dL (60-115); Potassium 4.2 mmol/L (3.3-5.1); Sodium 135 mmol/L (135-145)
[2022-03-09] MEDS: Metoprolol Tartrate 25 MG TABLET PO (09:37)
[2022-03-09] MEDS: Finasteride 5 MG TABLET PO (09:37)
[2022-03-09] MEDS: Potassium Chloride ER 20 MEQ TAB.ER.PRT PO (09:37)
[2022-03-09] MEDS: Ferrous Sulfate 324 MG TABLET.DR PO (09:37)
[2022-03-09] MEDS: Amiodarone HCL 200 MG TABLET PO ×2 (09:37→21:34)
--- NOTE | 2022-03-09 12:17 | P.PNCA_ITS ---
Subjective Subjective Date of Service: 03/09/22 <MELLISSA Brannon - Last Filed: 03/09/22 12:31> 03/09/22 <Zhou Escoto MD - Last Filed: 03/09/22 22:29> Principal diagnosis: atrial flutter, anemia <MELLISSA Brannon - Last Filed: 03/09/22 12:31> Interval history: Seen at 1120. Today he reports feeling well. No concerning symptoms. Breathing is comfortable. No chest pains, palpitations, dizziness. Steady on feet. Denies any signs of bleeding. Tele shows conversion from atrial flutter to MAT yesterday afternoon. Continues to look like MAT. Hgb 6.4 today, plt 48. <MELLISSA Brannon Last Filed: 03/09/22 12:31> Review of Systems Review of Systems as above <MELLISSA Brannon - Last Filed: 03/09/22 12:31> Yes all other systems are reviewed and are negative <MELLISSA Brannon - Last Filed: 03/09/22 12:31> Physical Exam Vital Signs: Last Vital Signs Temp 97.5 F 03/09/22 07:56 Pulse 83 03/09/22 07:56 Resp 18 03/09/22 07:56 BP 101/48 L 03/09/22 07:56 Pulse Ox 96 03/09/22 07:56 O2 Del Method 03/09/22 07:56 O2 Flow Rate 3 03/08/22 00:37 BMI result Body Mass Index 21.3 <MELLISSA Brannon - Last Filed: 03/09/22 12:31> Const General: cooperative, no acute distress, alert and awake <MELLISSA Brannon Last Filed: 03/09/22 12:31> Orientation/consciousness: patient oriented x3 <MELLISSA Brannon Last Filed: 03/09/22 12:31> Neck Neck: Yes normal visual inspection and Yes no JVD <MELLISSA Brannon Last Filed: 03/09/22 12:31> Resp Effort & Inspection: normal respiratory effort, able to speak in complete sentences and not labored <LAKE BrannonC - Last Filed: 03/09/22 12:31> Auscultation: clear to auscultation bilaterally, no crackles, no rales, no rhonchi and no wheezes <LAKE BrannonC - Last Filed: 03/09/22 12:31> Cardio Palpation: normal PMI <LAKE BrannonC - Last Filed: 03/09/22 12:31> Rate: regular rate <LAKE BrannonC - Last Filed: 03/09/22 12:31> Rhythm: abnormal rhythm <Cora Montejo NPC - Last Filed: 03/09/22 12:31> Heart sounds: S1 normal heart sound present and S2 normal heart sound present <LAKE BrannonC - Last Filed: 03/09/22 12:31> Peripheral pulses: Peripheral pulses 2+ throughout <LAKE BrannonC - Last Filed: 03/09/22 12:31> GI Inspection: Yes normal to inspection <Cora Montejo NP-C - Last Filed: 03/09/22 12:31> Neuro General: patient oriented x3 <LAKE BrannonC - Last Filed: 03/09/22 12:31> Extrem General: Yes normal to inspection and No edema <Cora Montejo NP-C - Last Filed: 03/09/22 12:31> Objective Labs and Meds Result diagrams: : 03/09/22 06:56 03/09/22 06:56 <Cora Montejo NP - Last Filed: 03/09/22 12:31> Lab results: Laboratory Results - last 24 hr 03/08/22 03/09/22 03/09/22 06:01 06:56 06:56 WBC 1.1 L RBC 2.20 L Hgb 6.4 L* Hct 20.6 L* MCV 93.6 MCH 29.1 MCHC 31.1 RDW 16.7 H Plt Count 48 L D MPV 9.9 Immature Gran % (Auto) 0.9 H Neut % (Auto) 30.4 L Lymph % (Auto) 57.1 H [place] % (Auto) 10.7 Eos % (Auto) 0.0 Baso % (Auto) 0.9 Lymph # (Auto) 0.6 L [place] # (Auto) 0.1 Eos # (Auto) 0.0 Baso # (Auto) 0.0 Abs Immat Gran (auto) 0.01 Absolute Neuts (auto) 0.3 L Absolute Nucleated RBC 0.030 H Nucleated RBC % (auto) 2.7 H Smear Tech's Comments VERIFIED Sodium 135 Potassium 4.2 Chloride 104 Carbon Dioxide 25 Anion Gap 10 L BUN 45 H Creatinine 1.02 Estim Creat Clear Calc 51.2 Estimated GFR > 60 Random Glucose 92 Calcium 8.3 L Total Bilirubin 0.4 Direct Bilirubin 0.2 AST 23 ALT 12 Alkaline Phosphatase 40 D Total Protein 5.5 L Albumin 3.1 L Blood Type Antibody Screen Crossmatch 03/09/22 10:21 WBC RBC Hgb Hct MCV MCH MCHC RDW Plt Count MPV Immature Gran % (Auto) Neut % (Auto) Lymph % (Auto) [place] % (Auto) Eos % (Auto) Baso % (Auto) Lymph # (Auto) [place] # (Auto) Eos # (Auto) Baso # (Auto) Abs Immat Gran (auto) Absolute Neuts (auto) Absolute Nucleated RBC Nucleated RBC % (auto) Smear Tech's Comments Sodium Potassium Chloride Carbon Dioxide Anion Gap BUN Creatinine Estim Creat Clear Calc Estimated GFR Random Glucose Calcium Total Bilirubin Direct Bilirubin AST ALT Alkaline Phosphatase Total Protein Albumin Blood Type A Positive Antibody Screen NEGATIVE Crossmatch See Detail <MELLISSA Brannon - Last Filed: 03/09/22 12:31> Imaging Radiologist's impression: Impressions Abdomen/Pelvis CT 03/08/22 12:10 IMPRESSION: Severe constipation. Large gallstone in the gallbladder. Small nonobstructing stones in the [place] right kidney. Stable appearance to the right renal transplant in the right lower quadrant. Enlarged low-attenuation adrenal glands probably representing adrenal hyperplasia similar to previous exam. Decreasing nodular opacities at the lung bases probably representing resolving infiltrates. Fleischner guidelines were followed. <MELLISSA Brannon - Last Filed: 03/09/22 12:31> Progress Note: A&P Assessment and plan (1) Atrial flutter: Status: Acute <MELLISSA Brannon - Last Filed: 03/09/22 12:31> Assessment and Plan: Admit with sob, anemia, tachycardia. EKG showing atrial flutter vs atrial tach with rate 134. He has hx of atrial tachycardia. His Amiodarone was increased from 200mg daily and dose was increased to BID for 1 week ( until 03/12) to help reduce heart rate. He was started on Metoprolol 25mg bid. His BP is soft and rate slowing medication options limited. He was given Digoxin 0.25mg IV X3 in last few days. Tele was sti showing atrial flutter with rates 90s- 130s, asymptmatic. Yesterday after converted to what looks like MAT. Today tele shows MAT rates 80s- 110. No report of palpitations or chest discomfort. He Does not appear in acute HF at present. He does have known EF 30-35% which previously was thought to be tachycardia induced. CHADSVASc score 3. Anticoagulation would be indicated but he has chronic anemia and is being followed by Hematology. He was transfused this admit. Hgb currently 6.4. No reported signs of bleeding. reviewed use of anticoagulation with hematology and chcf anticoagulation use should be avoided. Short term use is not indicated at present as there is no longer a need for cardioversion. . At present, rosa bermanue with medical management using Amiodarone for heart rate control - reduce dose to 200mg once daily on 03/12/22. Continue low dose Metoprolol. If his BP allows, dose could be increased, but so far this has not been an option. Ongoing tele monitoring. We will follow. <MELLISSA Brannon - Last Filed: 03/09/22 12:31> (2) Cardiomyopathy: Status: Acute <MELLISSA Brannon - Last Filed: 03/09/22 12:31> Assessment and Plan: Hx of CMP. Echo done 01/15/22 shows EF 30-35%, mild increase in LV size, LA severely dilated, mild to mod MR, mod pulm HTN. Notes indicated he has not tolerated neurohormonal modulation in past. Now on low dose Metoprolol, BPs soft as above. SOB symptom on admit. BNP elevated at 1085 on admit. CXR initially showed findings suggesting edema. Has was diuresed with IV lasix and breathing has improved.Lasix stopped 2 days ago. Breathing remains comfortable. Sat 98% on RA. No JVD or rales noted. If he does show signs of fluid retension, PRN dose of Lasix can be used. <MELLISSA Brannon - Last Filed: 03/09/22 12:31> (3) Acute on chronic HFrEF (heart failure with reduced ejection fraction): Status: Acute <MELLISSA Brannon - Last Filed: 03/09/22 12:31> Assessment and Plan: as above <MELLISSA Brannon - Last Filed: 03/09/22 12:31> (4) Pancytopenia: Status: Acute <MELLISSA Brannon - Last Filed: 03/09/22 12:31> Assessment and Plan: Being followed by hematology <MELLISSA Brannon - Last Filed: 03/09/22 12:31> (5) Multifocal atrial tachycardia: Status: Acute <MELLISSA Brannon - Last Filed: 03/09/22 12:31> Assessment and Plan: . <MELLISSA Brannon - Last Filed: 03/09/22 12:31> 77 male with atrial flutter and cardiomyopathy. He has broken out of flutter but it appears that he has been in and out of MAT. I think continue the same meds for now. He continues to be euvolemic and asymptomatic. We have decided not to anticoagulate him for the flutter given MDS and significant anemia requiring blood transfusions <Zhou Escoto MD - Last Filed: 03/09/22 22:29> Time Spent With Patient Time: Total time spent is greater than 50% in coordination of care (as documented) at patient's floor/unit and/or counseling patient: 22 <MELLISSA Brannon - Last Filed: 03/09/22 12:31> Total time spent is greater than 50% in coordination of care (as documented) at patient's floor/unit and/or counseling patient: 22 . <Zhou Escoto MD - Last Filed: 03/09/22 22:29> Progress Note: Quality Stroke Does the patient have a stroke diagnosis?: No <MELLISSA Brannon - Last Filed: 03/09/22 12:31> Procedures Date of Service Date of Service: 03/09/22 <MELLISSA Brannon - Last Filed: 03/09/22 12:31>
[2022-03-09] MEDS: Acetaminophen 325 MG TABLET 650 MG PO (14:28)
--- NOTE | 2022-03-09 15:09 | P.PNIM_ITS ---
Subjective Subjective Date of Service: 03/09/22 <DIOMEDES Moran - Last Filed: 03/09/22 16:13> 03/12/22 <Lion Ramirez MD - Last Filed: 03/12/22 10:22> Interval History: Seen and examined this morning Follow-up for tachycardia, pancytopenia No shortness of breath, palpitations, chest pain Converted to sinus rhythm yesterday afternoon Had BM this am <DIOMEDES Moran - Last Filed: 03/09/22 16:13> Review of Systems Review of Systems: Yes all other systems are reviewed and are negative <DIOMEDES Moran - Last Filed: 03/09/22 16:13> Constitutional Constitutional: Denies chills and Denies fever(s) <DIOMEDES Moran - Last Filed: 03/09/22 16:13> Cardiovascular Cardiovascular: Denies chest pain, Denies palpitations and Denies dyspnea <DIOMEDES Moran - Last Filed: 03/09/22 16:13> Respiratory Respiratory: Denies cough and Denies dyspnea <DIOMEDES Moran - Last Filed: 03/09/22 16:13> Gastrointestinal Gastrointestinal: Denies abdominal pain and Denies vomiting <DIOMEDES Moran - Last Filed: 03/09/22 16:13> Endocrine Endocrine: Denies palpitations <DIOMEDES Moran - Last Filed: 03/09/22 16:13> Physical Exam Vital Signs: Vital Signs: Last Vital Signs Temp 98.4 F 03/09/22 13:09 Pulse 85 03/09/22 13:09 Resp 20 03/09/22 13:09 BP 104/60 03/09/22 13:09 Pulse Ox 95 03/09/22 12:00 O2 Del Method 03/09/22 12:00 O2 Flow Rate 3 03/08/22 00:37 BMI result Body Mass Index 21.3 <DIOMEDES Moran - Last Filed: 03/09/22 16:13> Const: General: cooperative, comfortable, no acute distress, alert and awake <DIOMEDES Moran - Last Filed: 03/09/22 16:13> Nutritional Appearance: thin <DIOMEDES Moran - Last Filed: 03/09/22 16:13> Orientation/consciousness: patient oriented x3 <DIOMEDES Moran - Last Filed: 03/09/22 16:13> Resp: Effort & Inspection: normal respiratory effort and able to speak in complete sentences <DIOMEDES Moran - Last Filed: 03/09/22 16:13> Cardio: Rate: regular rate <DIOMEDES Moran - Last Filed: 03/09/22 16:13> Heart sounds: S1 normal heart sound present and S2 normal heart sound present <DIOMEDES Moran - Last Filed: 03/09/22 16:13> GI: Palpation (GI): Soft to palpation and nontender <DIOMEDES Moran - Last Filed: 03/09/22 16:13> Neuro: General: patient oriented x3 <DIOMEDES Moran - Last Filed: 03/09/22 16:13> Extrem: Other: Able to move all 4 extremities spontaneously, no pedal edema <DIOMEDES Mcdaniel - Last Filed: 03/09/22 16:13> Objective Data Active Medications Acetaminophen (Acetaminophen 325 Mg Tablet) 650 mg PO Q6H PRN PRN Reason: Pain, Mild (Pain Scale 1-3) Last Admin: 03/09/22 14:28 Dose: 650 mg Documented By: IGGY Albuterol/Ipratropium (Albuterol/Iprat 2.5/0.5mg 3 Ml Ampul.Neb) 3 ml INHALE RQ4H PRN PRN Reason: Shortness of Breath/Wheezing Amiodarone HCl (Amiodarone Hcl 200 Mg Tablet) 200 mg PO BID [facility] Last Admin: 03/09/22 09:37 Dose: 200 mg Documented By: IGGY Atorvastatin Calcium (Atorvastatin Calcium 40 Mg Tablet) 40 mg PO BEDTIME [facility] Last Admin: 03/08/22 20:27 Dose: 40 mg Documented By: RUSTY Docusate Sodium (Docusate Sodium 100 Mg Capsule) 100 mg PO BEDTIME [facility] Last Admin: 03/08/22 20:27 Dose: 100 mg Documented By: RUSTY Ferrous Sulfate (Ferrous Sulfate 324 Mg Tablet.Dr) 324 mg PO DAILY [facility] Last Admin: 03/09/22 09:37 Dose: 324 mg Documented By: IGGY Finasteride (Finasteride 5 Mg Tablet) 5 mg PO DAILY [facility] Last Admin: 03/09/22 09:37 Dose: 5 mg Documented By: IGGY Gabapentin (Gabapentin 100 Mg Capsule) 200 mg PO BEDTIME [facility] Last Admin: 03/08/22 20:27 Dose: 200 mg Documented By: RUSTY Piperacillin Sod/Tazobactam (Sod 3.375 gm/ Sodium Chloride) 50 mls @ 100 mls/hr IV Q6H [facility] Last Infusion: 03/09/22 10:06 Dose: 0 mls/hr Documented By: IGGY Melatonin (Melatonin 3 Mg Tablet) 6 mg PO BEDTIME PRN PRN Reason: Insomnia Last Admin: 03/05/22 23:49 Dose: 6 mg Documented By: MARNIE-PARORALIA Metoprolol Tartrate (Metoprolol Tartrate 5 Mg/5 Ml Vial) 5 mg IVPUSH Q6H PRN PRN Reason: HR>125 Last Admin: 03/05/22 07:24 Dose: 5 mg Documented By: COOPEB Metoprolol Tartrate (Metoprolol Tartrate 25 Mg Tablet) 25 mg PO BID [facility]; Protocol Last Admin: 03/09/22 09:37 Dose: 25 mg Documented By: IGGY Pharmacy Consult (Consult Rx Perform Med Rec) 1 each MISCELLANE ONCE PRN PRN Reason: Consult order Polyethylene Glycol (Polyethylene Glycol 3350 17 Gm Powd.Pack) 17 gm PO DAILY [facility] Last Admin: 03/09/22 09:32 Dose: Not Given Documented By: IGGY Non-Admin Reason: Patient Refused Potassium Chloride (Potassium Chloride Er 20 Meq Tab.Er.Prt) 20 meq PO DAILY [facility] Last Admin: 03/09/22 09:37 Dose: 20 meq Documented By: IGGY Senna (Sennosides 8.6 Mg Tablet) 17.2 mg PO BEDTIME PRN PRN Reason: Constipation Last Admin: 03/07/22 20:15 Dose: 17.2 mg Documented By: DENISE Sodium Chloride (0.9 % Sodium Chloride Flush 3 Ml Syringe) 3 ml IVFLUSH QSHIFT [facility] Last Admin: 03/09/22 09:37 Dose: Not Given Documented By: IGGY Non-Admin Reason: IV Running <DIOMEDES Moran - Last Filed: 03/09/22 16:13> Labs CBC & Chem 7: : 03/12/22 07:38 03/12/22 07:38 <DIOMEDES Moran - Last Filed: 03/09/22 16:13> Labs: Laboratory Results - last 24 hr 03/04/22 03/08/22 03/09/22 22:11 06:01 06:56 MCV 93.6 MCH 29.1 MCHC 31.1 RDW 16.7 H Plt Count 48 L D MPV 9.9 Immature Gran % (Auto) 0.9 H Neut % (Auto) 30.4 L Lymph % (Auto) 57.1 H [place] % (Auto) 10.7 Eos % (Auto) 0.0 Baso % (Auto) 0.9 Lymph # (Auto) 0.6 L [place] # (Auto) 0.1 Eos # (Auto) 0.0 Baso # (Auto) 0.0 Abs Immat Gran (auto) 0.01 Absolute Neuts (auto) 0.3 L Absolute Nucleated RBC 0.030 H Nucleated RBC % (auto) 2.7 H Smear Tech's Comments VERIFIED Anion Gap Estim Creat Clear Calc Estimated GFR Random Glucose Calcium Total Bilirubin 0.4 Direct Bilirubin 0.2 AST 23 ALT 12 Alkaline Phosphatase 40 D Total Protein 5.5 L Albumin 3.1 L Blood Type Antibody Screen Crossmatch See Detail 03/09/22 03/09/22 06:56 10:21 MCV MCH MCHC RDW Plt Count MPV Immature Gran % (Auto) Neut % (Auto) Lymph % (Auto) [place] % (Auto) Eos % (Auto) Baso % (Auto) Lymph # (Auto) [place] # (Auto) Eos # (Auto) Baso # (Auto) Abs Immat Gran (auto) Absolute Neuts (auto) Absolute Nucleated RBC Nucleated RBC % (auto) Smear Tech's Comments Anion Gap 10 L Estim Creat Clear Calc 51.2 Estimated GFR > 60 Random Glucose 92 Calcium 8.3 L Total Bilirubin Direct Bilirubin AST ALT Alkaline Phosphatase Total Protein Albumin Blood Type A Positive Antibody Screen NEGATIVE Crossmatch See Detail <DIOMEDES Moran - Last Filed: 03/09/22 16:13> Microbiology Microbiology Results: Microbiology 03/06/22 22:42 Blood Culture - Preliminary Blood - Venous No growth after 48 hours. 03/06/22 22:42 Blood Culture - Preliminary Blood - Venous No growth after 48 hours. <DIOMEDES Moran - Last Filed: 03/09/22 16:13> Assessment and Plan (1) Multifocal atrial tachycardia: Status: Acute <DIOMEDES Moran - Last Filed: 03/09/22 16:13> (2) Pancytopenia: Status: Acute <DIOMEDES Moran - Last Filed: 03/09/22 16:13> Assessment and Plan: 77oy M with MDS, HFrEF, atrial tachycardia, HTN, HLD, chronic hypoxic respiratory failure on home O2 (2-3L prn), h/o kidney transplant in 1999 presented with dyspnea, admitted for respiratory failure from CHF exacerbation # GNR bacteremia GNR in 09/26 blood cultures... unable to identify species therefore being sent out to reference laboratory. Likely will not have speciation until at least Saturday -started on ceftriaxone 03/06. await speciation + susceptibilities. ?source. given immunocompromise [neutropenia], changed to pip/antonieta for antipseudomonal coverage -CT abdomen showing gallstones -ID consult pending # acute/chronic hypoxic respiratory failure - briefly on CPAP in ED, now on room air - baseline 2-3L prn # acute/chronic HFrEF - appears euvolemic- IV furosemide stopped. Cardiology following # atrial tachycardia vs flutter- converted back to sinus 03/08 afternoon, now appears to be MAT - continue amiodarone- increased to 200 mg bid x 1 wk (until 03/12); changed metoprolol to 25 mg bid standing; s/p digoxin x 3 doses - not a candidate for anticoagulation due to chronic anemia - unable to have cardioversion unless anticoagulated x1 month # pancytopenia h/o MDS - transfused 1u pRBCs 03/05, 1u pRBCs 03/06, will give another unit today - Heme/Onc consulted, sees Heme/Onc at [facility] - monitor CBC, avoid heparinoids - FOBT pending #Constipation Seen on CT abdomen/pelvis Bowel regimen started, patient had bowel movement this morning # HLD - continue statin # VTE ppx- SCDs h/o Renal transplant left kidney moved to right side after left ureter was damaged from kidney stones Attending-Dr. Ramirez Patient requires ongoing inpatient hospitalization due to uncontrolled atrial flutter/workup for bacteremia <DIOMEDES Moran - Last Filed: 03/09/22 16:13> Quality Stroke Does the patient have a stroke diagnosis?: No <DIOMEDES Moran - Last Filed: 03/09/22 16:13> VTE Prior VTE?: No <DIOMEDES Moran - Last Filed: 03/09/22 16:13> VTE Risk Level:: Medical - moderate - high <DOIMEDES Moran - Last Filed: 03/09/22 16:13> VTE Device Contraindication: Treatment Not Indicated <DIOMEDES Moran - Last Filed: 03/09/22 16:13> VTE Drug Contraindication: N/A - Med Ordered <DIOMEDES Moran - Last Filed: 03/09/22 16:13>
--- NOTE | 2022-03-09 16:18 | P.CNID_ITS ---
History of Present Illness Data of Consult Service Date: 03/09/22 Requesting physician: Lion Ramirez Primary Care Provider: Ezequiel Burnham MD HPI lung infiltrates right Patient presents with one day of SSCP 03/02. He has no fever or chills He has some mild RLL infiltrates. Review of Systems Review of Systems: Yes all other systems are reviewed and are negative PMFSH Past Medical History Medical History Chronic anemia CKD stage G3b/A2, GFR 30-44 and albumin creatinine ratio 30-299 mg/g Congestive heart failure COPD (chronic obstructive pulmonary disease) Emphysema of lung Iliopsoas muscle hematoma Myelodysplastic syndrome On home O2 Pancytopenia Pneumonia Pneumonia due to COVID-19 virus Tobacco dependency VRE bacteremia Functional capacity: uses cane/walker Family History Family history: reviewed and not pertinent Surgical History Surgical History Status post kidney autotransplantation Social History Social History Household Members: Spouse Housing: House Do you presently have visiting nurse or other home services: No (no services, prev had VNA. Now only oxygen deliv.) Patient Tobacco Use Status: Former Tobacco user Tobacco use type: Cigarette service: Yes Current occupational status: retired Meds Allergies Allergy/AdvReac Type Severity Reaction Status Date / Time No Known Allergies Allergy Verified 11/27/21 20:52 Active Medications: Current Medications Acetaminophen (Acetaminophen 325 Mg Tablet) 650 mg PO Q6H PRN PRN Reason: Pain, Mild (Pain Scale 1-3) Last Admin: 03/09/22 14:28 Dose: 650 mg Albuterol/Ipratropium (Albuterol/Iprat 2.5/0.5mg 3 Ml Ampul.Neb) 3 ml INHALE RQ4H PRN PRN Reason: Shortness of Breath/Wheezing Amiodarone HCl (Amiodarone Hcl 200 Mg Tablet) 200 mg PO BID [facility] Last Admin: 03/09/22 09:37 Dose: 200 mg Atorvastatin Calcium (Atorvastatin Calcium 40 Mg Tablet) 40 mg PO BEDTIME [facility] Last Admin: 03/08/22 20:27 Dose: 40 mg Docusate Sodium (Docusate Sodium 100 Mg Capsule) 100 mg PO BEDTIME [facility] Last Admin: 03/08/22 20:27 Dose: 100 mg Ferrous Sulfate (Ferrous Sulfate 324 Mg Tablet.) 324 mg PO DAILY [facility] Last Admin: 03/09/22 09:37 Dose: 324 mg Finasteride (Finasteride 5 Mg Tablet) 5 mg PO DAILY [facility] Last Admin: 03/09/22 09:37 Dose: 5 mg Gabapentin (Gabapentin 100 Mg Capsule) 200 mg PO BEDTIME [facility] Last Admin: 03/08/22 20:27 Dose: 200 mg Piperacillin Sod/Tazobactam (Sod 3.375 gm/ Sodium Chloride) 50 mls @ 100 mls/hr IV Q6H [facility] Last Infusion: 03/09/22 10:06 Dose: Infused Melatonin (Melatonin 3 Mg Tablet) 6 mg PO BEDTIME PRN PRN Reason: Insomnia Last Admin: 03/05/22 23:49 Dose: 6 mg Metoprolol Tartrate (Metoprolol Tartrate 25 Mg Tablet) 25 mg PO BID [facility]; Protocol Last Admin: 03/09/22 09:37 Dose: 25 mg Pharmacy Consult (Consult Rx Perform Med Rec) 1 each MISCELLANE ONCE PRN PRN Reason: Consult order Polyethylene Glycol (Polyethylene Glycol 3350 17 Gm Powd.Pack) 17 gm PO DAILY [facility] Last Admin: 03/09/22 09:32 Dose: Not Given Potassium Chloride (Potassium Chloride Er 20 Meq Tab.Er.Prt) 20 meq PO DAILY [facility] Last Admin: 03/09/22 09:37 Dose: 20 meq Senna (Sennosides 8.6 Mg Tablet) 17.2 mg PO BEDTIME PRN PRN Reason: Constipation Last Admin: 03/07/22 20:15 Dose: 17.2 mg Sodium Chloride (0.9 % Sodium Chloride Flush 3 Ml Syringe) 3 ml IVFLUSH QSHIFT [facility] Last Admin: 03/09/22 09:37 Dose: Not Given Home Medications Medication Instructions Recorded Confirmed Last Taken Type ferrous sulfate 324 mg (65 mg 324 mg PO DAILY 01/13/22 03/04/22 03/04/22 History iron) tablet,delayed release finasteride 5 mg tablet 1 tab PO DAILY 01/13/22 03/04/22 03/04/22 History gabapentin 100 mg capsule 2 cap PO BEDTIME 01/13/22 03/04/22 03/03/22 History metoprolol tartrate 25 mg tablet 25 mg PO BID PRN SBP>90 03/04/22 03/04/22 03/04/22 History potassium chloride 20 mEq 1 tab PO DAILY 03/04/22 03/04/22 03/04/22 History tablet,extended release(part/cryst) simvastatin 80 mg tablet 80 mg PO BEDTIME 03/04/22 03/04/22 03/03/22 History Physical Exam Vital Signs: Vital Signs: Last Vital Signs Temp 99 F 03/09/22 16:00 Pulse 79 03/09/22 16:00 Resp 18 03/09/22 16:00 BP 85/33 L 03/09/22 16:00 Pulse Ox 97 03/09/22 16:00 O2 Del Method 03/09/22 16:00 O2 Flow Rate 3 03/08/22 00:37 BMI result Body Mass Index 21.3 Const: General: cooperative HEENT: Head: Yes normal to inspection Mouth: Normal oral and palatal mucosa present Eyes: General: appearance normal, both eyes and all related structures Pupils: Equal, round and reactive pupils present Resp: Effort & Inspection: normal respiratory effort Cardio: Rate: regular rate Rhythm: regular rhythm GI: Inspection: Yes normal to inspection Skin: General skin exam: no rashes or lesions noted Neuro: Cranial nerves: Yes Equal, round and reactive pupils present Results Labs CBC & Chem 7: 03/09/22 06:56 03/09/22 06:56 Labs: Short CBC 03/09/22 Range/Units 06:56 WBC 1.1 L (4.8-10.8) X10*3/uL Hgb 6.4 L* (14.0-18.0) g/dl Hct 20.6 L* (42.0-52.0) % Plt Count 48 L D (160-400) X10*3/uL BMP 03/09/22 06:56 Sodium 135 Potassium 4.2 Chloride 104 Carbon Dioxide 25 BUN 45 H Creatinine 1.02 Calcium 8.3 L Microbiology Microbiology Results: Microbiology 03/04/22 18:56 Blood - Venous Blood Culture - Preliminary Gram variable nani 03/06/22 22:42 Blood - Venous Blood Culture - Preliminary No growth after 48 hours. 03/06/22 22:42 Blood - Venous Blood Culture - Preliminary No growth after 48 hours. 03/04/22 18:46 Blood - Venous Blood Culture - Preliminary No growth after 48 hours. Assessment and Plan (1) Pancytopenia: Status: Acute This is MDS related likely and has some increased risk for infection but not as much as the usual patient with neutropenia caused by chemotherapy in this situation. there is probable some aspiration pneumonia (2) Respiratory failure: Qualifiers: Chronicity: acute on chronic Respiratory failure complication: hypoxia Qualified Code(s): J96.21 - Acute and chronic respiratory failure with hypoxia Status: Acute Plan Agree with Piperacillin/Tazobactam for possible 5-7 days cover gram negative/gram positive.
[2022-03-09] MEDS: 0.9 % Sodium Chloride Flush 3 ML SYRINGE IVFLUSH ×2 (17:17→21:35)
--- NOTE | 2022-03-09 19:23 | PC.NURSE ---
Pt is alert and oriented x3. Pt receing his 1 unit of RBC with no S/Sx of transfusion reaction. Pt continues on IV ABT therapy as well .
[2022-03-09] MEDS: Melatonin 3 MG TABLET 6 MG PO (21:33)
[2022-03-09] MEDS: Gabapentin 100 MG CAPSULE 200 MG PO (21:33)
[2022-03-09] MEDS: Atorvastatin Calcium 40 MG TABLET PO (21:33)
[2022-03-09] MEDS: Docusate Sodium 100 MG CAPSULE PO (21:34)
[2022-03-10] VITALS (12 sets, daily range): BP systolic 86–133; BP diastolic 44–60; PULSE 54–109; RESP 16–20; TEMP -12.8–37; O2SAT 96–100
[2022-03-10] MEDS: Piperacillin Sodium/Tazobactam 3.375 GM in 0.9 % Sodium Chloride 50 ML IV ×4 (03:53→22:24)
[2022-03-10 06:31] LABS: Basophils Percent Auto 0.9 % (0-2); Imm Gran Abs Auto 0.01 X10*3/uL (0.00-0.03); Imm Gran Pct Auto 0.9 % (0.0-0.4); Lymphocytes Absolute Auto 0.7 X10*3/uL (1.2-4.9); Lymphocytes Percent Auto 58.4 % (20-40); MANUAL DIFF FLAG SCAN; Mean Corpuscular HGB Conc 32.1 g/dl (31.0-36.0); Mean Corpuscular Hemoglobin 29.9 pg (27.0-33.0); Mean Corpuscular Volume 93.1 fL (80.0-98.0); Mean Platelet Volume 10.5 fL (9.4-12.4); Monocytes Absolute Auto 0.1 X10*3/uL (0.1-1.2); Monocytes Percent Auto 7.1 % (2-11); Neutrophils Absolute Auto 0.4 x10*3/uL (2.0-8.3); Neutrophils Percent Auto 32.7 % (45-73); Red Blood Count 2.04 X10*6/uL (4.60-5.80); SCAN SMEAR FLAG 1
[2022-03-10 07:24] LABS: Hemoglobin 6.1 g/dl (14.0-18.0); White Blood Count 1.1 X10*3/uL (4.8-10.8)
[2022-03-10 07:25] LABS: NRBC Pct Auto 2.7 /100WBC (0.0-0.2); Platelet Count 30 X10*3/uL (160-400)
[2022-03-10 07:26] LABS: SLIDE REVIEW VERIFIED
[2022-03-10] MEDS: Potassium Chloride ER 20 MEQ TAB.ER.PRT PO (09:32)
[2022-03-10] MEDS: Finasteride 5 MG TABLET PO (09:33)
[2022-03-10] MEDS: Ferrous Sulfate 324 MG TABLET.DR PO (09:33)
[2022-03-10] MEDS: Acetaminophen 325 MG TABLET 650 MG PO (09:33)
[2022-03-10] MEDS: Amiodarone HCL 200 MG TABLET PO ×2 (09:33→21:03)
[2022-03-10] MEDS: 0.9 % Sodium Chloride Flush 3 ML SYRINGE IVFLUSH ×2 (09:34→16:23)
--- NOTE | 2022-03-10 10:08 | HO.PM.IMPN ---
Subjective Subjective Date of Service: 03/10/22 Interval History: Seen and examined this morning Follow-up for bacteremia, CHF, pancytopenia Denies any bleeding, rectal bleeding, hematuria or hemoptysis Denies shortness of breath, chest pain, palpitations Review of Systems Review of Systems: Yes all other systems are reviewed and are negative Constitutional Constitutional: Denies chills and Denies fever(s) Cardiovascular Cardiovascular: Denies chest pain, Denies palpitations and Denies dyspnea Respiratory Respiratory: Denies cough and Denies dyspnea Gastrointestinal Gastrointestinal: Denies abdominal pain, Denies diarrhea, Denies nausea and Denies vomiting Endocrine Endocrine: Denies palpitations Physical Exam Vital Signs: Vital Signs: Last Vital Signs Temp 97.0 F 03/10/22 09:02 Pulse 81 03/10/22 09:02 Resp 18 03/10/22 09:02 BP 105/53 L 03/10/22 09:02 Pulse Ox 97 03/10/22 07:59 O2 Del Method 03/10/22 07:59 O2 Flow Rate 3 03/08/22 00:37 BMI result Body Mass Index 21.3 Const: General: cooperative, comfortable, no acute distress, alert and awake Nutritional Appearance: thin Orientation/consciousness: patient oriented x3 Resp: Effort & Inspection: normal respiratory effort and able to speak in complete sentences Cardio: Rate: regular rate and tachycardic Heart sounds: S1 normal heart sound present and S2 normal heart sound present GI: Palpation (GI): Soft to palpation and nontender Neuro: General: patient oriented x3 Extrem: Other: Able to move all 4 extremities spontaneously, no pedal edema Objective Data Active Medications Acetaminophen (Acetaminophen 325 Mg Tablet) 650 mg PO Q6H PRN PRN Reason: Pain, Mild (Pain Scale 1-3) Last Admin: 03/10/22 09:33 Dose: 650 mg Documented By: BRYNN Albuterol/Ipratropium (Albuterol/Iprat 2.5/0.5mg 3 Ml Ampul.Neb) 3 ml INHALE RQ4H PRN PRN Reason: Shortness of Breath/Wheezing Amiodarone HCl (Amiodarone Hcl 200 Mg Tablet) 200 mg PO BID [facility] Last Admin: 03/10/22 09:33 Dose: 200 mg Documented By: BRYNN Atorvastatin Calcium (Atorvastatin Calcium 40 Mg Tablet) 40 mg PO BEDTIME [facility] Last Admin: 06/17/22 21:33 Dose: 40 mg Documented By: EVELYN Docusate Sodium (Docusate Sodium 100 Mg Capsule) 100 mg PO BEDTIME [facility] Last Admin: 03/09/22 21:34 Dose: 100 mg Documented By: EVELYN Ferrous Sulfate (Ferrous Sulfate 324 Mg Tablet.Dr) 324 mg PO DAILY [facility] Last Admin: 03/10/22 09:33 Dose: 324 mg Documented By: BRYNN Finasteride (Finasteride 5 Mg Tablet) 5 mg PO DAILY [facility] Last Admin: 03/10/22 09:33 Dose: 5 mg Documented By: BRYNN Gabapentin (Gabapentin 100 Mg Capsule) 200 mg PO BEDTIME [facility] Last Admin: 03/09/22 21:33 Dose: 200 mg Documented By: EVELYN Piperacillin Sod/Tazobactam (Sod 3.375 gm/ Sodium Chloride) 50 mls @ 100 mls/hr IV Q6H [facility] Last Infusion: 03/10/22 04:30 Dose: 0 mls/hr Documented By: AWA Melatonin (Melatonin 3 Mg Tablet) 6 mg PO BEDTIME PRN PRN Reason: Insomnia Last Admin: 03/09/22 21:33 Dose: 6 mg Documented By: EVELYN Metoprolol Tartrate (Metoprolol Tartrate 25 Mg Tablet) 25 mg PO BID [facility]; Protocol Last Admin: 03/10/22 09:36 Dose: Not Given Documented By: BRYNN Non-Admin Reason: Decreased Blood Pressure Pharmacy Consult (Consult Rx Perform Med Rec) 1 each MISCELLANE ONCE PRN PRN Reason: Consult order Polyethylene Glycol (Polyethylene Glycol 3350 17 Gm Powd.Pack) 17 gm PO DAILY [facility] Last Admin: 03/10/22 09:39 Dose: Not Given Documented By: BRYNN Non-Admin Reason: Patient Refused Potassium Chloride (Potassium Chloride Er 20 Meq Tab.Er.Prt) 20 meq PO DAILY [facility] Last Admin: 03/10/22 09:32 Dose: 20 meq Documented By: BRYNN Senna (Sennosides 8.6 Mg Tablet) 17.2 mg PO BEDTIME PRN PRN Reason: Constipation Last Admin: 03/07/22 20:15 Dose: 17.2 mg Documented By: DENISE Sodium Chloride (0.9 % Sodium Chloride Flush 3 Ml Syringe) 3 ml IVFLUSH QSHIFT [facility] Last Admin: 03/10/22 09:34 Dose: 3 ml Documented By: BRYNN Labs CBC & Chem 7: 03/10/22 06:23 03/09/22 06:56 Labs: Laboratory Results - last 24 hr 03/04/22 03/09/22 03/10/22 22:11 10:21 06:23 MCV 93.1 MCH 29.9 MCHC 32.1 RDW 17.0 H Plt Count 30 L D MPV 10.5 Immature Gran % (Auto) 0.9 H Neut % (Auto) 32.7 L Lymph % (Auto) 58.4 H [place] % (Auto) 7.1 Eos % (Auto) 0.0 Baso % (Auto) 0.9 Lymph # (Auto) 0.7 L [place] # (Auto) 0.1 Eos # (Auto) 0.0 Baso # (Auto) 0.0 Abs Immat Gran (auto) 0.01 Absolute Neuts (auto) 0.4 L Absolute Nucleated RBC 0.030 H Nucleated RBC % (auto) 2.7 H Smear Tech's Comments VERIFIED Blood Type A Positive Antibody Screen NEGATIVE Crossmatch See Detail See Detail Microbiology Microbiology Results: Microbiology 03/04/22 18:46 Blood Culture - Final Blood - Venous No growth after 5 days. 03/04/22 18:56 Blood Culture - Preliminary Blood - Venous Gram variable nani Assessment and Plan (1) Multifocal atrial tachycardia: Status: Acute (2) Acute on chronic HFrEF (heart failure with reduced ejection fraction): Status: Acute (3) Pancytopenia: Status: Acute Plan 77oy M with MDS, HFrEF, atrial tachycardia, HTN, HLD, chronic hypoxic respiratory failure on home O2 (2-3L prn), h/o kidney transplant in 1999 presented with dyspnea, admitted for respiratory failure from CHF exacerbation bacteremia initially growing GNR, now reported as gram variable nani in 1/4 bottles - unable to identify species therefore being sent out to reference laboratory. Likely will not have speciation until at least Saturday started on ceftriaxone 03/06. given immunocompromise [neutropenia], changed to pip/antonieta for antipseudomonal coverage on 03/08 ?source - CTchest showing improvement in opacities (was treated for pneumonia on last admission) no respiratory symptoms at this time. CT abdomen/pelvis with no obvious source of infection seen by ID consult, recommend to continue Zosyn for 5-7 days; on day #3 acute/chronic hypoxic respiratory failure briefly on CPAP in ED, now on room air at baseline uses 2-3L prn acute/chronic HFrEF EF 30-35% - appears euvolemic- IV furosemide stopped. Cardiology following atrial tachycardia vs flutter- converted back to sinus 6/ afternoon, now appears to be MAT - continue amiodarone- increased to 200 mg bid x 1 wk (until 03/12 then change to 200 mg once daily); changed metoprolol to 25 mg bid standing; s/p digoxin x 3 doses - not a candidate for anticoagulation due to chronic anemia pancytopenia r/t MDS, undergoing chemotherapy, managed by [facility]. Last chemo 03/02 H/H trending down, no overt bleeding noted - transfused 1u pRBCs 03/05, 1u pRBCs 03/06, 03/09, 2 units ordered for today - seen by Heme/Onc - monitor CBC, avoid heparinoids - FOBT pending Constipation Seen on CT abdomen/pelvis Bowel regimen started with positive effect HLD continue statin h/o Renal transplant left kidney moved to right side after left ureter was damaged from kidney stones VTE ppx- SCDs Attending-Dr. Arce Patient requires ongoing inpatient hospitalization due to workup for bacteremia/IV antibiotics Quality Stroke Does the patient have a stroke diagnosis?: No VTE Prior VTE?: No VTE Risk Level:: Medical - moderate - high VTE Device Contraindication: Treatment Not Indicated VTE Drug Contraindication: N/A - Med Ordered
[2022-03-10 13:45] LABS: OBS Int Ctl Valid YES; OBS1 POSITIVE (NEGATIVE)
--- NOTE | 2022-03-10 15:24 | PC.NURSE ---
1500 guiac pos. Had soft black stool on commode. Receiving 2nd unit of blood at this time. New order for GI consult
--- NOTE | 2022-03-10 16:37 | PC.NURSE ---
P patien had 6 beats of V-tach i pt has no complaints,BP 97/55 pulse 76,Dr. Bryant notified E will monitor
[2022-03-10 17:45] LABS: Hemoglobin 7.6 g/dl (14.0-18.0)
[2022-03-10 17:47] LABS: Hematocrit 23.6 % (42.0-52.0)
[2022-03-10 18:02] LABS: Anion Gap 10 (12-20); Blood Urea Nitrogen 55 mg/dL (9-16); Calcium 7.6 mg/dL (8.4-10.2); Carbon Dioxide 22 mmol/L (22-29); Chloride 108 mmol/L (96-108); Creatinine Clr Calc Pharmacy 56.2; Estimated Glomerular Filt Rate > 60; Glucose Random 87 mg/dL (60-115); Magnesium 1.6 mg/dL (1.6-2.6); Potassium 4.3 mmol/L (3.3-5.1); Sodium 136 mmol/L (135-145)
--- NOTE | 2022-03-10 18:19 | PC.NURSE ---
CBC,BMP results available ,[place] Maureen Cheney notified
[2022-03-10] MEDS: Magnesium Sulfate/D5W 1 GM/100 ML PIGGYBACK IV (18:40)
[2022-03-10] MEDS: Atorvastatin Calcium 40 MG TABLET PO (21:00)
[2022-03-10] MEDS: Gabapentin 100 MG CAPSULE 200 MG PO (21:01)
[2022-03-10] MEDS: Metoprolol Tartrate 25 MG TABLET PO (21:03)
[2022-03-11] VITALS (24 sets, daily range): BP systolic 90–141; BP diastolic 40–73; PULSE 65–104; RESP 18–22; TEMP 36.3–37.2; O2SAT 96–100
[2022-03-11 02:40] LABS: Anion Gap 10 (12-20); Blood Urea Nitrogen 58 mg/dL (9-16); Calcium 7.5 mg/dL (8.4-10.2); Carbon Dioxide 21 mmol/L (22-29); Chloride 107 mmol/L (96-108); Creatinine Clr Calc Pharmacy 56.8; Estimated Glomerular Filt Rate > 60; Glucose Random 91 mg/dL (60-115); Magnesium 1.7 mg/dL (1.6-2.6); Potassium 3.8 mmol/L (3.3-5.1); Sodium 134 mmol/L (135-145)
[2022-03-11] MEDS: Piperacillin Sodium/Tazobactam 3.375 GM in 0.9 % Sodium Chloride 50 ML IV ×3 (04:30→21:29)
--- NOTE | 2022-03-11 06:47 | PM.EVENT ---
Event Note Date of Service: 03/11/22 Event Note: Pt developed 2 episodes of NSVT. Mag 1.7 and K 3.8 will give MAg IV and K to keep Mag>2 and K>4
[2022-03-11 06:57] LABS: Basophils Percent Auto 0.7 % (0-2); Imm Gran Abs Auto 0.02 X10*3/uL (0.00-0.03); Imm Gran Pct Auto 1.4 % (0.0-0.4); Lymphocytes Absolute Auto 0.8 X10*3/uL (1.2-4.9); Lymphocytes Percent Auto 58.2 % (20-40); MANUAL DIFF FLAG SCAN; Mean Corpuscular HGB Conc 31.4 g/dl (31.0-36.0); Mean Corpuscular Hemoglobin 28.9 pg (27.0-33.0); Mean Corpuscular Volume 92.2 fL (80.0-98.0); Mean Platelet Volume 12.2 fL (9.4-12.4); Monocytes Absolute Auto 0.2 X10*3/uL (0.1-1.2); Monocytes Percent Auto 12.8 % (2-11); Neutrophils Absolute Auto 0.4 x10*3/uL (2.0-8.3); Neutrophils Percent Auto 26.9 % (45-73); Red Blood Count 2.04 X10*6/uL (4.60-5.80); Red Cell Distribution Width 19.1 % (11.0-16.0); SCAN SMEAR FLAG 1
[2022-03-11 07:12] LABS: NRBC Pct Auto 1.4 /100WBC (0.0-0.2); Platelet Count 28 X10*3/uL (160-400); White Blood Count 1.4 X10*3/uL (4.8-10.8)
[2022-03-11 07:16] LABS: Hematocrit 18.8 % (42.0-52.0); Hemoglobin 5.9 g/dl (14.0-18.0)
[2022-03-11 07:18] LABS: Anion Gap 10 (12-20); Blood Urea Nitrogen 60 mg/dL (9-16); Calcium 7.6 mg/dL (8.4-10.2); Carbon Dioxide 21 mmol/L (22-29); Chloride 108 mmol/L (96-108); Estimated Glomerular Filt Rate > 60; Glucose Random 87 mg/dL (60-115); Sodium 135 mmol/L (135-145)
[2022-03-11 07:25] LABS: SLIDE REVIEW VERIFIED
--- NOTE | 2022-03-11 09:10 | P.PNIM_ITS ---
Subjective Subjective Date of Service: 03/11/22 Interval History: seen and examined this morning follow up for atrial tachycardia, anemia had multiple black stools overnight HR elevated multiple episodes of NSVT Physical Exam Vital Signs: Vital Signs: Last Vital Signs Temp 98.9 F 03/11/22 03:30 Pulse 65 03/11/22 03:30 Resp 18 03/11/22 03:30 BP 141/72 H 03/11/22 03:30 Pulse Ox 97 03/11/22 03:30 O2 Del Method 03/11/22 03:30 O2 Flow Rate 3 03/08/22 00:37 FiO2 96 03/10/22 16:36 BMI result Body Mass Index 21.3 Const: General: cooperative, comfortable, no acute distress, alert and awake Nutritional Appearance: thin Orientation/consciousness: patient oriented x3 Resp: Effort & Inspection: normal respiratory effort and able to speak in complete sentences Cardio: Rate: regular rate and tachycardic Heart sounds: S1 normal heart sound present and S2 normal heart sound present GI: Palpation (GI): Soft to palpation and nontender Neuro: General: patient oriented x3 Extrem: Other: Able to move all 4 extremities spontaneously, no pedal edema Objective Data Active Medications Acetaminophen (Acetaminophen 325 Mg Tablet) 650 mg PO Q6H PRN PRN Reason: Pain, Mild (Pain Scale 1-3) Last Admin: 03/10/22 09:33 Dose: 650 mg Documented By: BRYNN Albuterol/Ipratropium (Albuterol/Iprat 2.5/0.5mg 3 Ml Ampul.Neb) 3 ml INHALE RQ4H PRN PRN Reason: Shortness of Breath/Wheezing Amiodarone HCl (Amiodarone Hcl 200 Mg Tablet) 200 mg PO BID [facility] Last Admin: 03/10/22 21:03 Dose: 200 mg Documented By: WILLIAM Atorvastatin Calcium (Atorvastatin Calcium 40 Mg Tablet) 40 mg PO BEDTIME [facility] Last Admin: 03/10/22 21:00 Dose: 40 mg Documented By: WILLIAM Docusate Sodium (Docusate Sodium 100 Mg Capsule) 100 mg PO BEDTIME [facility] Last Admin: 03/10/22 21:01 Dose: Not Given Documented By: WILLIAM Non-Admin Reason: loose stools Ferrous Sulfate (Ferrous Sulfate 324 Mg Tablet.) 324 mg PO DAILY [facility] Last Admin: 03/10/22 09:33 Dose: 324 mg Documented By: BRYNN Finasteride (Finasteride 5 Mg Tablet) 5 mg PO DAILY [facility] Last Admin: 03/10/22 09:33 Dose: 5 mg Documented By: BRYNN Gabapentin (Gabapentin 100 Mg Capsule) 200 mg PO BEDTIME [facility] Last Admin: 03/10/22 21:01 Dose: 200 mg Documented By: WILLIAM Piperacillin Sod/Tazobactam (Sod 3.375 gm/ Sodium Chloride) 50 mls @ 100 mls/hr IV Q6H [facility] Last Infusion: 03/11/22 05:41 Dose: 0 mls/hr Documented By: EVELYN Melatonin (Melatonin 3 Mg Tablet) 6 mg PO BEDTIME PRN PRN Reason: Insomnia Last Admin: 03/09/22 21:33 Dose: 6 mg Documented By: EVELYN Metoprolol Tartrate (Metoprolol Tartrate 25 Mg Tablet) 25 mg PO BID [facility]; Protocol Last Admin: 03/10/22 21:03 Dose: 25 mg Documented By: WILLIAM Pantoprazole Sodium (Pantoprazole Sodium 40 Mg/10 Ml Vial) 40 mg IVPUSH BID@0630,1630 [facility] Pharmacy Consult (Consult Rx Perform Med Rec) 1 each MISCELLANE ONCE PRN PRN Reason: Consult order Polyethylene Glycol (Polyethylene Glycol 3350 17 Gm Powd.Pack) 17 gm PO DAILY [facility] Last Admin: 03/10/22 09:39 Dose: Not Given Documented By: BRYNN Non-Admin Reason: Patient Refused Potassium Chloride (Potassium Chloride Er 20 Meq Tab.Er.Prt) 20 meq PO DAILY [facility] Last Admin: 03/10/22 09:32 Dose: 20 meq Documented By: BRYNN Senna (Sennosides 8.6 Mg Tablet) 17.2 mg PO BEDTIME PRN PRN Reason: Constipation Last Admin: 03/07/22 20:15 Dose: 17.2 mg Documented By: DENISE Sodium Chloride (0.9 % Sodium Chloride Flush 3 Ml Syringe) 3 ml IVFLUSH QSHIFT [facility] Last Admin: 03/10/22 23:56 Dose: Not Given Documented By: EVELYN Non-Admin Reason: Previously Administered Sucralfate (Sucralfate 1 Gm Tablet) 1 gm PO BIDAC [facility] Labs CBC & Chem 7: 03/11/22 05:25 03/11/22 05:25 Labs: Laboratory Results - last 24 hr 03/09/22 03/10/22 03/10/22 10:21 13:00 17:30 MCV MCH MCHC RDW Plt Count MPV Immature Gran % (Auto) Neut % (Auto) Lymph % (Auto) [place] % (Auto) Eos % (Auto) Baso % (Auto) Lymph # (Auto) [place] # (Auto) Eos # (Auto) Baso # (Auto) Abs Immat Gran (auto) Absolute Neuts (auto) Absolute Nucleated RBC Nucleated RBC % (auto) Smear Tech's Comments Anion Gap 10 L Estim Creat Clear Calc 56.2 Estimated GFR > 60 Random Glucose 87 Calcium 7.6 L D Magnesium 1.6 Stool Occult Blood POSITIVE Blood Type A Positive Antibody Screen NEGATIVE Crossmatch See Detail 03/11/22 03/11/22 03/11/22 02:08 05:25 05:25 MCV 92.2 MCH 28.9 MCHC 31.4 RDW 19.1 H Plt Count 28 L MPV 12.2 Immature Gran % (Auto) 1.4 H Neut % (Auto) 26.9 L Lymph % (Auto) 58.2 H [place] % (Auto) 12.8 H Eos % (Auto) 0.0 Baso % (Auto) 0.7 Lymph # (Auto) 0.8 L [place] # (Auto) 0.2 Eos # (Auto) 0.0 Baso # (Auto) 0.0 Abs Immat Gran (auto) 0.02 Absolute Neuts (auto) 0.4 L Absolute Nucleated RBC 0.020 H Nucleated RBC % (auto) 1.4 H Smear Tech's Comments VERIFIED Anion Gap 10 L 10 L Estim Creat Clear Calc 56.8 58.0 Estimated GFR > 60 > 60 Random Glucose 91 87 Calcium 7.5 L 7.6 L Magnesium 1.7 Stool Occult Blood Blood Type Antibody Screen Crossmatch Assessment and Plan (1) NSVT (nonsustained ventricular tachycardia): Status: Acute (2) GI bleeding: Status: Acute (3) Multifocal atrial tachycardia: Status: Acute (4) Pancytopenia: Status: Acute (5) Neutropenia: Status: Acute (6) Cardiomyopathy: Status: Acute Plan 77oy M with MDS, HFrEF, atrial tachycardia, HTN, HLD, chronic hypoxic respiratory failure on home O2 (2-3L prn), h/o kidney transplant in 1999 presented with dyspnea, admitted for respiratory failure from CHF exacerbation GI bleeding overnight had multiple dark tarry stools probable upper GI source -IV protonix -NPO -GI consult -q6h CBC -2units of blood ordered NSVT multiple runs noted on tele, pt asymptomatic known EF of 30-35% on BB, unable to increase given soft BP mag, potassium replacement given monitor electrolytes closely to keep mag>2, k >4 tele monitoring bacteremia initially growing GNR, now reported as gram variable nani in 1/ bottles - unable to identify species therefore being sent out to reference laboratory. Likely will not have speciation until at least Saturday started on ceftriaxone 03/06. given immunocompromise [neutropenia], changed to pip/antonieta for antipseudomonal coverage on 03/07 ?source - CT chest showing improvement in opacities (was treated for pneumonia on last admission) no respiratory symptoms at this time. CT abdomen/pelvis with no obvious source of infection seen by ID consult, recommend to continue Zosyn for 5-7 days; on day #5 atrial tachycardia vs flutter- converted back to sinus 03/08 afternoon, now appears to be MAT HR uncontrolled overnight. Low BP making control difficult - continue amiodarone- increased to 200 mg bid x 1 wk (until 03/12 then change to 200 mg once daily); changed metoprolol to 25 mg bid standing; s/p digoxin x 3 doses - not a candidate for anticoagulation due to chronic anemia/GIB - cardiology following pancytopenia h/o MDS, undergoing chemotherapy, managed by [facility]. Last chemo 03/02 H/H trending down - transfused 1u pRBCs 03/05, 1u pRBCs 03/06, 03/09, 2u 03/10 - seen by Heme/Onc - monitor CBC, avoid heparinoids - FOBT posiitve, see above acute/chronic hypoxic respiratory failure briefly on CPAP in ED, now on room air at baseline uses 2-3L prn - has been intermittently using at times acute/chronic HFrEF EF 30-35% - appears euvolemic at this time - IV furosemide stopped. 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 Arce Code status - Code status discussed this morning, confirmed full code. HCP is Patricia, number in system is incorrect. Correct number is [phone]. She was updated this morning Patient requires ongoing inpatient hospitalization due to workup for bacteremia/IV antibiotics/GI bleeding, anemia/NSVT. Needs close tele monitoring for cardiac arrhythmia and frequent lab draws to monitor CBC. Quality Stroke Does the patient have a stroke diagnosis?: No VTE Prior VTE?: No VTE Risk Level:: Medical - moderate - high VTE Device Contraindication: Treatment Not Indicated VTE Drug Contraindication: N/A - Med Ordered
[2022-03-11] MEDS: Amiodarone HCL 200 MG TABLET PO ×2 (09:51→21:29)
[2022-03-11] MEDS: 0.9 % Sodium Chloride Flush 3 ML SYRINGE IVFLUSH ×2 (09:51→21:29)
[2022-03-11] MEDS: Finasteride 5 MG TABLET PO (09:51)
[2022-03-11] MEDS: Potassium Chloride Packet 20 MEQ PACKET PO (09:51)
[2022-03-11] MEDS: Ferrous Sulfate 324 MG TABLET.DR PO (09:51)
[2022-03-11] MEDS: Pantoprazole Sodium 40 MG/10 ML VIAL IVPUSH (09:51)
[2022-03-11] MEDS: Magnesium Sulfate/H2O 2 GM/50 ML PIGGYBACK IV (10:03)
[2022-03-11] MEDS: Potassium Chloride ER 20 MEQ TAB.ER.PRT PO (10:11)
--- NOTE | 2022-03-11 10:50 | MHC.SHP ---
Pre-Procedural Eval Section A Date of Service: 03/11/22 The patient is an INPATIENT: Yes Changes since office visit: No Cold of Flu in the past 2 weeks, No New Medical Problems, No Changes in Medication and No Patient answered all questions The History & Physical has been completed within 30 days and I have reviewed it.: Yes Section B Chief Complaint: Acute hypoxic respiratory failure, tachycardia Allergies: Allergies Allergy/AdvReac Type Severity Reaction Status Date / Time No Known Allergies Allergy Verified 11/27/21 20:52 Plan I have reviewed the history and physical and performed a pertinent physical examination on my patient. No changes have occurred unless specified.
--- NOTE | 2022-03-11 10:50 | PM.EVENT ---
Event Note Date of Service: 03/11/22 Event Note: GI consult dictated black tarry stool with drop in hematocrit c/w ugi blood loss. agree with transfusion, ppi discussed egd with patient for further evaluation. he understands risks and benefits and agrees to proceed.
[2022-03-11 11:19] LABS: Mean Corpuscular HGB Conc 31.5 g/dl (31.0-36.0); Mean Corpuscular Hemoglobin 29.4 pg (27.0-33.0); Mean Corpuscular Volume 93.1 fL (80.0-98.0); Mean Platelet Volume 10.3 fL (9.4-12.4); Red Blood Count 2.18 X10*6/uL (4.60-5.80); Red Cell Distribution Width 18.6 % (11.0-16.0)
[2022-03-11 11:20] LABS: NRBC Pct Auto 1.7 /100WBC (0.0-0.2); Platelet Count 27 X10*3/uL (160-400); White Blood Count 1.7 X10*3/uL (4.8-10.8)
[2022-03-11 11:31] LABS: Hemoglobin 6.4 g/dl (14.0-18.0)
[2022-03-11 11:32] LABS: Hematocrit 20.3 % (42.0-52.0)
--- NOTE | 2022-03-11 11:32 | CONS_ITS ---
DATE OF SERVICE: 03/11/2022 REFERRING PHYSICIAN: Dr. Cheney REASON FOR CONSULTATION: Upper GI bleeding. HISTORY OF PRESENT ILLNESS: Mr. Tamayo is a pleasant 77-year-old man with multiple medical problems, who was admitted to the hospital on March 04 with dyspnea and chest pain. He has a history of myelodysplastic syndrome with anemia, and during this hospitalization, last night, was noted to have black tarry stools. Since being hospitalized, he has been persistently anemic and has received 7 units of packed red blood cells. His hematocrit this morning was 18.8, which was down from 23.6 yesterday evening. He is currently receiving the 1st of 2 units of packed red blood cells. Platelets have also been ordered for his platelet count of 28. PAST MEDICAL HISTORY: 1. Myelodysplastic syndrome for which he receives transfusion twice weekly. 2. Atrial tachycardia/flutter. 3. Chronic kidney disease. 4. Congestive heart failure. 5. COPD. 6. Pneumonia. 7. History of COVID-19 infection. 8. Hypertension. 9. Hyperlipidemia. 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 11. Kidney auto transplantation. CURRENT MEDICATIONS: Current medication list is reviewed in the chart. ALLERGIES: THERE ARE NONE REPORTED. FAMILY HISTORY: This is reviewed with the patient and is noncontributory. SOCIAL HISTORY: There is no history of substance abuse. REVIEW OF SYSTEMS: SKIN: No pruritus. HEENT: Negative. CARDIOPULMONARY: No shortness of breath or chest pain. GASTROINTESTINAL: As above. GENITOURINARY: Negative. NEUROPSYCHIATRIC: Negative. PHYSICAL EXAMINATION: GENERAL: Shows a pleasant male, lying comfortably in bed. VITAL SIGNS: Reviewed in electronic medical record and are stable. SKIN: Anicteric. HEENT: Shows no scleral icterus. NECK: Without lymphadenopathy or thyromegaly. LUNGS: Clear. HEART: Shows a regular rate and rhythm. S1, S2. No murmur. ABDOMEN: Soft without focal masses or tenderness. Bowel sounds are present. No organomegaly is noted. EXTREMITIES: Without edema. LABORATORY DATA: Reviewed. IMPRESSION: Upper gastrointestinal bleeding. His black stools and drop in hematocrit suggests a component of upper GI blood loss. I have discussed endoscopy with him including risks and benefits of the procedure today. He understands and agrees to proceed. I agree with transfusing him and following his hematocrit. Thanks for asking me to see him. I will follow him in the hospital with you. MD JOEL Pressley/LORAINE / [id number] MTDD
--- NOTE | 2022-03-11 11:36 | P.PNCA_ITS ---
Subjective Subjective Date of Service: 03/11/22 Principal diagnosis: atrial flutter, anemia Interval history: Noticed to have melena today. Continues to have multifocal atrial tachycardia with fluctuating heart rates. Also some nonsustained VT noticed. His metop rolol was held today because of hypotension. Physical Exam Vital Signs: Last Vital Signs Temp 97.7 F 03/11/22 11:07 Pulse 104 H 03/11/22 11:07 Resp 18 03/11/22 11:07 BP 133/73 03/11/22 11:07 Pulse Ox 100 03/11/22 08:00 O2 Del Method 03/11/22 08:00 O2 Flow Rate 3 03/11/22 08:00 FiO2 96 03/10/22 16:36 BMI result Body Mass Index 21.3 GENERAL APPEARANCE: in no acute distress, pleasant. NECK: no carotid bruit, no jugular venous distention. SKIN: no suspicious lesions, warm and dry. HEART: no murmurs, irregular tachycardia. LUNGS: clear to auscultation bilaterally. ABDOMEN: soft, nontender. EXTREMITIES: no edema. PERIPHERAL PULSES: equal. NEUROLOGIC: No gross deficits, AAO X 3 Objective Labs and Meds Result diagrams: 03/11/22 10:57 03/11/22 05:25 Lab results: Laboratory Results - last 24 hr 03/09/22 03/10/22 03/10/22 10:21 13:00 17:30 WBC RBC Hgb 7.6 L D Hct 23.6 L D MCV MCH MCHC RDW Plt Count MPV Immature Gran % (Auto) Neut % (Auto) Lymph % (Auto) [place] % (Auto) Eos % (Auto) Baso % (Auto) Lymph # (Auto) [place] # (Auto) Eos # (Auto) Baso # (Auto) Abs Immat Gran (auto) Absolute Neuts (auto) Absolute Nucleated RBC Nucleated RBC % (auto) Smear Tech's Comments Sodium Potassium Chloride Carbon Dioxide Anion Gap BUN Creatinine Estim Creat Clear Calc Estimated GFR Random Glucose Calcium Magnesium Stool Occult Blood POSITIVE Blood Type A Positive Antibody Screen NEGATIVE Crossmatch See Detail 03/10/22 03/11/22 03/11/22 17:30 02:08 05:25 WBC 1.4 L RBC 2.04 L Hgb 5.9 L* D Hct 18.8 L* D MCV 92.2 MCH 28.9 MCHC 31.4 RDW 19.1 H Plt Count 28 L MPV 12.2 Immature Gran % (Auto) 1.4 H Neut % (Auto) 26.9 L Lymph % (Auto) 58.2 H [place] % (Auto) 12.8 H Eos % (Auto) 0.0 Baso % (Auto) 0.7 Lymph # (Auto) 0.8 L [place] # (Auto) 0.2 Eos # (Auto) 0.0 Baso # (Auto) 0.0 Abs Immat Gran (auto) 0.02 Absolute Neuts (auto) 0.4 L Absolute Nucleated RBC 0.020 H Nucleated RBC % (auto) 1.4 H Smear Tech's Comments VERIFIED Sodium 136 134 L Potassium 4.3 3.8 Chloride 108 107 Carbon Dioxide 22 21 L Anion Gap 10 L 10 L BUN 55 H 58 H Creatinine 0.93 0.92 Estim Creat Clear Calc 56.2 56.8 Estimated GFR > 60 > 60 Random Glucose 87 91 Calcium 7.6 L D 7.5 L Magnesium 1.6 1.7 Stool Occult Blood Blood Type Antibody Screen Crossmatch 03/11/22 03/11/22 05:25 10:57 WBC 1.7 L RBC 2.18 L Hgb 6.4 L* Hct 20.3 L* MCV 93.1 MCH 29.4 MCHC 31.5 RDW 18.6 H Plt Count 27 L MPV 10.3 Immature Gran % (Auto) Neut % (Auto) Lymph % (Auto) [place] % (Auto) Eos % (Auto) Baso % (Auto) Lymph # (Auto) [place] # (Auto) Eos # (Auto) Baso # (Auto) Abs Immat Gran (auto) Absolute Neuts (auto) Absolute Nucleated RBC 0.030 H Nucleated RBC % (auto) 1.7 H Smear Tech's Comments Sodium 135 Potassium 4.0 Chloride 108 Carbon Dioxide 21 L Anion Gap 10 L BUN 60 H Creatinine 0.90 Estim Creat Clear Calc 58.0 Estimated GFR > 60 Random Glucose 87 Calcium 7.6 L Magnesium Stool Occult Blood Blood Type Antibody Screen Crossmatch Progress Note: A&P Assessment and plan (1) GI bleeding: Status: Acute (2) NSVT (nonsustained ventricular tachycardia): Status: Acute (3) Multifocal atrial tachycardia: Status: Acute Plan 77-year-old gentleman with MDS and previous atrial flutter. He was admitted for anemia and atrial flutter. He was given blood transfusion and increase the amiodarone to 200 mg twice a day and added beta-robert. He converted from atrial flutter to multifocal atrial tachycardia. Since then he has been in multifocal atrial tachycardia with fluctuating heart rates. He has not received his beta-robert dose today because of low blood pressures. His current blood pressure is 133/73. I think beta-robert can be resumed and his blood pressure allows after blood transfusion he should have titration of beta-robert. He is due to get endoscopy today because he had melena. He has known cardiomyopathy but currently is compensated. For the nonsustained VT is electrolytes should be monitored closely and beta-robert reintroduce as soon as possible. Amiodarone can be changed to 200 mg after 1 week from the date it was increased to b.i.d.. Thank you for allowing me to participate in the care of your patient. Please feel free to contact me if you have any questions. Time Spent With Patient Time: Total time spent is greater than 50% in coordination of care (as documented) at patient's floor/unit and/or counseling patient: Progress Note: Quality Stroke Does the patient have a stroke diagnosis?: No Procedures Date of Service Date of Service: 03/11/22
--- NOTE | 2022-03-11 12:47 | PM.OP ---
Brief Operative Note Date of Service: 03/11/22 Pre-op diagnosis: UGIB Post-op diagnosis: same (erosive gastritis, duodenitis) Procedure: EGD Surgeon: Chepe Mark Anesthesia: GETA Was an [employer] Supervisor used for this Procedure?: No Estimated blood loss (mL): 5 Pathology: none sent Condition: stable Disposition: PACU
--- NOTE | 2022-03-11 12:48 | PM.EVENT ---
Event Note Date of Service: 03/11/22 Event Note: EGD erosive gastritis and duodenitis no active bleeding, but mucosa is friable and oozes with instrumentation. rec: transfusion as planned ppi monitor hematocrit
--- NOTE | 2022-03-11 13:18 | OP_ITS ---
SURGEON: Chepe Mark MD INDICATIONS: Upper GI bleeding. PREOPERATIVE DIAGNOSIS: POSTOPERATIVE DIAGNOSIS: PROCEDURE PERFORMED: Upper endoscopy. ESTIMATED BLOOD LOSS: COMPLICATIONS: ANESTHESIA: General anesthesia. ASSISTANTS: SPECIMENS: DESCRIPTION OF PROCEDURE: History and physical performed. The risks and benefits of the procedure were explained to the patient. Informed consent was obtained. The patient was placed in the left lateral decubitus position. The Olympus video gastroscope was introduced into the esophagus, stomach, and duodenum. Examination was performed. The scope was removed. He tolerated the procedure well, and was taken to recovery area in stable condition. FINDINGS: 1. Esophagus: The esophagus was normal. There was no bleeding. There was no esophagitis. 2. Stomach: The stomach showed no active bleeding. There were some antral erosions consistent with erosive gastritis. 3. Duodenum: There was a large duodenal diverticulum at the junction of the bulb and second portion with some retained food and a pill as well as some clotted blood but no active bleeding. There was duodenitis. No ulcer was seen. No active bleeding was seen. The mucosa in the antrum and duodenum was friable and oozed with instrumentation. Gastric and duodenal mucosa were edematous. IMPRESSION: 1. Erosive gastritis. 2. Duodenitis. RECOMMENDATIONS: 1. Continue proton pump inhibitor. 2. Follow hematocrit. 3. Platelet transfusion as ordered. MD JOEL Pressley/LORAINE / [id number] MTDD
[2022-03-11 14:37] LABS: Fibrinogen 360 MG/DL (259-690); INTERNATIONAL NORM RATIO 1.1 (0.9-1.1)
[2022-03-11 14:40] LABS: Partial Thromboplastin Time 28.8 SEC (24.1-38.0)
[2022-03-11] MEDS: Omeprazole 40 MG CAPSULE.DR PO (15:05)
[2022-03-11] MEDS: Sucralfate Oral Suspension 1 GM/10 ML ORAL.SUSP PO ×3 (15:05→21:29)
[2022-03-11 18:51] LABS: Mean Corpuscular HGB Conc 31.4 g/dl (31.0-36.0); Mean Corpuscular Hemoglobin 29.6 pg (27.0-33.0); Mean Corpuscular Volume 94.2 fL (80.0-98.0); Mean Platelet Volume 10.3 fL (9.4-12.4); Red Blood Count 2.23 X10*6/uL (4.60-5.80); Red Cell Distribution Width 17.2 % (11.0-16.0)
[2022-03-11 18:56] LABS: Hemoglobin 6.6 g/dl (14.0-18.0); NRBC Pct Auto 2.4 /100WBC (0.0-0.2); Platelet Count 59 X10*3/uL (160-400)
[2022-03-11 19:06] LABS: White Blood Count 0.9 X10*3/uL (4.8-10.8)
--- NOTE | 2022-03-11 19:22 | PM.EVENT ---
Event Note Date of Service: 03/11/22 Event Note: hgb post transfusion of 2 units of pRBC remains 6.6. No acute active bleed will transfuse 1 more unit of prbc. monitor resp status
[2022-03-11] MEDS: Gabapentin 100 MG CAPSULE 200 MG PO (21:29)
[2022-03-11] MEDS: Metoprolol Tartrate 25 MG TABLET PO (21:29)
[2022-03-11] MEDS: Atorvastatin Calcium 40 MG TABLET PO (21:29)
[2022-03-11] MEDS: Acetaminophen 325 MG TABLET 650 MG PO (21:45)
[2022-03-11 22:25] LABS: OBS Int Ctl Valid YES; OBS1 POSITIVE (NEGATIVE)
[2022-03-11 23:08] LABS: CDiff Gene PCR NEGATIVE (Negative)
[2022-03-12] VITALS (8 sets, daily range): BP systolic 99–123; BP diastolic 44–82; PULSE 61–80; RESP 17–20; TEMP 35.6–36.8; O2SAT 93–100
--- NOTE | 2022-03-12 | ECG_ITS ---
Test Reason : atrial flutter Blood Pressure : / mmHG Vent. Rate : 070 BPM Atrial Rate : 070 BPM P-R Int : 202 ms QRS Dur : 086 ms QT Int : 544 ms P-R-T Axes : 065 041 129 degrees QTc Int : 587 ms Poor data quality, interpretation may be adversely affected Sinus rhythm with occasional Premature ventricular complexes and Premature atrial complexes T wave abnormality, consider anterolateral ischemia Prolonged QT Abnormal ECG When compared with ECG of 08-MAR-2022 14:27, MAR is no longer present T wave inversion more evident in Anterior leads QT has lengthened Referred By: Erlin Prado Electronically Signed By:ERLIN PRADO MD
[2022-03-12] MEDS: Piperacillin Sodium/Tazobactam 3.375 GM in 0.9 % Sodium Chloride 50 ML IV ×4 (02:04→20:39)
[2022-03-12 02:07] LABS: Hematocrit 22.9 % (42.0-52.0); Hemoglobin 7.6 g/dl (14.0-18.0); Mean Corpuscular HGB Conc 33.2 g/dl (31.0-36.0); Mean Corpuscular Hemoglobin 30.4 pg (27.0-33.0); Mean Corpuscular Volume 91.6 fL (80.0-98.0); Mean Platelet Volume 9.4 fL (9.4-12.4); Red Cell Distribution Width 16.5 % (11.0-16.0)
[2022-03-12 02:08] LABS: Platelet Count 53 X10*3/uL (160-400)
[2022-03-12] MEDS: Omeprazole 40 MG CAPSULE.DR PO ×2 (06:08→17:22)
[2022-03-12] MEDS: Potassium Chloride ER 20 MEQ TAB.ER.PRT PO (07:57)
[2022-03-12] MEDS: 0.9 % Sodium Chloride Flush 3 ML SYRINGE IVFLUSH ×3 (07:57→20:40)
[2022-03-12] MEDS: Amiodarone HCL 200 MG TABLET PO ×2 (07:57→20:39)
[2022-03-12] MEDS: Sucralfate Oral Suspension 1 GM/10 ML ORAL.SUSP PO ×4 (07:57→20:39)
[2022-03-12] MEDS: Ferrous Sulfate 324 MG TABLET.DR PO (07:57)
[2022-03-12] MEDS: Finasteride 5 MG TABLET PO (07:57)
[2022-03-12 07:58] LABS: Hematocrit 21.9 % (42.0-52.0); Hemoglobin 7.1 g/dl (14.0-18.0); Mean Corpuscular HGB Conc 32.4 g/dl (31.0-36.0); Mean Corpuscular Hemoglobin 30.1 pg (27.0-33.0); Mean Corpuscular Volume 92.8 fL (80.0-98.0); Mean Platelet Volume 10.1 fL (9.4-12.4); Red Blood Count 2.36 X10*6/uL (4.60-5.80); Red Cell Distribution Width 17.2 % (11.0-16.0)
--- NOTE | 2022-03-12 08:09 | HO.POSTANES ---
Post Anesthesia Evaluation Post Anesthesia Evaluation Vital Signs: Vital Signs Temp Pulse Resp BP Pulse Ox O2 Del Method O2 Flow Rate 03/12/22 08:00 97.7 F 65 17 102/82 94 Room Air 03/12/22 01:47 97.5 F 77 20 112/57 L 03/12/22 04:00 97.4 F 66 17 114/55 L 98 Nasal Cannula 2 03/12/22 00:00 96.1 F L 65 17 101/52 L 100 Room Air 03/11/22 22:48 97.9 F 69 20 105/56 L 03/11/22 22:32 97.8 F 84 18 106/40 L Anesthesia: General Endotracheal-GETA Mental Status: Awake Pain Control: Satisfactory Nausea/Vomiting: None Hydration: Adequate Anesthesia-Related Issues: No Anes. Related Issues
[2022-03-12] MEDS: Metoprolol Tartrate 25 MG TABLET PO ×2 (08:10→20:40)
[2022-03-12 08:11] LABS: Anion Gap 11 (12-20); Blood Urea Nitrogen 44 mg/dL (9-16); Calcium 7.6 mg/dL (8.4-10.2); Carbon Dioxide 18 mmol/L (22-29); Chloride 112 mmol/L (96-108); Estimated Glomerular Filt Rate > 60; Glucose Random 108 mg/dL (60-115); Magnesium 1.9 mg/dL (1.6-2.6); Potassium 4.3 mmol/L (3.3-5.1); Sodium 137 mmol/L (135-145)
[2022-03-12 08:12] LABS: Platelet Count 47 X10*3/uL (160-400); WBC ABN SCTR FOR CBC 1
[2022-03-12 08:28] LABS: Band Neutrophils Percent 1 % (3-5); Lymphocytes Percent Manual 67 % (20-40); Monocytes Percent Manual 7 % (2-11); Neutrophils Percent Manual 25 % (45-73); Nucleated Red Blood Cells 1 /100WBC (0-0)
[2022-03-12 08:30] LABS: Macrocytosis 1+ (5-14) /OIF; Microcytosis 1+ (5-14) /OIF; Platelet Estimate DECREASED (NORMAL); Platelet Morphology Comment NORM; RBC Morphology NOTED
[2022-03-12 08:31] LABS: Acanthocytes 1+ (0-2) /OIF; Burr Cells 1+ (0-2) /OIF; Ovalocytes 1+ (5-14) /OIF; Polychromasia 1+ (0-2) /OIF
[2022-03-12 08:32] LABS: Monocytes Absolute Manual 0.1 X10*3/uL (0.1-1.2); Neutrophils Absolute Manual 0.4 X10*3/uL (2.0-8.3); White Blood Count 1.5 X10*3/uL (4.8-10.8)
--- NOTE | 2022-03-12 09:57 | PM.PNCARD ---
Subjective Subjective Date of Service: 03/12/22 Principal diagnosis: atrial flutter, anemia Interval history: Patient continues to have some atrial arrhythmias. One episode of nonsustained VT. Patient says his breathing significantly improved. Underwent upper endoscopy which showed gastritis and duodenitis. A was no active bleeding. Patient is off oral anticoagulation. Heart rate is much better controlled. Review of Systems Constitutional: Reports fatigue and Reports lethargy Cardiovascular: Reports no additional cardiovascular complaints Respiratory: Reports no additional respiratory complaints Gastrointestinal: Reports no additional gastrointestinal complaints Reports system reviewed and no additional complaints, except as documented Psychiatric: Reports no additional psychiatric complaints Endocrine: Reports fatigue Allergic/Immunologic: Reports no additional allergic/immunologic complaints Physical Exam Vital Signs: Last Vital Signs Temp 97.7 F 03/12/22 08:00 Pulse 65 03/12/22 08:00 Resp 17 03/12/22 08:00 BP 102/82 03/12/22 08:00 Pulse Ox 94 03/12/22 08:00 O2 Del Method 03/12/22 08:00 O2 Flow Rate 2 03/12/22 04:00 FiO2 96 03/10/22 16:36 BMI result Body Mass Index 21.3 Const General: cooperative, comfortable, no acute distress and tired appearing Nutritional Appearance: underweight Orientation/consciousness: patient oriented x3 Neck Neck: Yes trachea midline, Yes supple and Yes no JVD Resp Effort & Inspection: normal respiratory effort Auscultation: clear to auscultation bilaterally Cardio Jugular venous distension: no JVD Palpation: normal PMI Rate: regular rate Rhythm: abnormal rhythm with ectopic beats Heart sounds: S1 normal heart sound present, S2 normal heart sound present, no click, no gallops and no murmurs Skin General skin exam: no rashes or lesions noted and ecchymosis Neuro General: patient oriented x3 and no focal motor deficits Objective Labs and Meds Result diagrams: 03/12/22 07:38 03/12/22 07:38 Lab results: Laboratory Results - last 24 hr 03/09/22 03/11/22 03/11/22 10:21 10:57 14:08 WBC 1.7 L RBC 2.18 L Hgb 6.4 L* Hct 20.3 L* MCV 93.1 MCH 29.4 MCHC 31.5 RDW 18.6 H Plt Count 27 L MPV 10.3 Immature Gran % (Auto) Neut % (Auto) Lymph % (Auto) [place] % (Auto) Eos % (Auto) Baso % (Auto) Lymph # (Auto) [place] # (Auto) Eos # (Auto) Baso # (Auto) Abs Immat Gran (auto) Absolute Neuts (auto) Absolute Nucleated RBC 0.030 H Nucleated RBC % (auto) 1.7 H Neutrophils % (Manual) Band Neutrophils % Lymphocytes % (Manual) Monocytes % (Manual) Abs Neuts (Manual) Lymphocytes # (Manual) Monocytes # (Manual) Nucleated RBCs Platelet Estimate Plt Morphology Comment RBC Morphology Polychromasia Microcytosis Macrocytosis Ovalocytes [place] Cells Acanthocytes (Spur) PT 12.0 INR 1.1 APTT 28.8 Fibrinogen 360 Sodium Potassium Chloride Carbon Dioxide Anion Gap BUN Creatinine Estim Creat Clear Calc Estimated GFR Random Glucose Calcium Magnesium Stool Occult Blood C. difficile Tox B Gene Blood Type A Positive Antibody Screen NEGATIVE Crossmatch See Detail 03/11/22 03/11/22 03/11/22 18:24 21:43 21:43 WBC 0.9 L* RBC 2.23 L Hgb 6.6 L* Hct 21.0 L* MCV 94.2 MCH 29.6 MCHC 31.4 RDW 17.2 H Plt Count 59 L D MPV 10.3 Immature Gran % (Auto) Neut % (Auto) Lymph % (Auto) [place] % (Auto) Eos % (Auto) Baso % (Auto) Lymph # (Auto) [place] # (Auto) Eos # (Auto) Baso # (Auto) Abs Immat Gran (auto) Absolute Neuts (auto) Absolute Nucleated RBC 0.020 H Nucleated RBC % (auto) 2.4 H Neutrophils % (Manual) Band Neutrophils % Lymphocytes % (Manual) Monocytes % (Manual) Abs Neuts (Manual) Lymphocytes # (Manual) Monocytes # (Manual) Nucleated RBCs Platelet Estimate Plt Morphology Comment RBC Morphology Polychromasia Microcytosis Macrocytosis Ovalocytes [place] Cells Acanthocytes (Spur) PT INR APTT Fibrinogen Sodium Potassium Chloride Carbon Dioxide Anion Gap BUN Creatinine Estim Creat Clear Calc Estimated GFR Random Glucose Calcium Magnesium Stool Occult Blood POSITIVE C. difficile Tox B Gene NEGATIVE Blood Type Antibody Screen Crossmatch 03/12/22 03/12/22 03/12/22 01:56 07:38 07:38 WBC 1.0 L 1.5 L RBC 2.50 L 2.36 L Hgb 7.6 L 7.1 L Hct 22.9 L 21.9 L MCV 91.6 92.8 MCH 30.4 30.1 MCHC 33.2 32.4 RDW 16.5 H 17.2 H Plt Count 53 L 47 L MPV 9.4 10.1 Immature Gran % (Auto) Cancelled Neut % (Auto) Cancelled Lymph % (Auto) Cancelled [place] % (Auto) Cancelled Eos % (Auto) Cancelled Baso % (Auto) Cancelled Lymph # (Auto) Cancelled [place] # (Auto) Cancelled Eos # (Auto) Cancelled Baso # (Auto) Cancelled Abs Immat Gran (auto) Cancelled Absolute Neuts (auto) Cancelled Absolute Nucleated RBC 0.000 0.030 H Nucleated RBC % (auto) 0.0 2.0 H Neutrophils % (Manual) 25 L Band Neutrophils % 1 L Lymphocytes % (Manual) 67 H Monocytes % (Manual) 7 Abs Neuts (Manual) 0.4 L Lymphocytes # (Manual) 1.0 L Monocytes # (Manual) 0.1 Nucleated RBCs 1 H Platelet Estimate DECREASED Plt Morphology Comment NORM RBC Morphology NOTED Polychromasia 1+ (0-2) Microcytosis 1+ (5-14) Macrocytosis 1+ (5-14) Ovalocytes 1+ (5-14) [place] Cells 1+ (0-2) Acanthocytes (Spur) 1+ (0-2) PT INR APTT Fibrinogen Sodium 137 Potassium 4.3 Chloride 112 H Carbon Dioxide 18 L Anion Gap 11 L BUN 44 H Creatinine 0.87 Estim Creat Clear Calc 60.0 Estimated GFR > 60 Random Glucose 108 Calcium 7.6 L Magnesium 1.9 Stool Occult Blood C. difficile Tox B Gene Blood Type Antibody Screen Crossmatch Progress Note: A&P Assessment and plan (1) Heart failure with reduced ejection fraction: Status: Acute Assessment and Plan: Patient with heart failure with reduced ejection fraction, clinically doing well. Done well with improving hematocrit. Clinically continue current management. Continue metoprolol therapy for neurohormonal modulation. Clinically does not appear to be fluid overload but p.r.n. Lasix can be used. Continue to optimize pulmonary function. Cannot use other medications at this point time due to lower blood pressure. Will monitor blood pressure including in the hospital and at home and can add valsartan 20 mg b.i.d. if his blood pressure allows for neurohormonal modulation and afterload reduction. (2) Atrial flutter: Status: Acute Assessment and Plan: Atrial flutter which is currently suppressed on amiodarone and in sinus rhythm with short runs of multifocal atrial tachycardia as well as PACs. At this point time continue amiodarone at 200 mg b.i.d. till complete loading and then switch to 200 mg daily. Continue rhythm control approach which would help his cardiac efficiency and heart failure syndrome. Continue metoprolol therapy as well. Avoidance of stimulants was discussed. Not a candidate for oral anticoagulation due to severe anemia and now with GI bleed which makes him prone to have cardiac decompensation. (3) NSVT (nonsustained ventricular tachycardia): Status: Acute Assessment and Plan: Nonsustained VT related cardiomyopathy. Currently on amiodarone metoprolol. No alternative strategy at this point time. Continue to monitor clinically. Will follow up as outpatient. Will sign of the case today Time Spent With Patient Time: Total time spent is greater than 50% in coordination of care (as documented) at patient's floor/unit and/or counseling patient: Progress Note: Quality Stroke Does the patient have a stroke diagnosis?: No Procedures Date of Service Date of Service: 03/12/22
--- NOTE | 2022-03-12 10:23 | P.PNIM_ITS ---
Subjective Subjective Date of Service: 03/12/22 Interval History: seen in f/u for anemia, SVTs remains anemia, no active bleed, H/H is better Review of Systems no sob, no chest pain, no fever Physical Exam Vital Signs: Vital Signs: Last Vital Signs Temp 97.7 F 03/12/22 08:00 Pulse 65 03/12/22 08:00 Resp 17 03/12/22 08:00 BP 102/82 03/12/22 08:00 Pulse Ox 94 03/12/22 08:00 O2 Del Method 03/12/22 08:00 O2 Flow Rate 2 03/12/22 04:00 FiO2 96 03/10/22 16:36 BMI result Body Mass Index 21.3 Const: Other: General: AO X 3, no acute distress Resp: CTA bilateral CVS: S1,S2,RRR GI: +BS, NT, no distention Skin: No rash Neuro: motor grossly intact Psych: appropriate affect Objective Data Active Medications Acetaminophen (Acetaminophen 325 Mg Tablet) 650 mg PO Q6H PRN PRN Reason: Pain, Mild (Pain Scale 1-3) Last Admin: 03/11/22 21:45 Dose: 650 mg Documented By: ERASMO Amiodarone HCl (Amiodarone Hcl 200 Mg Tablet) 200 mg PO BID COUNTS INCLUDE 234 BEDS AT THE [facility] Last Admin: 03/12/22 07:57 Dose: 200 mg Documented By: WILEY Atorvastatin Calcium (Atorvastatin Calcium 40 Mg Tablet) 40 mg PO BEDTIME COUNTS INCLUDE 234 BEDS AT THE [facility] Last Admin: 03/11/22 21:29 Dose: 40 mg Documented By: ERASMO Docusate Sodium (Docusate Sodium 100 Mg Capsule) 100 mg PO BEDTIME COUNTS INCLUDE 234 BEDS AT THE [facility] Last Admin: 03/11/22 21:25 Dose: Not Given Documented By: ERASMO Non-Admin Reason: Loose stools Ferrous Sulfate (Ferrous Sulfate 324 Mg Tablet.) 324 mg PO DAILY COUNTS INCLUDE 234 BEDS AT THE [facility] Last Admin: 03/12/22 07:57 Dose: 324 mg Documented By: WILEY Finasteride (Finasteride 5 Mg Tablet) 5 mg PO DAILY COUNTS INCLUDE 234 BEDS AT THE [facility] Last Admin: 03/12/22 07:57 Dose: 5 mg Documented By: WILEY Gabapentin (Gabapentin 100 Mg Capsule) 200 mg PO BEDTIME COUNTS INCLUDE 234 BEDS AT THE [facility] Last Admin: 03/11/22 21:29 Dose: 200 mg Documented By: ERASMO Piperacillin Sod/Tazobactam (Sod 3.375 gm/ Sodium Chloride) 50 mls @ 100 mls/hr IV Q6H COUNTS INCLUDE 234 BEDS AT THE [facility] Last Admin: 03/12/22 07:56 Dose: 100 mls/hr Documented By: WILEY Melatonin (Melatonin 3 Mg Tablet) 6 mg PO BEDTIME PRN PRN Reason: Insomnia Last Admin: 03/09/22 21:33 Dose: 6 mg Documented By: EVELYN Metoprolol Tartrate (Metoprolol Tartrate 25 Mg Tablet) 25 mg PO BID COUNTS INCLUDE 234 BEDS AT THE [facility]; Protocol Last Admin: 03/12/22 08:10 Dose: 25 mg Documented By: WILEY Omeprazole (Omeprazole 40 Mg Capsule.Dr) 40 mg PO BID@0630,1630 COUNTS INCLUDE 234 BEDS AT THE [facility] Last Admin: 03/12/22 06:08 Dose: 40 mg Documented By: ERASMO Pharmacy Consult (Consult Rx Perform Med Rec) 1 each MISCELLANE ONCE PRN PRN Reason: Consult order Polyethylene Glycol (Polyethylene Glycol 3350 17 Gm Powd.Pack) 17 gm PO DAILY COUNTS INCLUDE 234 BEDS AT THE [facility] Last Admin: 03/10/22 09:39 Dose: Not Given Documented By: BRYNN Non-Admin Reason: Patient Refused Potassium Chloride (Potassium Chloride Er 20 Meq Tab.Er.Prt) 20 meq PO DAILY COUNTS INCLUDE 234 BEDS AT THE [facility] Last Admin: 03/12/22 07:57 Dose: 20 meq Documented By: WILEY Senna (Sennosides 8.6 Mg Tablet) 17.2 mg PO BEDTIME PRN PRN Reason: Constipation Last Admin: 03/07/22 20:15 Dose: 17.2 mg Documented By: DENISE Sodium Chloride (0.9 % Sodium Chloride Flush 3 Ml Syringe) 3 ml IVFLUSH QSHIFT COUNTS INCLUDE 234 BEDS AT THE [facility] Last Admin: 03/12/22 07:57 Dose: 3 ml Documented By: WILEY Sucralfate (Sucralfate Oral Suspension 1 Gm/10 Ml Oral.Susp) 1 gm PO QIDACHS COUNTS INCLUDE 234 BEDS AT THE [facility] Last Admin: 03/12/22 07:57 Dose: 1 gm Documented By: WILEY Labs CBC & Chem 7: 03/12/22 07:38 03/12/22 07:38 Labs: Laboratory Results - last 24 hr 03/09/22 03/11/22 03/11/22 10:21 10:57 14:08 MCV 93.1 MCH 29.4 MCHC 31.5 RDW 18.6 H Plt Count 27 L MPV 10.3 Immature Gran % (Auto) Neut % (Auto) Lymph % (Auto) [place] % (Auto) Eos % (Auto) Baso % (Auto) Lymph # (Auto) [place] # (Auto) Eos # (Auto) Baso # (Auto) Abs Immat Gran (auto) Absolute Neuts (auto) Absolute Nucleated RBC 0.030 H Nucleated RBC % (auto) 1.7 H Neutrophils % (Manual) Band Neutrophils % Lymphocytes % (Manual) Monocytes % (Manual) Abs Neuts (Manual) Lymphocytes # (Manual) Monocytes # (Manual) Nucleated RBCs Platelet Estimate Plt Morphology Comment RBC Morphology Polychromasia Microcytosis Macrocytosis Ovalocytes [place] Cells Acanthocytes (Spur) PT 12.0 INR 1.1 APTT 28.8 Fibrinogen 360 Anion Gap Estim Creat Clear Calc Estimated GFR Random Glucose Calcium Magnesium Stool Occult Blood C. difficile Tox B Gene Blood Type A Positive Antibody Screen NEGATIVE Crossmatch See Detail 03/11/22 03/11/22 03/11/22 18:24 21:43 21:43 MCV 94.2 MCH 29.6 MCHC 31.4 RDW 17.2 H Plt Count 59 L D MPV 10.3 Immature Gran % (Auto) Neut % (Auto) Lymph % (Auto) [place] % (Auto) Eos % (Auto) Baso % (Auto) Lymph # (Auto) [place] # (Auto) Eos # (Auto) Baso # (Auto) Abs Immat Gran (auto) Absolute Neuts (auto) Absolute Nucleated RBC 0.020 H Nucleated RBC % (auto) 2.4 H Neutrophils % (Manual) Band Neutrophils % Lymphocytes % (Manual) Monocytes % (Manual) Abs Neuts (Manual) Lymphocytes # (Manual) Monocytes # (Manual) Nucleated RBCs Platelet Estimate Plt Morphology Comment RBC Morphology Polychromasia Microcytosis Macrocytosis Ovalocytes [place] Cells Acanthocytes (Spur) PT INR APTT Fibrinogen Anion Gap Estim Creat Clear Calc Estimated GFR Random Glucose Calcium Magnesium Stool Occult Blood POSITIVE C. difficile Tox B Gene NEGATIVE Blood Type Antibody Screen Crossmatch 03/12/22 03/12/22 03/12/22 01:56 07:38 07:38 MCV 91.6 92.8 MCH 30.4 30.1 MCHC 33.2 32.4 RDW 16.5 H 17.2 H Plt Count 53 L 47 L MPV 9.4 10.1 Immature Gran % (Auto) Cancelled Neut % (Auto) Cancelled Lymph % (Auto) Cancelled [place] % (Auto) Cancelled Eos % (Auto) Cancelled Baso % (Auto) Cancelled Lymph # (Auto) Cancelled [place] # (Auto) Cancelled Eos # (Auto) Cancelled Baso # (Auto) Cancelled Abs Immat Gran (auto) Cancelled Absolute Neuts (auto) Cancelled Absolute Nucleated RBC 0.000 0.030 H Nucleated RBC % (auto) 0.0 2.0 H Neutrophils % (Manual) 25 L Band Neutrophils % 1 L Lymphocytes % (Manual) 67 H Monocytes % (Manual) 7 Abs Neuts (Manual) 0.4 L Lymphocytes # (Manual) 1.0 L Monocytes # (Manual) 0.1 Nucleated RBCs 1 H Platelet Estimate DECREASED Plt Morphology Comment NORM RBC Morphology NOTED Polychromasia 1+ (0-2) Microcytosis 1+ (5-14) Macrocytosis 1+ (5-14) Ovalocytes 1+ (5-14) [place] Cells 1+ (0-2) Acanthocytes (Spur) 1+ (0-2) PT INR APTT Fibrinogen Anion Gap 11 L Estim Creat Clear Calc 60.0 Estimated GFR > 60 Random Glucose 108 Calcium 7.6 L Magnesium 1.9 Stool Occult Blood C. difficile Tox B Gene Blood Type Antibody Screen Crossmatch Microbiology Microbiology Results: Microbiology 03/06/22 22:42 Blood Culture - Final Blood - Venous No growth after 5 days. 03/06/22 22:42 Blood Culture - Final Blood - Venous No growth after 5 days. Assessment and Plan (1) NSVT (nonsustained ventricular tachycardia): Status: Acute (2) GI bleeding: Status: Acute (3) Multifocal atrial tachycardia: Status: Acute (4) Pancytopenia: Status: Acute (5) Neutropenia: Status: Acute (6) Cardiomyopathy: Status: Acute Plan [id number] M with MDS, HFrEF, atrial tachycardia, HTN, HLD, chronic hypoxic respiratory failure on home O2 (2-3L prn), h/o kidney transplant in 1999 presented with dyspnea, admitted for respiratory failure from CHF exacerbation GI bleeding on 03/10 with multiple dark tarry stoosl. Probably upper GIB, had EGD on 03/11--> Duodenitis/gastritis, on PO PPI and karafate, no active bleed. s/p 9 units of RBC since admissioin and 2 units of platlets, H/H seems stable onver 24 hours. NSVT multiple runs noted on tele, pt asymptomatic known EF of 30-35% on BB, unable to increase given soft BP mag, potassium replacement given monitor electrolytes closely to keep mag>2, k >4 tele monitoring bacteremia initially growing GNR, now reported as gram variable nani in 1/4 bottles - unable to identify species therefore being sent out to reference laboratory. Likely will not have speciation until at least later today started on ceftriaxone 03/06. given immunocompromise [neutropenia], changed to pip/antonieta for antipseudomonal coverage on 03/07 ?source - CT chest showing improvement in opacities (was treated for pneumonia on last admission) no respiratory symptoms at this time. CT abdomen/pelvis with no obvious source of infection seen by ID consult, recommend to continue Zosyn for 5-7 days; on day #6 atrial tachycardia vs flutter- converted back to sinus 03/08 afternoon, now appears to be MAT HR uncontrolled overnight. Low BP making control difficult - continue amiodarone- increased to 200 mg bid x 1 wk (until 03/12 then change to 200 mg once daily); changed metoprolol to 25 mg bid standing; s/p digoxin x 3 doses - not a candidate for anticoagulation due to chronic anemia/GIB - cardiology following pancytopenia h/o MDS, undergoing chemotherapy, managed by [facility]. Last chemo 03/02 H/H trending down - transfused 1u pRBCs 03/05, 1u pRBCs 03/06, 03/09, 2u 03/10 - seen by Heme/Onc - monitor CBC, avoid heparinoids - FOBT posiitve, see above acute/chronic hypoxic respiratory failure briefly on CPAP in ED, now on room air at baseline uses 2-3L prn - has been intermittently using at times acute/chronic HFrEF EF 30-35% - appears euvolemic at this time - IV furosemide stopped. 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 HCP is Patricia, number in system is incorrect. Correct number is [phone]. She was updated this morning Patient requires ongoing inpatient hospitalization due to workup for bacteremia/IV antibiotics/GI bleeding, anemia/NSVT. Needs close tele monitoring for cardiac arrhythmia and frequent lab draws to monitor CBC. Quality Stroke Does the patient have a stroke diagnosis?: No VTE Prior VTE?: No VTE Risk Level:: Medical - moderate - high VTE Device Contraindication: Treatment Not Indicated VTE Drug Contraindication: N/A - Med Ordered
[2022-03-12] MEDS: Acetaminophen 325 MG TABLET 650 MG PO (20:40)
[2022-03-12] MEDS: Gabapentin 100 MG CAPSULE 200 MG PO (20:40)
[2022-03-12] MEDS: Atorvastatin Calcium 40 MG TABLET PO (20:40)
[2022-03-12] MEDS: Melatonin 3 MG TABLET 6 MG PO (20:40)
[2022-03-13] VITALS (15 sets, daily range): BP systolic 101–153; BP diastolic 42–67; PULSE 53–85; RESP 15–22; TEMP 36.3–37; O2SAT 89–100
[2022-03-13] MEDS: Piperacillin Sodium/Tazobactam 3.375 GM in 0.9 % Sodium Chloride 50 ML IV ×3 (01:57→20:04)
[2022-03-13] MEDS: Acetaminophen 325 MG TABLET 650 MG PO ×2 (02:32→20:54)
[2022-03-13] MEDS: Omeprazole 40 MG CAPSULE.DR PO ×2 (06:38→17:33)
--- NOTE | 2022-03-13 08:52 | HO.PM.IMPN ---
Subjective Subjective Date of Service: 03/13/22 Interval History: seen in f/u for anemia, SVTs remains anemia, no active bleed, H/H is better, has mild sob Review of Systems no sob, no chest pain, no fever Physical Exam Vital Signs: Vital Signs: Last Vital Signs Temp 97.7 F 03/13/22 07:27 Pulse 85 03/13/22 07:27 Resp 20 03/13/22 07:27 BP 107/60 03/13/22 07:27 Pulse Ox 96 03/13/22 07:27 O2 Del Method 03/13/22 07:27 O2 Flow Rate 2 03/12/22 04:00 FiO2 96 03/10/22 16:36 BMI result Body Mass Index 21.3 Const: Other: General: AO X 3, no acute distress Resp: CTA bilateral CVS: S1,S2,RRR GI: +BS, NT, no distention Skin: No rash Neuro: motor grossly intact Psych: appropriate affect Objective Data Active Medications Acetaminophen (Acetaminophen 325 Mg Tablet) 650 mg PO Q6H PRN PRN Reason: Pain, Mild (Pain Scale 1-3) Last Admin: 03/13/22 02:32 Dose: 650 mg Documented By: ERASMO Amiodarone HCl (Amiodarone Hcl 200 Mg Tablet) 200 mg PO BID [facility] Last Admin: 03/12/22 20:39 Dose: 200 mg Documented By: ERASMO Atorvastatin Calcium (Atorvastatin Calcium 40 Mg Tablet) 40 mg PO BEDTIME [facility] Last Admin: 03/12/22 20:40 Dose: 40 mg Documented By: ERASMO Docusate Sodium (Docusate Sodium 100 Mg Capsule) 100 mg PO BEDTIME [facility] Last Admin: 03/12/22 20:47 Dose: Not Given Documented By: ERASMO Non-Admin Reason: loose stools Ferrous Sulfate (Ferrous Sulfate 324 Mg Tablet.) 324 mg PO DAILY [facility] Last Admin: 03/12/22 07:57 Dose: 324 mg Documented By: WILEY Finasteride (Finasteride 5 Mg Tablet) 5 mg PO DAILY [facility] Last Admin: 03/12/22 07:57 Dose: 5 mg Documented By: WILEY Gabapentin (Gabapentin 100 Mg Capsule) 200 mg PO BEDTIME [facility] Last Admin: 03/12/22 20:40 Dose: 200 mg Documented By: ERASMO Piperacillin Sod/Tazobactam (Sod 3.375 gm/ Sodium Chloride) 50 mls @ 100 mls/hr IV Q6H [facility] Last Infusion: 03/13/22 02:41 Dose: 0 mls/hr Documented By: ERASMO Melatonin (Melatonin 3 Mg Tablet) 6 mg PO BEDTIME PRN PRN Reason: Insomnia Last Admin: 03/12/22 20:40 Dose: 6 mg Documented By: ERASMO Metoprolol Tartrate (Metoprolol Tartrate 25 Mg Tablet) 25 mg PO BID [facility]; Protocol Last Admin: 03/12/22 20:40 Dose: 25 mg Documented By: ERASMO Omeprazole (Omeprazole 40 Mg Capsule.Dr) 40 mg PO BID@0630,1630 [facility] Last Admin: 03/13/22 06:38 Dose: 40 mg Documented By: ERASMO Pharmacy Consult (Consult Rx Perform Med Rec) 1 each MISCELLANE ONCE PRN PRN Reason: Consult order Polyethylene Glycol (Polyethylene Glycol 3350 17 Gm Powd.Pack) 17 gm PO DAILY [facility] Last Admin: 03/10/22 09:39 Dose: Not Given Documented By: BRYNN Non-Admin Reason: Patient Refused Potassium Chloride (Potassium Chloride Er 20 Meq Tab.Er.Prt) 20 meq PO DAILY [facility] Last Admin: 03/12/22 07:57 Dose: 20 meq Documented By: WILEY Senna (Sennosides 8.6 Mg Tablet) 17.2 mg PO BEDTIME PRN PRN Reason: Constipation Last Admin: 03/07/22 20:15 Dose: 17.2 mg Documented By: DENISE Sodium Chloride (0.9 % Sodium Chloride Flush 3 Ml Syringe) 3 ml IVFLUSH QSHIFT [facility] Last Admin: 03/12/22 20:40 Dose: 3 ml Documented By: ERASMO Sucralfate (Sucralfate Oral Suspension 1 Gm/10 Ml Oral.Susp) 1 gm PO QIDACHS [facility] Last Admin: 03/12/22 20:39 Dose: 1 gm Documented By: ERASMO Labs CBC & Chem 7: 03/12/22 07:38 03/12/22 07:38 Labs: Laboratory Results - last 24 hr 03/09/22 10:21 Crossmatch See Detail Assessment and Plan (1) NSVT (nonsustained ventricular tachycardia): Status: Acute (2) GI bleeding: Status: Acute (3) Multifocal atrial tachycardia: Status: Acute (4) Pancytopenia: Status: Acute (5) Neutropenia: Status: Acute (6) Cardiomyopathy: Status: Acute Plan 77oy M with MDS, HFrEF, atrial tachycardia, HTN, HLD, chronic hypoxic respiratory failure on home O2 (2-3L prn), h/o kidney transplant in 1999 presented with dyspnea, admitted for respiratory failure from CHF exacerbation GI bleeding on 03/10 with multiple dark tarry stoosl. From upper GIB, had EGD on 03/11--> Duodenitis/gastritis, on PO PPI and karafate, no active bleed. s/p multiple transfusions, recheck H/H NSVT multiple runs noted on tele, pt asymptomatic known EF of 30-35% on BB, unable to increase given soft BP mag, potassium replacement given monitor electrolytes closely to keep mag>2, k >4 tele monitoring bacteremia initially growing GNR, now reported as gram variable nani in 1/4 bottles - unable to identify species therefore being sent out to reference laboratory. Likely will not have speciation until at least later today started on ceftriaxone 03/06. given immunocompromise [neutropenia], changed to pip/antonieta for antipseudomonal coverage on 03/07 ?source - CT chest showing improvement in opacities (was treated for pneumonia on last admission) no respiratory symptoms at this time. CT abdomen/pelvis with no obvious source of infection seen by ID consult, recommend to continue Zosyn for 5-7 days; on day #7 atrial tachycardia vs flutter- converted back to sinus 03/08 afternoon, now appears to be MAT HR uncontrolled overnight. Low BP making control difficult - continue amiodarone- increased to 200 mg bid x 1 wk (until 03/12 then change to 200 mg once daily); changed metoprolol to 25 mg bid standing; s/p digoxin x 3 doses - not a candidate for anticoagulation due to chronic anemia/GIB - cardiology following pancytopenia h/o MDS, undergoing chemotherapy, managed by [facility]. Last chemo 03/02 H/H trending down - transfused 1u pRBCs 03/05, 1u pRBCs 03/06, 03/09, 2u 03/10 - seen by Heme/Onc - monitor CBC, avoid heparinoids - FOBT posiitve, see above acute/chronic hypoxic respiratory failure briefly on CPAP in ED, now on room air at baseline uses 2-3L prn - has been intermittently using at times acute/chronic HFrEF EF 30-35% - appears euvolemic at this time - IV furosemide stopped. 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 HCP is Patricia, number in system is incorrect. Correct number is [phone]. She was updated this morning Patient requires ongoing inpatient hospitalization due to workup for bacteremia/IV antibiotics/ and pending sensitivity GI bleeding, anemia/NSVT. Needs close tele monitoring for cardiac arrhythmia and frequent lab draws to monitor CBC. Quality Stroke Does the patient have a stroke diagnosis?: No VTE Prior VTE?: No VTE Risk Level:: Medical - moderate - high VTE Device Contraindication: Treatment Not Indicated VTE Drug Contraindication: N/A - Med Ordered
[2022-03-13] MEDS: Sucralfate Oral Suspension 1 GM/10 ML ORAL.SUSP PO ×4 (09:00→20:00)
[2022-03-13] MEDS: Finasteride 5 MG TABLET PO (09:01)
[2022-03-13] MEDS: 0.9 % Sodium Chloride Flush 3 ML SYRINGE IVFLUSH ×3 (09:01→20:06)
[2022-03-13] MEDS: Ferrous Sulfate 324 MG TABLET.DR PO (09:01)
[2022-03-13] MEDS: Potassium Chloride ER 20 MEQ TAB.ER.PRT PO (09:01)
[2022-03-13] MEDS: Metoprolol Tartrate 25 MG TABLET PO ×2 (09:01→20:01)
[2022-03-13] MEDS: Amiodarone HCL 200 MG TABLET PO ×2 (09:01→20:01)
--- NOTE | 2022-03-13 09:07 | PM.DS ---
DS: Providers Provider Date of Service: 03/16/22 Date of admission: 03/04/22 23:40 Primary care physician: Ezequiel Burnham MD Consults: 03/04/22 23:40 Consult to Cardiology Routine Consulting Provider: Trenton Almazan Reason for consultation: CHF; Tachycardia 03/05/22 08:02 Consult to Hematology / Oncology Routine Consulting Provider: [facility] Oncology/Hematology Reason for consultation: MDS, pancytopenia 03/08/22 07:49 Consult to Infectious Diseases Routine Consulting Provider: Tierney Carlos Reason for consultation: bacteremia Has provider been notified: No 03/10/22 14:44 Consult to Gastroenterology Routine Consulting Provider: Chepe Mark Reason for consultation: anemia, GIB Has provider been notified: No DS: Diagnosis Discharge Diagnosis (1) NSVT (nonsustained ventricular tachycardia): Status: Resolved (2) GI bleeding: Status: Resolved (3) Multifocal atrial tachycardia: Status: Resolved (4) Pancytopenia: Status: Acute (5) Neutropenia: (6) Cardiomyopathy: DS: Summary Hospital Course Hospital Course: Chief Complaint: SOB 77-year-old male with a past medical history of hypertension, hyperlipidemia, atrial tachycardia, CHF-not on diuretics, COPD, chronic respiratory failure on home oxygen, myelodysplastic syndrome, anemia, history of GI bleed, pancytopenia, presented to the hospital today with a chief complaint of shortness of breath.? Patient reports that he was doing fine until yesterday; today he fell acute shortness of breath, unable to breathe; subsequently called EMS and presented to the ER for further evaluation.? reports mild dry cough.? Denies any fevers and chills.? Denies any nausea vomiting or diarrhea.? Denies any chest pain or palpitations.? Patient denies any orthopnea or dyspnea on exertion.? Denies any leg swelling.? Review of all other systems is negative except mentioned above ER course: Per ER team patient was acutely hypoxic in 50s; placed on CPAP briefly and subsequently transitioned to 3 L of oxygen via nasal cannula; respiratory distress improved.? Patient was noted to be tachycardic; CT chest showed no evidence of pulmonary embolism.? Chest x-ray showed saturation; proBNP elevated than prior values.? Concern for CHF.? Given Lasix.? Patient also received Solu-Medrol and nebulizations in the ER.? Admitted to the hospital for further management Hospital course: 77oy M with MDS, HFrEF, atrial tachycardia, HTN, HLD, chronic hypoxic respiratory failure on home O2 (2-3L prn), h/o kidney transplant in 1999presented with dyspnea, admitted for respiratory failure from CHF exacerbation and hospital course complicated Acute blood loss anemia, GIB, Bacteremia, and NSVT. Problems #Acute/chronic hypoxic respiratory failure, he was briefly on CPAP in ED, but was quicly transitioned to room air at baseline uses 2-3L prn - has been intermittently using at times #acute on chronic HFrEF EF 30-35%--was treated with IV Lasix until he was euvolemic at which point Lasix was discontinued #GI bleeding on 03/10 with multiple dark tarry stoosl. #Acute blood loss anemia?He had EGD on 03/11--> Duodenitis/gastritis treated with PPI and karafate, no active bleed. S/p? multiple transfusions. He continued to loose blood and on CT on 03/14 showed Findings suspicious for active gastrointestinal hemorrhage in the region of the junction of the first and second portion of the duodenum. He underwent another EGD on 03/14 with bleeding source identified in duodenal diverticulum bleeding controlled with epinephrine injection and clip placement. Presently no active bleed, H/H finally improved.. All told he he received total of 15 units of RBC and 3 units Platlets #NSVT multiple runs noted on tele, pt asymptomatic known EF of 30-35% on BB, unable to increase given soft BP mag, potassium replacement given monitor electrolytes closely to keep mag>2, k >4 tele monitoring, no further work up a this point by cardiology #bacteremia initially growing GNR, now reported as gram variable nani in 1/4 bottles - unable to identify species therefore being sent out to reference laboratory.? Likely wi started on ceftriaxone 03/06. given immunocompromise [neutropenia], changed to pip/antonieta for antipseudomonal coverage on 03/07 ?source - CT chest? showing improvement in opacities (was treated for pneumonia on last admission) no respiratory symptoms at this time. CT abdomen/pelvis with no obvious source of infection seen by ID consult, recommend to continue Zosyn for 5-7 days, which he completed. Repeat blood cultures have been negative x 5 days #atrial tachycardia vs flutter- converted back to sinus 03/08 and later MAT. Has been started on Amiodarone now 200 daily, to continue Metoprolol 25 bid, he received 3 doses of digoxin. He is not a candidate for anticoagulation. #Pancytopenia h/o MDS, undergoing chemotherapy, managed by [facility].? Last chemo 03/02 He has been transfused multiple units as above with 15 units of RBCs, and 3 units of Platlets, platlets still low at 25 #Constipation Seen on CT abdomen/pelvis Bowel regimen started with positive effect #HLD continue statin #h/o Renal transplant left kidney moved to right side after left ureter was damaged from kidney stones Time Spent with Patient Time attestation: Total time spent providing and/or coordinating discharge services: Discharge coordination time: Greater than 30 minutes Quality: Safe Use of Opioids Does Pt have an Active Cancer Diagnosis on the Problem List?: No Quality: Stroke Does the patient have a stroke diagnosis?: No Physical Exam Vital Signs: Vital Signs: Last Vital Signs Temp 97.7 F 03/13/22 07:27 Pulse 85 03/13/22 07:27 Resp 20 03/13/22 07:27 BP 107/60 03/13/22 07:27 Pulse Ox 96 03/13/22 07:27 O2 Del Method 03/13/22 07:27 O2 Flow Rate 2 03/12/22 04:00 FiO2 96 03/10/22 16:36 BMI result Body Mass Index 21.3 DS: Data Data Completed and Pending Completed studies during hospitalization [Text1]: Procedures Transfusion of Nonautologous Platelets into Peripheral Vein, Percutaneous Approach (01/13/22) Transfusion of Nonautologous Red Blood Cells into Peripheral Vein, Percutaneous Approach (01/13/22) Labs on day of discharge: Laboratory Results - last 24 hr 03/09/22 10:21 Crossmatch See Detail Preliminary micro results at discharge 03/04/22 18:56 Blood Culture - Preliminary Blood - Venous Gram variable nani Discharge Plan Discharge Anticipated Discharge Date/Time: 03/16/22 15:31 Patient Disposition: Home, Self-Care Discharge Diagnosis: GI bleeding, anemia, heart failure, duodnal ulcer Referrals: Ezequiel Burnham MD [Primary Care Provider] - 1 Week Discharge Medications: New omeprazole 40 mg Capsule,Delayed Release(Dr/Ec) 40 mg PO BID@0630,1630 Qty: 60 4RF Continued gabapentin 100 mg capsule 2 cap PO BEDTIME finasteride 5 mg tablet 1 tab PO DAILY ferrous sulfate 324 mg (65 mg iron) Tablet,Delayed Release (Dr/Ec) 324 mg PO DAILY potassium chloride 20 mEq tablet,ER particles/crystals 1 tab PO DAILY simvastatin 80 mg Tablet 80 mg PO BEDTIME metoprolol tartrate 25 mg tablet 25 mg PO BID PRN (Reason: SBP>90) amiodarone 200 mg tablet 200 mg PO DAILY Qty: 30 1RF Discharge Orders: Discharge Order (Routine); Ordered 03/16/22 Ordered By: Lion Ramirez Activity on Discharge: As tolerated Stand Alone Forms: Patient Portal Discharge page Other Ambulatory Orders: Complete Blood Count Auto Diff (Routine) Timeframe: [id number] Facility: [facility] - Location: Laboratory Ordered By: Lion Ramirez Care Plan Goals: Recovery from anemia, heart failure, afib, Health Concerns: Full recovery from hospitalization, anemia, heart failure, arrythmia Plan of Treatment: Avoid aspirin, motrin and take all medications as prescribed, follow up with your oncologist on Saturday, have labs done on Saturday Assessment: as above Discharge Date/Time: 03/16/22 17:20
[2022-03-13 09:54] LABS: Mean Corpuscular HGB Conc 29.9 g/dl (31.0-36.0); Mean Corpuscular Hemoglobin 30.3 pg (27.0-33.0); Mean Corpuscular Volume 101.3 fL (80.0-98.0); Mean Platelet Volume 10.4 fL (9.4-12.4); Red Blood Count 1.52 X10*6/uL (4.60-5.80); Red Cell Distribution Width 20.6 % (11.0-16.0)
[2022-03-13 09:59] LABS: White Blood Count 1.3 X10*3/uL (4.8-10.8)
[2022-03-13 10:00] LABS: NRBC Pct Auto 2.4 /100WBC (0.0-0.2); Platelet Count 41 X10*3/uL (160-400)
[2022-03-13 10:08] LABS: Hemoglobin 4.6 g/dl (14.0-18.0)
[2022-03-13 10:09] LABS: Hematocrit 15.4 % (42.0-52.0)
[2022-03-13] MEDS: Gabapentin 100 MG CAPSULE 200 MG PO (20:01)
[2022-03-13] MEDS: Melatonin 3 MG TABLET 6 MG PO (20:02)
[2022-03-13] MEDS: Atorvastatin Calcium 40 MG TABLET PO (20:02)
[2022-03-14] VITALS (25 sets, daily range): BP systolic 88–146; BP diastolic 42–89; PULSE 63–98; RESP 13–20; TEMP 36.1–37.4; O2SAT 91–98; BMI 18.1
--- NOTE | 2022-03-14 00:04 | PM.EVENT ---
Event Note Date of Service: 03/14/22 Event Note: Black tarry stools: Patient had 2-3 episodes of black tarry stools dyspneic. Patient received blood transfusion for anemia earlier in the day. Will get stat CBC. Anemia: Patient's hemoglobin on 03/13/2022 AM noted to be 4.6. pRBC transfusion: 2u in AM 03/13/22+ 1U PM + 1U in early AM 03/14/22. Blood pressure on the soft side Repeat CBC pending CT angio abd showed acute duodenal hemorrhage Spoke to Gastroenterology about the CT abdomen findings-mentioned patient will be added to the list for endoscopy.
[2022-03-14 00:47] LABS: Mean Corpuscular HGB Conc 31.9 g/dl (31.0-36.0); Mean Corpuscular Hemoglobin 29.7 pg (27.0-33.0); Mean Platelet Volume 10.4 fL (9.4-12.4); Red Blood Count 1.72 X10*6/uL (4.60-5.80); Red Cell Distribution Width 19.6 % (11.0-16.0)
[2022-03-14 00:53] LABS: NRBC Pct Auto 3.9 /100WBC (0.0-0.2); Platelet Count 39 X10*3/uL (160-400); WBC ABN SCTR FOR CBC 1; White Blood Count 1.3 X10*3/uL (4.8-10.8)
[2022-03-14 00:55] LABS: Hemoglobin 5.1 g/dl (14.0-18.0)
[2022-03-14 01:22] LABS: Band Neutrophils Percent 1 % (3-5); Basophils Percent Manual 1 % (0-2); Lymphocytes Absolute Manual 0.9 X10*3/uL (1.2-4.9); Lymphocytes Percent Manual 68 % (20-40); Monocytes Absolute Manual 0.1 X10*3/uL (0.1-1.2); Monocytes Percent Manual 4 % (2-11); Neutrophils Absolute Manual 0.4 X10*3/uL (2.0-8.3); Neutrophils Percent Manual 26 % (45-73)
[2022-03-14 01:23] LABS: Burr Cells 1+ (0-2) /OIF; Macrocytosis 1+ (5-14) /OIF; Microcytosis 1+ (5-14) /OIF; Platelet Estimate DECREASED (NORMAL); Platelet Morphology Comment NORMAL; Polychromasia 2+ (3-5) /OIF; RBC Morphology NOTED; Smudge Cells PRESENT; Target Cells 1+ (5-14) /OIF
[2022-03-14] MEDS: iohexoL 350 MG/ML 100 ML INFUS..BTL IV (05:10)
[2022-03-14] MEDS: Omeprazole 40 MG CAPSULE.DR PO ×2 (05:42→17:21)
[2022-03-14] MEDS: Acetaminophen 325 MG TABLET 650 MG PO ×2 (05:43→21:32)
[2022-03-14] MEDS: Piperacillin Sodium/Tazobactam 3.375 GM in 0.9 % Sodium Chloride 50 ML IV ×3 (05:51→21:33)
--- NOTE | 2022-03-14 08:00 | MHC.SHP ---
Pre-Procedural Eval Section A Date of Service: 03/14/22 The patient is an INPATIENT: Yes Changes since office visit: No Cold of Flu in the past 2 weeks, No New Medical Problems, No Changes in Medication and No Patient answered all questions The History & Physical has been completed within 30 days and I have reviewed it.: Yes Section B Chief Complaint: Acute hypoxic respiratory failure, tachycardia Allergies: Allergies Allergy/AdvReac Type Severity Reaction Status Date / Time No Known Allergies Allergy Verified 11/27/21 20:52 Plan I have reviewed the history and physical and performed a pertinent physical examination on my patient. No changes have occurred unless specified.
--- NOTE | 2022-03-14 08:41 | P.PNHO-ONC_ITS ---
Medical Summary - Medical Summary Date of Service: 03/14/22 Chief complaint: None Medical Summary: DIAGNOSIS: 1. ANEMIA. 2. QUESTION MDS. Interval History Interval history: Patient offers no specific complaints. He keeps repeating I do not know what is going on . He denies chest pain, shortness of breath or abdominal di scomfort. When specifically asked, he did say that he has a diagnosis of cancer and he received chemotherapy last Saturday at [facility] under the care of Dr. Pinon. 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 Pancytopenia Pneumonia Pneumonia due to COVID-19 virus Tobacco dependency VRE bacteremia Functional capacity: uses cane/walker Family history: reviewed and not pertinent Surgical History: Surgical History (Last Reviewed 03/09/22 @ 16:20 by Tierney Carlos MD) Status post kidney autotransplantation Social History: Social History (Last Reviewed 03/09/22 @ 16:20 by Tierney Carlos MD) Living Situation History: Household Members: Spouse Housing: House Do you presently have visiting nurse or other home services: No Do you presently have visiting nurse or other home services comment: no services, prev had VNA. Now only oxygen deliv. Tobacco History: Patient Tobacco Use Status: Former Tobacco user Tobacco use type: Cigarette Occupation Assessmet: service: Yes Current occupational status: retired Oncology Screenings - ECOG Performance Status ECOG Performance Status: 4 Home Medications and Allergies Current Medications: Current Medications Acetaminophen (Acetaminophen 325 Mg Tablet) 650 mg PO Q6H PRN PRN Reason: Pain, Mild (Pain Scale 1-3) Last Admin: 03/14/22 05:43 Dose: 650 mg Amiodarone HCl (Amiodarone Hcl 200 Mg Tablet) 200 mg PO BID [facility] Last Admin: 03/13/22 20:01 Dose: 200 mg Atorvastatin Calcium (Atorvastatin Calcium 40 Mg Tablet) 40 mg PO BEDTIME [facility] Last Admin: 03/13/22 20:02 Dose: 40 mg Docusate Sodium (Docusate Sodium 100 Mg Capsule) 100 mg PO BEDTIME [facility] Last Admin: 03/13/22 20:03 Dose: Not Given Ferrous Sulfate (Ferrous Sulfate 324 Mg Tablet.) 324 mg PO DAILY [facility] Last Admin: 03/13/22 09:01 Dose: 324 mg Finasteride (Finasteride 5 Mg Tablet) 5 mg PO DAILY [facility] Last Admin: 03/13/22 09:01 Dose: 5 mg Gabapentin (Gabapentin 100 Mg Capsule) 200 mg PO BEDTIME [facility] Last Admin: 03/13/22 20:01 Dose: 200 mg Piperacillin Sod/Tazobactam (Sod 3.375 gm/ Sodium Chloride) 50 mls @ 100 mls/hr IV Q6H [facility] Last Infusion: 03/14/22 06:37 Dose: Infused Aminocaproic Acid 5,000 mg/ (Sodium Chloride) 270 mls @ 270 mls/hr IV ONCE ONE Stop: 03/14/22 09:59 Melatonin (Melatonin 3 Mg Tablet) 6 mg PO BEDTIME PRN PRN Reason: Insomnia Last Admin: 03/13/22 20:02 Dose: 6 mg Metoprolol Tartrate (Metoprolol Tartrate 25 Mg Tablet) 25 mg PO BID [facility]; Protocol Last Admin: 03/13/22 20:01 Dose: 25 mg Omeprazole (Omeprazole 40 Mg Capsule.) 40 mg PO BID@0630,1630 [facility] Last Admin: 03/14/22 05:42 Dose: 40 mg Pharmacy Consult (Consult Rx Perform Med Rec) 1 each MISCELLANE ONCE PRN PRN Reason: Consult order Polyethylene Glycol (Polyethylene Glycol 3350 17 Gm Powd.Pack) 17 gm PO DAILY [facility] Last Admin: 03/10/22 09:39 Dose: Not Given Potassium Chloride (Potassium Chloride Er 20 Meq Tab.Er.Prt) 20 meq PO DAILY [facility] Last Admin: 03/13/22 09:01 Dose: 20 meq Senna (Sennosides 8.6 Mg Tablet) 17.2 mg PO BEDTIME PRN PRN Reason: Constipation Last Admin: 03/07/22 20:15 Dose: 17.2 mg Sodium Chloride (0.9 % Sodium Chloride Flush 3 Ml Syringe) 3 ml IVFLUSH QSHIFT [facility] Last Admin: 03/13/22 20:06 Dose: 3 ml Sucralfate (Sucralfate Oral Suspension 1 Gm/10 Ml Oral.Susp) 1 gm PO QIDACHS [facility] Last Admin: 03/13/22 20:00 Dose: 1 gm Home Medications Medication Instructions Recorded Confirmed Type ferrous sulfate 324 mg (65 mg 324 mg PO DAILY 01/13/22 03/04/22 History iron) tablet,delayed release finasteride 5 mg tablet 1 tab PO DAILY 01/13/22 03/04/22 History gabapentin 100 mg capsule 2 cap PO BEDTIME 01/13/22 03/04/22 History metoprolol tartrate 25 mg tablet 25 mg PO BID PRN SBP>90 03/04/22 03/04/22 History potassium chloride 20 mEq 1 tab PO DAILY 03/04/22 03/04/22 History tablet,extended release(part/cryst) simvastatin 80 mg tablet 80 mg PO BEDTIME 03/04/22 03/04/22 History Allergies Allergy/AdvReac Type Severity Reaction Status Date / Time No Known Allergies Allergy Verified 11/27/21 20:52 Exam Vital signs: Vital Signs Temp 98 F 03/14/22 07:45 Pulse 66 03/14/22 07:45 Resp 20 03/14/22 07:45 BP 106/50 L 03/14/22 07:45 Pulse Ox 91 L 03/14/22 07:45 O2 Del Method 03/14/22 07:45 O2 Flow Rate 2 03/13/22 11:28 FiO2 96 03/10/22 16:36 Intake & Output 03/13/22 03/14/22 03/14/22 18:59 06:59 18:59 Intake Total 400 / 1200 800 / 1200 Balance 400 / 1200 800 / 1200 Intake: Intake (Blood Product) Amount 350 / 1050 700 / 1050 Red Blood Cells (E0336) Unit 0 / 350 350 / 350 [id number] Red Blood Cells (E0336) Unit 350 / 350 [id number] Red Blood Cells (E0336) Unit 350 / 350 [id number] Intake, IV Amount 50 / 150 100 / 150 Piperacillin Sodium/Tazobactam 50 / 150 100 / 150 3.375 gm In 0.9 % Sodium Chloride 50 ml @ 100 mls/hr IV Q6H [facility] Rx#:[id number] Other: Number of Unmeasured Voids 1 1 Number of Bowel Movements 1 Urine Bathroom Last Bowel Movement 03/13/22 Weight 61.7 kg BMI result Body Mass Index 21.3 - Constitutional Present: mild distress - Routine HEENT Exam Head: Present: normal inspection Data - Labs CBC & Chem 7: 03/14/22 00:34 03/12/22 07:38 Labs: 03/04/22 18:29 Albuterol Sulfate (0.083%) [Ventolin (0.083%)] 2.5 mg INHALE ONCE ONE methylPREDNISolone Sod Succ [SOLU-MedroL] 60 mg IVPUSH ONCE ONE 03/04/22 18:30 ECG 12 lead EKG Stat EKG Documentation DIRECTED XR chest 1V Stat 03/04/22 18:32 Albuterol/Iprat 2.5/0.5MG 3 ML [Duoneb] 3 ml INHALE ONCE ONE dilTIAZem HCL [Cardizem] 5 mg IVPUSH ONCE ONE 03/04/22 18:44 B Type Natriuretic Peptide Stat Basic Metabolic Panel Stat Complete Blood Count Auto Diff Stat Lipase Stat Liver Panel Stat Magnesium Stat SLIDE REVIEW Stat 03/04/22 18:45 COVID-19 ID NOW ([facility]) Stat D Dimer High Sensitivity Stat Partial Thromboplastin Time Stat Prothrombin Time INR Stat 03/04/22 18:46 Lactic Acid Stat Troponin-I High Sensitivity Stat 03/04/22 18:47 Digoxin Stat VBG [Venous Blood Gas] Stat 03/04/22 18:56 Venous Blood Gases - POC Routine 03/04/22 19:00 Magnesium Sulfate/H2O 2 gm in 50 ml IV ONCE 03/04/22 19:17 cefEPime HCl [Maxipime] 2 gm 0.9 % Sodium Chloride [Ns] 50 ml IV ONCE 03/04/22 19:25 CT angio chest PE protocol Stat 03/04/22 19:44 Add Laboratory Test Stat 03/04/22 20:37 Metoprolol Tartrate [Lopressor] 2.5 mg IVPUSH ONCE ONE 03/04/22 20:45 Troponin-I High Sensitivity Stat 03/04/22 20:46 iohexoL 350 MG/ML [Omnipaque 350 MG/ML] 100 ml IV ONCE ONE 03/04/22 20:58 cefEPime HCl [Maxipime] 2 gm IV .STK-MED ONE 03/04/22 22:11 Type and Screen Stat 03/04/22 23:19 BiPAP Ventilatory Support Assessment Q4HR RT BiPAP/CPAP STAT 03/04/22 23:40 Morphine Sulfate 1 mg IVPUSH Q4H PRN 03/04/22 23:41 Low Sodium Diet 03/04/22 23:43 Albuterol/Iprat 2.5/0.5MG 3 ML [Duoneb] 3 ml INHALE RQ4H PRN Metoprolol Tartrate [Lopressor] 25 mg PO BID PRN 03/04/22 23:50 Furosemide [Lasix] 20 mg IVPUSH ONCE ONE 03/05/22 00:00 Enoxaparin Sodium [Lovenox] 40 mg SUBCUT Q24H 03/05/22 05:14 Metoprolol Tartrate [Lopressor] 5 mg IVPUSH Q6H PRN 03/05/22 06:02 Basic Metabolic Panel AM Complete Blood Count Man Dif Routine 03/05/22 07:00 CBC W/AUTO DIFF [Complete Blood Count Auto Diff] Stat SLIDE REVIEW Stat 03/05/22 09:00 Amiodarone HCL [Cordarone] 200 mg PO DAILY Furosemide [Lasix] 40 mg IVPUSH DAILY 03/05/22 12:17 PACKED CELLS [Red Blood Cells] Routine Furosemide [Lasix] 40 mg IVPUSH ONCE ONE 03/06/22 05:47 B Type Natriuretic Peptide Routine CBC W/MANUAL DIFF [Complete Blood Count Man Dif] Routine Magnesium Routine 03/06/22 07:30 Furosemide [Lasix] 40 mg IVPUSH ONCE ONE 03/06/22 12:15 Furosemide [Lasix] 40 mg IVPUSH ONCE ONE 03/06/22 13:15 Digoxin [Lanoxin] 0.25 mg IVPUSH Q6H 03/06/22 20:54 Hemoglobin and Hematocrit Stat 03/06/22 21:30 Digoxin [Lanoxin] 0.25 mg IVPUSH Q6H 03/06/22 22:42 Lactic Acid Stat Blood Culture X2 [BC] Stat 03/06/22 23:00 cefTRIAXone sodium [Rocephin] 1 gm 0.9 % Sodium Chloride [Ns] 50 ml IV Q24H 03/07/22 01:09 cefTRIAXone sodium [Rocephin] 1 gm .ROUTE .STK-MED ONE 03/07/22 05:53 B Type Natriuretic Peptide Routine Basic Metabolic Panel Routine Complete Blood Count no Diff Routine Magnesium Routine 03/07/22 12:12 Digoxin [Lanoxin] 0.25 mg IVPUSH ONCE ONE 03/07/22 15:00 Piperacillin Sodium/Tazobactam [Zosyn] 3.375 gm 0.9 % Sodium Chloride [Ns] 100 ml IV Q6H 03/07/22 16:00 Piperacillin Sodium/Tazobactam [Zosyn] 3.375 gm 0.9 % Sodium Chloride [Ns] 50 ml IV Q6H 03/07/22 16:14 Piperacillin Sodium/Tazobactam [Zosyn] 3.375 gm IV .STK-MED ONE 03/07/22 20:27 Piperacillin Sodium/Tazobactam [Zosyn] 3.375 gm IV .STK-MED ONE 03/08/22 CT abdomen pelvis wo con Urgent 03/08/22 02:21 Piperacillin Sodium/Tazobactam [Zosyn] 3.375 gm IV .STK-MED ONE 03/08/22 04:00 Piperacillin Sodium/Tazobactam [Zosyn] 3.375 gm 0.9 % Sodium Chloride [Ns] 50 ml IV Q6H 03/08/22 06:01 B Type Natriuretic Peptide Routine Basic Metabolic Panel Routine Complete Blood Count no Diff Routine Liver Panel Routine Magnesium Routine 03/08/22 09:05 Piperacillin Sodium/Tazobactam [Zosyn] 3.375 gm IV .STK-MED ONE 03/08/22 14:22 Add Laboratory Test Stat 03/08/22 14:24 ECG 12 lead EKG Stat EKG Documentation DIRECTED 03/08/22 15:39 Piperacillin Sodium/Tazobactam [Zosyn] 3.375 gm IV .STK-MED ONE 03/08/22 20:19 Piperacillin Sodium/Tazobactam [Zosyn] 3.375 gm IV .STK-MED ONE 03/09/22 04:54 Piperacillin Sodium/Tazobactam [Zosyn] 3.375 gm IV .STK-MED ONE 03/09/22 06:56 Basic Metabolic Panel DAILY@0600 CBC W/AUTO DIFF [Complete Blood Count Auto Diff] DAILY@0600 SLIDE REVIEW Routine 03/09/22 09:31 Piperacillin Sodium/Tazobactam [Zosyn] 3.375 gm IV .STK-MED ONE 03/09/22 10:21 Pheresis Platelets Urgent Red Blood Cells Routine Type and Screen Routine 03/09/22 17:13 Piperacillin Sodium/Tazobactam [Zosyn] 3.375 gm IV .STK-MED ONE 03/09/22 21:23 Piperacillin Sodium/Tazobactam [Zosyn] 3.375 gm IV .STK-MED ONE 03/10/22 03:49 Piperacillin Sodium/Tazobactam [Zosyn] 3.375 gm IV .STK-MED ONE 03/10/22 06:23 Complete Blood Count Auto Diff DAILY@0600 SLIDE REVIEW Routine 03/10/22 12:07 Piperacillin Sodium/Tazobactam [Zosyn] 3.375 gm IV .STK-MED ONE 03/10/22 13:00 Occult Blood, Stool x1 [OBSX1] Stat 03/10/22 16:38 Piperacillin Sodium/Tazobactam [Zosyn] 3.375 gm IV .STK-MED ONE 03/10/22 17:30 Basic Metabolic Panel Urgent Hemoglobin and Hematocrit Urgent Magnesium Urgent 03/10/22 18:22 Magnesium Sulfate/D5W 1 gm in 100 ml IV ONCE 03/10/22 22:09 Piperacillin Sodium/Tazobactam [Zosyn] 3.375 gm IV .STK-MED ONE 03/10/22 22:12 Piperacillin Sodium/Tazobactam [Zosyn] 3.375 gm IV .STK-MED ONE 03/11/22 02:08 BMP [Basic Metabolic Panel] Stat Magnesium Stat 03/11/22 04:23 Piperacillin Sodium/Tazobactam [Zosyn] 3.375 gm IV .STK-MED ONE 03/11/22 05:25 Basic Metabolic Panel DAILY@0600 Complete Blood Count Auto Diff DAILY@0600 SLIDE REVIEW Routine 03/11/22 06:45 Magnesium Sulfate/H2O 2 gm in 50 ml IV ONCE 03/11/22 06:46 Potassium Chloride Packet [Klor-Con Packet] 20 meq PO ONCE ONE 03/11/22 07:45 Pantoprazole Sodium [Protonix] 40 mg IVPUSH BID@0630,1630 03/11/22 07:55 Clear Liquid Diet 03/11/22 07:56 NPO Diet 03/11/22 07:58 NPO Diet 03/11/22 10:57 CBC NO DIFF [Complete Blood Count no Diff] Q6H 03/11/22 11:39 Midazolam HCl/PF [Versed] 2 mg .ROUTE .STK-MED ONE 03/11/22 11:40 Lidocaine HCl 1 % MPF [Xylocaine 1 % MPF] 2 ml .ROUTE .STK-MED ONE Rocuronium [place] [Zemuron] 100 mg IV .STK-MED ONE Sugammadex Sodium [Bridion] 200 mg IVPUSH .STK-MED ONE dexAMETHasone sod phosphate [Decadron] 4 mg .ROUTE .STK-MED ONE ondansetron HCL [Zofran] 4 mg .ROUTE .STK-MED ONE propofoL [Diprivan] 200 mg IVPUSH .STK-MED ONE 03/11/22 11:41 Lidocaine HCl 1 % MPF [Xylocaine 1 % MPF] 2 ml .ROUTE .STK-MED ONE 03/11/22 11:50 Vital Signs Q1H 03/11/22 12:06 EPINEPHrine [Adrenalin] 1 mg IVPUSH .STK-MED ONE 03/11/22 12:15 Sevoflurane [Ultane] 250 ml INHALE .STK-MED ONE 03/11/22 12:44 Cardiac Diet 03/11/22 12:45 Transfer Order Routine 03/11/22 14:00 Piperacillin Sodium/Tazobactam [Zosyn] 3.375 gm 0.9 % Sodium Chloride [Ns] 50 ml IV Q6H 03/11/22 14:08 Fibrinogen Urgent PT with INR [Prothrombin Time INR] Urgent PTT [Partial Thromboplastin Time] Urgent 03/11/22 15:00 Piperacillin Sodium/Tazobactam [Zosyn] 3.375 gm IV .STK-MED ONE 03/11/22 18:24 CBC NO DIFF [Complete Blood Count no Diff] Q6H 03/11/22 21:22 Piperacillin Sodium/Tazobactam [Zosyn] 3.375 gm IV .STK-MED ONE 03/11/22 21:43 CDiff Gene PCR Stat OBSX1 Stat 03/12/22 ECG 12 lead EKG Routine 03/12/22 01:56 CBC NO DIFF [Complete Blood Count no Diff] Q6H Piperacillin Sodium/Tazobactam [Zosyn] 3.375 gm IV .STK-MED ONE 03/12/22 07:38 Basic Metabolic Panel DAILY@0600 Complete Blood Count Man Dif Routine Magnesium DAILY@0600 03/12/22 07:48 Piperacillin Sodium/Tazobactam [Zosyn] 3.375 gm IV .STK-MED ONE 03/12/22 09:57 EKG Documentation DIRECTED 03/12/22 14:38 Piperacillin Sodium/Tazobactam [Zosyn] 3.375 gm IV .STK-MED ONE 03/12/22 20:23 Piperacillin Sodium/Tazobactam [Zosyn] 3.375 gm IV .STK-MED ONE 03/13/22 01:53 Piperacillin Sodium/Tazobactam [Zosyn] 3.375 gm IV .STK-MED ONE 03/13/22 08:54 Piperacillin Sodium/Tazobactam [Zosyn] 3.375 gm IV .STK-MED ONE 03/13/22 09:44 Complete Blood Count no Diff Routine 03/13/22 19:54 Piperacillin Sodium/Tazobactam [Zosyn] 3.375 gm IV .STK-MED ONE 03/14/22 CT gi bleed abd pel wo/w con Stat 03/14/22 00:34 Complete Blood Count Man Dif Stat 03/14/22 05:10 iohexoL 350 MG/ML [Omnipaque 350 MG/ML] 100 ml IV ONCE ONE 03/14/22 05:34 Piperacillin Sodium/Tazobactam [Zosyn] 3.375 gm IV .STK-MED ONE Laboratory Last Values WBC 1.3 X10*3/uL (4.8-10.8) L 03/14/22 00:34 RBC 1.72 X10*6/uL (4.60-5.80) L 03/14/22 00:34 Hgb 5.1 g/dl (14.0-18.0) L* 03/14/22 00:34 Hct 16.0 % (42.0-52.0) L* 03/14/22 00:34 MCV 93.0 fL (80.0-98.0) D 03/14/22 00:34 MCH 29.7 pg (27.0-33.0) 03/14/22 00:34 MCHC 31.9 g/dl (31.0-36.0) 03/14/22 00:34 RDW 19.6 % (11.0-16.0) H 03/14/22 00:34 Plt Count 39 X10*3/uL (160-400) L 03/14/22 00:34 MPV 10.4 fL (9.4-12.4) 03/14/22 00:34 Immature Gran % (Auto) Cancelled 03/14/22 00:34 Neut % (Auto) Cancelled 03/14/22 00:34 Lymph % (Auto) Cancelled 03/14/22 00:34 [place] % (Auto) Cancelled 03/14/22 00:34 Eos % (Auto) Cancelled 03/14/22 00:34 Baso % (Auto) Cancelled 03/14/22 00:34 Lymph # (Auto) Cancelled 03/14/22 00:34 [place] # (Auto) Cancelled 03/14/22 00:34 Eos # (Auto) Cancelled 03/14/22 00:34 Baso # (Auto) Cancelled 03/14/22 00:34 Abs Immat Gran (auto) Cancelled 03/14/22 00:34 Absolute Neuts (auto) Cancelled 03/14/22 00:34 Absolute Nucleated RBC 0.050 X10*3/uL (0.0-0.012) H 03/14/22 00:34 Nucleated RBC % (auto) 3.9 /100WBC (0.0-0.2) H 03/14/22 00:34 Neutrophils % (Manual) 26 % (45-73) L 03/14/22 00:34 Band Neutrophils % 1 % (3-5) L 03/14/22 00:34 Lymphocytes % (Manual) 68 % (20-40) H 03/14/22 00:34 Atypical Lymphs % (Man) 1 % (0-6) 03/06/22 05:47 Monocytes % (Manual) 4 % (2-11) 03/14/22 00:34 Basophils % (Manual) 1 % (0-2) 03/14/22 00:34 Abs Neuts (Manual) 0.4 X10*3/uL (2.0-8.3) L 03/14/22 00:34 Lymphocytes # (Manual) 0.9 X10*3/uL (1.2-4.9) L 03/14/22 00:34 Monocytes # (Manual) 0.1 X10*3/uL (0.1-1.2) 03/14/22 00:34 Nucleated RBCs 1 /100WBC (0-0) H 03/12/22 07:38 Smudge Cells PRESENT 03/14/22 00:34 Platelet Estimate DECREASED (NORMAL) 03/14/22 00:34 Large Platelets PRESENT 03/05/22 06:02 Plt Morphology Comment NORMAL 03/14/22 00:34 RBC Morphology NOTED 03/14/22 00:34 Polychromasia 2+ (3-5) /OIF 03/14/22 00:34 Hypochromasia 2+ (15-30) /OIF 03/06/22 05:47 Microcytosis 1+ (5-14) /OIF 03/14/22 00:34 Macrocytosis 1+ (5-14) /OIF 03/14/22 00:34 Target Cells 1+ (5-14) /OIF 03/14/22 00:34 Ovalocytes 1+ (5-14) /OIF 03/12/22 07:38 [place] Cells 1+ (0-2) /OIF 03/14/22 00:34 Acanthocytes (Spur) 1+ (0-2) /OIF 03/12/22 07:38 Smear Tech's Comments VERIFIED 03/11/22 05:25 Smear Path Review Cancelled 03/05/22 06:02 PT 12.0 SEC (9.9-13.0) 03/11/22 14:08 INR 1.1 (0.9-1.1) 03/11/22 14:08 APTT 28.8 SEC (24.1-38.0) 03/11/22 14:08 Fibrinogen 360 MG/DL (259-690) 03/11/22 14:08 D-Dimer High Sensitivty 367 NG/ML 03/04/22 18:45 VBG pH 7.35 (7.32-7.43) 03/04/22 18:56 VBG pCO2 25 mmHg 03/04/22 18:56 VBG pO2 174 mmHg 03/04/22 18:56 VBG HCO3 14 mmol/L (22-26) L 03/04/22 18:56 VBG O2 Saturation 99.0 % 03/04/22 18:56 VBG Base Excess -9.4 mmol/L 03/04/22 18:56 Sodium 137 mmol/L (135-145) 03/12/22 07:38 Potassium 4.3 mmol/L (3.3-5.1) 03/12/22 07:38 Chloride 112 mmol/L (96-108) H 03/12/22 07:38 Carbon Dioxide 18 mmol/L (22-29) L 03/12/22 07:38 Anion Gap 11 (12-20) L 03/12/22 07:38 BUN 44 mg/dL (9-16) H 03/12/22 07:38 Creatinine 0.87 mg/dL (0.5-1.4) 03/12/22 07:38 Estim Creat Clear Calc 60.0 03/12/22 07:38 Estimated GFR > 60 03/12/22 07:38 Random Glucose 108 mg/dL (60-115) 03/12/22 07:38 Lactic Acid 1.2 mmol/L (0.5-2.0) 03/06/22 22:42 Calcium 7.6 mg/dL (8.4-10.2) L 03/12/22 07:38 Magnesium 1.9 mg/dL (1.6-2.6) 03/12/22 07:38 Total Bilirubin 0.4 mg/dL (0.0-1.0) 03/08/22 06:01 Direct Bilirubin 0.2 mg/dL (0.0-0.5) 03/08/22 06:01 AST 23 U/L (5-37) 03/08/22 06:01 ALT 12 U/L (0-40) 03/08/22 06:01 Alkaline Phosphatase 40 U/L (39-117) D 03/08/22 06:01 Troponin I High Sens 14.4 ng/L (<3.5-35.0) 03/04/22 20:45 B-Natriuretic Peptide 818 pg/mL (<100) H 03/08/22 06:01 Total Protein 5.5 g/dL (6.5-8.0) L 03/08/22 06:01 Albumin 3.1 g/dL (3.5-5.0) L 03/08/22 06:01 Lipase 64 U/L (8-78) 03/04/22 18:44 Urine Color YELLOW 03/07/22 00:04 Urine Appearance CLEAR 03/07/22 00:04 Urine pH 6.5 (5.0-8.0) 03/07/22 00:04 Ur Specific [place] 1.010 (1.005-1.025) 03/07/22 00:04 Urine Protein NEG MG/DL (NEG-TRACE) 03/07/22 00:04 Urine Glucose (UA) NEG MG/DL (NEG) 03/07/22 00:04 Urine Ketones NEG MG/DL (NEG) 03/07/22 00:04 Urine Blood NEG (NEG) 03/07/22 00:04 Urine Nitrite NEG (NEG) 03/07/22 00:04 Ur Leukocyte Esterase TRACE (NEG) H 03/07/22 00:04 Urine RBC 1-4 /HPF (0) 03/07/22 00:04 Urine WBC 1-4 /HPF (0-4) 03/07/22 00:04 Ur Squamous Epith Cells 1+ /LPF 03/07/22 00:04 Urine Bacteria 1+ /LPF 03/07/22 00:04 Stool Occult Blood POSITIVE (NEGATIVE) 03/11/22 21:43 Digoxin < 0.3 ng/mL (0.8-2.0) L 03/04/22 18:47 C. difficile Tox B Gene NEGATIVE (Negative) 03/11/22 21:43 COVID-19 (ELAN) Negative (Negative) 03/04/22 18:45 COVID-19 Clin Com See Note 03/04/22 18:45 Blood Type A Positive 03/13/22 09:44 Antibody Screen NEGATIVE 03/13/22 09:44 Crossmatch See Detail 03/13/22 09:44 - Imaging Radiologist's impression: ITS Impressions Chest X-Ray 03/04/22 19:22 IMPRESSION: Redemonstration of diffuse interstitial lung markings suggesting diffuse interstitial pneumonitis and/or edema. Improving consolidation infiltrates right lung base. No significant pleural effusion. Chest CTA 03/04/22 21:10 IMPRESSION: No evidence of pulmonary embolus. Persistent but decreased bilateral pulmonary opacities improved compared with CT November 2021. Persistent small right pleural effusion. VTE: negative Abdomen/Pelvis CT 03/08/22 12:10 IMPRESSION: Severe constipation. Large gallstone in the gallbladder. Small nonobstructing stones in the [place] right kidney. Stable appearance to the right renal transplant in the right lower quadrant. Enlarged low-attenuation adrenal glands probably representing adrenal hyperplasia similar to previous exam. Decreasing nodular opacities at the lung bases probably representing resolving infiltrates. Fleischner guidelines were followed. Abdomen/Pelvis CT 03/14/22 05:05 IMPRESSION: *Findings suspicious for active gastrointestinal hemorrhage in the region of the junction of the first and second portion of the duodenum. Findings may be secondary to an otherwise occult duodenal ulcer. No evidence of intestinal perforation (series 20 image 55, series 17 image 34). *Partially visualized bibasilar airspace disease with findings most pronounced the right lung base and small bilateral pleural effusions. Similar findings were present on the comparison CT of the chest 03/04/2022. *Cholelithiasis. 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 *Bilateral adrenal hyperplasia. *Absent left kidney. This critical result was discussed with Cole Humphries MD MD by telephone at 03/14/2022 6:07 AM and it was ascertained that the content and urgency of the report was understood at the time of direct communication. Assessment and Plan Patient Active problem list reviewed?: Yes (1) Pancytopenia Status: Acute Assessment and plan: 1. This is a 77-year-old male with history of myelodysplastic with syndrome currently receiving a therapy under the care of Dr. Pinon at [facility]. According to the patient, he received IV medication /chemotherapy before he got hospitalized here. (No records from [facility] available, I spoke to receptionist secretary to see if anything can be obtained today). He has been transfusion dependent for a while receiving blood and platelet transfusions. He is now admitted for bacteremia as well as a GI bleeding. He has received several units of blood and platelets. He is not coagulopathic. Submit LDH, LFTs and Jhonatan test to rule out hemolysis. Administer Amicar to control bleeding which is related to low platelets. Loading dose of 5 g followed by 1 g/hr infusion. Goals of care has to be discussed with patient and family. He appears to be failing even supportive care. Overall prognosis is very poor. - Time Spent With Patient Time Spent with Patient (in minutes): 10
[2022-03-14 08:44] LABS: Mean Corpuscular HGB Conc 32.3 g/dl (31.0-36.0); Mean Corpuscular Hemoglobin 29.4 pg (27.0-33.0); Mean Platelet Volume 10.9 fL (9.4-12.4); Red Blood Count 1.77 X10*6/uL (4.60-5.80); Red Cell Distribution Width 18.5 % (11.0-16.0)
[2022-03-14 08:49] LABS: Hemoglobin 5.2 g/dl (14.0-18.0); White Blood Count 1.2 X10*3/uL (4.8-10.8)
[2022-03-14 08:50] LABS: Hematocrit 16.1 % (42.0-52.0); NRBC Pct Auto 5.2 /100WBC (0.0-0.2); Platelet Count 32 X10*3/uL (160-400)
[2022-03-14] MEDS: Potassium Chloride ER 20 MEQ TAB.ER.PRT PO (09:01)
[2022-03-14] MEDS: Finasteride 5 MG TABLET PO (09:01)
[2022-03-14] MEDS: Amiodarone HCL 200 MG TABLET PO ×2 (09:02→21:32)
[2022-03-14] MEDS: Ferrous Sulfate 324 MG TABLET.DR PO (09:02)
[2022-03-14] MEDS: Sucralfate Oral Suspension 1 GM/10 ML ORAL.SUSP PO ×3 (09:02→21:32)
--- NOTE | 2022-03-14 09:41 | HO.PM.IMPN ---
Subjective Subjective Date of Service: 03/14/22 Interval History: seen in f/u for anemia, SVTs remains anemia, no active bleed, H/H is better, no improvment with transfusion Review of Systems no sob, no chest pain, no fever Physical Exam Vital Signs: Vital Signs: Last Vital Signs Temp 98.3 F 03/14/22 08:59 Pulse 72 03/14/22 08:59 Resp 13 03/14/22 08:59 BP 101/49 L 03/14/22 08:59 Pulse Ox 94 03/14/22 08:59 O2 Del Method 03/14/22 07:45 O2 Flow Rate 2 03/13/22 11:28 FiO2 96 03/10/22 16:36 Oxygen Flow Rate 2 03/13/22 11:00 BMI result Body Mass Index 21.3 Const: Other: General: AO X 3, no acute distress Resp: CTA bilateral CVS: S1,S2,RRR GI: +BS, NT, no distention Skin: No rash Neuro: motor grossly intact Psych: appropriate affect Objective Data Active Medications Acetaminophen (Acetaminophen 325 Mg Tablet) 650 mg PO Q6H PRN PRN Reason: Pain, Mild (Pain Scale 1-3) Last Admin: 03/14/22 05:43 Dose: 650 mg Documented By: TAM Amiodarone HCl (Amiodarone Hcl 200 Mg Tablet) 200 mg PO BID [facility] Last Admin: 03/14/22 09:02 Dose: 200 mg Documented By: CYNDY Atorvastatin Calcium (Atorvastatin Calcium 40 Mg Tablet) 40 mg PO BEDTIME [facility] Last Admin: 03/13/22 20:02 Dose: 40 mg Documented By: TAM Docusate Sodium (Docusate Sodium 100 Mg Capsule) 100 mg PO BEDTIME [facility] Last Admin: 03/13/22 20:03 Dose: Not Given Documented By: TAM Non-Admin Reason: Patient having loose stools Ferrous Sulfate (Ferrous Sulfate 324 Mg Tablet.) 324 mg PO DAILY [facility] Last Admin: 03/14/22 09:02 Dose: 324 mg Documented By: CYNDY Finasteride (Finasteride 5 Mg Tablet) 5 mg PO DAILY [facility] Last Admin: 03/14/22 09:01 Dose: 5 mg Documented By: CYNDY Gabapentin (Gabapentin 100 Mg Capsule) 200 mg PO BEDTIME [facility] Last Admin: 03/13/22 20:01 Dose: 200 mg Documented By: TAM Piperacillin Sod/Tazobactam (Sod 3.375 gm/ Sodium Chloride) 50 mls @ 100 mls/hr IV Q6H [facility] Last Admin: 03/14/22 09:02 Dose: 100 mls/hr Documented By: CYNDY Aminocaproic Acid 5,000 mg/ (Sodium Chloride) 270 mls @ 270 mls/hr IV ONCE ONE Stop: 03/14/22 09:59 Melatonin (Melatonin 3 Mg Tablet) 6 mg PO BEDTIME PRN PRN Reason: Insomnia Last Admin: 03/13/22 20:02 Dose: 6 mg Documented By: TAM Metoprolol Tartrate (Metoprolol Tartrate 25 Mg Tablet) 25 mg PO BID [facility]; Protocol Last Admin: 03/14/22 09:03 Dose: Not Given Documented By: CYNDY Non-Admin Reason: low bp's Omeprazole (Omeprazole 40 Mg Capsule.) 40 mg PO BID@0630,1630 [facility] Last Admin: 03/14/22 05:42 Dose: 40 mg Documented By: TAM Pharmacy Consult (Consult Rx Perform Med Rec) 1 each MISCELLANE ONCE PRN PRN Reason: Consult order Polyethylene Glycol (Polyethylene Glycol 3350 17 Gm Powd.Pack) 17 gm PO DAILY [facility] Last Admin: 03/10/22 09:39 Dose: Not Given Documented By: BRYNN Non-Admin Reason: Patient Refused Potassium Chloride (Potassium Chloride Er 20 Meq Tab.Er.Prt) 20 meq PO DAILY [facility] Last Admin: 03/14/22 09:01 Dose: 20 meq Documented By: CYNDY Senna (Sennosides 8.6 Mg Tablet) 17.2 mg PO BEDTIME PRN PRN Reason: Constipation Last Admin: 03/07/22 20:15 Dose: 17.2 mg Documented By: DENISE Sodium Chloride (0.9 % Sodium Chloride Flush 3 Ml Syringe) 3 ml IVFLUSH QSHIFT [facility] Last Admin: 03/14/22 09:03 Dose: Not Given Documented By: CYNDY Non-Admin Reason: assessed Sucralfate (Sucralfate Oral Suspension 1 Gm/10 Ml Oral.Susp) 1 gm PO QIDACHS DIMITRI Last Admin: 03/14/22 09:02 Dose: 1 gm Documented By: CYNDY Labs CBC & Chem 7: 03/14/22 08:24 03/12/22 07:38 Labs: Laboratory Results - last 24 hr 03/13/22 03/13/22 03/14/22 09:44 09:44 00:34 MCV 101.3 H D 93.0 D MCH 30.3 29.7 MCHC 29.9 L 31.9 RDW 20.6 H 19.6 H Plt Count 41 L 39 L MPV 10.4 10.4 Immature Gran % (Auto) Cancelled Neut % (Auto) Cancelled Lymph % (Auto) Cancelled [place] % (Auto) Cancelled Eos % (Auto) Cancelled Baso % (Auto) Cancelled Lymph # (Auto) Cancelled [place] # (Auto) Cancelled Eos # (Auto) Cancelled Baso # (Auto) Cancelled Abs Immat Gran (auto) Cancelled Absolute Neuts (auto) Cancelled Absolute Nucleated RBC 0.030 H 0.050 H Nucleated RBC % (auto) 2.4 H 3.9 H Neutrophils % (Manual) 26 L Band Neutrophils % 1 L Lymphocytes % (Manual) 68 H Monocytes % (Manual) 4 Basophils % (Manual) 1 Abs Neuts (Manual) 0.4 L Lymphocytes # (Manual) 0.9 L Monocytes # (Manual) 0.1 Smudge Cells PRESENT Platelet Estimate DECREASED Plt Morphology Comment NORMAL RBC Morphology NOTED Polychromasia 2+ (3-5) Microcytosis 1+ (5-14) Macrocytosis 1+ (5-14) Target Cells 1+ (5-14) Gloria Cells 1+ (0-2) Blood Type A Positive Antibody Screen NEGATIVE Crossmatch See Detail 03/14/22 08:24 MCV 91.0 MCH 29.4 MCHC 32.3 RDW 18.5 H Plt Count 32 L MPV 10.9 Immature Gran % (Auto) Neut % (Auto) Lymph % (Auto) [place] % (Auto) Eos % (Auto) Baso % (Auto) Lymph # (Auto) [place] # (Auto) Eos # (Auto) Baso # (Auto) Abs Immat Gran (auto) Absolute Neuts (auto) Absolute Nucleated RBC 0.060 H Nucleated RBC % (auto) 5.2 H Neutrophils % (Manual) Band Neutrophils % Lymphocytes % (Manual) Monocytes % (Manual) Basophils % (Manual) Abs Neuts (Manual) Lymphocytes # (Manual) Monocytes # (Manual) Smudge Cells Platelet Estimate Plt Morphology Comment RBC Morphology Polychromasia Microcytosis Macrocytosis Target Cells Gloria Cells Blood Type Antibody Screen Crossmatch Assessment and Plan (1) NSVT (nonsustained ventricular tachycardia): Status: Acute (2) GI bleeding: Status: Acute (3) Multifocal atrial tachycardia: Status: Acute (4) Pancytopenia: Status: Acute (5) Neutropenia: Status: Acute (6) Cardiomyopathy: Status: Acute Plan 77oy M with MDS, HFrEF, atrial tachycardia, HTN, HLD, chronic hypoxic respiratory failure on home O2 (2-3L prn), h/o kidney transplant in 1999 presented with dyspnea, admitted for respiratory failure from CHF exacerbation GI bleeding on 03/10 with multiple dark tarry stoosl. From upper GIB, had EGD on 03/11--> Duodenitis/gastritis, on PO PPI and karafate, no active bleed. s/p multiple transfusions, recheck H/H NSVT multiple runs noted on tele, pt asymptomatic known EF of 30-35% on BB, unable to increase given soft BP mag, potassium replacement given monitor electrolytes closely to keep mag>2, k >4 tele monitoring bacteremia initially growing GNR, now reported as gram variable nani in 1/4 bottles - unable to identify species therefore being sent out to reference laboratory. Likely will not have speciation until at least later today started on ceftriaxone 03/06. given immunocompromise [neutropenia], changed to pip/antonieta for antipseudomonal coverage on 03/07 ?source - CT chest showing improvement in opacities (was treated for pneumonia on last admission) no respiratory symptoms at this time. CT abdomen/pelvis with no obvious source of infection seen by ID consult, recommend to continue Zosyn for 5-7 days; on day #8 atrial tachycardia vs flutter- converted back to sinus 6/16 afternoon, now appears to be MAT HR uncontrolled overnight. Low BP making control difficult - continue amiodarone- increased to 200 mg bid x 1 wk (until 03/12 then change to 200 mg once daily); changed metoprolol to 25 mg bid standing; s/p digoxin x 3 doses - not a candidate for anticoagulation due to chronic anemia/GIB - cardiology following pancytopenia h/o MDS, undergoing chemotherapy, managed by [facility]. Last chemo 03/02 H/H essentially unchanged with transfusion yesterday - transfused 1u pRBCs 03/05, 1u pRBCs 03/06, 03/09, 2u 03/10 , 2units on 03/13 and 2 units on 03/14 - seen by Heme/Onc - monitor CBC, avoid heparinoids - FOBT posiitve, see above acute/chronic hypoxic respiratory failure briefly on CPAP in ED, now on room air at baseline uses 2-3L prn - has been intermittently using at times acute/chronic HFrEF EF 30-35% - appears euvolemic at this time - IV furosemide stopped. 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 HCP is Patricia, number in system is incorrect. Correct number is [phone]. She was updated this morning Patient requires ongoing inpatient hospitalization due to workup for bacteremia/IV antibiotics/ and pending sensitivity GI bleeding, anemia/NSVT. Needs close tele monitoring for cardiac arrhythmia and frequent lab draws to monitor CBC. Quality Stroke Does the patient have a stroke diagnosis?: No VTE Prior VTE?: No VTE Risk Level:: Medical - moderate - high VTE Device Contraindication: Treatment Not Indicated VTE Drug Contraindication: N/A - Med Ordered
[2022-03-14 10:16] LABS: Alanine Aminotransferase 10 U/L (0-40); Albumin Level 2.1 g/dL (3.5-5.0); Alkaline Phosphatase 20 U/L (39-117); Aspartate Amino Transferase 16 U/L (5-37); Bilirubin Direct 0.2 mg/dL (0.0-0.5); Bilirubin Total 0.5 mg/dL (0.0-1.0); Lactate Dehydrogenase 193 U/L (118-273); Total Protein 3.3 g/dL (6.5-8.0)
--- NOTE | 2022-03-14 12:45 | PC.NURSE ---
on arrival to [facility], this rn noticed the IV line that was infusing blood became dislodged. immediately stopped blood. changed IV line.
--- NOTE | 2022-03-14 13:31 | HO.ANESPROP2 ---
[facility] Active Problems Active Problems: All Active Problems (Updated 03/11/22 @ 09:38 by DIOMEDES Moran) GI bleeding (Acute) NSVT (nonsustained ventricular tachycardia) (Acute) Multifocal atrial tachycardia (Acute) Atrial flutter (Acute) Acute on chronic HFrEF (heart failure with reduced ejection fraction) (Acute) Acute dyspnea (Acute) Atrial tachycardia (Acute) Pancytopenia (Acute) Neutropenia (Acute) Respiratory failure (Acute) Cardiomyopathy (Acute) Heart failure with reduced ejection fraction (Acute) PVCs (premature ventricular contractions) (Acute) Atrial arrhythmia (Acute) Past Medical History Medical History Chronic anemia CKD stage G3b/A2, GFR 30-44 and albumin creatinine ratio 30-299 mg/g Congestive heart failure COPD (chronic obstructive pulmonary disease) Emphysema of lung Iliopsoas muscle hematoma Myelodysplastic syndrome On home O2 Pancytopenia Pneumonia Pneumonia due to COVID-19 virus Tobacco dependency VRE bacteremia Functional capacity: independent ambulation Family History Family history of problems with anesthesia: No Surgical History Surgical History Status post kidney autotransplantation History of Problems with Anesthesia: No Social History Social History Household Members: Spouse Housing: House Do you presently have visiting nurse or other home services: No (no services, prev had VNA. Now only oxygen deliv.) Patient Tobacco Use Status: Former Tobacco user Tobacco use type: Cigarette service: Yes Current occupational status: retired Reveals Allergies Allergy/AdvReac Type Severity Reaction Status Date / Time No Known Allergies Allergy Verified 11/27/21 20:52 Active Medications: Current Medications Acetaminophen (Acetaminophen 325 Mg Tablet) 650 mg PO Q6H PRN PRN Reason: Pain, Mild (Pain Scale 1-3) Last Admin: 03/14/22 05:43 Dose: 650 mg Amiodarone HCl (Amiodarone Hcl 200 Mg Tablet) 200 mg PO BID [facility] Last Admin: 03/14/22 09:02 Dose: 200 mg Atorvastatin Calcium (Atorvastatin Calcium 40 Mg Tablet) 40 mg PO BEDTIME [facility] Last Admin: 03/13/22 20:02 Dose: 40 mg Docusate Sodium (Docusate Sodium 100 Mg Capsule) 100 mg PO BEDTIME [facility] Last Admin: 03/13/22 20:03 Dose: Not Given Ferrous Sulfate (Ferrous Sulfate 324 Mg Tablet.) 324 mg PO DAILY [facility] Last Admin: 03/14/22 09:02 Dose: 324 mg Finasteride (Finasteride 5 Mg Tablet) 5 mg PO DAILY [facility] Last Admin: 03/14/22 09:01 Dose: 5 mg Gabapentin (Gabapentin 100 Mg Capsule) 200 mg PO BEDTIME [facility] Last Admin: 03/13/22 20:01 Dose: 200 mg Piperacillin Sod/Tazobactam (Sod 3.375 gm/ Sodium Chloride) 50 mls @ 100 mls/hr IV Q6H [facility] Last Infusion: 03/14/22 09:53 Dose: Infused Melatonin (Melatonin 3 Mg Tablet) 6 mg PO BEDTIME PRN PRN Reason: Insomnia Last Admin: 03/13/22 20:02 Dose: 6 mg Metoprolol Tartrate (Metoprolol Tartrate 25 Mg Tablet) 25 mg PO BID [facility]; Protocol Last Admin: 03/14/22 09:03 Dose: Not Given Omeprazole (Omeprazole 40 Mg Capsule.) 40 mg PO BID@0630,1630 [facility] Last Admin: 03/14/22 05:42 Dose: 40 mg Pharmacy Consult (Consult Rx Perform Med Rec) 1 each MISCELLANE ONCE PRN PRN Reason: Consult order Polyethylene Glycol (Polyethylene Glycol 3350 17 Gm Powd.Pack) 17 gm PO DAILY [facility] Last Admin: 03/10/22 09:39 Dose: Not Given Potassium Chloride (Potassium Chloride Er 20 Meq Tab.Er.Prt) 20 meq PO DAILY [facility] Last Admin: 03/14/22 09:01 Dose: 20 meq Senna (Sennosides 8.6 Mg Tablet) 17.2 mg PO BEDTIME PRN PRN Reason: Constipation Last Admin: 03/07/22 20:15 Dose: 17.2 mg Sodium Chloride (0.9 % Sodium Chloride Flush 3 Ml Syringe) 3 ml IVFLUSH QSHIFT [facility] Last Admin: 03/14/22 09:03 Dose: Not Given Sucralfate (Sucralfate Oral Suspension 1 Gm/10 Ml Oral.Susp) 1 gm PO QIDACHS [facility] Last Admin: 03/14/22 12:50 Dose: Not Given Home Medications Medication Instructions Recorded Confirmed Last Taken Type ferrous sulfate 324 mg (65 mg 324 mg PO DAILY 01/13/22 03/04/22 03/04/22 History iron) tablet,delayed release finasteride 5 mg tablet 1 tab PO DAILY 01/13/22 03/04/22 03/04/22 History gabapentin 100 mg capsule 2 cap PO BEDTIME 01/13/22 03/04/22 03/03/22 History metoprolol tartrate 25 mg tablet 25 mg PO BID PRN SBP>90 03/04/22 03/04/22 03/04/22 History potassium chloride 20 mEq 1 tab PO DAILY 03/04/22 03/04/22 03/04/22 History tablet,extended release(part/cryst) simvastatin 80 mg tablet 80 mg PO BEDTIME 03/04/22 03/04/22 03/03/22 History Exam Exam Date and Time: March 14, 2022 1331 Height,Weight and Vital Signs: Height 6 ft Weight 60.781 kg Last Vital Signs Temp 98.0 F 03/14/22 12:32 Pulse 78 03/14/22 12:32 Resp 15 03/14/22 12:32 BP 90/50 L 03/14/22 12:32 Pulse Ox 97 03/14/22 12:32 O2 Del Method 03/14/22 12:32 O2 Flow Rate 2 03/13/22 11:28 FiO2 96 03/10/22 16:36 Oxygen Flow Rate 2 03/13/22 11:00 Pertinent Lab Results Pertinent Lab Results: Laboratory Tests 03/04/22 03/04/22 03/04/22 18:44 18:44 18:44 WBC 1.4 L RBC 2.79 L Hgb 7.7 L Hct 25.9 L MCV 92.8 MCH 27.6 MCHC 29.7 L RDW 16.8 H Plt Count 83 L MPV 12.1 Immature Gran % (Auto) 3.6 H Neut % (Auto) 30.7 L Lymph % (Auto) 57.1 H [place] % (Auto) 7.9 Eos % (Auto) 0.0 Baso % (Auto) 0.7 Lymph # (Auto) 0.8 L [place] # (Auto) 0.1 Eos # (Auto) 0.0 Baso # (Auto) 0.0 Abs Immat Gran (auto) 0.05 H Absolute Neuts (auto) 0.4 L Absolute Nucleated RBC 0.050 H Nucleated RBC % (auto) 3.6 H Neutrophils % (Manual) Band Neutrophils % Lymphocytes % (Manual) Atypical Lymphs % (Man) Monocytes % (Manual) Basophils % (Manual) Abs Neuts (Manual) Lymphocytes # (Manual) Monocytes # (Manual) Nucleated RBCs Smudge Cells Platelet Estimate Large Platelets Plt Morphology Comment RBC Morphology Polychromasia Hypochromasia Microcytosis Macrocytosis Target Cells Ovalocytes Guide Rock Cells Acanthocytes (Spur) Smear Tech's Comments VERIFIED Smear Path Review PT INR APTT Fibrinogen D-Dimer High Sensitivty VBG pH VBG pCO2 VBG pO2 VBG HCO3 VBG O2 Saturation VBG Base Excess Sodium 134 L Potassium 4.7 Chloride 108 Carbon Dioxide 18 L Anion Gap 13 BUN 31 H Creatinine 0.77 Estim Creat Clear Calc 67.8 Estimated GFR > 60 Random Glucose 87 Lactic Acid Calcium 8.3 L Magnesium 1.9 Total Bilirubin 0.6 Direct Bilirubin 0.2 AST 18 ALT 15 Alkaline Phosphatase 63 Lactate Dehydrogenase Troponin I High Sens B-Natriuretic Peptide 1085 H Total Protein 6.0 L Albumin 3.5 Lipase 64 Urine Color Urine Appearance Urine pH Ur Specific [place] Urine Protein Urine Glucose (UA) Urine Ketones Urine Blood Urine Nitrite Ur Leukocyte Esterase Urine RBC Urine WBC Ur Squamous Epith Cells Urine Bacteria Stool Occult Blood Digoxin C. difficile Tox B Gene COVID-19 (ELAN) COVID-19 Clin Com Blood Type Antibody Screen PUNEET, Polyspecific Positive PUNEET Work-up Crossmatch 03/04/22 03/04/22 03/04/22 18:45 18:45 18:46 WBC RBC Hgb Hct MCV MCH MCHC RDW Plt Count MPV Immature Gran % (Auto) Neut % (Auto) Lymph % (Auto) [place] % (Auto) Eos % (Auto) Baso % (Auto) Lymph # (Auto) [place] # (Auto) Eos # (Auto) Baso # (Auto) Abs Immat Gran (auto) Absolute Neuts (auto) Absolute Nucleated RBC Nucleated RBC % (auto) Neutrophils % (Manual) Band Neutrophils % Lymphocytes % (Manual) Atypical Lymphs % (Man) Monocytes % (Manual) Basophils % (Manual) Abs Neuts (Manual) Lymphocytes # (Manual) Monocytes # (Manual) Nucleated RBCs Smudge Cells Platelet Estimate Large Platelets Plt Morphology Comment RBC Morphology Polychromasia Hypochromasia Microcytosis Macrocytosis Target Cells Ovalocytes Guide Rock Cells Acanthocytes (Spur) Smear Tech's Comments Smear Path Review PT 13.8 H INR 1.2 H APTT 33.9 Fibrinogen D-Dimer High Sensitivty 367 VBG pH VBG pCO2 VBG pO2 VBG HCO3 VBG O2 Saturation VBG Base Excess Sodium Potassium Chloride Carbon Dioxide Anion Gap BUN Creatinine Estim Creat Clear Calc Estimated GFR Random Glucose Lactic Acid 1.3 Calcium Magnesium Total Bilirubin Direct Bilirubin AST ALT Alkaline Phosphatase Lactate Dehydrogenase Troponin I High Sens B-Natriuretic Peptide Total Protein Albumin Lipase Urine Color Urine Appearance Urine pH Ur Specific [place] Urine Protein Urine Glucose (UA) Urine Ketones Urine Blood Urine Nitrite Ur Leukocyte Esterase Urine RBC Urine WBC Ur Squamous Epith Cells Urine Bacteria Stool Occult Blood Digoxin C. difficile Tox B Gene COVID-19 (ELAN) Negative COVID-19 Clin Com See Note Blood Type Antibody Screen PUNEET, Polyspecific Positive PUNEET Work-up Crossmatch 03/04/22 03/04/22 03/04/22 18:46 18:47 18:56 WBC RBC Hgb Hct MCV MCH MCHC RDW Plt Count MPV Immature Gran % (Auto) Neut % (Auto) Lymph % (Auto) [place] % (Auto) Eos % (Auto) Baso % (Auto) Lymph # (Auto) [place] # (Auto) Eos # (Auto) Baso # (Auto) Abs Immat Gran (auto) Absolute Neuts (auto) Absolute Nucleated RBC Nucleated RBC % (auto) Neutrophils % (Manual) Band Neutrophils % Lymphocytes % (Manual) Atypical Lymphs % (Man) Monocytes % (Manual) Basophils % (Manual) Abs Neuts (Manual) Lymphocytes # (Manual) Monocytes # (Manual) Nucleated RBCs Smudge Cells Platelet Estimate Large Platelets Plt Morphology Comment RBC Morphology Polychromasia Hypochromasia Microcytosis Macrocytosis Target Cells Ovalocytes Guide Rock Cells Acanthocytes (Spur) Smear Tech's Comments Smear Path Review PT INR APTT Fibrinogen D-Dimer High Sensitivty VBG pH 7.35 VBG pCO2 25 VBG pO2 174 VBG HCO3 14 L VBG O2 Saturation 99.0 VBG Base Excess -9.4 Sodium Potassium Chloride Carbon Dioxide Anion Gap BUN Creatinine Estim Creat Clear Calc Estimated GFR Random Glucose Lactic Acid Calcium Magnesium Total Bilirubin Direct Bilirubin AST ALT Alkaline Phosphatase Lactate Dehydrogenase Troponin I High Sens 9.8 D B-Natriuretic Peptide Total Protein Albumin Lipase Urine Color Urine Appearance Urine pH Ur Specific [place] Urine Protein Urine Glucose (UA) Urine Ketones Urine Blood Urine Nitrite Ur Leukocyte Esterase Urine RBC Urine WBC Ur Squamous Epith Cells Urine Bacteria Stool Occult Blood Digoxin < 0.3 L C. difficile Tox B Gene COVID-19 (ELAN) COVID-19 Clin Com Blood Type Antibody Screen PUNEET, Polyspecific Positive PUNEET Work-up Crossmatch 03/04/22 03/04/22 03/05/22 20:45 22:11 06:02 WBC 0.5 L* RBC 2.31 L Hgb 6.4 L* Hct 21.3 L MCV 92.2 MCH 27.7 MCHC 30.0 L RDW 16.6 H Plt Count 80 L MPV 11.8 Immature Gran % (Auto) Cancelled Neut % (Auto) Cancelled Lymph % (Auto) Cancelled [place] % (Auto) Cancelled Eos % (Auto) Cancelled Baso % (Auto) Cancelled Lymph # (Auto) Cancelled [place] # (Auto) Cancelled Eos # (Auto) Cancelled Baso # (Auto) Cancelled Abs Immat Gran (auto) Cancelled Absolute Neuts (auto) Cancelled Absolute Nucleated RBC 0.030 H Nucleated RBC % (auto) 5.8 H Neutrophils % (Manual) 40 L Band Neutrophils % 2 L Lymphocytes % (Manual) 54 H Atypical Lymphs % (Man) 2 Monocytes % (Manual) Basophils % (Manual) 2 Abs Neuts (Manual) 0.2 L Lymphocytes # (Manual) 0.3 L Monocytes # (Manual) Nucleated RBCs 4 H Smudge Cells Platelet Estimate DECREASED Large Platelets PRESENT Plt Morphology Comment NOTED RBC Morphology NOTED Polychromasia 1+ (0-2) Hypochromasia 2+ (15-30) Microcytosis Macrocytosis 1+ (5-14) Target Cells Ovalocytes 1+ (5-14) Gloria Cells Acanthocytes (Spur) 1+ (0-2) Smear Tech's Comments Smear Path Review Cancelled PT INR APTT Fibrinogen D-Dimer High Sensitivty VBG pH VBG pCO2 VBG pO2 VBG HCO3 VBG O2 Saturation VBG Base Excess Sodium Potassium Chloride Carbon Dioxide Anion Gap BUN Creatinine Estim Creat Clear Calc Estimated GFR Random Glucose Lactic Acid Calcium Magnesium Total Bilirubin Direct Bilirubin AST ALT Alkaline Phosphatase Lactate Dehydrogenase Troponin I High Sens 14.4 B-Natriuretic Peptide Total Protein Albumin Lipase Urine Color Urine Appearance Urine pH Ur Specific [place] Urine Protein Urine Glucose (UA) Urine Ketones Urine Blood Urine Nitrite Ur Leukocyte Esterase Urine RBC Urine WBC Ur Squamous Epith Cells Urine Bacteria Stool Occult Blood Digoxin C. difficile Tox B Gene COVID-19 (ELAN) COVID-19 Clin Com Blood Type A Positive Antibody Screen NEGATIVE PUNEET, Polyspecific Positive PUNEET Work-up Crossmatch See Detail 03/05/22 03/05/22 03/06/22 06:02 07:00 05:47 WBC 0.6 L* 2.2 L RBC 2.24 L 2.06 L Hgb 6.3 L* 5.9 L* Hct 20.9 L* 18.7 L* MCV 93.3 90.8 MCH 28.1 28.6 MCHC 30.1 L 31.6 RDW 16.8 H 15.5 Plt Count 78 L 81 L MPV 12.1 11.5 Immature Gran % (Auto) 1.6 H Neut % (Auto) 41.0 L Lymph % (Auto) 50.8 H [place] % (Auto) 6.6 Eos % (Auto) 0.0 Baso % (Auto) 0.0 Lymph # (Auto) 0.3 L [place] # (Auto) 0.0 L Eos # (Auto) 0.0 Baso # (Auto) 0.0 Abs Immat Gran (auto) 0.01 Absolute Neuts (auto) 0.3 L Absolute Nucleated RBC 0.020 H 0.060 H Nucleated RBC % (auto) 3.3 H 2.7 H Neutrophils % (Manual) 35 L Band Neutrophils % 1 L Lymphocytes % (Manual) 60 H Atypical Lymphs % (Man) 1 Monocytes % (Manual) 3 Basophils % (Manual) Abs Neuts (Manual) 0.8 L Lymphocytes # (Manual) 1.3 Monocytes # (Manual) 0.1 Nucleated RBCs 1 H Smudge Cells Platelet Estimate DECREASED Large Platelets Plt Morphology Comment NORMAL RBC Morphology NOTED Polychromasia 1+ (0-2) Hypochromasia 2+ (15-30) Microcytosis 1+ (5-14) Macrocytosis 1+ (5-14) Target Cells Ovalocytes 1+ (5-14) Guide Rock Cells 1+ (0-2) Acanthocytes (Spur) Smear Tech's Comments VERIFIED Smear Path Review PT INR APTT Fibrinogen D-Dimer High Sensitivty VBG pH VBG pCO2 VBG pO2 VBG HCO3 VBG O2 Saturation VBG Base Excess Sodium 133 L Potassium 4.4 Chloride 105 Carbon Dioxide 20 L Anion Gap 12 BUN 51 H D Creatinine 1.02 Estim Creat Clear Calc 51.2 Estimated GFR > 60 Random Glucose 189 H D Lactic Acid Calcium 8.2 L Magnesium Total Bilirubin Direct Bilirubin AST ALT Alkaline Phosphatase Lactate Dehydrogenase Troponin I High Sens B-Natriuretic Peptide Total Protein Albumin Lipase Urine Color Urine Appearance Urine pH Ur Specific [place] Urine Protein Urine Glucose (UA) Urine Ketones Urine Blood Urine Nitrite Ur Leukocyte Esterase Urine RBC Urine WBC Ur Squamous Epith Cells Urine Bacteria Stool Occult Blood Digoxin C. difficile Tox B Gene COVID-19 (ELAN) COVID-19 Clin Com Blood Type Antibody Screen PUNEET, Polyspecific Positive PUNEET Work-up Crossmatch 03/06/22 03/06/22 03/06/22 05:47 05:47 20:54 WBC RBC Hgb 6.5 L* Hct 20.2 L* MCV MCH MCHC RDW Plt Count MPV Immature Gran % (Auto) Neut % (Auto) Lymph % (Auto) [place] % (Auto) Eos % (Auto) Baso % (Auto) Lymph # (Auto) [place] # (Auto) Eos # (Auto) Baso # (Auto) Abs Immat Gran (auto) Absolute Neuts (auto) Absolute Nucleated RBC Nucleated RBC % (auto) Neutrophils % (Manual) Band Neutrophils % Lymphocytes % (Manual) Atypical Lymphs % (Man) Monocytes % (Manual) Basophils % (Manual) Abs Neuts (Manual) Lymphocytes # (Manual) Monocytes # (Manual) Nucleated RBCs Smudge Cells Platelet Estimate Large Platelets Plt Morphology Comment RBC Morphology Polychromasia Hypochromasia Microcytosis Macrocytosis Target Cells Ovalocytes Gloria Cells Acanthocytes (Spur) Smear Tech's Comments Smear Path Review PT INR APTT Fibrinogen D-Dimer High Sensitivty VBG pH VBG pCO2 VBG pO2 VBG HCO3 VBG O2 Saturation VBG Base Excess Sodium Potassium Chloride Carbon Dioxide Anion Gap BUN Creatinine Estim Creat Clear Calc Estimated GFR Random Glucose Lactic Acid Calcium Magnesium 1.8 Total Bilirubin Direct Bilirubin AST ALT Alkaline Phosphatase Lactate Dehydrogenase Troponin I High Sens B-Natriuretic Peptide 1261 H Total Protein Albumin Lipase Urine Color Urine Appearance Urine pH Ur Specific [place] Urine Protein Urine Glucose (UA) Urine Ketones Urine Blood Urine Nitrite Ur Leukocyte Esterase Urine RBC Urine WBC Ur Squamous Epith Cells Urine Bacteria Stool Occult Blood Digoxin C. difficile Tox B Gene COVID-19 (ELAN) COVID-19 Clin Com Blood Type Antibody Screen PUNEET, Polyspecific Positive PUNEET Work-up Crossmatch 03/06/22 03/07/22 03/07/22 22:42 00:04 05:53 WBC 1.5 L RBC 2.51 L D Hgb 7.5 L Hct 23.1 L MCV 92.0 MCH 29.9 MCHC 32.5 RDW 15.0 Plt Count 75 L MPV 11.6 Immature Gran % (Auto) Neut % (Auto) Lymph % (Auto) [place] % (Auto) Eos % (Auto) Baso % (Auto) Lymph # (Auto) [place] # (Auto) Eos # (Auto) Baso # (Auto) Abs Immat Gran (auto) Absolute Neuts (auto) Absolute Nucleated RBC 0.030 H Nucleated RBC % (auto) 2.0 H Neutrophils % (Manual) Band Neutrophils % Lymphocytes % (Manual) Atypical Lymphs % (Man) Monocytes % (Manual) Basophils % (Manual) Abs Neuts (Manual) Lymphocytes # (Manual) Monocytes # (Manual) Nucleated RBCs Smudge Cells Platelet Estimate Large Platelets Plt Morphology Comment RBC Morphology Polychromasia Hypochromasia Microcytosis Macrocytosis Target Cells Ovalocytes Guide Rock Cells Acanthocytes (Spur) Smear Tech's Comments Smear Path Review PT INR APTT Fibrinogen D-Dimer High Sensitivty VBG pH VBG pCO2 VBG pO2 VBG HCO3 VBG O2 Saturation VBG Base Excess Sodium Potassium Chloride Carbon Dioxide Anion Gap BUN Creatinine Estim Creat Clear Calc Estimated GFR Random Glucose Lactic Acid 1.2 Calcium Magnesium Total Bilirubin Direct Bilirubin AST ALT Alkaline Phosphatase Lactate Dehydrogenase Troponin I High Sens B-Natriuretic Peptide Total Protein Albumin Lipase Urine Color YELLOW Urine Appearance CLEAR Urine pH 6.5 Ur Specific [place] 1.010 Urine Protein NEG Urine Glucose (UA) NEG Urine Ketones NEG Urine Blood NEG Urine Nitrite NEG Ur Leukocyte Esterase TRACE H Urine RBC 1-4 Urine WBC 1-4 Ur Squamous Epith Cells 1+ Urine Bacteria 1+ Stool Occult Blood Digoxin C. difficile Tox B Gene COVID-19 (ELAN) COVID-19 Clin Com Blood Type Antibody Screen PUNEET, Polyspecific Positive PUNEET Work-up Crossmatch 03/07/22 03/07/22 03/08/22 05:53 05:53 06:01 WBC 1.5 L RBC 2.61 L Hgb 7.7 L Hct 24.0 L MCV 92.0 MCH 29.5 MCHC 32.1 RDW 15.6 Plt Count 78 L MPV 10.6 Immature Gran % (Auto) Neut % (Auto) Lymph % (Auto) [place] % (Auto) Eos % (Auto) Baso % (Auto) Lymph # (Auto) [place] # (Auto) Eos # (Auto) Baso # (Auto) Abs Immat Gran (auto) Absolute Neuts (auto) Absolute Nucleated RBC 0.050 H Nucleated RBC % (auto) 3.3 H Neutrophils % (Manual) Band Neutrophils % Lymphocytes % (Manual) Atypical Lymphs % (Man) Monocytes % (Manual) Basophils % (Manual) Abs Neuts (Manual) Lymphocytes # (Manual) Monocytes # (Manual) Nucleated RBCs Smudge Cells Platelet Estimate Large Platelets Plt Morphology Comment RBC Morphology Polychromasia Hypochromasia Microcytosis Macrocytosis Target Cells Ovalocytes Guide Rock Cells Acanthocytes (Spur) Smear Tech's Comments Smear Path Review PT INR APTT Fibrinogen D-Dimer High Sensitivty VBG pH VBG pCO2 VBG pO2 VBG HCO3 VBG O2 Saturation VBG Base Excess Sodium 135 Potassium 4.1 Chloride 102 Carbon Dioxide 25 Anion Gap 12 BUN 78 H D Creatinine 0.91 Estim Creat Clear Calc 57.4 Estimated GFR > 60 Random Glucose 94 D Lactic Acid Calcium 8.6 Magnesium 1.7 Total Bilirubin Direct Bilirubin AST ALT Alkaline Phosphatase Lactate Dehydrogenase Troponin I High Sens B-Natriuretic Peptide 1371 H Total Protein Albumin Lipase Urine Color Urine Appearance Urine pH Ur Specific [place] Urine Protein Urine Glucose (UA) Urine Ketones Urine Blood Urine Nitrite Ur Leukocyte Esterase Urine RBC Urine WBC Ur Squamous Epith Cells Urine Bacteria Stool Occult Blood Digoxin C. difficile Tox B Gene COVID-19 (ELAN) COVID-19 Clin Com Blood Type Antibody Screen PUNEET, Polyspecific Positive PUNEET Work-up Crossmatch 03/08/22 03/08/22 03/09/22 06:01 06:01 06:56 WBC 1.1 L RBC 2.20 L Hgb 6.4 L* Hct 20.6 L* MCV 93.6 MCH 29.1 MCHC 31.1 RDW 16.7 H Plt Count 48 L D MPV 9.9 Immature Gran % (Auto) 0.9 H Neut % (Auto) 30.4 L Lymph % (Auto) 57.1 H [place] % (Auto) 10.7 Eos % (Auto) 0.0 Baso % (Auto) 0.9 Lymph # (Auto) 0.6 L [place] # (Auto) 0.1 Eos # (Auto) 0.0 Baso # (Auto) 0.0 Abs Immat Gran (auto) 0.01 Absolute Neuts (auto) 0.3 L Absolute Nucleated RBC 0.030 H Nucleated RBC % (auto) 2.7 H Neutrophils % (Manual) Band Neutrophils % Lymphocytes % (Manual) Atypical Lymphs % (Man) Monocytes % (Manual) Basophils % (Manual) Abs Neuts (Manual) Lymphocytes # (Manual) Monocytes # (Manual) Nucleated RBCs Smudge Cells Platelet Estimate Large Platelets Plt Morphology Comment RBC Morphology Polychromasia Hypochromasia Microcytosis Macrocytosis Target Cells Ovalocytes Guide Rock Cells Acanthocytes (Spur) Smear Tech's Comments VERIFIED Smear Path Review PT INR APTT Fibrinogen D-Dimer High Sensitivty VBG pH VBG pCO2 VBG pO2 VBG HCO3 VBG O2 Saturation VBG Base Excess Sodium 135 Potassium 4.4 Chloride 102 Carbon Dioxide 24 Anion Gap 13 BUN 66 H Creatinine 1.15 Estim Creat Clear Calc 45.4 Estimated GFR > 60 Random Glucose 109 Lactic Acid Calcium 8.8 Magnesium 1.8 Total Bilirubin 0.4 Direct Bilirubin 0.2 AST 23 ALT 12 Alkaline Phosphatase 40 D Lactate Dehydrogenase Troponin I High Sens B-Natriuretic Peptide 818 H Total Protein 5.5 L Albumin 3.1 L Lipase Urine Color Urine Appearance Urine pH Ur Specific [place] Urine Protein Urine Glucose (UA) Urine Ketones Urine Blood Urine Nitrite Ur Leukocyte Esterase Urine RBC Urine WBC Ur Squamous Epith Cells Urine Bacteria Stool Occult Blood Digoxin C. difficile Tox B Gene COVID-19 (ELAN) COVID-19 Clin Com Blood Type Antibody Screen PUNEET, Polyspecific Positive PUNEET Work-up Crossmatch 03/09/22 03/09/22 03/10/22 06:56 10:21 06:23 WBC 1.1 L RBC 2.04 L Hgb 6.1 L* Hct 19.0 L* MCV 93.1 MCH 29.9 MCHC 32.1 RDW 17.0 H Plt Count 30 L D MPV 10.5 Immature Gran % (Auto) 0.9 H Neut % (Auto) 32.7 L Lymph % (Auto) 58.4 H [place] % (Auto) 7.1 Eos % (Auto) 0.0 Baso % (Auto) 0.9 Lymph # (Auto) 0.7 L [place] # (Auto) 0.1 Eos # (Auto) 0.0 Baso # (Auto) 0.0 Abs Immat Gran (auto) 0.01 Absolute Neuts (auto) 0.4 L Absolute Nucleated RBC 0.030 H Nucleated RBC % (auto) 2.7 H Neutrophils % (Manual) Band Neutrophils % Lymphocytes % (Manual) Atypical Lymphs % (Man) Monocytes % (Manual) Basophils % (Manual) Abs Neuts (Manual) Lymphocytes # (Manual) Monocytes # (Manual) Nucleated RBCs Smudge Cells Platelet Estimate Large Platelets Plt Morphology Comment RBC Morphology Polychromasia Hypochromasia Microcytosis Macrocytosis Target Cells Ovalocytes Gloria Cells Acanthocytes (Spur) Smear Tech's Comments VERIFIED Smear Path Review PT INR APTT Fibrinogen D-Dimer High Sensitivty VBG pH VBG pCO2 VBG pO2 VBG HCO3 VBG O2 Saturation VBG Base Excess Sodium 135 Potassium 4.2 Chloride 104 Carbon Dioxide 25 Anion Gap 10 L BUN 45 H Creatinine 1.02 Estim Creat Clear Calc 51.2 Estimated GFR > 60 Random Glucose 92 Lactic Acid Calcium 8.3 L Magnesium Total Bilirubin Direct Bilirubin AST ALT Alkaline Phosphatase Lactate Dehydrogenase Troponin I High Sens B-Natriuretic Peptide Total Protein Albumin Lipase Urine Color Urine Appearance Urine pH Ur Specific [place] Urine Protein Urine Glucose (UA) Urine Ketones Urine Blood Urine Nitrite Ur Leukocyte Esterase Urine RBC Urine WBC Ur Squamous Epith Cells Urine Bacteria Stool Occult Blood Digoxin C. difficile Tox B Gene COVID-19 (ELAN) COVID-19 Clin Com Blood Type A Positive Antibody Screen NEGATIVE PUNEET, Polyspecific Positive PUNEET Work-up Crossmatch See Detail 03/10/22 03/10/22 03/10/22 13:00 17:30 17:30 WBC RBC Hgb 7.6 L D Hct 23.6 L D MCV MCH MCHC RDW Plt Count MPV Immature Gran % (Auto) Neut % (Auto) Lymph % (Auto) [place] % (Auto) Eos % (Auto) Baso % (Auto) Lymph # (Auto) [place] # (Auto) Eos # (Auto) Baso # (Auto) Abs Immat Gran (auto) Absolute Neuts (auto) Absolute Nucleated RBC Nucleated RBC % (auto) Neutrophils % (Manual) Band Neutrophils % Lymphocytes % (Manual) Atypical Lymphs % (Man) Monocytes % (Manual) Basophils % (Manual) Abs Neuts (Manual) Lymphocytes # (Manual) Monocytes # (Manual) Nucleated RBCs Smudge Cells Platelet Estimate Large Platelets Plt Morphology Comment RBC Morphology Polychromasia Hypochromasia Microcytosis Macrocytosis Target Cells Ovalocytes Guide Rock Cells Acanthocytes (Spur) Smear Tech's Comments Smear Path Review PT INR APTT Fibrinogen D-Dimer High Sensitivty VBG pH VBG pCO2 VBG pO2 VBG HCO3 VBG O2 Saturation VBG Base Excess Sodium 136 Potassium 4.3 Chloride 108 Carbon Dioxide 22 Anion Gap 10 L BUN 55 H Creatinine 0.93 Estim Creat Clear Calc 56.2 Estimated GFR > 60 Random Glucose 87 Lactic Acid Calcium 7.6 L D Magnesium 1.6 Total Bilirubin Direct Bilirubin AST ALT Alkaline Phosphatase Lactate Dehydrogenase Troponin I High Sens B-Natriuretic Peptide Total Protein Albumin Lipase Urine Color Urine Appearance Urine pH Ur Specific [place] Urine Protein Urine Glucose (UA) Urine Ketones Urine Blood Urine Nitrite Ur Leukocyte Esterase Urine RBC Urine WBC Ur Squamous Epith Cells Urine Bacteria Stool Occult Blood POSITIVE Digoxin C. difficile Tox B Gene COVID-19 (ELAN) COVID-19 Clin Com Blood Type Antibody Screen PUNEET, Polyspecific Positive PUNEET Work-up Crossmatch 03/11/22 03/11/22 03/11/22 02:08 05:25 05:25 WBC 1.4 L RBC 2.04 L Hgb 5.9 L* D Hct 18.8 L* D MCV 92.2 MCH 28.9 MCHC 31.4 RDW 19.1 H Plt Count 28 L MPV 12.2 Immature Gran % (Auto) 1.4 H Neut % (Auto) 26.9 L Lymph % (Auto) 58.2 H [place] % (Auto) 12.8 H Eos % (Auto) 0.0 Baso % (Auto) 0.7 Lymph # (Auto) 0.8 L [place] # (Auto) 0.2 Eos # (Auto) 0.0 Baso # (Auto) 0.0 Abs Immat Gran (auto) 0.02 Absolute Neuts (auto) 0.4 L Absolute Nucleated RBC 0.020 H Nucleated RBC % (auto) 1.4 H Neutrophils % (Manual) Band Neutrophils % Lymphocytes % (Manual) Atypical Lymphs % (Man) Monocytes % (Manual) Basophils % (Manual) Abs Neuts (Manual) Lymphocytes # (Manual) Monocytes # (Manual) Nucleated RBCs Smudge Cells Platelet Estimate Large Platelets Plt Morphology Comment RBC Morphology Polychromasia Hypochromasia Microcytosis Macrocytosis Target Cells Ovalocytes Guide Rock Cells Acanthocytes (Spur) Smear Tech's Comments VERIFIED Smear Path Review PT INR APTT Fibrinogen D-Dimer High Sensitivty VBG pH VBG pCO2 VBG pO2 VBG HCO3 VBG O2 Saturation VBG Base Excess Sodium 134 L 135 Potassium 3.8 4.0 Chloride 107 108 Carbon Dioxide 21 L 21 L Anion Gap 10 L 10 L BUN 58 H 60 H Creatinine 0.92 0.90 Estim Creat Clear Calc 56.8 58.0 Estimated GFR > 60 > 60 Random Glucose 91 87 Lactic Acid Calcium 7.5 L 7.6 L Magnesium 1.7 Total Bilirubin Direct Bilirubin AST ALT Alkaline Phosphatase Lactate Dehydrogenase Troponin I High Sens B-Natriuretic Peptide Total Protein Albumin Lipase Urine Color Urine Appearance Urine pH Ur Specific [place] Urine Protein Urine Glucose (UA) Urine Ketones Urine Blood Urine Nitrite Ur Leukocyte Esterase Urine RBC Urine WBC Ur Squamous Epith Cells Urine Bacteria Stool Occult Blood Digoxin C. difficile Tox B Gene COVID-19 (ELAN) COVID-19 Clin Com Blood Type Antibody Screen PUNEET, Polyspecific Positive PUNEET Work-up Crossmatch 03/11/22 03/11/22 03/11/22 10:57 14:08 18:24 WBC 1.7 L 0.9 L* RBC 2.18 L 2.23 L Hgb 6.4 L* 6.6 L* Hct 20.3 L* 21.0 L* MCV 93.1 94.2 MCH 29.4 29.6 MCHC 31.5 31.4 RDW 18.6 H 17.2 H Plt Count 27 L 59 L D MPV 10.3 10.3 Immature Gran % (Auto) Neut % (Auto) Lymph % (Auto) [place] % (Auto) Eos % (Auto) Baso % (Auto) Lymph # (Auto) [place] # (Auto) Eos # (Auto) Baso # (Auto) Abs Immat Gran (auto) Absolute Neuts (auto) Absolute Nucleated RBC 0.030 H 0.020 H Nucleated RBC % (auto) 1.7 H 2.4 H Neutrophils % (Manual) Band Neutrophils % Lymphocytes % (Manual) Atypical Lymphs % (Man) Monocytes % (Manual) Basophils % (Manual) Abs Neuts (Manual) Lymphocytes # (Manual) Monocytes # (Manual) Nucleated RBCs Smudge Cells Platelet Estimate Large Platelets Plt Morphology Comment RBC Morphology Polychromasia Hypochromasia Microcytosis Macrocytosis Target Cells Ovalocytes Gloria Cells Acanthocytes (Spur) Smear Tech's Comments Smear Path Review PT 12.0 INR 1.1 APTT 28.8 Fibrinogen 360 D-Dimer High Sensitivty VBG pH VBG pCO2 VBG pO2 VBG HCO3 VBG O2 Saturation VBG Base Excess Sodium Potassium Chloride Carbon Dioxide Anion Gap BUN Creatinine Estim Creat Clear Calc Estimated GFR Random Glucose Lactic Acid Calcium Magnesium Total Bilirubin Direct Bilirubin AST ALT Alkaline Phosphatase Lactate Dehydrogenase Troponin I High Sens B-Natriuretic Peptide Total Protein Albumin Lipase Urine Color Urine Appearance Urine pH Ur Specific [place] Urine Protein Urine Glucose (UA) Urine Ketones Urine Blood Urine Nitrite Ur Leukocyte Esterase Urine RBC Urine WBC Ur Squamous Epith Cells Urine Bacteria Stool Occult Blood Digoxin C. difficile Tox B Gene COVID-19 (ELAN) COVID-19 Clin Com Blood Type Antibody Screen PUNEET, Polyspecific Positive PUNEET Work-up Crossmatch 03/11/22 03/11/22 03/12/22 21:43 21:43 01:56 WBC 1.0 L RBC 2.50 L Hgb 7.6 L Hct 22.9 L MCV 91.6 MCH 30.4 MCHC 33.2 RDW 16.5 H Plt Count 53 L MPV 9.4 Immature Gran % (Auto) Neut % (Auto) Lymph % (Auto) [place] % (Auto) Eos % (Auto) Baso % (Auto) Lymph # (Auto) [place] # (Auto) Eos # (Auto) Baso # (Auto) Abs Immat Gran (auto) Absolute Neuts (auto) Absolute Nucleated RBC 0.000 Nucleated RBC % (auto) 0.0 Neutrophils % (Manual) Band Neutrophils % Lymphocytes % (Manual) Atypical Lymphs % (Man) Monocytes % (Manual) Basophils % (Manual) Abs Neuts (Manual) Lymphocytes # (Manual) Monocytes # (Manual) Nucleated RBCs Smudge Cells Platelet Estimate Large Platelets Plt Morphology Comment RBC Morphology Polychromasia Hypochromasia Microcytosis Macrocytosis Target Cells Ovalocytes Gloria Cells Acanthocytes (Spur) Smear Tech's Comments Smear Path Review PT INR APTT Fibrinogen D-Dimer High Sensitivty VBG pH VBG pCO2 VBG pO2 VBG HCO3 VBG O2 Saturation VBG Base Excess Sodium Potassium Chloride Carbon Dioxide Anion Gap BUN Creatinine Estim Creat Clear Calc Estimated GFR Random Glucose Lactic Acid Calcium Magnesium Total Bilirubin Direct Bilirubin AST ALT Alkaline Phosphatase Lactate Dehydrogenase Troponin I High Sens B-Natriuretic Peptide Total Protein Albumin Lipase Urine Color Urine Appearance Urine pH Ur Specific [place] Urine Protein Urine Glucose (UA) Urine Ketones Urine Blood Urine Nitrite Ur Leukocyte Esterase Urine RBC Urine WBC Ur Squamous Epith Cells Urine Bacteria Stool Occult Blood POSITIVE Digoxin C. difficile Tox B Gene NEGATIVE COVID-19 (ELAN) COVID-19 Clin Com Blood Type Antibody Screen PUNEET, Polyspecific Positive PUNEET Work-up Crossmatch 03/12/22 03/12/22 03/13/22 07:38 07:38 09:44 WBC 1.5 L 1.3 L RBC 2.36 L 1.52 L D Hgb 7.1 L 4.6 L* D Hct 21.9 L 15.4 L* D MCV 92.8 101.3 H D MCH 30.1 30.3 MCHC 32.4 29.9 L RDW 17.2 H 20.6 H Plt Count 47 L 41 L MPV 10.1 10.4 Immature Gran % (Auto) Cancelled Neut % (Auto) Cancelled Lymph % (Auto) Cancelled [place] % (Auto) Cancelled Eos % (Auto) Cancelled Baso % (Auto) Cancelled Lymph # (Auto) Cancelled [place] # (Auto) Cancelled Eos # (Auto) Cancelled Baso # (Auto) Cancelled Abs Immat Gran (auto) Cancelled Absolute Neuts (auto) Cancelled Absolute Nucleated RBC 0.030 H 0.030 H Nucleated RBC % (auto) 2.0 H 2.4 H Neutrophils % (Manual) 25 L Band Neutrophils % 1 L Lymphocytes % (Manual) 67 H Atypical Lymphs % (Man) Monocytes % (Manual) 7 Basophils % (Manual) Abs Neuts (Manual) 0.4 L Lymphocytes # (Manual) 1.0 L Monocytes # (Manual) 0.1 Nucleated RBCs 1 H Smudge Cells Platelet Estimate DECREASED Large Platelets Plt Morphology Comment NORM RBC Morphology NOTED Polychromasia 1+ (0-2) Hypochromasia Microcytosis 1+ (5-14) Macrocytosis 1+ (5-14) Target Cells Ovalocytes 1+ (5-14) Gloria Cells 1+ (0-2) Acanthocytes (Spur) 1+ (0-2) Smear Tech's Comments Smear Path Review PT INR APTT Fibrinogen D-Dimer High Sensitivty VBG pH VBG pCO2 VBG pO2 VBG HCO3 VBG O2 Saturation VBG Base Excess Sodium 137 Potassium 4.3 Chloride 112 H Carbon Dioxide 18 L Anion Gap 11 L BUN 44 H Creatinine 0.87 Estim Creat Clear Calc 60.0 Estimated GFR > 60 Random Glucose 108 Lactic Acid Calcium 7.6 L Magnesium 1.9 Total Bilirubin Direct Bilirubin AST ALT Alkaline Phosphatase Lactate Dehydrogenase Troponin I High Sens B-Natriuretic Peptide Total Protein Albumin Lipase Urine Color Urine Appearance Urine pH Ur Specific [place] Urine Protein Urine Glucose (UA) Urine Ketones Urine Blood Urine Nitrite Ur Leukocyte Esterase Urine RBC Urine WBC Ur Squamous Epith Cells Urine Bacteria Stool Occult Blood Digoxin C. difficile Tox B Gene COVID-19 (ELAN) COVID-19 Clin Com Blood Type Antibody Screen PUNEET, Polyspecific Positive PUNEET Work-up Crossmatch 03/13/22 03/14/22 03/14/22 09:44 00:34 08:24 WBC 1.3 L 1.2 L RBC 1.72 L 1.77 L Hgb 5.1 L* 5.2 L* Hct 16.0 L* 16.1 L* MCV 93.0 D 91.0 MCH 29.7 29.4 MCHC 31.9 32.3 RDW 19.6 H 18.5 H Plt Count 39 L 32 L MPV 10.4 10.9 Immature Gran % (Auto) Cancelled Neut % (Auto) Cancelled Lymph % (Auto) Cancelled [place] % (Auto) Cancelled Eos % (Auto) Cancelled Baso % (Auto) Cancelled Lymph # (Auto) Cancelled [place] # (Auto) Cancelled Eos # (Auto) Cancelled Baso # (Auto) Cancelled Abs Immat Gran (auto) Cancelled Absolute Neuts (auto) Cancelled Absolute Nucleated RBC 0.050 H 0.060 H Nucleated RBC % (auto) 3.9 H 5.2 H Neutrophils % (Manual) 26 L Band Neutrophils % 1 L Lymphocytes % (Manual) 68 H Atypical Lymphs % (Man) Monocytes % (Manual) 4 Basophils % (Manual) 1 Abs Neuts (Manual) 0.4 L Lymphocytes # (Manual) 0.9 L Monocytes # (Manual) 0.1 Nucleated RBCs Smudge Cells PRESENT Platelet Estimate DECREASED Large Platelets Plt Morphology Comment NORMAL RBC Morphology NOTED Polychromasia 2+ (3-5) Hypochromasia Microcytosis 1+ (5-14) Macrocytosis 1+ (5-14) Target Cells 1+ (5-14) Ovalocytes Guide Rock Cells 1+ (0-2) Acanthocytes (Spur) Smear Tech's Comments Smear Path Review PT INR APTT Fibrinogen D-Dimer High Sensitivty VBG pH VBG pCO2 VBG pO2 VBG HCO3 VBG O2 Saturation VBG Base Excess Sodium Potassium Chloride Carbon Dioxide Anion Gap BUN Creatinine Estim Creat Clear Calc Estimated GFR Random Glucose Lactic Acid Calcium Magnesium Total Bilirubin Direct Bilirubin AST ALT Alkaline Phosphatase Lactate Dehydrogenase Troponin I High Sens B-Natriuretic Peptide Total Protein Albumin Lipase Urine Color Urine Appearance Urine pH Ur Specific [place] Urine Protein Urine Glucose (UA) Urine Ketones Urine Blood Urine Nitrite Ur Leukocyte Esterase Urine RBC Urine WBC Ur Squamous Epith Cells Urine Bacteria Stool Occult Blood Digoxin C. difficile Tox B Gene COVID-19 (ELAN) COVID-19 Clin Com Blood Type A Positive Antibody Screen NEGATIVE PUNEET, Polyspecific Positive PUNEET Work-up Crossmatch See Detail 03/14/22 03/14/22 08:24 10:17 WBC RBC Hgb Hct MCV MCH MCHC RDW Plt Count MPV Immature Gran % (Auto) Neut % (Auto) Lymph % (Auto) [place] % (Auto) Eos % (Auto) Baso % (Auto) Lymph # (Auto) [place] # (Auto) Eos # (Auto) Baso # (Auto) Abs Immat Gran (auto) Absolute Neuts (auto) Absolute Nucleated RBC Nucleated RBC % (auto) Neutrophils % (Manual) Band Neutrophils % Lymphocytes % (Manual) Atypical Lymphs % (Man) Monocytes % (Manual) Basophils % (Manual) Abs Neuts (Manual) Lymphocytes # (Manual) Monocytes # (Manual) Nucleated RBCs Smudge Cells Platelet Estimate Large Platelets Plt Morphology Comment RBC Morphology Polychromasia Hypochromasia Microcytosis Macrocytosis Target Cells Ovalocytes Gloria Cells Acanthocytes (Spur) Smear Tech's Comments Smear Path Review PT INR APTT Fibrinogen D-Dimer High Sensitivty VBG pH VBG pCO2 VBG pO2 VBG HCO3 VBG O2 Saturation VBG Base Excess Sodium Potassium Chloride Carbon Dioxide Anion Gap BUN Creatinine Estim Creat Clear Calc Estimated GFR Random Glucose Lactic Acid Calcium Magnesium Total Bilirubin 0.5 Direct Bilirubin 0.2 AST 16 ALT 10 Alkaline Phosphatase 20 L D Lactate Dehydrogenase 193 Troponin I High Sens B-Natriuretic Peptide Total Protein 3.3 L D Albumin 2.1 L D Lipase Urine Color Urine Appearance Urine pH Ur Specific [place] Urine Protein Urine Glucose (UA) Urine Ketones Urine Blood Urine Nitrite Ur Leukocyte Esterase Urine RBC Urine WBC Ur Squamous Epith Cells Urine Bacteria Stool Occult Blood Digoxin C. difficile Tox B Gene COVID-19 (ELAN) COVID-19 Clin Com Blood Type Antibody Screen PUNEET, Polyspecific NEGATIVE Positive PUNEET Work-up Not Reportable Crossmatch Assessment and Plan Final Anesthetic Review Family History of Problems with Anesthesia: No History of Problems with Anesthesia: No
--- NOTE | 2022-03-14 14:04 | MHC.CM.PN ---
per rounds pt is anemic and getting units of blood no dc date at this time
--- NOTE | 2022-03-14 14:28 | P.BOP_ITS ---
Brief Operative Note Date of Service: 03/14/22 Pre-op diagnosis: gi bleed Post-op diagnosis: same Procedure: EGD Surgeon: Chepe Mark Anesthesia: MAC Was an Roller Coaster Designer used for this Procedure?: No Estimated blood loss (mL): 50 Pathology: none sent Condition: stable Disposition: PACU
--- NOTE | 2022-03-14 14:29 | PM.EVENT ---
Event Note Date of Service: 03/14/22 Event Note: EGD note dictated bleeding source identified in duodenal diverticulum bleeding controlled with epinephrine injection and clip placement. monitor h/h if rebleeding occurs, he will need angiography/interventional radiology
--- NOTE | 2022-03-14 15:01 | HO.POSTANES ---
Post Anesthesia Evaluation Post Anesthesia Evaluation Vital Signs: Vital Signs Temp Pulse Resp BP Pulse Ox O2 Del Method 03/14/22 12:32 98.0 F 78 15 90/50 L 97 Room Air 03/14/22 12:05 98.3 F 69 16 98/51 L 03/14/22 09:40 98.4 F 69 14 106/42 L 03/14/22 11:47 98.5 F 66 13 112/45 L 03/14/22 11:00 91 L Room Air 03/14/22 10:58 97.6 F 93 17 109/52 L 91 L Room Air 03/14/22 08:45 98.3 F 83 13 98/59 L 03/14/22 08:30 98.6 F 72 13 101/45 L 95 03/14/22 08:59 98.3 F 72 13 101/49 L 94 03/14/22 08:50 99.3 F 75 13 98/43 L 03/14/22 07:45 98 F 66 20 106/50 L 91 L Room Air 03/14/22 04:00 98.5 F 77 18 88/48 L 95 Room Air 03/14/22 04:21 98.5 F 77 18 88/48 L Anesthesia: Monitored Mental Status: Awake Nausea/Vomiting: None Hydration: Adequate Anesthesia-Related Issues: No Anes. Related Issues
--- NOTE | 2022-03-14 15:20 | OP_ITS ---
SURGEON: Chepe Mark MD PREOPERATIVE DIAGNOSIS: POSTOPERATIVE DIAGNOSIS: PROCEDURE PERFORMED: Upper endoscopy with control of hemorrhage. ESTIMATED BLOOD LOSS: COMPLICATIONS: ANESTHESIA: ASSISTANTS: SPECIMENS: MEDICATIONS: Monitored anesthesia care. DESCRIPTION OF PROCEDURE: History and physical were performed. The risks and benefits of the procedure were explained to the patient. Informed consent was obtained. The patient was placed in the left lateral decubitus position. The Olympus video gastroscope was introduced into the esophagus, stomach, and duodenum. Examination was performed and the scope was removed. He tolerated the procedure well and was taken to recovery area in stable condition. FINDINGS: Esophagus: The esophagus was normal. There was no bleeding. Stomach: The stomach showed some red blood, but no source for bleeding identified. Duodenum: There was fresh blood in the bulb and second portion. This was tediously washed and suctioned. A bleeding source was identified in the previously seen diverticulum between the bulb and second portion. The bleeding was controlled with injection of 4 mL of epinephrine (1:10,000) around these bleeding site. Next, a single hemostatic clip was applied at the bleeding site with excellent hemostasis. The procedure was extended and difficult due to the location of the diverticulum and the anatomy of the patient. There was no bleeding at the termination of the procedure. IMPRESSION: Upper gastrointestinal bleeding as above. RECOMMENDATION: 1. Follow H and H. 2. If rebleeding occurs, endoscopic therapy is likely to be unsuccessful and I would recommend angiography. MD JOEL Pressley/MODL / [id number]
[2022-03-14] MEDS: Gabapentin 100 MG CAPSULE 200 MG PO (21:31)
[2022-03-14] MEDS: Atorvastatin Calcium 40 MG TABLET PO (21:31)
[2022-03-14] MEDS: Docusate Sodium 100 MG CAPSULE PO (21:32)
[2022-03-14] MEDS: Metoprolol Tartrate 25 MG TABLET PO (21:32)
[2022-03-15] VITALS (8 sets, daily range): BP systolic 99–121; BP diastolic 46–82; PULSE 64–95; RESP 18–20; TEMP 36.4–37.1; O2SAT 90–98
[2022-03-15] MEDS: 0.9 % Sodium Chloride Flush 3 ML SYRINGE IVFLUSH ×4 (00:41→21:06)
--- NOTE | 2022-03-15 01:00 | MHC.PIE ---
P.? BLOOD TRANSFUSION I.? CONTINUE BLOOD TRANSFUSIONS OVERNIGHT PATIENT RECEIVED 3 UNITS ALREADY WITHOUT CBC CHECK. UPDATED. ORDERED STAT CBC.H+H BACK AT 8.3/24.7.DR LEE UPDATED WITH RESULTS. STATES NO FURTHER BLOOD TRANSFUSIONS OVERNIGHT. E.CONT TO MONITOR
[2022-03-15 01:25] LABS: Hematocrit 24.7 % (42.0-52.0); Hemoglobin 8.3 g/dl (14.0-18.0); Mean Corpuscular HGB Conc 33.6 g/dl (31.0-36.0); Mean Corpuscular Hemoglobin 30.2 pg (27.0-33.0); Mean Corpuscular Volume 89.8 fL (80.0-98.0); Mean Platelet Volume 10.3 fL (9.4-12.4); Red Blood Count 2.75 X10*6/uL (4.60-5.80)
[2022-03-15 01:28] LABS: NRBC Pct Auto 6.6 /100WBC (0.0-0.2); Platelet Count 32 X10*3/uL (160-400); White Blood Count 0.9 X10*3/uL (4.8-10.8)
[2022-03-15] MEDS: Piperacillin Sodium/Tazobactam 3.375 GM in 0.9 % Sodium Chloride 50 ML IV ×2 (02:03→08:05)
[2022-03-15] MEDS: Omeprazole 40 MG CAPSULE.DR PO ×2 (06:14→17:32)
[2022-03-15] MEDS: Sucralfate Oral Suspension 1 GM/10 ML ORAL.SUSP PO ×4 (08:05→21:06)
[2022-03-15] MEDS: Potassium Chloride ER 20 MEQ TAB.ER.PRT PO (08:13)
[2022-03-15] MEDS: Finasteride 5 MG TABLET PO (08:14)
[2022-03-15] MEDS: Amiodarone HCL 200 MG TABLET PO ×2 (08:14→21:06)
[2022-03-15] MEDS: Ferrous Sulfate 324 MG TABLET.DR PO (08:14)
--- NOTE | 2022-03-15 09:58 | HO.POSTANES ---
Post Anesthesia Evaluation Post Anesthesia Evaluation Vital Signs: Vital Signs Temp Pulse Resp BP Pulse Ox 03/15/22 04:00 98.8 F 91 18 101/52 L 91 L 03/15/22 00:10 97.9 F 76 18 101/47 L 94 03/14/22 21:59 97.3 F 84 16 101/52 L Anesthesia: Monitored Mental Status: Awake Pain Control: Satisfactory Nausea/Vomiting: None Hydration: Adequate Anesthesia-Related Issues: No Anes. Related Issues
--- NOTE | 2022-03-15 10:21 | PM.GIPN ---
Subjective Subjective Date of Service: 03/15/22 Interval History: feels great melena resolving Critical Care Time (minutes): 0 Physical Exam Vital Signs: Vital Signs: Last Vital Signs Temp 98.8 F 03/15/22 04:00 Pulse 91 03/15/22 04:00 Resp 18 03/15/22 04:00 BP 101/52 L 03/15/22 04:00 Pulse Ox 91 L 03/15/22 04:00 O2 Del Method 03/14/22 19:18 O2 Flow Rate 2 03/14/22 19:18 FiO2 96 03/14/22 16:16 Oxygen Flow Rate 2 03/13/22 11:00 BMI result Body Mass Index 18.1 GI: Other: abdomen is soft and nontender Objective Data Labs CBC & Chem 7: 03/15/22 01:19 03/12/22 07:38 Labs: Laboratory Results - last 24 hr 03/13/22 03/14/22 03/15/22 09:44 10:17 01:19 WBC 0.9 L* RBC 2.75 L D Hgb 8.3 L D Hct 24.7 L D MCV 89.8 MCH 30.2 MCHC 33.6 RDW 17.0 H Plt Count 32 L MPV 10.3 Absolute Nucleated RBC 0.060 H Nucleated RBC % (auto) 6.6 H Blood Type A Positive Antibody Screen NEGATIVE PUNEET, Polyspecific NEGATIVE Positive PUNEET Work-up Not Reportable Crossmatch See Detail Microbiology Microbiology Results: Microbiology 03/06/22 22:42 Blood - Venous Blood Culture - Final No growth after 5 days. 03/06/22 22:42 Blood - Venous Blood Culture - Final No growth after 5 days. 03/04/22 18:46 Blood - Venous Blood Culture - Final No growth after 5 days. 03/04/22 18:56 Blood - Venous Blood Culture - Preliminary Gram variable nani Procedures Date of Service Date of Service: 03/15/22 Progress Note: A&P Assessment and plan (1) GI bleeding: Status: Acute Assessment and Plan: hematocrit improved doing well continue ppi Time Spent With Patient Time: Total time spent is greater than 50% in coordination of care (as documented) at patient's floor/unit and/or counseling patient: Quality Stroke Does the patient have a stroke diagnosis?: No VTE Prior VTE?: No VTE Risk Level:: Medical - moderate - high VTE Device Contraindication: Treatment Not Indicated VTE Drug Contraindication: N/A - Med Ordered
--- NOTE | 2022-03-15 11:24 | P.PNIM_ITS ---
Subjective Subjective Date of Service: 03/15/22 Interval History: ? f/u on anemia, upper gi bleed s/p EGD 03/14 with cauterization of duodenal ulcer Review of Systems no sob, no chest pain, no fever Physical Exam Vital Signs: Vital Signs: Last Vital Signs Temp 98.8 F 03/15/22 04:00 Pulse 91 03/15/22 04:00 Resp 18 03/15/22 04:00 BP 101/52 L 03/15/22 04:00 Pulse Ox 91 L 03/15/22 04:00 O2 Del Method 03/14/22 19:18 O2 Flow Rate 2 03/14/22 19:18 FiO2 96 03/14/22 16:16 Oxygen Flow Rate 2 03/13/22 11:00 BMI result Body Mass Index 18.1 Const: Other: General: AO X 3, no acute distress Resp: CTA bilateral CVS: S1,S2,RRR GI: +BS, NT, no distention Skin: No rash Neuro: motor grossly intact Psych: appropriate affect Objective Data Active Medications Acetaminophen (Acetaminophen 325 Mg Tablet) 650 mg PO Q6H PRN PRN Reason: Pain, Mild (Pain Scale 1-3) Last Admin: 03/14/22 21:32 Dose: 650 mg Documented By: ISAK Amiodarone HCl (Amiodarone Hcl 200 Mg Tablet) 200 mg PO BID [facility] Last Admin: 03/15/22 08:14 Dose: 200 mg Documented By: BRYNN Atorvastatin Calcium (Atorvastatin Calcium 40 Mg Tablet) 40 mg PO BEDTIME [facility] Last Admin: 03/14/22 21:31 Dose: 40 mg Documented By: ISAK Docusate Sodium (Docusate Sodium 100 Mg Capsule) 100 mg PO BEDTIME [facility] Last Admin: 03/14/22 21:32 Dose: 100 mg Documented By: ISAK Ferrous Sulfate (Ferrous Sulfate 324 Mg Tablet.) 324 mg PO DAILY [facility] Last Admin: 03/15/22 08:14 Dose: 324 mg Documented By: BRYNN Finasteride (Finasteride 5 Mg Tablet) 5 mg PO DAILY [facility] Last Admin: 03/15/22 08:14 Dose: 5 mg Documented By: BRYNN Gabapentin (Gabapentin 100 Mg Capsule) 200 mg PO BEDTIME [facility] Last Admin: 03/14/22 21:31 Dose: 200 mg Documented By: ISAK Piperacillin Sod/Tazobactam (Sod 3.375 gm/ Sodium Chloride) 50 mls @ 100 mls/hr IV Q6H [facility] Last Infusion: 03/15/22 10:20 Dose: 0 mls/hr Documented By: BRYNN Melatonin (Melatonin 3 Mg Tablet) 6 mg PO BEDTIME PRN PRN Reason: Insomnia Last Admin: 03/13/22 20:02 Dose: 6 mg Documented By: TAM Metoprolol Tartrate (Metoprolol Tartrate 25 Mg Tablet) 25 mg PO BID [facility]; Protocol Last Admin: 03/15/22 08:14 Dose: Not Given Documented By: BRYNN Non-Admin Reason: Decreased Blood Pressure Omeprazole (Omeprazole 40 Mg Capsule.) 40 mg PO BID@0630,1630 [facility] Last Admin: 03/15/22 06:14 Dose: 40 mg Documented By: JOHN Pharmacy Consult (Consult Rx Perform Med Rec) 1 each MISCELLANE ONCE PRN PRN Reason: Consult order Polyethylene Glycol (Polyethylene Glycol 3350 17 Gm Powd.Pack) 17 gm PO DAILY [facility] Last Admin: 03/10/22 09:39 Dose: Not Given Documented By: BRYNN Non-Admin Reason: Patient Refused Potassium Chloride (Potassium Chloride Er 20 Meq Tab.Er.Prt) 20 meq PO DAILY [facility] Last Admin: 03/15/22 08:13 Dose: 20 meq Documented By: BRYNN Senna (Sennosides 8.6 Mg Tablet) 17.2 mg PO BEDTIME PRN PRN Reason: Constipation Last Admin: 03/07/22 20:15 Dose: 17.2 mg Documented By: DENISE Sodium Chloride (0.9 % Sodium Chloride Flush 3 Ml Syringe) 3 ml IVFLUSH QSHIFT [facility] Last Admin: 03/15/22 00:41 Dose: 3 ml Documented By: JOHN Sucralfate (Sucralfate Oral Suspension 1 Gm/10 Ml Oral.Susp) 1 gm PO QIDACHS [facility] Last Admin: 03/15/22 08:05 Dose: 1 gm Documented By: BRYNN Labs CBC & Chem 7: 03/15/22 01:19 03/12/22 07:38 Labs: Laboratory Results - last 24 hr 03/13/22 03/14/22 03/15/22 09:44 10:17 01:19 MCV 89.8 MCH 30.2 MCHC 33.6 RDW 17.0 H Plt Count 32 L MPV 10.3 Absolute Nucleated RBC 0.060 H Nucleated RBC % (auto) 6.6 H Blood Type A Positive Antibody Screen NEGATIVE PUNEET, Polyspecific NEGATIVE Positive PUNEET Work-up Not Reportable Crossmatch See Detail Assessment and Plan (1) GI bleeding: Status: Acute (2) NSVT (nonsustained ventricular tachycardia): Status: Acute Plan 77oy M with MDS, HFrEF, atrial tachycardia, HTN, HLD, chronic hypoxic respiratory failure on home O2 (2-3L prn), h/o kidney transplant in 1999 presented with dyspnea, admitted for respiratory failure from CHF exacerbation GI bleeding on 03/10 with multiple dark tarry stoosl. Acute blood loss anemia From upper GIB, had EGD on 03/11--> Duodenitis/gastritis, on PO PPI and karafate, no active bleed. s/p multiple transfusions, recheck H/H. CT of chest on 03/14 showed probably active bleed of duodnal ulcer and underwent another EGD on 03/14 with bleeding source identified in duodenal diverticulum bleeding controlled with epinephrine injection and clip placement. Presently no active bleed, H/H finally improved NSVT multiple runs noted on tele, pt asymptomatic known EF of 30-35% on BB, unable to increase given soft BP mag, potassium replacement given monitor electrolytes closely to keep mag>2, k >4 tele monitoring, no further work up a this point by cardiology bacteremia initially growing GNR, now reported as gram variable nani in 1/4 bottles - unable to identify species therefore being sent out to reference laboratory. Likely will not have speciation until at least later today started on ceftriaxone 03/06. given immunocompromise [neutropenia], changed to pip/antonieta for antipseudomonal coverage on 03/07 ?source - CT chest showing improvement in opacities (was treated for pneumonia on last admission) no respiratory symptoms at this time. CT abdomen/pelvis with no obvious source of infection seen by ID consult, recommend to continue Zosyn for 5-7 days; on day #9, will DC now atrial tachycardia vs flutter- converted back to sinus 03/08 afternoon, now appears to be MAT HR uncontrolled overnight. Low BP making control difficult - continue amiodarone- increased to 200 mg bid x 1 wk (until 03/12 then change to 200 mg once daily); changed metoprolol to 25 mg bid standing; s/p digoxin x 3 doses - not a candidate for anticoagulation due to chronic anemia/GIB - cardiology following pancytopenia h/o MDS, undergoing chemotherapy, managed by [facility]. Last chemo 03/02 H/H essentially unchanged with transfusion yesterday - transfused 1u pRBCs 03/05, 1u pRBCs 03/06, 03/09, 2u 03/10 , 2units on 03/13 and 3 units on 03/14 - seen by Heme/Onc - monitor CBC, avoid heparinoids - FOBT posiitve, see above acute/chronic hypoxic respiratory failure briefly on CPAP in ED, now on room air at baseline uses 2-3L prn - has been intermittently using at times acute/chronic HFrEF EF 30-35% - appears euvolemic at this time - IV furosemide today for fluid overload from transfusion Constipation Seen on CT abdomen/pelvis Bowel regimen started with positive effect HLD continue statin h/o Renal transplant left kidney moved to right side after 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 HCP is Patricia, number in system is incorrect. Correct number is [phone]. She was updated this morning Patient requires ongoing inpatient hospitalization due to workup for bacteremia/IV antibiotics/ and pending sensitivity GI bleeding, anemia/NSVT. Needs close tele monitoring for cardiac arrhythmia and frequent lab draws to monitor CBC. Monito one more day and if no bleed, need IV Lasix today for fluid overload Quality Stroke Does the patient have a stroke diagnosis?: No VTE Prior VTE?: No VTE Risk Level:: Medical - moderate - high VTE Device Contraindication: Treatment Not Indicated VTE Drug Contraindication: N/A - Med Ordered
[2022-03-15] MEDS: Furosemide 40 MG/4 ML VIAL IVPUSH (12:06)
[2022-03-15] MEDS: Gabapentin 100 MG CAPSULE 200 MG PO (21:06)
[2022-03-15] MEDS: Atorvastatin Calcium 40 MG TABLET PO (21:06)
[2022-03-15] MEDS: Docusate Sodium 100 MG CAPSULE PO (21:06)
[2022-03-15] MEDS: Metoprolol Tartrate 25 MG TABLET PO (21:06)
[2022-03-16 04:00] VITALS: BP 96/51; PULSE 60; RESP 18; TEMP 37.2; O2SAT 95
[2022-03-16] MEDS: Omeprazole 40 MG CAPSULE.DR PO ×2 (05:33→17:18)
[2022-03-16 07:27] VITALS: BP 101/54; PULSE 69; RESP 20; TEMP 36.7; O2SAT 93
[2022-03-16 08:04] LABS: Hematocrit 24.2 % (42.0-52.0); Hemoglobin 8.1 g/dl (14.0-18.0); Mean Corpuscular HGB Conc 33.5 g/dl (31.0-36.0); Mean Corpuscular Hemoglobin 30.7 pg (27.0-33.0); Mean Corpuscular Volume 91.7 fL (80.0-98.0); Mean Platelet Volume 10.2 fL (9.4-12.4); Red Blood Count 2.64 X10*6/uL (4.60-5.80); Red Cell Distribution Width 17.6 % (11.0-16.0)
[2022-03-16 08:16] LABS: Platelet Count 25 X10*3/uL (160-400); White Blood Count 0.8 X10*3/uL (4.8-10.8)
[2022-03-16 09:15] VITALS: BP 101/54; PULSE 69; O2SAT 93
[2022-03-16] MEDS: Metoprolol Tartrate 25 MG TABLET PO (09:40)
[2022-03-16] MEDS: Ferrous Sulfate 324 MG TABLET.DR PO (09:41)
[2022-03-16] MEDS: Amiodarone HCL 200 MG TABLET PO (09:41)
[2022-03-16] MEDS: Finasteride 5 MG TABLET PO (09:43)
[2022-03-16] MEDS: 0.9 % Sodium Chloride Flush 3 ML SYRINGE IVFLUSH ×2 (09:44→17:17)
--- NOTE | 2022-03-16 09:45 | MHC.CM.PN ---
IMM 03/16/22 MALE 77 DX RESP FAILURE TACHYCARDIA he is discharged to home today. Pt does not qualify for home PT. DP home no services. He will resume Chemo. Patients will provide transportation home.
[2022-03-16] MEDS: Potassium Chloride ER 20 MEQ TAB.ER.PRT PO (09:46)
[2022-03-16] MEDS: Sucralfate Oral Suspension 1 GM/10 ML ORAL.SUSP PO ×3 (09:48→17:19)
--- NOTE | 2022-03-16 09:59 | P.CDIC_ITS ---
CDI Concurrent Query Documentation Clarification: PHYSICIAN'S DOCUMENTATION REQUEST Date of Query: 03/16/22 1000 Patient Name: Faizan Campbell Jr Admit Date: 03/04/22 Dear Doctor, A review of the medical record indicates additional documentation may be needed. Please review below and update the documentation accordingly. Clinical Indicators: Risk Factors/Clinical Indicators/Treatments BMI: 18.2 6ft in height If possible, please provide an associated diagnosis related to the abnormal BMI, such as: For a BMI <= 19: * Underweight * Weight loss * Anorexia Or: * BMI is not significant * Other (please specify) * Unable to determine Use of terms such as suspected, likely, concern for, or probable (associated with a specific diagnosis that is being evaluated, monitored, or treated as if it exists) are acceptable and can be coded in the inpatient setting, when documented at the time of discharge. Thank you, Missy Fox [facility], CDIS Extension: [phone] Please use your independent medical judgment in providing your response. THIS QUERY IS PART OF THE PERMANENT MEDICAL RECORD Provider Response: Other Other Diagnosis: underweight
[2022-03-16 10:58] VITALS: BP 107/66; PULSE 95; RESP 20; TEMP 36.8; O2SAT 94
[2022-03-16 11:00] VITALS: O2SAT 92
[2022-03-16 15:57] VITALS: BP 105/67; PULSE 72; RESP 18; TEMP 37; O2SAT 98
== END 2022-03-16 17:20 | disposition home or self-care (01) | DRG 291 ==
LOC: HO.ED 19:38 → HO.EDOVER 23:45 → HO.IMC 03-06 00:02
PROVIDERS: Family Medicine; Internal Medicine; Internal Medicine Gastroenterology; Physician Assistant Medical; Admitting Provider Hospitalist; Emergency Provider Emergency Medicine; PCP Internal Medicine; Visit Provider Internal Medicine
PROC: 0DJ08ZZ Inspection of Upper Intestinal Tract, Via Natural or Artificial Opening Endoscopic (ICD-10-PCS; principal; 2022-03-11 11:30)
DX: I13.0 Hypertensive heart and chronic kidney disease with heart failure and stage 1 through stage 4 chronic kidney disease, or unspecified chronic kidney disease (principal); I50.23 Acute on chronic systolic (congestive) heart failure; J96.21 Acute and chronic respiratory failure with hypoxia; K29.81 Duodenitis with bleeding; K29.71 Gastritis, unspecified, with bleeding; K57.11 Diverticulosis of small intestine without perforation or abscess with bleeding; I48.92 Unspecified atrial flutter; D61.818 Other pancytopenia; I47.1 Supraventricular tachycardia; Z68.1 Body mass index [BMI] 19.9 or less, adult; R78.81 Bacteremia; D62 Acute posthemorrhagic anemia; I42.9 Cardiomyopathy, unspecified; J43.9 Emphysema, unspecified; E78.5 Hyperlipidemia, unspecified; K59.00 Constipation, unspecified; N18.32 Chronic kidney disease, stage 3b; Z99.81 Dependence on supplemental oxygen; D46.9 Myelodysplastic syndrome, unspecified; I48.91 Unspecified atrial fibrillation; Z20.822 Contact with and (suspected) exposure to COVID-19; Z86.16 Personal history of COVID-19; Z87.891 Personal history of nicotine dependence; Z79.899 Other long term (current) drug therapy; R63.6 Underweight
CPT/HCPCS: 36415; 71045; 71275; 74176; 74178; 80048; 80076; 80162; 81001; 82272; 82803; 83605; 83615; 83690; 83735; 83880; 84484; 85007; 85014; 85018; 85025; 85027; 85379; 85384; 85610; 85730; 86850; 86880; 86900; 86901; 86923; 87040; 87077; 87186; 87205; 87493; 87635; 93005; 94640; 94644; 94660; 96365; 96366; 96375; 97162; 99213; 99285; J0171; J0692; J0696; J1100; J1160; J1610; J1650; J1940; J2250; J2270; J2405; J2543; J2930; J3475; P9016; P9035; P9073; Q9967

== ENCOUNTER 2022-03-19 07:53 | Emergency (ER) | payer OTHER, MEDICARE, SELFPAY ==
[2022-03-19 08:13] VITALS: BP 103/38; PULSE 127; RESP 19; TEMP 36.3; O2SAT 100; BMI 19.7
--- NOTE | 2022-03-19 08:19 | ECG_ITS ---
Test Reason : sob Blood Pressure : / mmHG Vent. Rate : 130 BPM Atrial Rate : 136 BPM P-R Int : 216 ms QRS Dur : 078 ms QT Int : 368 ms P-R-T Axes : 084 007 118 degrees QTc Int : 541 ms Multifocal atrial tachycardia Nonspecific ST and T wave abnormality Abnormal ECG When compared with ECG of 12-MAR-2022 10:48, Premature ventricular complexes are no longer Present Vent. rate has increased BY 60 BPM T wave inversion no longer evident in Anterior leads Referred By: Justin Dumont Electronically Signed By:JAYCE HELLER
--- NOTE | 2022-03-19 08:23 | ED_ITS ---
HPI - SOB/Dyspnea General Chief Complaint: GI Bleed Stated Complaint: SOB ON EXERTION,4LPM HOME O2 Time Seen by Provider: 03/19/22 08:02 Source: patient Mode of arrival: EMS Limitations: no limitations History of Present Illness HPI Narrative: 77-year-old male who presents emergency department for evaluation of shortness of breath and dark stools. The patient was recently hospitalized from 03/04/2022 until 03/16/2022 (discharge 4 days prior). Patient was initially admitted for shortness of breath and then developed dark black stools on 03/10/2022. Workup revealed an acute GI bleed in the area of the duodenum noted on GI angiogram. He had an endoscopy and he was found to have a duodenal diverticulum which was injected with epinephrine and clipped by our pneumatic jack operator, Dr. Mark. He was also noted to have to duodenitis and gastritis. He was discharged on 03/16/2022 on a PPI and Carafate. The patient has a myelodysplastic disorder and has chronic pancytopenia with significant anemia. He required multiple transfusions of packed red blood cells during his admission with improvement of his H&H from 4.6 and 15.4 on 03/13/2022 to 8.1 and 24.2 on 03/16/2022 (this is at the level of his chronic anemia). Patient states that he was feeling well when he was discharged however this morning he had a large dark tarry stool. He then tried to walk from his bedroom to his kitchen (approximately 10 ft) in the felt very lightheaded and dizzy as if he was going to pass out. He then called an ambulance and was brought to emergency department. Review of systems was positive for a sore throat which she attributes his endoscopy and a nonproductive cough. He also has dysuria with no frequency or urgency. MD elicited complaint: shortness of breath Pertinent past history: congestive heart failure Onset (ago): hour(s) (1) Context: recent illness (Hospitalize for shortness of breath and acute GI bleed) Timing: constant Severity: severe Exacerbating factors: exertion Relieving factors: nothing Known history of: congestive heart failure (Cardiomegaly with AF of 30-35%) Associated symptoms: other (Dark black stool this pain) Treatment prior to arrival: oxygen Related Data Home oxygen amount: 4 liters Home Medications Medication Instructions Recorded Confirmed ferrous sulfate 324 mg (65 mg 324 mg PO DAILY 01/13/22 03/04/22 iron) tablet,delayed release finasteride 5 mg tablet 1 tab PO DAILY 01/13/22 03/04/22 gabapentin 100 mg capsule 2 cap PO BEDTIME 01/13/22 03/04/22 metoprolol tartrate 25 mg tablet 25 mg PO BID PRN SBP>90 03/04/22 03/04/22 potassium chloride 20 mEq 1 tab PO DAILY 03/04/22 03/04/22 tablet,extended release(part/cryst) simvastatin 80 mg tablet 80 mg PO BEDTIME 03/04/22 03/04/22 Previous Rx's Medication Instructions Recorded amiodarone 200 mg tablet 200 mg PO DAILY #30 tabs 02/14/22 omeprazole 40 mg capsule,delayed 40 mg PO BID@0630,1630 #60 caps 03/16/22 release Allergies Allergy/AdvReac Type Severity Reaction Status Date / Time No Known Allergies Allergy Verified 11/27/21 20:52 Review of Systems Review of Systems: Yes all other systems are reviewed and are negative [facility] Past Medical History Medical History Chronic anemia CKD stage G3b/A2, GFR 30-44 and albumin creatinine ratio 30-299 mg/g Congestive heart failure COPD (chronic obstructive pulmonary disease) Emphysema of lung Iliopsoas muscle hematoma Myelodysplastic syndrome On home O2 Pancytopenia Pneumonia Pneumonia due to COVID-19 virus Tobacco dependency VRE bacteremia Surgical History Status post kidney autotransplantation Social History Social History Household Members: Spouse Housing: House Do you presently have visiting nurse or other home services: No (no services, prev had VNA. Now only oxygen deliv.) Patient Tobacco Use Status: Former Tobacco user Tobacco use type: Cigarette Advance Directives: No Advance Directives Information Provided: Yes service: Yes Current occupational status: retired Physical Exam Vital Signs: Vital Signs: Last Vital Signs Temp 97.9 F 03/19/22 10:11 Pulse 122 H 03/19/22 10:11 Resp 19 03/19/22 10:11 BP 89/42 L 03/19/22 10:11 Pulse Ox 100 03/19/22 09:35 O2 Del Method 03/19/22 09:35 O2 Flow Rate 3 03/19/22 09:35 BMI result Body Mass Index 19.7 Const: Other: Elderly male patient, very pleasant and cooperative, does not appear to be in distress, answers all questions appropriately HEENT: Head: Yes normal to inspection, Yes normocephalic and Yes atraumatic Ears: external ears normal General nose exam: Normal external nose present Face and sinus: Yes normal facial exam Mouth: Normal oral and palatal mucosa present Throat: Yes posterior oropharynx normal Eyes: General: appearance normal, both eyes and all related structures Pupils: Equal, round and reactive pupils present Neck: Neck: Yes normal visual inspection, Yes no lymphadenopathy, Yes trachea midline and Yes supple Chest: Chest palpation & inspection: normal inspection of the chest and normal palpation of entire chest wall Resp: Effort & Inspection: normal respiratory effort and able to speak in complete sentences Auscultation: clear to auscultation bilaterally Cardio: Rate: regular rate Rhythm: regular rhythm Heart sounds: S1 normal heart sound present, S2 normal heart sound present and no murmurs GI: Inspection: Yes normal to inspection Palpation (GI): Soft to palpation, Tenderness to palpation present (GI) suprapubicly (Mild) and no guarding Auscultation: normal bowel sounds Rectal Exam - Male: Yes visual inspection normal, Yes normal sphincter tone, Yes Abnormal stool present (Loose reddish stool) and Yes heme positive stool : General: Yes no CVA tenderness Back/Spine/Pelvis: Back: no CVA tenderness Skin: General skin exam: no rashes or lesions noted Neuro: Cranial nerves: Yes CN's II-XII intact bilaterally and Yes Equal, round and reactive pupils present Cognition (Neuro): normal cognition Motor exam (neuro): 5/5 motor strength present throughout Extrem: General: Yes normal to inspection Psych: Appearance: grossly normal Speech and movement: Normal speech and movement present Affect: normal affect Attitude: cooperative Thought process: Normal thought process present Thought content: Normal thought content present Course Course Course Narrative: 77-year-old male who presents emergency department for evaluation of dark black stool this morning and dyspnea on exertion. The patient was recently hospitalized from 08/2022 until 03/16/2022 initially for shortness of breath, been on 03/10/2022 the patient developed dark loose stools. GI angiogram did reveal bleeding source in the duodenum. Endoscopy revealed a duodenal diverticu lum which was clipped injected as well as duodenitis and gastritis. The patient did require several units of packed red blood cells to be transfused until he was back to his baseline anemia (patient has a myelodysplastic syndrome). Vital signs revealed a low blood pressure of 103/38, heart rate was elevated at 127. O2 saturation is 100% on 4 L via nasal cannula. Abdominal examination revealed suprapubic tenderness. Rectal exam revealed loose red stool which was strongly Hemoccult positive. 0846: I did discuss the patient's presentation with our pneumatic jack operator, Dr. Mark (he treated the patient while the patient was hospitalized). He states that an endoscopy would not help this patient and this patient needs a GI angiogram with possible embolization from an interventional radiologist. Therefore he recommended the patient be transferred to a facility as he services. Given his hypotension and elevated pulse I did order 1 unit of packed red blood cells to be transfused issues that is available. Patient was also ordered to get Protonix 80 mg IV. 0926: Laboratory evaluation: H&H was 5.4 and 17 this is significantly lower compared to an H&H of 8.1 and 24 on 03/16/2022. Chloride elevated 113, CO2 low 21, BUN elevated 33. COVID-19 negative. The patient had a small to moderate size redness bowel movement here in the emergency department. I did contact [facility] and they were closed to transfer at this time. 1028: [facility] was closed to transfer as well. I did contact [facility] and they accepted the patient is an ED to ED transfer. The patient will be transferred via ALS ambulance with the 1st unit of blood running. MDM - SOB/Dyspnea Lab Data Attestation: I reviewed the patient's lab results. Result diagrams: 03/19/22 08:48 03/19/22 08:47 Labs: Lab Results 03/19/22 03/19/22 03/19/22 Range/Units 08:47 08:47 08:47 WBC (4.8-10.8) X10*3/uL RBC (4.60-5.80) X10*6/uL Hgb (14.0-18.0) g/dl Hct (42.0-52.0) % MCV (80.0-98.0) fL MCH (27.0-33.0) pg MCHC (31.0-36.0) g/dl RDW (11.0-16.0) % Plt Count (160-400) X10*3/uL MPV (9.4-12.4) fL Immature Gran % (Auto) (0.0-0.4) % Neut % (Auto) (45-73) % Lymph % (Auto) (20-40) % [place] % (Auto) (2-11) % Eos % (Auto) (0-4) % Baso % (Auto) (0-2) % Lymph # (Auto) (1.2-4.9) X10*3/uL [place] # (Auto) (0.1-1.2) X10*3/uL Eos # (Auto) (0.0-0.4) X10*3/uL Baso # (Auto) (0.0-0.2) X10*3/uL Abs Immat Gran (auto) (0.00-0.03) X10*3/uL Absolute Neuts (auto) (2.0-8.3) x10*3/uL Absolute Nucleated RBC (0.0-0.012) X10*3/uL Nucleated RBC % (auto) (0.0-0.2) /100WBC Smear Tech's Comments PT 12.4 (9.9-13.0) SEC INR 1.1 (0.9-1.1) APTT 31.7 (24.1-38.0) SEC Sodium 140 (135-145) mmol/L Potassium 4.2 (3.3-5.1) mmol/L Chloride 113 H (96-108) mmol/L Carbon Dioxide 21 L (22-29) mmol/L Anion Gap 10 L (12-20) BUN 33 H (9-16) mg/dL Creatinine 0.77 (0.5-1.4) mg/dL Estim Creat Clear Calc 68.5 Estimated GFR > 60 Random Glucose 97 (60-115) mg/dL Calcium 6.9 L D (8.4-10.2) mg/dL Total Bilirubin 0.3 (0.0-1.0) mg/dL AST 11 (5-37) U/L ALT 10 (0-40) U/L Alkaline Phosphatase 29 L D (39-117) U/L Troponin I High Sens (<3.5-35.0) ng/L Total Protein 4.0 L D (6.5-8.0) g/dL Albumin 2.1 L (3.5-5.0) g/dL Lipase 24 (8-78) U/L Stool Occult Blood POSITIVE (NEGATIVE) COVID-19 (ELAN) (Negative) COVID-19 Clin Com Blood Type Antibody Screen Crossmatch 03/19/22 03/19/22 03/19/22 Range/Units 08:48 08:48 08:48 WBC 1.0 L (4.8-10.8) X10*3/uL RBC 1.83 L D (4.60-5.80) X10*6/uL Hgb 5.4 L* D (14.0-18.0) g/dl Hct 17.4 L* D (42.0-52.0) % MCV 95.1 (80.0-98.0) fL MCH 29.5 (27.0-33.0) pg MCHC 31.0 (31.0-36.0) g/dl RDW 17.3 H (11.0-16.0) % Plt Count 40 L D (160-400) X10*3/uL MPV 10.1 (9.4-12.4) fL Immature Gran % (Auto) 2.1 H (0.0-0.4) % Neut % (Auto) 29.5 L (45-73) % Lymph % (Auto) 53.7 H (20-40) % [place] % (Auto) 14.7 H (2-11) % Eos % (Auto) 0.0 (0-4) % Baso % (Auto) 0.0 (0-2) % Lymph # (Auto) 0.5 L (1.2-4.9) X10*3/uL [place] # (Auto) 0.1 (0.1-1.2) X10*3/uL Eos # (Auto) 0.0 (0.0-0.4) X10*3/uL Baso # (Auto) 0.0 (0.0-0.2) X10*3/uL Abs Immat Gran (auto) 0.02 (0.00-0.03) X10*3/uL Absolute Neuts (auto) 0.3 L (2.0-8.3) x10*3/uL Absolute Nucleated RBC 0.000 (0.0-0.012) X10*3/uL Nucleated RBC % (auto) 0.0 (0.0-0.2) /100WBC Smear Tech's Comments VERIFIED PT (9.9-13.0) SEC INR (0.9-1.1) APTT (24.1-38.0) SEC Sodium (135-145) mmol/L Potassium (3.3-5.1) mmol/L Chloride (96-108) mmol/L Carbon Dioxide (22-29) mmol/L Anion Gap (12-20) BUN (9-16) mg/dL Creatinine (0.5-1.4) mg/dL Estim Creat Clear Calc Estimated GFR Random Glucose (60-115) mg/dL Calcium (8.4-10.2) mg/dL Total Bilirubin (0.0-1.0) mg/dL AST (5-37) U/L ALT (0-40) U/L Alkaline Phosphatase (39-117) U/L Troponin I High Sens 15.0 (<3.5-35.0) ng/L Total Protein (6.5-8.0) g/dL Albumin (3.5-5.0) g/dL Lipase (8-78) U/L Stool Occult Blood (NEGATIVE) COVID-19 (ELAN) Negative (Negative) COVID-19 Clin Com See Note Blood Type Antibody Screen Crossmatch 03/19/22 Range/Units 08:48 WBC (4.8-10.8) X10*3/uL RBC (4.60-5.80) X10*6/uL Hgb (14.0-18.0) g/dl Hct (42.0-52.0) % MCV (80.0-98.0) fL MCH (27.0-33.0) pg MCHC (31.0-36.0) g/dl RDW (11.0-16.0) % Plt Count (160-400) X10*3/uL MPV (9.4-12.4) fL Immature Gran % (Auto) (0.0-0.4) % Neut % (Auto) (45-73) % Lymph % (Auto) (20-40) % [place] % (Auto) (2-11) % Eos % (Auto) (0-4) % Baso % (Auto) (0-2) % Lymph # (Auto) (1.2-4.9) X10*3/uL [place] # (Auto) (0.1-1.2) X10*3/uL Eos # (Auto) (0.0-0.4) X10*3/uL Baso # (Auto) (0.0-0.2) X10*3/uL Abs Immat Gran (auto) (0.00-0.03) X10*3/uL Absolute Neuts (auto) (2.0-8.3) x10*3/uL Absolute Nucleated RBC (0.0-0.012) X10*3/uL Nucleated RBC % (auto) (0.0-0.2) /100WBC Smear Tech's Comments PT (9.9-13.0) SEC INR (0.9-1.1) APTT (24.1-38.0) SEC Sodium (135-145) mmol/L Potassium (3.3-5.1) mmol/L Chloride (96-108) mmol/L Carbon Dioxide (22-29) mmol/L Anion Gap (12-20) BUN (9-16) mg/dL Creatinine (0.5-1.4) mg/dL Estim Creat Clear Calc Estimated GFR Random Glucose (60-115) mg/dL Calcium (8.4-10.2) mg/dL Total Bilirubin (0.0-1.0) mg/dL AST (5-37) U/L ALT (0-40) U/L Alkaline Phosphatase (39-117) U/L Troponin I High Sens (<3.5-35.0) ng/L Total Protein (6.5-8.0) g/dL Albumin (3.5-5.0) g/dL Lipase (8-78) U/L Stool Occult Blood (NEGATIVE) COVID-19 (ELAN) (Negative) COVID-19 Clin Com Blood Type A Positive Antibody Screen NEGATIVE Crossmatch See Detail ECG Data Attestation: I personally reviewed and interpreted this ECG as follows: Interpretation: 0818: Sinus tachycardia with a rate of 130, first-degree AV block with MN inte rval of 216 milliseconds, prolonged QTC 541 milliseconds, no ST segment elevation, no ST segment depression Critical Care Time Critical Care Time Total Critical Care Time: 75 Attestation: Critical Care: The patient was critically ill with a high probability of imminent or life threatening deterioration. I spent greater than 30 minutes of discontinuous time evaluating the patient,delivering critical care at the bedside, discussing and evaluating pertinent data with consultants. Critical care time does not include time spent performing separately billable procedures or teaching. Total time spent performing critical care was 75 minutes. Discharge Plan Discharge Clinical Impression: Acute gastrointestinal bleeding, Anemia, Acute hypotension, MDS (myelodysplastic syndrome) Patient Disposition: [facility] Transfer Details: ED to ED transfer, excepting physician Dr. Hedrick Prescriptions: No [facility] gabapentin 100 mg capsule 2 cap PO BEDTIME finasteride 5 mg tablet 1 tab PO DAILY ferrous sulfate 324 mg (65 mg iron) Tablet,Delayed Release (Dr/Ec) 324 mg PO DAILY potassium chloride 20 mEq tablet,ER particles/crystals 1 tab PO DAILY simvastatin 80 mg Tablet 80 mg PO BEDTIME metoprolol tartrate 25 mg tablet 25 mg PO BID PRN (Reason: SBP>90) omeprazole 40 mg Capsule,Delayed Release(Dr/Ec) 40 mg PO BID@0630,1630 Qty: 60 4RF amiodarone 200 mg tablet 200 mg PO DAILY Qty: 30 1RF
[2022-03-19] MEDS: Pantoprazole Sodium 40 MG/10 ML VIAL 80 MG IVPUSH (08:38)
[2022-03-19 08:58] LABS: OBS Int Ctl Valid YES; OBS1 POSITIVE (NEGATIVE)
[2022-03-19 09:05] LABS: INTERNATIONAL NORM RATIO 1.1 (0.9-1.1); Prothrombin Time 12.4 SEC (9.9-13.0)
[2022-03-19 09:08] LABS: Partial Thromboplastin Time 31.7 SEC (24.1-38.0)
[2022-03-19 09:11] LABS: Imm Gran Abs Auto 0.02 X10*3/uL (0.00-0.03); Imm Gran Pct Auto 2.1 % (0.0-0.4); Lymphocytes Absolute Auto 0.5 X10*3/uL (1.2-4.9); Lymphocytes Percent Auto 53.7 % (20-40); MANUAL DIFF FLAG SCAN; Mean Corpuscular Hemoglobin 29.5 pg (27.0-33.0); Mean Corpuscular Volume 95.1 fL (80.0-98.0); Mean Platelet Volume 10.1 fL (9.4-12.4); Monocytes Absolute Auto 0.1 X10*3/uL (0.1-1.2); Monocytes Percent Auto 14.7 % (2-11); Neutrophils Absolute Auto 0.3 x10*3/uL (2.0-8.3); Neutrophils Percent Auto 29.5 % (45-73); Red Blood Count 1.83 X10*6/uL (4.60-5.80); Red Cell Distribution Width 17.3 % (11.0-16.0); SCAN SMEAR FLAG 1
[2022-03-19 09:17] LABS: Hemoglobin 5.4 g/dl (14.0-18.0)
[2022-03-19 09:18] LABS: COVID-19 Test Negative (Negative); Hematocrit 17.4 % (42.0-52.0); IDNOW Serial# 16C4AD1C; Platelet Count 40 X10*3/uL (160-400)
--- NOTE | 2022-03-19 09:27 | PC.NURSE ---
@ 3572 DR ALONSO REQUEST CALL OUT TO [facility] PT TX LINE [place] ANSWERS ASKS TO SPEAK WITH DR GAVIN ALONSO TAKES OVER CALL RIGHT AWAY PER DR ALONSO [facility] TAKING LIMITED TRANSFERS @ THIS TIME, THEN ASKS TO HAVE PLACE A CALL TO [facility]
--- NOTE | 2022-03-19 09:33 | PC.NURSE ---
@ [phone] [facility] TX LINE @ DR ALONSO REQUEST VALORIE ANSWERS,TAKES PT INFO THEN ASKS TO SPEAK WITH DR GAVIN ALONSO TAKES OVER CALL RIGHT AWAY
[2022-03-19 09:34] LABS: SLIDE REVIEW VERIFIED
[2022-03-19 09:35] VITALS: BP 101/46; PULSE 116; RESP 19; O2SAT 100
[2022-03-19 09:46] LABS: Alanine Aminotransferase 10 U/L (0-40); Albumin Level 2.1 g/dL (3.5-5.0); Alkaline Phosphatase 29 U/L (39-117); Anion Gap 10 (12-20); Aspartate Amino Transferase 11 U/L (5-37); Bilirubin Total 0.3 mg/dL (0.0-1.0); Blood Urea Nitrogen 33 mg/dL (9-16); Calcium 6.9 mg/dL (8.4-10.2); Carbon Dioxide 21 mmol/L (22-29); Chloride 113 mmol/L (96-108); Creatinine Clr Calc Pharmacy 68.5; Estimated Glomerular Filt Rate > 60; Glucose Random 97 mg/dL (60-115); Lipase 24 U/L (8-78); Potassium 4.2 mmol/L (3.3-5.1); Sodium 140 mmol/L (135-145)
--- NOTE | 2022-03-19 09:50 | PC.NURSE ---
@ [phone] CALL RECEIVED FROM VALORIE OF THE [facility] TX LINE ASKING TO SPEAK WITH DR GAVIN ALONSO TAKES OVER CALL RIGHT AWAY THEN ASKS FOR CALL TO BE PLACED TO [facility] FOR POSSIBLE TRANSFER D/T TX DENIAL BY [facility] FOR TX
--- NOTE | 2022-03-19 09:57 | PC.NURSE ---
@ 0961 CALL PLACED TO [facility] TX LINE @ DR ALONSO REQUEST ANGELIC ANSWERS, TAKES PT INFO AND ASKS TO SPEAK WITH DR GAVIN ALONSO TAKES OVER CALL RIGHT AWAY
[2022-03-19 09:59] VITALS: BP 92/48; PULSE 123; RESP 16; TEMP 36.7
--- NOTE | 2022-03-19 10:09 | PC.NURSE ---
PER DR ALONSO THIS PT ACCEPTED ER TO ER @ [facility] WILL NEED ALS TX WITH BLOOD RUNNING,SEMICONDUCTOR DEVELOPMENT TECHNICIAN AND OXYGEN AT 4LPM PER DR ALONSO @ THIS TIME FIDELIA FROM [facility] NOTIFIED OF NEEDS
[2022-03-19 10:11] VITALS: BP 89/42; PULSE 122; RESP 19; TEMP 36.6
[2022-03-19 10:14] VITALS: BP 102/42; PULSE 112; RESP 16; TEMP 36.6
--- NOTE | 2022-03-19 10:24 | PC.NURSE ---
afib on monitor, rbc's infusing over approx 2 hours per md, ls b/l crackles at bases, alert, no complaints
--- NOTE | 2022-03-19 11:37 | PC.NURSE ---
afib on monitor, nad, rbc's a lttle over half way infused, report to ems, alert,
== END 2022-03-19 11:46 | disposition short-term general hospital (02) ==
PROVIDERS: Emergency Provider Emergency Medicine Emergency Medical Services; PCP Obstetrics & Gynecology
DX: K92.2 Gastrointestinal hemorrhage, unspecified (principal); D64.9 Anemia, unspecified; R06.02 Shortness of breath; I95.9 Hypotension, unspecified; Z20.822 Contact with and (suspected) exposure to COVID-19; Z99.81 Dependence on supplemental oxygen; Z87.891 Personal history of nicotine dependence; Z79.899 Other long term (current) drug therapy
CPT/HCPCS: 80053; 82272; 83690; 84484; 85025; 85610; 85730; 86850; 86900; 86901; 86923; 87635; 93005; 99285; P9016

== ENCOUNTER 2022-04-13 07:08 | Emergency (ER) | payer OTHER, MEDICARE, SELFPAY ==
--- NOTE | ~2022-04-13 | XR_ITS ---
EXAMINATION: XR CHEST CLINICAL INFORMATION: Shortness of breath COMPARISON: 03/04/2022 TECHNIQUE: 2 views of the chest were obtained. FINDINGS: Again seen are ill-defined multifocal airspace opacities. Previously the most confluent, conspicuous abnormality was at the right lung base, which now appears improved. However, there are airspace opacities seen on the current study, for example in the right midlung, which are new/increased from the prior study. Small bilateral pleural effusions persist. Normal heart size. Degenerative changes of the shoulders and spine. There is retroverted cardiac gas consistent with a moderate-sized hiatal hernia, increased from prior. XR/XR chest 2V IMPRESSION: Ill-defined multifocal airspace opacities, with some areas improved, others worsened from prior study 03/04/2022 consistent with a waxing and waning infectious or inflammatory process.
[2022-04-13 07:23] VITALS: BP 95/43; BP 99/42; PULSE 97; PULSE 98; RESP 16; TEMP 36.6; O2SAT 100; BMI 19.2
--- NOTE | 2022-04-13 07:29 | PC.NURSE ---
Pt comes in from home via EMS with complaints of increased SOB since yesterday as well as weakness and lethargy. 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 Pt states he receives his treatment at [facility]. IV established via EMS, awaiting MD murguia. Call barclay within reach. Will continue to monitor.
--- NOTE | 2022-04-13 08:20 | ECG_ITS ---
Test Reason : sob Blood Pressure : / mmHG Vent. Rate : 085 BPM Atrial Rate : 085 BPM P-R Int : 170 ms QRS Dur : 086 ms QT Int : 412 ms P-R-T Axes : 085 031 090 degrees QTc Int : 490 ms Normal sinus rhythm with sinus arrhythmia Nonspecific T wave abnormality Prolonged QT Abnormal ECG When compared with ECG of 19-MAR-2022 08:18, Previous ECG has undetermined rhythm, needs review Referred By: Cate Wang Electronically Signed By:Zhou Escoto
--- NOTE | 2022-04-13 08:22 | ED.SOB ---
HPI - SOB/Dyspnea General Chief Complaint: Dyspnea Stated Complaint: SOB,WEAK FROM HOME PER EMS Time Seen by Provider: 04/13/22 08:07 Source: patient and EMS Mode of arrival: EMS Limitations: no limitations History of Present Illness HPI Narrative: 77-year-old male with an extensive medical history which includes congestive heart failure with last EF 30-35% currently on Entresto, COPD oxygen dependent 2 L, MDS with frequent blood transfusions, atrial arrhythmia on metoprolol and amiodarone, chronic kidney disease presents with reports of shortness of breath. Patient tells me that he does have some baseline shortness of breath and is on 2 L of oxygen. This week he has been transfused twice for low hemoglobin on both Saturday and Saturday. He was supposed to go today to have his labs recheck but when he woke up he felt that his shortness of breath was worsened prompting him to call the ambulance. Patient denies no associated cough. Has no chest pain, abdominal pain, vomiting, diarrhea, black or bloody stools. He does have a history of duodenitis, gastritis with a recent endoscopy and [place] requiring epinephrine injection and clipping by GI. He denies any current abdominal pain, hematemesis, black or bloody stools Related Data Home Medications Medication Instructions Recorded Confirmed ferrous sulfate 324 mg (65 mg 324 mg PO DAILY 01/13/22 04/13/22 iron) tablet,delayed release finasteride 5 mg tablet 1 tab PO DAILY 01/13/22 04/13/22 metoprolol tartrate 25 mg tablet 25 mg PO BID PRN SBP>90 03/04/22 04/13/22 potassium chloride 20 mEq 1 tab PO DAILY 03/04/22 04/13/22 tablet,extended release(part/cryst) simvastatin 80 mg tablet 80 mg PO BEDTIME 03/04/22 04/13/22 Previous Rx's Medication Instructions Recorded amiodarone 200 mg tablet 200 mg PO DAILY #30 tabs 02/14/22 omeprazole 40 mg capsule,delayed 40 mg PO BID@0630,7200 #60 caps 03/16/22 release Allergies Allergy/AdvReac Type Severity Reaction Status Date / Time No Known Allergies Allergy Verified 11/27/21 20:52 Review of Systems Review of Systems: Yes all other systems are reviewed and are negative Constitutional: Constitutional: Reports no additional constitutional complaints, Denies body ache(s), Denies chills, Denies fever(s), Denies headache(s) and Denies weakness Eyes: Eyes: Reports no additional eye complaints and Denies change in vision ENT: Reports system reviewed and no additional complaints, except as documented, Denies dizziness, Denies headache(s), Denies nasal congestion, Denies nasal discharge and Denies neck pain Cardiovascular: Cardiovascular: Reports no additional cardiovascular complaints, Denies chest pain, Denies leg edema and Reports dyspnea Respiratory: Respiratory: Reports no additional respiratory complaints, Denies cough and Reports dyspnea Gastrointestinal: Gastrointestinal: Reports no additional gastrointestinal complaints, Denies abdominal pain, Denies diarrhea, Denies nausea and Denies vomiting Genitourinary: Genitourinary: Denies urinary incontinence Musculoskeletal: Musculoskeletal: Reports no additional musculoskeletal complaints, Denies back pain, Denies arthralgias, Denies joint swelling, Denies neck pain, Denies numbness and Denies tingling Integumentary/Breasts: Skin/Breast: Reports system reviewed and no additional complaints, except as docu and Denies rash Neurologic: Reports system reviewed and no additional complaints, except as documented, Denies Abnormal speech present, Denies dizziness, Denies headache(s), Denies numbness, Denies tingling and Denies weakness PMFSH Past Medical History Attestation statement: The following information was validated with the patient. Source: old records reviewed and nursing notes reviewed Medical History Acute on chronic HFrEF (heart failure with reduced ejection fraction) Atrial flutter Cardiomyopathy Chronic anemia CKD stage G3b/A2, GFR 30-44 and albumin creatinine ratio 30-299 mg/g Congestive heart failure COPD (chronic obstructive pulmonary disease) Emphysema of lung Heart failure with reduced ejection fraction Iliopsoas muscle hematoma Myelodysplastic syndrome Neutropenia On home O2 Pancytopenia Pneumonia Pneumonia due to COVID-19 virus Respiratory failure Tobacco dependency VRE bacteremia Surgical History Status post kidney autotransplantation Social History Social History Household Members: Spouse Housing: House Do you presently have visiting nurse or other home services: No (no services, prev had VNA. Now only oxygen deliv.) Patient Tobacco Use Status: Former Tobacco user Tobacco use type: Cigarette service: Yes Current occupational status: retired Physical Exam Vital Signs: Vital Signs: Last Vital Signs Temp 97.8 F 04/13/22 13:30 Pulse 93 04/13/22 13:30 Resp 18 04/13/22 13:30 BP 121/37 L 04/13/22 13:30 Pulse Ox 100 04/13/22 07:23 O2 Del Method 04/13/22 07:23 Oxygen Flow Rate 2 04/13/22 07:23 BMI result Body Mass Index 19.2 Const: General: cooperative, healthy appearing, comfortable and no acute distress Orientation/consciousness: patient oriented x3 Limitations: no limitations HEENT: Head: Yes normal to inspection Ears: hearing grossly normal bilaterally General nose exam: Normal external nose present Face and sinus: Yes normal facial exam Mouth: Normal oral and palatal mucosa present Throat: Yes posterior oropharynx normal Eyes: General: appearance normal, both eyes and all related structures Pupils: Equal, round and reactive pupils present Neck: Neck: Yes normal visual inspection Chest: Chest palpation & inspection: normal inspection of the chest Resp: Other: Tachypnea with talking with rate of 22 Auscultation: clear to auscultation bilaterally Cardio: Rate: regular rate Rhythm: regular rhythm Peripheral pulses: Peripheral pulses 2+ throughout GI: Inspection: Yes normal to inspection Palpation (GI): Soft to palpation and nontender Auscultation: normal bowel sounds Back/Spine/Pelvis: Thoracic/Lumbar Spine: thoracic and lumbar spine normal to inspection Skin: General skin exam: no rashes or lesions noted Neuro: General: patient oriented x3, no focal motor deficits and normal sensation to monofilament Cranial nerves: Yes Equal, round and reactive pupils present Cognition (Neuro): normal cognition Speech: No Abnormal speech present Gait exam (Neuro): Normal gait present Motor exam (neuro): 5/5 motor strength present throughout Extrem: General: Yes normal to inspection, Yes no pedal edema and Yes no calf tenderness Course Course Course Narrative: 0940-hgb 4.4. PRBC ordered. Consent done. Will discuss with hematology Blood pressure 99/42. This is from anemia and not from infection. Patient reports additionally that his baseline blood pressure is around 100 systolic. Reviewed VS from previous visits and this seems consistent. Reevaluation(s) Reevaluation #1: 1015-patient's chest x-ray shows bilateral infiltrates may be an from underlying infection, fluid or inflammatory in nature. Due to patient being neutropenic infection is considered. Therefore at this time infection is considered. Blood cultures and lactic acid ordered. Antibiotics ordered. Rectal exam shows a black stool. This is heme-positive. Patient tells me he noticed this this morning but forgot to mention it. Patient will need admission in the setting of acute on chronic anemia secondary to MDS with/without/ underlying GIB. Patient is on iron. Denies AC therapy. Will discuss with GI. Reevaluation #2: 1145-no availability at [facility] for transfer. We called [facility] and they have no ability for transfer. Will attempt [facility] Reevaluation #3: 1150-I spoke to [facility] transfer line who accepted patient. ED to ED under Dr Siegel. 1225-unfortunately there is no als screw available for transfer. We discussed [facility] although patient has been clinically stable with normal vital signs and no active bleeding so I do not feel like this is warranted. He has 1 more our left in his blood transfusion and at that point we will transfer him with the S crew unless there is change in patient's stability. This was agreed with nursing Consultations Consultation #1: I spoke to Dr. Gonzales from Hematology. She recommends transfusing the patient for hemoglobin less than 6. Therefore we agreed on 2 units of PRBCs. The should be given slowly due to the patient's underlying congestive heart failure. Patient has pancytopenia which otherwise appears unchanged. His ANc is 0.3 which is unchanged from previous. We discussed that the patient is afebrile with no source of infection that we do not need to obtain blood cultures and lactic acid and give antibiotics. However if he is febrile or has a source of infection we should cover him with antibiotics. Time: 10:15 Consultation #2: Dr Sinclair from GI informed. PPI ordered. Time: 10:30 Consultation #3: 0860-callback from GI Dr. Lewis. He reports the patient had a endoscopy on 03/14 that showed a duodenal diverticulum and bleeding was controlled with epinephrine injection and clip placement. At that time it was recommended if rebleeding was to reoccur the patient would need an angiography with Interventional Radiology. We discussed the patient. There is concern that patient may have rebleeding with a lower hemoglobin and heme-positive stool. Therefore recommendation was transferred to a tertiary care center for angiography. Call out to [facility] to discuss transfer MDM - SOB/Dyspnea MDM Narrative Medical decision making narrative: 77-year-old male here with reports of shortness of breath noted today. Patient denies any associated cough or chest pain. He reports shortness of breath which is at rest. Patient has extensive medical history including COPD, congestive heart failure, MDS requiring frequent transfusions. Patient feels that his blood counts are low. He denies any black or bloody stools, abdominal pain, hematemesis. On exam patient has mild tachypnea. Lungs are clear. Vitals otherwise are stable. No lower extremity swelling or edema. Will obtain labs, EKG, chest x-ray. Consider anemia, CHF, COPD, PNA Medical Records Attestation: I reviewed the patient's medical records. Lab Data Attestation: I reviewed the patient's lab results. Result diagrams: 04/13/22 09:11 04/13/22 09:11 Labs: Lab Results 04/13/22 04/13/22 04/13/22 Range/Units 09:11 09:11 09:11 WBC 0.8 L* (4.8-10.8) X10*3/uL RBC 1.50 L (4.60-5.80) X10*6/uL Hgb 4.4 L* (14.0-18.0) g/dl Hct 13.8 L* D (42.0-52.0) % MCV 92.0 (80.0-98.0) fL MCH 29.3 (27.0-33.0) pg MCHC 31.9 (31.0-36.0) g/dl RDW 17.4 H (11.0-16.0) % Plt Count 43 L (160-400) X10*3/uL MPV 10.9 (9.4-12.4) fL Immature Gran % (Auto) 3.6 H (0.0-0.4) % Neut % (Auto) 41.0 L (45-73) % Lymph % (Auto) 47.0 H (20-40) % [place] % (Auto) 8.4 (2-11) % Eos % (Auto) 0.0 (0-4) % Baso % (Auto) 0.0 (0-2) % Lymph # (Auto) 0.4 L (1.2-4.9) X10*3/uL [place] # (Auto) 0.1 (0.1-1.2) X10*3/uL Eos # (Auto) 0.0 (0.0-0.4) X10*3/uL Baso # (Auto) 0.0 (0.0-0.2) X10*3/uL Abs Immat Gran (auto) 0.03 (0.00-0.03) X10*3/uL Absolute Neuts (auto) 0.3 L (2.0-8.3) x10*3/uL Absolute Nucleated RBC 0.030 H (0.0-0.012) X10*3/uL Nucleated RBC % (auto) 3.6 H (0.0-0.2) /100WBC Smear Tech's Comments VERIFIED Sodium 139 (135-145) mmol/L Potassium 4.5 (3.3-5.1) mmol/L Chloride 112 H (96-108) mmol/L Carbon Dioxide 21 L (22-29) mmol/L Anion Gap 11 L (12-20) BUN 48 H (9-16) mg/dL Creatinine 0.90 (0.5-1.4) mg/dL Estim Creat Clear Calc 57.2 Estimated GFR > 60 Random Glucose 101 (60-115) mg/dL Lactic Acid (0.5-2.0) mmol/L Calcium 8.2 L D (8.4-10.2) mg/dL Total Bilirubin 0.3 (0.0-1.0) mg/dL Direct Bilirubin < 0.2 (0.0-0.5) mg/dL AST 11 (5-37) U/L ALT 7 (0-40) U/L Alkaline Phosphatase 25 L (39-117) U/L Troponin I High Sens 8.0 (<3.5-35.0) ng/L B-Natriuretic Peptide (<100) pg/mL Total Protein 5.0 L D (6.5-8.0) g/dL Albumin 2.9 L D (3.5-5.0) g/dL Stool Occult Blood (NEGATIVE) COVID-19 (ELAN) (Negative) COVID-19 Clin Com Blood Type Antibody Screen Crossmatch 04/13/22 04/13/22 04/13/22 Range/Units 10:00 10:00 10:14 WBC (4.8-10.8) X10*3/uL RBC (4.60-5.80) X10*6/uL Hgb (14.0-18.0) g/dl Hct (42.0-52.0) % MCV (80.0-98.0) fL MCH (27.0-33.0) pg MCHC (31.0-36.0) g/dl RDW (11.0-16.0) % Plt Count (160-400) X10*3/uL MPV (9.4-12.4) fL Immature Gran % (Auto) (0.0-0.4) % Neut % (Auto) (45-73) % Lymph % (Auto) (20-40) % [place] % (Auto) (2-11) % Eos % (Auto) (0-4) % Baso % (Auto) (0-2) % Lymph # (Auto) (1.2-4.9) X10*3/uL [place] # (Auto) (0.1-1.2) X10*3/uL Eos # (Auto) (0.0-0.4) X10*3/uL Baso # (Auto) (0.0-0.2) X10*3/uL Abs Immat Gran (auto) (0.00-0.03) X10*3/uL Absolute Neuts (auto) (2.0-8.3) x10*3/uL Absolute Nucleated RBC (0.0-0.012) X10*3/uL Nucleated RBC % (auto) (0.0-0.2) /100WBC Smear Tech's Comments Sodium (135-145) mmol/L Potassium (3.3-5.1) mmol/L Chloride (96-108) mmol/L Carbon Dioxide (22-29) mmol/L Anion Gap (12-20) BUN (9-16) mg/dL Creatinine (0.5-1.4) mg/dL Estim Creat Clear Calc Estimated GFR Random Glucose (60-115) mg/dL Lactic Acid (0.5-2.0) mmol/L Calcium (8.4-10.2) mg/dL Total Bilirubin (0.0-1.0) mg/dL Direct Bilirubin (0.0-0.5) mg/dL AST (5-37) U/L ALT (0-40) U/L Alkaline Phosphatase (39-117) U/L Troponin I High Sens (<3.5-35.0) ng/L B-Natriuretic Peptide 367 H (<100) pg/mL Total Protein (6.5-8.0) g/dL Albumin (3.5-5.0) g/dL Stool Occult Blood POSITIVE (NEGATIVE) COVID-19 (ELAN) (Negative) COVID-19 Clin Com Blood Type A Positive Antibody Screen NEGATIVE Crossmatch See Detail 04/13/22 04/13/22 Range/Units 10:15 10:40 WBC (4.8-10.8) X10*3/uL RBC (4.60-5.80) X10*6/uL Hgb (14.0-18.0) g/dl Hct (42.0-52.0) % MCV (80.0-98.0) fL MCH (27.0-33.0) pg MCHC (31.0-36.0) g/dl RDW (11.0-16.0) % Plt Count (160-400) X10*3/uL MPV (9.4-12.4) fL Immature Gran % (Auto) (0.0-0.4) % Neut % (Auto) (45-73) % Lymph % (Auto) (20-40) % [place] % (Auto) (2-11) % Eos % (Auto) (0-4) % Baso % (Auto) (0-2) % Lymph # (Auto) (1.2-4.9) X10*3/uL [place] # (Auto) (0.1-1.2) X10*3/uL Eos # (Auto) (0.0-0.4) X10*3/uL Baso # (Auto) (0.0-0.2) X10*3/uL Abs Immat Gran (auto) (0.00-0.03) X10*3/uL Absolute Neuts (auto) (2.0-8.3) x10*3/uL Absolute Nucleated RBC (0.0-0.012) X10*3/uL Nucleated RBC % (auto) (0.0-0.2) /100WBC Smear Tech's Comments Sodium (135-145) mmol/L Potassium (3.3-5.1) mmol/L Chloride (96-108) mmol/L Carbon Dioxide (22-29) mmol/L Anion Gap (12-20) BUN (9-16) mg/dL Creatinine (0.5-1.4) mg/dL Estim Creat Clear Calc Estimated GFR Random Glucose (60-115) mg/dL Lactic Acid 0.9 (0.5-2.0) mmol/L Calcium (8.4-10.2) mg/dL Total Bilirubin (0.0-1.0) mg/dL Direct Bilirubin (0.0-0.5) mg/dL AST (5-37) U/L ALT (0-40) U/L Alkaline Phosphatase (39-117) U/L Troponin I High Sens (<3.5-35.0) ng/L B-Natriuretic Peptide (<100) pg/mL Total Protein (6.5-8.0) g/dL Albumin (3.5-5.0) g/dL Stool Occult Blood (NEGATIVE) COVID-19 (ELAN) Negative (Negative) COVID-19 Clin Com See Note Blood Type Antibody Screen Crossmatch Imaging Data Chest x-ray: Attestation: I personally reviewed and interpreted this imaging study as follows: Radiologist's impression: [place] [id number] XRay Report Signed Patient: Faizan Campbell Jr MR#: [id number] : 1945 Acct:[id number] Age/Sex: 77 / M ADM Date: 04/13/22 Loc: HO.ED Attending Dr: Ordering Physician: Cate Wang NP Date of Service: 04/13/22 Procedure(s): XR chest 2V Accession Number(s): [id number] cc: Cate Wang NP~ EXAMINATION: XR CHEST CLINICAL INFORMATION: Shortness of breath COMPARISON: 03/04/2022 TECHNIQUE: 2 views of the chest were obtained. FINDINGS: Again seen are ill-defined multifocal airspace opacities. Previously the most confluent, conspicuous abnormality was at the right lung base, which now appears improved. However, there are airspace opacities seen on the current study, for example in the right midlung, which are new/increased from the prior study. Small bilateral pleural effusions persist. Normal heart size. Degenerative changes of the shoulders and spine. There is retroverted cardiac gas consistent with a moderate-sized hiatal hernia, increased from prior. XR/XR chest 2V IMPRESSION: Ill-defined multifocal airspace opacities, with some areas improved, others worsened from prior study 03/04/2022 consistent with a waxing and waning infectious or inflammatory process. ECG Data Attestation: I personally reviewed and interpreted this ECG as follows: ECG interpretation date: 04/13/22 ECG interpretation time: 08:53 Interpretation: Normal sinus rhythm with sinus arrhythmia with rate of 85, normal IN, normal QRS, QTC 490 Critical Care Time Critical Care Time Critical Care Time: Yes Total Critical Care Time: 120 Attestation: Discussion with Gastroenterology, Hematology, medicine, transferred to tertiary care center Re-evaluations on patient's vital sign, discussion with family Discharge Plan Discharge Clinical Impression: Acute on chronic anemia, GIB (gastrointestinal bleeding), Pancytopenia, Pneumonia Patient Disposition: [facility] Transfer Details: [facility] Prescriptions: No Action finasteride 5 mg tablet 1 tab PO DAILY ferrous sulfate 324 mg (65 mg iron) Tablet,Delayed Release (Dr/Ec) 324 mg PO DAILY potassium chloride 20 mEq tablet,ER particles/crystals 1 tab PO DAILY simvastatin 80 mg Tablet 80 mg PO BEDTIME metoprolol tartrate 25 mg tablet 25 mg PO BID PRN (Reason: SBP>90) omeprazole 40 mg Capsule,Delayed Release(Dr/Ec) 40 mg PO BID@0630,1630 Qty: 60 4RF amiodarone 200 mg tablet 200 mg PO DAILY Qty: 30 1RF Interventions: Acute Care Transfer Worksheet (ED) Last Done: 04/13/22 13:42 Discharge Date/Time: 04/13/22 13:42
[2022-04-13 09:20] LABS: Imm Gran Abs Auto 0.03 X10*3/uL (0.00-0.03); Imm Gran Pct Auto 3.6 % (0.0-0.4); Lymphocytes Absolute Auto 0.4 X10*3/uL (1.2-4.9); Mean Corpuscular HGB Conc 31.9 g/dl (31.0-36.0); Mean Corpuscular Hemoglobin 29.3 pg (27.0-33.0); Mean Platelet Volume 10.9 fL (9.4-12.4); Monocytes Absolute Auto 0.1 X10*3/uL (0.1-1.2); Monocytes Percent Auto 8.4 % (2-11); Neutrophils Absolute Auto 0.3 x10*3/uL (2.0-8.3); Red Cell Distribution Width 17.4 % (11.0-16.0); SCAN SMEAR FLAG 1
[2022-04-13 09:23] LABS: MANUAL DIFF FLAG SCAN; NRBC Pct Auto 3.6 /100WBC (0.0-0.2); Platelet Count 43 X10*3/uL (160-400)
[2022-04-13 09:25] LABS: White Blood Count 0.8 X10*3/uL (4.8-10.8)
[2022-04-13 09:26] LABS: Hematocrit 13.8 % (42.0-52.0); Hemoglobin 4.4 g/dl (14.0-18.0)
[2022-04-13 09:44] LABS: Alanine Aminotransferase 7 U/L (0-40); Albumin Level 2.9 g/dL (3.5-5.0); Alkaline Phosphatase 25 U/L (39-117); Anion Gap 11 (12-20); Aspartate Amino Transferase 11 U/L (5-37); Bilirubin Direct < 0.2 mg/dL (0.0-0.5); Bilirubin Total 0.3 mg/dL (0.0-1.0); Blood Urea Nitrogen 48 mg/dL (9-16); Calcium 8.2 mg/dL (8.4-10.2); Carbon Dioxide 21 mmol/L (22-29); Chloride 112 mmol/L (96-108); Creatinine Clr Calc Pharmacy 57.2; Estimated Glomerular Filt Rate > 60; Glucose Random 101 mg/dL (60-115); Potassium 4.5 mmol/L (3.3-5.1); SLIDE REVIEW VERIFIED; Sodium 139 mmol/L (135-145)
[2022-04-13 10:21] LABS: OBS Int Ctl Valid YES; OBS1 POSITIVE (NEGATIVE)
[2022-04-13 10:42] LABS: B Type Natriuretic Peptide 367 pg/mL (<100)
[2022-04-13 10:43] LABS: COVID-19 Test Negative (Negative); IDNOW Serial# 16C4AD1C
[2022-04-13] MEDS: cefEPime HCl 2 GM in 0.9 % Sodium Chloride 50 ML IV (10:45)
[2022-04-13] MEDS: Pantoprazole Sodium 40 MG/10 ML VIAL IVPUSH (10:50)
[2022-04-13 10:58] LABS: Lactic Acid 0.9 mmol/L (0.5-2.0)
[2022-04-13 11:25] VITALS: BP 107/41; PULSE 88; RESP 18; TEMP 36.4
--- NOTE | 2022-04-13 11:31 | PC.NURSE ---
@ 11:31AM TRUDY LOPEZ ASKS FOR CALL OUT TO [facility] PT [facility] LINE [facility] ANSWERS AND SAYS THEY ARE CLOSED TO THIS TYPE (GI BLEED) OF TRANSFER
--- NOTE | 2022-04-13 11:36 | PHA.MEDREC ---
Addendum entered by Carolyn Mars RPh 04/13/22 11:37: PER DAUGHTER PATIENT IS SUPPOSED TO TAKE LASIX 20MG QD BUT REFUSES BECAUSE IT INCREASES URINARY FREQUENCY Original Note: Pharmacy Consult ? Medication Reconciliation Pharmacy has completed the medication reconciliation.
--- NOTE | 2022-04-13 11:39 | PC.NURSE ---
@ 11:39 AM TRUDY LOPEZ REQUESTS CALL OUT TO [facility] AND STATES THEY ARE CLOSED TO TX DUE TO THEIR OWN HOLDING FOR ROOM ASSIGNMENTS
[2022-04-13 11:40] VITALS: BP 108/55; PULSE 85; RESP 16; TEMP 36.6
--- NOTE | 2022-04-13 11:43 | PC.NURSE ---
@ 11:44 INSULATION CUTTER JESSICA REQUESTS CALL OUT TO [facility] [place] [facility] ANSWERS, TAKES PT INFO THEN ASKS TO SPEAK WITH JESSICA LOPEZ TAKES OVER CALL RIGHT AWAY
--- NOTE | 2022-04-13 11:55 | PC.NURSE ---
PER JESSICA ACCEPTING @ [facility] IS DR AWAD FOR AN ER TO ER TRANSFER FIDEL[facility] FROM [facility] HERE TO HELP FACILITATE TRANSFER OF THIS PT @ THIS TIME
--- NOTE | 2022-04-13 12:19 | PC.NURSE ---
Repot to Jaylin RAMON at [facility]
[2022-04-13 12:37] VITALS: BP 100/30; PULSE 94; RESP 16; TEMP 36.6
[2022-04-13 13:30] VITALS: BP 121/37; PULSE 93; RESP 18; TEMP 36.6
== END 2022-04-13 13:42 | disposition short-term general hospital (02) ==
PROVIDERS: Nurse Practitioner Family; Emergency Provider Emergency Medicine Emergency Medical Services; PCP Internal Medicine
DX: K92.2 Gastrointestinal hemorrhage, unspecified (principal); D63.1 Anemia in chronic kidney disease; D61.818 Other pancytopenia; J18.9 Pneumonia, unspecified organism; I13.0 Hypertensive heart and chronic kidney disease with heart failure and stage 1 through stage 4 chronic kidney disease, or unspecified chronic kidney disease; N18.32 Chronic kidney disease, stage 3b; R06.82 Tachypnea, not elsewhere classified; R06.02 Shortness of breath; I49.8 Other specified cardiac arrhythmias; I50.23 Acute on chronic systolic (congestive) heart failure; Z99.81 Dependence on supplemental oxygen; Z79.02 Long term (current) use of antithrombotics/antiplatelets; Z87.891 Personal history of nicotine dependence; Z20.822 Contact with and (suspected) exposure to COVID-19
CPT/HCPCS: 36415; 36430; 71046; 80048; 80076; 82272; 83605; 83880; 84484; 85025; 86850; 86900; 86901; 86923; 87040; 87635; 93005; 96374; 96375; 99285; J0692; P9016